=== PATIENT | female | born 1940 | race Caucasian/White ===

== ENCOUNTER 2020-08-06 19:32 | Inpatient (IN) | payer MEDICARE, OTHER ==
[2020-08-06] MEDS ORDERED: SODIUM CHLORIDE 0.9% 1,000 ML IV STA ×2 (21:38)
[2020-08-06] MEDS ORDERED: MORPHINE SULFATE 4 MG/ML SYRINGE IVP STA (21:39)
[2020-08-06] MEDS ORDERED: KETOROLAC 15 MG/ML 1 ML VIAL IVP STA (21:39)
--- NOTE | 2020-08-06 21:43 | ED ---
Recheck HPI - General Chief Complaint: Abdominal Pain Stated Complaint: Abd Pain Time Seen by Provider: 08/06/20 21:33 Source: patient, RN notes reviewed, old records reviewed Mode of arrival: wheelchair Limitations: no limitations - History of Present Illness Initial Comments: This is a 80-year-old female DF for evaluation patient Dese for evaluation r egards to evaluation regarding known kidney stone. Patient was transferred to our emergency Department for evaluation of kidney stone. Complaining of significant pain. Positive nausea no vomiting. Patient presented to outside facility for kidney stone pain transferred here for urology to evaluate MD Complaint: other (Known kidney stone) -: days(s) Returns Today for: persistent/worsening pain related to initial visit Symptoms Since Prior Visit: worsening pain Associated Symptoms: abdominal pain Treatments Prior to Arrival: Given Pain Meds on - Related Data Home Medications Medication Instructions Recorded Confirmed Atorvastatin Calcium [Lipitor] 40 mg PO HS 08/06/20 08/06/20 Sabra 500 mg PO DAILY 08/06/20 08/06/20 Levothyroxine Sodium 100 mcg PO DAILY 08/06/20 08/06/20 Losartan Potassium [Cozaar] 100 mg PO DAILY 08/06/20 08/06/20 Sertraline HCl [Zoloft] 100 mg PO DAILY 08/06/20 08/06/20 Vitamin E 400 unit PO DAILY 08/06/20 08/06/20 amLODIPine [Norvasc] 10 mg PO DAILY 08/06/20 08/06/20 Allergies Allergy/AdvReac Type Severity Reaction Status Date / Time No Known Allergies Allergy Verified 08/06/20 23:15 Review of Systems ROS Statement: Those systems with pertinent positive or pertinent negative responses have been documented in the HPI. ROS Other: All systems not noted in ROS Statement are negative. Past Medical History Past Medical History: Cancer, Hyperlipidemia, Hypertension, Thyroid Disorder Additional Past Medical History / Comment(s): vertigo History of Any Multi-Drug Resistant Organisms: None Reported Past Surgical History: Back Surgery, Breast Surgery Past Psychological History: Depression Smoking Status: Never smoker Past Alcohol Use History: None Reported Past Drug Use History: None Reported General Exam Limitations: no limitations General appearance: alert, in no apparent distress Head exam: Present: atraumatic, normocephalic, normal inspection Eye exam: Present: normal appearance, PERRL, EOMI. Absent: scleral icterus, conjunctival injection, periorbital swelling ENT exam: Present: normal exam, mucous membranes moist Neck exam: Present: normal inspection. Absent: tenderness, meningismus, lymphadenopathy Respiratory exam: Present: normal lung sounds bilaterally. Absent: respiratory distress, wheezes, rales, rhonchi, stridor Cardiovascular Exam: Present: normal rhythm, tachycardia, normal heart sounds. Absent: systolic murmur, diastolic murmur, rubs, gallop, clicks GI/Abdominal exam: Present: soft, normal bowel sounds. Absent: distended, tenderness, guarding, rebound, rigid Extremities exam: Present: normal inspection, full ROM, normal capillary refill. Absent: tenderness, pedal edema, joint swelling, calf tenderness Back exam: Present: normal inspection Neurological exam: Present: alert, oriented X3, CN II-XII intact Psychiatric exam: Present: normal affect, normal mood Skin exam: Present: warm, dry, intact, normal color. Absent: rash Course Vital Signs 08/06/20 08/06/20 08/06/20 21:17 21:23 22:46 Temperature 99.1 F Pulse Rate 106 H 106 H 90 Respiratory 18 16 18 Rate Blood Pressure 79/59 73/46 107/55 O2 Sat by Pulse 93 L 97 Oximetry - Reevaluation(s) Reevaluation #1: 08/06/20 23:34 Medical record is reviewed Reevaluation #2: 08/06/20 23:34 Transferring paperwork is also been reviewed Reevaluation #3: 08/06/20 23:34 Patient still complaining of pain we'll treat patient's pain appropriately - Consultations Consultation #1: Spoke with sound who agrees to admit this patient Medical Decision Making - Medical Decision Making 80 male DF for evaluation patient presents today for evaluation regards to renal colic. Patient is positive kidney stone 6 mm will be admitted for urology to evaluate treat - Lab Data Result diagrams: 08/06/20 22:25 Lab Results 08/06/20 08/06/20 08/06/20 Range/Units 22:25 22:25 22:28 PT 11.5 (9.0-12.0) sec INR 1.1 (<1.2) APTT 24.6 (22.0-30.0) sec Sodium 135 L (137-145) mmol/L Potassium 3.5 (3.5-5.1) mmol/L Chloride 101 (98-107) mmol/L Carbon Dioxide 25 (22-30) mmol/L Anion Gap 9 mmol/L BUN 22 H (7-17) mg/dL Creatinine 1.62 H (0.52-1.04) mg/dL Est GFR (CKD-EPI)AfAm 35 (>60 ml/min/1.73 sqM) Est GFR (CKD-EPI)NonAf 30 (>60 ml/min/1.73 sqM) Glucose 131 H (74-99) mg/dL Plasma Lactic Acid Juvenal 2.7 H* (0.7-2.0) mmol/L Calcium 8.7 (8.4-10.2) mg/dL Magnesium 1.3 L (1.6-2.3) mg/dL Total Bilirubin 0.9 (0.2-1.3) mg/dL AST 37 H (14-36) U/L ALT 21 (4-34) U/L Alkaline Phosphatase 99 (38-126) U/L C-Reactive Protein 67.5 H (<10.0) mg/L Total Protein 6.6 (6.3-8.2) g/dL Albumin 3.6 (3.5-5.0) g/dL - EKG Data -: EKG Interpreted by Me (EKG shows sinus rhythm 98 MS 190 QRS 102 QTC 464) - Radiology Data Radiology results: report reviewed Disposition Clinical Impression: Kidney stone, Intractable pain Disposition: ADMITTED IP TO THIS [facility] Condition: Good Is patient prescribed a controlled substance at d/c from ED?: No Referrals: None,Stated [Primary Care Provider] - 1-2 days
[2020-08-06 22:39] LABS: Albumin 3.6 g/dL (3.5-5.0); C Reactive Protein 67.5 mg/L (<10.0); Calcium 8.7 mg/dL (8.4-10.2); Magnesium 1.3 mg/dL (1.6-2.3); Potassium 3.5 mmol/L (3.5-5.1); Total Bilirubin 0.9 mg/dL (0.2-1.3); Total Protein 6.6 g/dL (6.3-8.2)
[2020-08-06 22:54] LABS: INR 1.1 (<1.2); Partial Thromboplastin Time 24.6 sec (22.0-30.0); Prothrombin Time 11.5 sec (9.0-12.0)
[2020-08-06] MEDS ORDERED: NALOXONE 0.4 MG/ML 1 ML VIAL IV PRN (23:28)
[2020-08-07 00:04] LABS: HCT 39.1 % (34.0-46.0); HGB 13.4 gm/dL (11.4-16.0); MCH 32.8 pg (25.0-35.0); MCHC 34.2 g/dL (31.0-37.0); MCV 95.9 fL (80.0-100.0); Platelet Count 198 k/uL (150-450); RBC 4.07 m/uL (3.80-5.40); RDW 12.6 % (11.5-15.5); WBC 37.3 k/uL (3.8-10.6)
--- NOTE | 2020-08-07 01:59 | P.HPIM ---
History of Present Illness H&P Date: 08/06/20 Chief Complaint: back pain 80 year old female with history of renal stone, hypertension , hypothyroid, breast ca in remission [place] pain radiating from one flank to the other started suddenly today rated the pain as 8 out of 10 in severity sharp colicky pain no specific relieving or aggravating factor associated with feeling nauseous and having chills no vomiting no hematuria patient noticed decreased urine output however she is normally incontinent to urine, patient also reports 3 episodes of loose bowel movement. She felt very sick today went for evaluation CAT scan was done and was found to have a 6 mm in the right UPJ causing severe right hydronephrosis for which she [place] and evaluation by urology patient reports that pain is improving with IV pain medications. She does have history positive for kidney stones in the past that she thinks she passed on her own In the ED blood work showed elevated white count, acute kidney injury, lactic acidosis Review of Systems Pertinent positives as noted in HPI. All other systems were reviewed and are negative Past Medical History Past Medical History: Cancer, Hyperlipidemia, Hypertension, Thyroid Disorder Additional Past Medical History / Comment(s): vertigo History of Any Multi-Drug Resistant Organisms: None Reported Past Surgical History: Back Surgery, Breast Surgery Past Psychological History: Depression Smoking Status: Never smoker Past Alcohol Use History: None Reported Past Drug Use History: None Reported - Past Family History family Family Medical History: No Reported History Medications and Allergies Home Medications Medication Instructions Recorded Confirmed Type Atorvastatin Calcium [Lipitor] 40 mg PO HS 08/06/20 08/06/20 History Sabra 500 mg PO DAILY 08/06/20 08/06/20 History Levothyroxine Sodium 100 mcg PO DAILY 08/06/20 08/06/20 History Losartan Potassium [Cozaar] 100 mg PO DAILY 08/06/20 08/06/20 History Sertraline HCl [Zoloft] 100 mg PO DAILY 08/06/20 08/06/20 History Vitamin E 400 unit PO DAILY 08/06/20 08/06/20 History amLODIPine [Norvasc] 10 mg PO DAILY 08/06/20 08/06/20 History Allergies Allergy/AdvReac Type Severity Reaction Status Date / Time No Known Allergies Allergy Verified 04/05/21 23:15 Physical Exam Vitals: Vital Signs Temp Pulse Resp BP Pulse Ox 08/07/20 01:39 99.1 F 102 H 18 102/53 91 L 08/06/20 22:46 90 18 107/55 97 08/06/20 21:23 106 H 16 73/46 08/06/20 21:17 99.1 F 106 H 18 79/59 93 L Intake and Output 08/06/20 08/06/20 08/07/20 14:59 22:59 06:59 Other: Weight 90.718 kg Constitutional: No acute distress, conversant, pleasant Eyes: Anicteric sclerae, moist conjunctiva, Pupils equal round reactive to light ENMT: NC/AT Oropharynx clear, no erythema, or exudates Neck: Supple, FROM, no masses, or JVD No carotid bruits No thyromegaly Lungs: Clear to auscultation Clear to percussion Normal respiratory effort, no accessory muscle use Cardiovascular: Heart regular in rate and rhythm, No murmurs, gallops, or rubs No peripheral edema Abdominal: Soft Nontender, tenderness to percussion to the right costovertebral angle, no guarding, rebound or rigidity Abdomen moving with respiration Normoactive bowel sounds No hepatomegaly, No splenomegaly No palpable mass No abdominal wall hernia noted Skin: Normal temperature, tone, texture, turgor No induration No subcutaneous nodules No rash, lesions No ulcers Extremities: No digital cyanosis No clubbing Pedal pulses intact and symmetrical Radial pulses intact and symmetrical No calf tenderness Psychiatric: Alert and oriented to person, place and time Appropriate affect fair judgement Neuro Muscles Strength 5/5 in all 4 extremities Sensation to light touch grossly present throughout Cranial nerves II-XII grossly intact No focal sensory deficits Lymphatics: no palpable cervical or supraclavicular , or inguinal lymph nodes Results CBC & Chem 7: 08/06/20 22:25 08/06/20 22:25 Labs: Abnormal Lab Results - Last 24 Hours (Table) 08/06/20 08/06/20 08/06/20 Range/Units 22:25 22:25 22:25 WBC 37.3 H (3.8-10.6) k/uL Sodium 135 L (137-145) mmol/L BUN 22 H (7-17) mg/dL Creatinine 1.62 H (0.52-1.04) mg/dL Glucose 131 H (74-99) mg/dL Plasma Lactic Acid Juvenal 2.7 H* (0.7-2.0) mmol/L Magnesium 1.3 L (1.6-2.3) mg/dL AST 37 H (14-36) U/L C-Reactive Protein 67.5 H (<10.0) mg/L Assessment and Plan Assessment: Obstructive right ureteral stone resulting in severe hydronephrosis Acute kidney injury secondary to obstructive uropathy Rule out pyelonephritis Actiq acidosis Plan Follow-up cultures Urine cultures Start patient on Rocephin Urology consultation Monitor urine output and strain urine, monitor for signs of of postobstructive nephrogenic diabetes insipidus Flomax, IV fluid hydration aggressive Pain control with morphine Zofran for nausea vomiting Chronic conditions Hypertension Hypothyroidism Resume home medications Hold losartan due to acute kidney injury CODE STATUS: Full code DVT prophylaxis: Heparin Subcu Discussed with: Patient, ER Anticipated length of stay > than [address]: Home A total of 75 minutes was spent on the care of this complex patient more than 50% of the time was spent in counseling and care coordination.
[2020-08-07 03:11] LABS: Band Neutrophils % 31 %; Lymphocytes # (M) 0.75 k/uL (1.0-4.8); Monocytes # (M) 0.75 k/uL (0-1.0); Neutrophils % (M) 66 %; Nucleated Red Blood Cells 0 /100 WBC (0-0); Total Cells Counted 200
[2020-08-07 03:12] LABS: Anisocytosis (M) Present
[2020-08-07 03:13] LABS: Large Platelets Present; Polychromasia Present
[2020-08-07] MEDS: ONDANSETRON 4 MG/2 ML VIAL IVP PRN ×2 (04:13→13:59)
[2020-08-07] MEDS ORDERED: SODIUM CHLORIDE 0.9% 1,000 ML IV ONE ×4 (04:22→22:11)
[2020-08-07] MEDS: TAMSULOSIN 0.4 MG CAP.ER.24H PO SCH (05:05)
[2020-08-07 05:55] LABS: Calcium 7.4 mg/dL (8.4-10.2); Potassium 3.9 mmol/L (3.5-5.1)
[2020-08-07] MEDS: LEVOTHYROXINE 100 MCG TAB PO SCH (06:41)
[2020-08-07] MEDS: ACETAMINOPHEN TAB 325 MG TAB PO PRN ×2 (06:44→22:57)
[2020-08-07 09:26] LABS: Appearance,Urine Turbid (Clear); Bacteria,Urine Occasional /hpf; Bilirubin,Urine Negative (Negative); Blood,Urine Large (Negative); Color,Urine Yellow; Glucose,Urine (UA) Negative (Negative); Ketones,Urine Negative (Negative); Leukocyte Esterase,Urine Large (Negative); Nitrite,Urine Negative (Negative); PH, Urine 5.5 (5.0-8.0); Protein,Urine 2+ (Negative); RBC,Urine 25 /hpf (0-5); Specific Gravity,Urine 1.017 (1.001-1.035); Squamous Epithelial Cell,Urine 1 /hpf (0-4); WBC,Urine >182 /hpf (0-5)
[2020-08-07] MEDS: SERTRALINE 100 MG TAB PO SCH (09:28)
[2020-08-07] MEDS: amLODIPine 10 MG TAB PO SCH (09:28)
[2020-08-07] MEDS: MAGNESIUM SULFATE-D5W PMX 1 GM in DEXTROSE/WATER 1 100ML.BAG IVPB SCH ×4 (10:18→13:48)
[2020-08-07] MEDS ORDERED: IV FLUID CONTINUATION 1,000 ML IV ONE (13:48)
--- NOTE | 2020-08-07 14:02 | P.GSCN ---
History of Present Illness Consult date: 08/07/20 Reason for Consult: Right UPJ calculus Requesting physician: Sheryl Sanchez History of present illness: The patient is a 80-year-old white female evaluated yesterday at [facility] in [facility] for back pain radiating bilaterally. The patient has a history of kidney stones and felt that this was the cause of her symptoms. Computed tomography scan shows severe right hydronephrosis with moderate perinephric urinary extravasation due to a 4.7 x 6.1 mm right UPJ calculus. 2 right lower pole renal calculi were also seen, measuring 4.8 and 6.4 mm. Additionally, a 3.3 mm nonobstructing left lower pole renal calculus was seen. The patient presented to the emergency room at [facility] yesterday evening and was admitted. Review of Systems - Constitutional Reports fever - Gastrointestinal Reports nausea, Reports vomiting - Genitourinary Genitourinary: Reports flank pain, Reports kidney stones Past Medical History Past Medical History: Cancer, Hyperlipidemia, Hypertension, Thyroid Disorder Additional Past Medical History / Comment(s): vertigo History of Any Multi-Drug Resistant Organisms: None Reported Past Surgical History: Back Surgery, Breast Surgery Past Anesthesia/Blood Transfusion Reactions: No Reported Reaction Past Psychological History: Depression Smoking Status: Never smoker Past Alcohol Use History: None Reported Past Drug Use History: None Reported - Past Family History family Family Medical History: No Reported History Medications and Allergies Home Medications Medication Instructions Recorded Confirmed Type Atorvastatin Calcium [Lipitor] 40 mg PO HS 08/06/20 08/06/20 History Sabra 500 mg PO DAILY 08/06/20 08/06/20 History Levothyroxine Sodium 100 mcg PO DAILY 08/06/20 08/06/20 History Losartan Potassium [Cozaar] 100 mg PO DAILY 08/06/20 08/06/20 History Sertraline HCl [Zoloft] 100 mg PO DAILY 08/06/20 08/06/20 History Vitamin E 400 unit PO DAILY 08/06/20 08/06/20 History amLODIPine [Norvasc] 10 mg PO DAILY 08/06/20 08/06/20 History Allergies Allergy/AdvReac Type Severity Reaction Status Date / Time No Known Allergies Allergy Verified 08/06/20 23:15 Surgical - Exam Vital Signs Temp Pulse Resp BP Pulse Ox 99.1 F 106 H 18 79/59 93 L 08/06/20 21:17 08/06/20 21:17 08/06/20 21:17 08/06/20 21:17 08/06/20 21:17 - General well developed, well nourished, no distress - Neck no masses, trachea midline - Respiratory normal respiratory effort - Abdomen Abdomen: soft, tender (Mild right sided tenderness), no masses, no guarding, no rigid, no rebound - Psychiatric oriented to time, oriented to person, oriented to place, speech is normal, m forrest intact Results - Labs 08/06/20 22:25 08/07/20 05:12 Abnormal Lab Results - Last 24 Hours (Table) 08/06/20 08/06/20 08/06/20 Range/Units 22:25 22:25 22:25 WBC 37.3 H (3.8-10.6) k/uL Neutrophils # (Manual) 36.10 H (1.3-7.7) k/uL Lymphocytes # (Manual) 0.75 L (1.0-4.8) k/uL Sodium 135 L (137-145) mmol/L Carbon Dioxide (22-30) mmol/L BUN 22 H (7-17) mg/dL Creatinine 1.62 H (0.52-1.04) mg/dL Glucose 131 H (74-99) mg/dL Plasma Lactic Acid Juvenal 2.7 H* (0.7-2.0) mmol/L Calcium (8.4-10.2) mg/dL Magnesium 1.3 L (1.6-2.3) mg/dL AST 37 H (14-36) U/L C-Reactive Protein 67.5 H (<10.0) mg/L Urine Appearance (Clear) Urine Protein (Negative) Urine Blood (Negative) Ur Leukocyte Esterase (Negative) Urine RBC (0-5) /hpf Urine WBC (0-5) /hpf Urine WBC Clumps (None) /hpf Urine Bacteria (None) /hpf 08/07/20 08/07/20 08/07/20 Range/Units 01:21 05:12 05:12 WBC (3.8-10.6) k/uL Neutrophils # (Manual) (1.3-7.7) k/uL Lymphocytes # (Manual) (1.0-4.8) k/uL Sodium 135 L (137-145) mmol/L Carbon Dioxide 20 L (22-30) mmol/L BUN 28 H (7-17) mg/dL Creatinine 1.75 H (0.52-1.04) mg/dL Glucose 110 H (74-99) mg/dL Plasma Lactic Acid Juvenal 3.3 H* 2.2 H* (0.7-2.0) mmol/L Calcium 7.4 L (8.4-10.2) mg/dL Magnesium (1.6-2.3) mg/dL AST (14-36) U/L C-Reactive Protein (<10.0) mg/L Urine Appearance (Clear) Urine Protein (Negative) Urine Blood (Negative) Ur Leukocyte Esterase (Negative) Urine RBC (0-5) /hpf Urine WBC (0-5) /hpf Urine WBC Clumps (None) /hpf Urine Bacteria (None) /hpf 08/07/20 Range/Units 09:00 WBC (3.8-10.6) k/uL Neutrophils # (Manual) (1.3-7.7) k/uL Lymphocytes # (Manual) (1.0-4.8) k/uL Sodium (137-145) mmol/L Carbon Dioxide (22-30) mmol/L BUN (7-17) mg/dL Creatinine (0.52-1.04) mg/dL Glucose (74-99) mg/dL Plasma Lactic Acid Juvenal (0.7-2.0) mmol/L Calcium (8.4-10.2) mg/dL Magnesium (1.6-2.3) mg/dL AST (14-36) U/L C-Reactive Protein (<10.0) mg/L Urine Appearance Turbid H (Clear) Urine Protein 2+ H (Negative) Urine Blood Large H (Negative) Ur Leukocyte Esterase Large H (Negative) Urine RBC 25 H (0-5) /hpf Urine WBC >182 H (0-5) /hpf Urine WBC Clumps Many H (None) /hpf Urine Bacteria Occasional H (None) /hpf Microbiology - Last 24 Hours (Table) 08/07/20 03:45 Urine Culture - Preliminary Urine,Clean Catch Diabetes panel 08/06/20 08/07/20 Range/Units 22:25 05:12 Sodium 135 L 135 L (137-145) mmol/L Potassium 3.5 3.9 (3.5-5.1) mmol/L Chloride 101 107 (98-107) mmol/L Carbon Dioxide 25 20 L (22-30) mmol/L BUN 22 H 28 H (7-17) mg/dL Creatinine 1.62 H 1.75 H (0.52-1.04) mg/dL Glucose 131 H 110 H (74-99) mg/dL Calcium 8.7 7.4 L (8.4-10.2) mg/dL AST 37 H (14-36) U/L ALT 21 (4-34) U/L Alkaline Phosphatase 99 (38-126) U/L Total Protein 6.6 (6.3-8.2) g/dL Albumin 3.6 (3.5-5.0) g/dL Calcium panel 08/06/20 08/07/20 Range/Units 22:25 05:12 Calcium 8.7 7.4 L (8.4-10.2) mg/dL Albumin 3.6 (3.5-5.0) g/dL Pituitary panel 08/06/20 08/07/20 Range/Units 22:25 05:12 Sodium 135 L 135 L (137-145) mmol/L Potassium 3.5 3.9 (3.5-5.1) mmol/L Chloride 101 107 (98-107) mmol/L Carbon Dioxide 25 20 L (22-30) mmol/L BUN 22 H 28 H (7-17) mg/dL Creatinine 1.62 H 1.75 H (0.52-1.04) mg/dL Glucose 131 H 110 H (74-99) mg/dL Calcium 8.7 7.4 L (8.4-10.2) mg/dL Adrenal panel 08/06/20 08/07/20 Range/Units 22:25 05:12 Sodium 135 L 135 L (137-145) mmol/L Potassium 3.5 3.9 (3.5-5.1) mmol/L Chloride 101 107 (98-107) mmol/L Carbon Dioxide 25 20 L (22-30) mmol/L BUN 22 H 28 H (7-17) mg/dL Creatinine 1.62 H 1.75 H (0.52-1.04) mg/dL Glucose 131 H 110 H (74-99) mg/dL Calcium 8.7 7.4 L (8.4-10.2) mg/dL Total Bilirubin 0.9 (0.2-1.3) mg/dL AST 37 H (14-36) U/L ALT 21 (4-34) U/L Alkaline Phosphatase 99 (38-126) U/L Total Protein 6.6 (6.3-8.2) g/dL Albumin 3.6 (3.5-5.0) g/dL - Imaging CT scan - abdomen: report reviewed Assessment and Plan (1) Calculus of ureter Current Visit: Yes Status: Acute Code(s): N20.1 - CALCULUS OF URETER SNOM ED Code(s): 12511254 (2) Hydronephrosis with renal and ureteral calculous obstruction Current Visit: Yes Status: Acute Code(s): N13.2 - HYDRONEPHROSIS WITH RENAL AND URETERAL CALCULOUS OBSTRUCTION SNOMED Code(s): 270600306 (3) Acute pyelonephritis Current Visit: Yes Status: Acute Code(s): N10 - ACUTE PYELONEPHRITIS SNOMED Code(s): 71290748 Plan: Cystoscopy, right ureteral stent insertion. The rationale for this was discussed in detail with the patient. She was advised that she appears to have acute right pyelonephritis complicated by an obstructing UPJ calculus, and stent placement will help to eradicate the infection. It was also made clear to her that the stent is to remain in place only temporarily, and that she will require removal of the stent and the obstructing stone after the infection clears. She indicated to me that her significant other resides in [place], and that she is from [place], and she may choose to undergo the secondary procedure and one of those locations. Potential risks associated with stent placement include anesthesia, ureteral injury, and inability to successfully place the stent. If this is the case, she could require nephrostomy tube placement. This was all reviewed with her in detail. Time with Patient: Greater than 30
[2020-08-07] MEDS ORDERED: PROPOFOL 10 MG/ML 20 ML VIAL IV ONE (14:41)
[2020-08-07] MEDS ORDERED: SUCCINYLCHOLINE CHLORIDE 100 MG/5 ML SYR IV ONE (14:41)
[2020-08-07] MEDS ORDERED: LIDOCAINE 1% INJ 10MG/ML (20 ML MDV) ONE (14:41)
--- NOTE | 2020-08-07 15:22 | P.OP ---
Date of Procedure: 08/07/20 Preoperative Diagnosis: Acute right pyelonephritis, right hydronephrosis secondary to right UPJ calculus Postoperative Diagnosis: Same Procedure(s) Performed: Cystoscopy, right ureteral stent insertion Anesthesia: RICHARD Surgeon: Dagoberto Slaughter Estimated Blood Loss (ml): 0 IV fluids (ml): 200 Pathology: none sent Condition: stable Disposition: PACU Indications for Procedure: The patient is a 80-year-old white female evaluated yesterday at [facility] in [facility] for back pain radiating bilaterally. The patient has a history of kidney stones and felt that this was the cause of her symptoms. CT scan showed severe right hydronephrosis with moderate perinephric urinary extravasation due to a 4.7 x 6.1 mm right UPJ calculus. 2 right lower pole renal calculi were also seen, measuring 4.8 and 6.4 mm. Additionally, a 3.3 mm nonobstructing left lower pole renal calculus was seen. The patient presented to the emergency room at [facility] yesterday evening and was admitted. She has been febrile, her WBC count is significantly elevated, and urinalysis shows evidence of infection. These findings are all consistent with acute right pyelonephritis and sepsis. Operative Findings: Purulent urine drained from right renal pelvis. Description of Procedure: The patient was taken to the operating room and placed in the dorsolithotomy position, with legs supported in Darinel stirrups. The external genitalia was prepped and draped sterilely. The 30 lens was used to introduce the 22-Japanese Stortz cystoscopic sheath through the urethra and into the bladder under direct vision. The urethra appeared normal. The bladder was examined in its entirety. Both ureteral orifices were of normal anatomic location and configuration. No tumors or foreign bodies were seen. An angle-tip 0.035 inch Glidewire was passed through the cystoscope. The right ureteral orifice was cannulated, and the Glidewire was slowly advanced up to the renal pelvis. A 24 cm, 6-Japanese double-J ureteral stent was placed over the wire. Proper stent positioning was verified fluoroscopically and endoscopically. Purulent urine drained through the stent. With the beak of the cystoscope immediately adjacent to the distal end of the stent, a urine specimen was obtained and sent for culture and sensitivity. The bladder was emptied and the cystoscope removed. The patient tolerated the procedure well was taken to the recovery room in stable condition.
--- NOTE | 2020-08-07 15:36 | FL ---
Fluoroscopy INDICATION: Pain FINDINGS: Fluoroscopy time: 14 seconds. Images obtained: 1. IMPRESSIONS: 1. Documentation of fluoroscopy.
[2020-08-07] MEDS ORDERED: GENTAMICIN PER PHARMACY MISCELLANE PRN (16:32)
[2020-08-07] MEDS ORDERED: GENTAMICIN 320 MG in SODIUM CHLORIDE 0.9% 100 ML IVPB ONE (18:00)
--- NOTE | 2020-08-07 18:13 | P.PN ---
<Gorge Foley - Last Filed: 08/07/20 17:25> Subjective Progress Note Date: 08/07/20 Hospital course: Patient is a 80-year-old female with a past medical history of hypertension, hyperlipidemia, hypothyroidism, and breast cancer currently in remission. She w as transferred to our facility from [facility] in [facility] and is currently admitted under our services with severe sepsis with obstructive severe hydronephrosis with acute kidney injury. Patient's WBC count is 37.3. Initial lactate was 3.3 with repeat of 2.2 status post 3 L bolus. Patient tachycardic, febrile, and hypotensive. Urinalysis positive for turbid appearance positive for blood, leukocytes, 25 RBCs, >182 WBCs with WBC clumps and bacteria. EKG revealing normal sinus rhythm and 98 bpm with no noted T-wave or ST abnormalities. Patient had CT prior to being transferred to our facility and per documentation, this revealed an obstructive 6 mm kidney stone in the rig ht UPJ causing severe right hydronephrosis. Physical exam: Patient was seen and fully evaluated at the bedside this morning. She was sitting up in the chair. She reports having persistent bilateral lower flank pain and difficulties with urination. Order placed for bladder management and patient straight cath'd for urine. Urinalysis positive for infection. Patient to continue receiving IV antibiotic with Rocephin pending urine culture results and sensitivity. Pt being taken to OR with Dr. Slaughter today, awaiting OR time. Patient denies having any headache, lightheadedness, dizziness, chest pain, palpitations, shortness of breath, and has not experienced any episodes of vomiting. Patient vital signs reviewed positive for sepsis with temp 101.2F, hypotension with blood pressure 99/58, tachycardic with heart rate 102, tachypnea with respiratory rate 22, and SpO2 90% on room air. General: non toxic, vital signs positive for sepsis upon appearance patient appears comfortable showing no signs of acute distress with physical examination, appears at stated age Derm: warm, dry Head: atraumatic, normocephalic, symmetric Eyes: EOMI, no lid lag, anicteric sclera Mouth: no lip lesion, mucus membranes moist Cardiovascular: S1S2 normal, tachycardic rate with regular rhythm, no gallop, murmur, or rub noted. No lower extremity edema. Positive posterior tibial pulses bilaterally. Cap refill less than 2 seconds. Lungs: Respirations even, regular, and unlabored on room air. Lungs CTA bilaterally with no wheezes, rhonchi, or rales present. No accessory muscle use. Right mastectomy. Abdominal: soft, tenderness reported to bilateral lower quadrants and suprapubic region with palpation. No appreciable organomegaly. No CVA tenderness. Ext: No gross muscle atrophy, no edema, no contractures Neuro: CN II-XI grossly intact, no focal neuro deficits Psych: Alert, oriented, appropriate affect Assessment and Plan of care: Severe sepsis secondary to acute cystitis -Severe sepsis with temp 101.2F, hypotension with blood pressure 99/58, tachycardic with heart rate 102, tachypnea with respiratory rate 22, and SpO2 90% on room air. WBC 37.3. Initial lactate 3.3 with repeat of 2.2 status post 3 L bolus. -Urinalysis positive for turbid appearance positive for blood, leukocytes, 25 RBCs, >182 WBCs with WBC clumps and bacteria -Continue hydration with IV fluids -IV antibiotics with Rocephin pending urine culture and sensitivity -Repeat lactate and continue to monitor vital signs closely -Urine culture and sensitivity pending -Bladder management -Monitor I's and O's closely Obstructive right ureteral stone resulting in severe hydronephrosis -CT scan completed at [facility] prior to being transferred to our facility reportedly revealed an obstructive 6 mm kidney stone in the right UPJ causing severe right hydronephrosis. -Bladder management with close monitoring of I's and O's -Urology following with plans to take patient to OR today -Pain management and symptomatic treatment. -Fluid hydration and treatment of acute cystitis -NPO pending surgery Acute kidney injury secondary to obstructive uropathy -Severe sepsis with temp 101.2F, hypotension with blood pressure 99/58, tachycardic with heart rate 102, tachypnea with respiratory rate 22, and SpO2 90% on room air. WBC 37.3. Initial lactate 3.3 with repeat of 2.2 status post 3 L bolus. -Continue hydration with IV fluids -Repeat lactate -Urine culture and sensitivity pending -CT scan completed at [facility] prior to being transferred to our facility reportedly revealed an obstructive 6 mm kidney stone in the right UPJ causing severe right hydronephrosis. Acute kidney injury secondary to obstructive uropathy -BUN 28, creatinine 1.75, and GFR of 27. -Urology is following -Dr. Slaughter with plans to take patient to OR today. -Gentle hydration -Bladder management -Continue close monitoring with repeat a.m. labs Hypertension -Monitor vital signs and continue daily medication management with amlodipine. Hold losartan due to TUTU. Hyperlipidemia -Continue daily home medication regimen with atorvastatin 40 mg nightly. Hypothyroidism -Continue daily medication regimen with Synthroid 100 g daily CODE STATUS: Full code DVT prophylaxis: Heparin Discussed with: Patient and RN Anticipated discharge date: Clinical course to determine Anticipated discharge place: Home A total of 45 minutes was spent on the care of this complex patient more than 50% of the time was spent in counseling and care coordination. Objective - Vital Signs Vital signs: Vital Signs Temp 101.2 F H 08/07/20 06:42 Pulse 104 H 08/07/20 05:11 Resp 22 08/07/20 05:11 BP 88/55 08/07/20 04:45 Pulse Ox 92 L 08/07/20 04:45 Intake & Output 08/06/20 08/07/20 08/07/20 18:59 06:59 18:59 Output Total 1 Balance -1 Weight 88.8 kg Output: Emesis 1 Other: Voiding Method Toilet # Voids 1 - Labs CBC & Chem 7: 08/06/20 22:25 08/07/20 05:12 Labs: Abnormal Lab Results - Last 24 Hours (Table) 08/06/20 08/06/20 08/06/20 Range/Units 22:25 22:25 22:25 WBC 37.3 H (3.8-10.6) k/uL Neutrophils # (Manual) 36.10 H (1.3-7.7) k/uL Lymphocytes # (Manual) 0.75 L (1.0-4.8) k/uL Sodium 135 L (137-145) mmol/L Carbon Dioxide (22-30) mmol/L BUN 22 H (7-17) mg/dL Creatinine 1.62 H (0.52-1.04) mg/dL Glucose 131 H (74-99) mg/dL Plasma Lactic Acid Juvenal 2.7 H* (0.7-2.0) mmol/L Calcium (8.4-10.2) mg/dL Magnesium 1.3 L (1.6-2.3) mg/dL AST 37 H (14-36) U/L C-Reactive Protein 67.5 H (<10.0) mg/L 08/07/20 08/07/20 08/07/20 Range/Units 01:21 05:12 05:12 WBC (3.8-10.6) k/uL Neutrophils # (Manual) (1.3-7.7) k/uL Lymphocytes # (Manual) (1.0-4.8) k/uL Sodium 135 L (137-145) mmol/L Carbon Dioxide 20 L (22-30) mmol/L BUN 28 H (7-17) mg/dL Creatinine 1.75 H (0.52-1.04) mg/dL Glucose 110 H (74-99) mg/dL Plasma Lactic Acid Juvenal 3.3 H* 2.2 H* (0.7-2.0) mmol/L Calcium 7.4 L (8.4-10.2) mg/dL Magnesium (1.6-2.3) mg/dL AST (14-36) U/L C-Reactive Protein (<10.0) mg/L <Nel Tapia - Last Filed: 08/07/20 21:29> Objective - Vital Signs Vital signs: Vital Signs Temp 99.2 F 08/07/20 18:28 Pulse 100 08/07/20 20:43 Resp 20 08/07/20 20:43 BP 110/52 08/07/20 20:43 Pulse Ox 94 L 08/07/20 20:43 Intake & Output 08/07/20 08/07/20 08/08/20 06:59 18:59 06:59 Intake Total 500 Output Total 1 50 Balance -1 450 Weight 88.8 kg Intake: IV 500 Output: Urine 50 Emesis 1 Estimated Blood Loss 0 Other: Voiding Method Toilet Toilet Diaper # Voids 1 1 - Labs CBC & Chem 7: 08/07/20 19:44 08/07/20 19:44 Labs: Abnormal Lab Results - Last 24 Hours (Table) 08/06/20 08/06/20 08/06/20 Range/Units 22:25 22:25 22:25 WBC 37.3 H (3.8-10.6) k/uL Plt Count (150-450) k/uL Neutrophils # (Manual) 36.10 H (1.3-7.7) k/uL Lymphocytes # (Manual) 0.75 L (1.0-4.8) k/uL Metamyelocytes # (Man) (0) k/uL Sodium 135 L (137-145) mmol/L Carbon Dioxide (22-30) mmol/L BUN 22 H (7-17) mg/dL Creatinine 1.62 H (0.52-1.04) mg/dL Glucose 131 H (74-99) mg/dL Plasma Lactic Acid Juvenal 2.7 H* (0.7-2.0) mmol/L Calcium (8.4-10.2) mg/dL Magnesium 1.3 L (1.6-2.3) mg/dL AST 37 H (14-36) U/L C-Reactive Protein 67.5 H (<10.0) mg/L Urine Appearance (Clear) Urine Protein (Negative) Urine Blood (Negative) Ur Leukocyte Esterase (Negative) Urine RBC (0-5) /hpf Urine WBC (0-5) /hpf Urine WBC Clumps (None) /hpf Urine Bacteria (None) /hpf 08/07/20 08/07/20 08/07/20 Range/Units 01:21 05:12 05:12 WBC (3.8-10.6) k/uL Plt Count (150-450) k/uL Neutrophils # (Manual) (1.3-7.7) k/uL Lymphocytes # (Manual) (1.0-4.8) k/uL Metamyelocytes # (Man) (0) k/uL Sodium 135 L (137-145) mmol/L Carbon Dioxide 20 L (22-30) mmol/L BUN 28 H (7-17) mg/dL Creatinine 1.75 H (0.52-1.04) mg/dL Glucose 110 H (74-99) mg/dL Plasma Lactic Acid Juvenal 3.3 H* 2.2 H* (0.7-2.0) mmol/L Calcium 7.4 L (8.4-10.2) mg/dL Magnesium (1.6-2.3) mg/dL AST (14-36) U/L C-Reactive Protein (<10.0) mg/L Urine Appearance (Clear) Urine Protein (Negative) Urine Blood (Negative) Ur Leukocyte Esterase (Negative) Urine RBC (0-5) /hpf Urine WBC (0-5) /hpf Urine WBC Clumps (None) /hpf Urine Bacteria (None) /hpf 08/07/20 08/07/20 08/07/20 Range/Units 09:00 19:44 19:44 WBC 29.1 H (3.8-10.6) k/uL Plt Count 115 L (150-450) k/uL Neutrophils # (Manual) 26.10 H (1.3-7.7) k/uL Lymphocytes # (Manual) 0.58 L (1.0-4.8) k/uL Metamyelocytes # (Man) 2.62 H (0) k/uL Sodium 135 L (137-145) mmol/L Carbon Dioxide 20 L (22-30) mmol/L BUN 38 H (7-17) mg/dL Creatinine 1.85 H (0.52-1.04) mg/dL Glucose 107 H (74-99) mg/dL Plasma Lactic Acid Juvenal (0.7-2.0) mmol/L Calcium 7.4 L (8.4-10.2) mg/dL Magnesium 2.7 H (1.6-2.3) mg/dL AST (14-36) U/L C-Reactive Protein (<10.0) mg/L Urine Appearance Turbid H (Clear) Urine Protein 2+ H (Negative) Urine Blood Large H (Negative) Ur Leukocyte Esterase Large H (Negative) Urine RBC 25 H (0-5) /hpf Urine WBC >182 H (0-5) /hpf Urine WBC Clumps Many H (None) /hpf Urine Bacteria Occasional H (None) /hpf Microbiology - Last 24 Hours (Table) 08/07/20 03:45 Urine Culture - Preliminary Urine,Clean Catch Assessment and Plan Assessment: Patient seen and examined independently. Patient was also seen by Gorge Foley NP and case was discussed. I am in agreement with subjective, physical exam, assessment and plan as written above and amended below. Patient initially seen at 8 AM. She reports feeling fatigued and tired with some intermittent nausea. She denies any back pain or tenderness. She reports having 2 previous kidney stone 1 requiring no treatment and 1 where stent placement was unsuccessful. Patient then seen in PACU after surgery. She has been extubated. She is awake and alert but feels somewhat lethargic. Vital signs were stable with a pulse of 98, blood pressure 105/68, and satting 98% on a simple face mask. Patient is appropriate to return to the pediatric floor with close monitoring. Case was also discussed with Dr. Slaughter in the afternoon and patient will receive one dose of gentamicin, pharmacy will dose given her diminished renal function. General: Ill-appearing, diaphoretic, appears at stated age Derm: warm, dry Head: atraumatic, normocephalic, symmetric Eyes: EOMI, no lid lag, anicteric sclera Mouth: no lip lesion, mucus membranes moist Cardiovascular: S1S2 reg, no murmur, positive posterior tibial pulse bilateral, Lungs: CTA bilateral, no rhonchi, no rales , no accessory muscle use Abdominal: soft, nontender to palpation, no guarding, no appreciable organomegaly, no CVA tenderness Ext: no gross muscle atrophy, no edema, no contractures Neuro: CN II-XI grossly intact, no focal neuro deficits Psych: Alert, oriented, appropriate affect Pyelonephritis with sepsis and obstructing right UPJ stone, s/p ureteral stent placement -Case discussed with Dr. Slaughter -Continue with Rocephin, 1 dose of aminoglycoside -Continue IV fluids -Monitor closely Thrombocytopenia, likely reactive
[2020-08-07] MEDS: SODIUM CHLORIDE 0.9% 1,000 ML IV SCH (18:32)
[2020-08-07 20:09] LABS: Calcium 7.4 mg/dL (8.4-10.2); Magnesium 2.7 mg/dL (1.6-2.3); Potassium 3.7 mmol/L (3.5-5.1)
[2020-08-07 20:13] LABS: MCH 32.8 pg (25.0-35.0); MCHC 34.3 g/dL (31.0-37.0); MCV 95.7 fL (80.0-100.0); Mean Platelet Volume 8.1; Platelet Count 115 k/uL (150-450); RBC 3.97 m/uL (3.80-5.40); RDW 12.6 % (11.5-15.5); WBC 29.1 k/uL (3.8-10.6)
[2020-08-07 20:49] LABS: Band Neutrophils % 29 %; Lymphocytes # (M) 0.58 k/uL (1.0-4.8); Metamyelocytes # (M) 2.62 k/uL (0); Metamyelocytes % 9 %; Monocytes # (M) 0.29 k/uL (0-1.0); Neutrophils % (M) 61 %; Nucleated Red Blood Cells 0 /100 WBC (0-0); Total Cells Counted 200
[2020-08-07] MEDS: ATORVASTATIN 40 MG TAB PO SCH (21:48)
[2020-08-07] MEDS: HEPARIN SODIUM,PORCINE/PF 5,000 UNIT/0.5 ML SYRINGE SQ SCH (21:48)
[2020-08-08] MEDS: ONDANSETRON 4 MG/2 ML VIAL IVP PRN ×3 (02:41→15:12)
[2020-08-08] MEDS: SIMETHICONE 80 MG CHEWABLE PO PRN (06:12)
[2020-08-08 09:01] LABS: Potassium 3.9 mmol/L (3.5-5.1)
[2020-08-08 09:02] LABS: Magnesium 2.6 mg/dL (1.6-2.3)
[2020-08-08 09:03] LABS: HCT 34.2 % (34.0-46.0); HGB 11.8 gm/dL (11.4-16.0); MCH 33.5 pg (25.0-35.0); MCHC 34.4 g/dL (31.0-37.0); MCV 97.4 fL (80.0-100.0); Mean Platelet Volume 8.3; Platelet Count 112 k/uL (150-450); RBC 3.51 m/uL (3.80-5.40); RDW 12.8 % (11.5-15.5); WBC 28.4 k/uL (3.8-10.6)
[2020-08-08] MEDS: MORPHINE SULFATE 4 MG/ML SYRINGE IVP PRN ×2 (09:53→18:43)
[2020-08-08] MEDS: amLODIPine 10 MG TAB PO SCH (09:58)
[2020-08-08] MEDS ORDERED: PIPERACILLIN-TAZOBACTAM 3.375 GM in SODIUM CHLORIDE 0.9% 100 ML IVPB SCH (10:00)
[2020-08-08] MEDS: TAMSULOSIN 0.4 MG CAP.ER.24H PO SCH (10:03)
[2020-08-08] MEDS: HEPARIN SODIUM,PORCINE/PF 5,000 UNIT/0.5 ML SYRINGE SQ SCH ×2 (10:03→22:20)
[2020-08-08] MEDS: SERTRALINE 100 MG TAB PO SCH (10:03)
[2020-08-08] MEDS: LEVOTHYROXINE 100 MCG TAB PO SCH (10:04)
[2020-08-08] MEDS: SODIUM CHLORIDE 0.9% 1,000 ML IV SCH ×2 (10:04→18:43)
--- NOTE | 2020-08-08 18:56 | P.PN ---
Subjective Progress Note Date: 08/08/20 Principal diagnosis: back pain Female with hypertension, dyslipidemia, hypothyroidism, and prior breast cancer currently in remission who presented here from [facility] secondary to sepsis with obstructive right UPJ stone resulting in severe hydronephrosis. She was started on IV fluids and IV antibiotics. Urology was consulted. On the evening of 08/07 she underwent cystoscopy with right ureteral stent insertion. She was given 1 dose of gentamicin. Her IV fluids were increased secondary to hypotension. She did come back with a gram negatives bacteremia. Patient seen and examined at bedside. She had a rough night with nausea, vomting, and diarrhea. She did respond to zofran. Feeling aweful. Known hx of urinary and fecal incontinence at home. She is having liquid stools. General: ill appearing, mild distress, appears at stated age Derm: warm, dry Head: atraumatic, normocephalic, symmetric Eyes: EOMI, no lid lag, anicteric sclera Mouth: no lip lesion, mucus membranes moist Cardiovascular: S1S2 reg, no murmur, positive posterior tibial pulse bilateral, Lungs: Decreased bs bilateral, no rhonchi, no rales , no accessory muscle use Abdominal: soft, nontender to palpation, no guarding, no appreciable organomegaly Ext: no gross muscle atrophy, no edema, no contractures Neuro: CN II-XI grossly intact, no focal neuro deficits Psych: Alert, oriented, appropriate affect Right sided pyelonephritis with right sided hydronephrosis with sepsis, gram ne gative bacteremia and right UPJ stone - rocephin - IVF - s/p ureteral stent - urology recs - await final cultures Acute kidney injury secondary sepsis - IV fluids - hold cozaar - repeat Cr in AM - if worsens consult nephro Diarrhea - check C diff Hypertension, low normal - hold cozaar and norvasc -follow BP Hyperlipidemia -statin Hypothyroidism -synthroid Thrombocytopenia - reactive - follow CBC CODE STATUS: Full code DVT prophylaxis: Heparin Discussed with: Patient and RN Anticipated discharge date: 3-[address]: Home A total of 35 minutes was spent on the care of this complex patient more than 50% of the time was spent in counseling and care coordination. Objective - Vital Signs Vital signs: Vital Signs Temp 98.7 F 08/08/20 08:50 Pulse 92 08/08/20 08:50 Resp 20 08/08/20 08:50 BP 111/69 08/08/20 08:50 Pulse Ox 95 08/08/20 08:50 Intake & Output 08/07/20 08/08/20 08/08/20 18:59 06:59 18:59 Intake Total 500 100 60 Output Total 50 Balance 450 100 60 Intake: IV 500 Oral 100 60 Output: Urine 50 Estimated Blood Loss 0 Other: Voiding Method Toilet Toilet Incontinent Diaper Diaper # Voids 1 # Bowel Movements 1 1 - Labs CBC & Chem 7: 08/08/20 07:39 08/08/20 07:39 Labs: Abnormal Lab Results - Last 24 Hours (Table) 08/07/20 08/07/20 08/08/20 Range/Units 19:44 19:44 07:39 WBC 29.1 H 28.4 H (3.8-10.6) k/uL RBC 3.51 L (3.80-5.40) m/uL Plt Count 115 L 112 L (150-450) k/uL Neutrophils # (Manual) 26.10 H (1.3-7.7) k/uL Lymphocytes # (Manual) 0.58 L (1.0-4.8) k/uL Metamyelocytes # (Man) 2.62 H (0) k/uL Sodium 135 L (137-145) mmol/L Chloride (98-107) mmol/L Carbon Dioxide 20 L (22-30) mmol/L BUN 38 H (7-17) mg/dL Creatinine 1.85 H (0.52-1.04) mg/dL Glucose 107 H (74-99) mg/dL Calcium 7.4 L (8.4-10.2) mg/dL Magnesium 2.7 H (1.6-2.3) mg/dL 08/08/20 Range/Units 07:39 WBC (3.8-10.6) k/uL RBC (3.80-5.40) m/uL Plt Count (150-450) k/uL Neutrophils # (Manual) (1.3-7.7) k/uL Lymphocytes # (Manual) (1.0-4.8) k/uL Metamyelocytes # (Man) (0) k/uL Sodium 135 L (137-145) mmol/L Chloride 108 H (98-107) mmol/L Carbon Dioxide 17 L (22-30) mmol/L BUN 42 H (7-17) mg/dL Creatinine 1.94 H (0.52-1.04) mg/dL Glucose 127 H (74-99) mg/dL Calcium 7.0 L (8.4-10.2) mg/dL Magnesium 2.6 H (1.6-2.3) mg/dL Microbiology - Last 24 Hours (Table) 08/07/20 06:07 Blood Culture Gram Stain - Preliminary Blood 08/07/20 06:07 Blood Culture - Final Blood 08/07/20 15:20 Urine Culture - Preliminary Urine,Ureter 08/07/20 03:45 Urine Culture - Preliminary Urine,Clean Catch
[2020-08-08] MEDS: ATORVASTATIN 40 MG TAB PO SCH (22:20)
[2020-08-09] MEDS: ONDANSETRON 4 MG/2 ML VIAL IVP PRN ×3 (00:54→17:49)
[2020-08-09] MEDS: SODIUM CHLORIDE 0.9% 1,000 ML IV SCH (04:00)
[2020-08-09] MEDS ORDERED: PROCHLORPERAZINE INJ 10 MG/2 ML VIAL IVP PRN (04:47)
[2020-08-09] MEDS: LEVOTHYROXINE 100 MCG TAB PO SCH (06:26)
[2020-08-09 06:37] LABS: HCT 39.8 % (34.0-46.0); HGB 13.3 gm/dL (11.4-16.0); MCH 32.7 pg (25.0-35.0); MCHC 33.3 g/dL (31.0-37.0); Mean Platelet Volume 8.2; Platelet Count 125 k/uL (150-450); RBC 4.06 m/uL (3.80-5.40); RDW 13.1 % (11.5-15.5); WBC 26.5 k/uL (3.8-10.6)
[2020-08-09 06:44] LABS: Calcium 7.1 mg/dL (8.4-10.2); Magnesium 2.6 mg/dL (1.6-2.3); Phosphorus 3.1 mg/dL (2.5-4.5); Potassium 3.9 mmol/L (3.5-5.1)
[2020-08-09] MEDS: SERTRALINE 100 MG TAB PO SCH (08:30)
[2020-08-09] MEDS: HEPARIN SODIUM,PORCINE/PF 5,000 UNIT/0.5 ML SYRINGE SQ SCH ×2 (08:56→20:56)
--- NOTE | 2020-08-09 09:12 | P.PN ---
Progress Note - Text Progress Note Date: 08/09/20 The patient continues to feel poorly. Her complaints are vague, consisting of generalized discomfort, nausea, and restlessness. She is afebrile. Urine cultures of shown gram-negative bacilli. A preliminary blood culture shows E. coli. I am hopeful that sensitivities will be completed later today to confirm that she is on appropriate antibiotic therapy. I have no further recommendations at this time.
--- NOTE | 2020-08-09 12:16 | P.PN ---
Subjective Progress Note Date: 08/09/20 Patient is not feeling well today. She is having episodes of retching and nausea. She reports having normal bowel movements yesterday. Her abdomen is soft on exam and patient denies any abdominal pain. No fevers or chills. Objective - Vital Signs Vital signs: Vital Signs Temp 97.8 F 08/09/20 08:25 Pulse 96 08/09/20 08:25 Resp 14 08/09/20 08:25 BP 135/74 08/09/20 09:12 Pulse Ox 93 L 08/09/20 08:25 Intake & Output 08/08/20 08/09/20 08/09/20 18:59 06:59 18:59 Intake Total 60 1420 Output Total 400 Balance 60 1020 Intake: Intake, IV Titration 1300 Amount Sodium Chloride 0.9% 1, 1300 000 ml @ 120 mls/hr IV . Q8H20M [facility] Rx#:[id number] Oral 60 120 Output: Urine 400 Other: Voiding Method Incontinent Toilet Toilet Diaper Diaper # Voids 1 1 # Bowel Movements 1 - Exam General: The patient is awake and alert, in no distress Eye: there is normal conjunctiva bilaterally. Neck: The neck is supple, there is no JVD. Cardiovascular: Normal S1-S2, no S3-S4, no murmurs. Respiratory: Lungs clear to auscultation bilaterally Gastrointestinal: Abdomen is soft, nontender Musculoskeletal: There is no pedal edema. Neurological:. Speech is normal. Skin: Skin is warm and dry - Labs CBC & Chem 7: 08/09/20 06:07 08/09/20 06:07 Labs: Abnormal Lab Results - Last 24 Hours (Table) 08/09/20 08/09/20 Range/Units 06:07 06:07 WBC 26.5 H (3.8-10.6) k/uL Plt Count 125 L (150-450) k/uL Chloride 111 H (98-107) mmol/L Carbon Dioxide 19 L (22-30) mmol/L BUN 34 H (7-17) mg/dL Creatinine 1.48 H (0.52-1.04) mg/dL Glucose 140 H (74-99) mg/dL Calcium 7.1 L (8.4-10.2) mg/dL Magnesium 2.6 H (1.6-2.3) mg/dL Microbiology - Last 24 Hours (Table) 08/07/20 03:45 Urine Culture - Final Urine,Clean Catch Escherichia coli 08/07/20 15:20 Urine Culture - Preliminary Urine,Ureter Gram Neg Bacilli 08/07/20 06:07 Blood Culture Gram Stain - Preliminary Blood Blood Culture - Preliminary Escherichia coli Assessment and Plan Assessment: Female with hypertension, dyslipidemia, hypothyroidism, and prior breast cancer currently in remission who presented here from [facility] secondary to sepsis with obstructive right UPJ stone resulting in severe hydronephrosis. She was started on IV fluids and IV antibiotics. Urology was consulted. On the evening of 08/07 she underwent cystoscopy with right ureteral stent insertion. She was given 1 dose of gentamicin. Her IV fluids were increased secondary to hypotension. She did come back with a gram negatives bacteremia. Below is a list of her medical problems Right sided pyelonephritis with right sided hydronephrosis with sepsis, cabezas- susceptible E. coli bacteremia and right UPJ stone - rocephin 2 g daily - Received aggressive IV fluid hydration - s/p ureteral stent - urology recs - await final cultures Acute kidney injury secondary sepsis - Creatinine improving. Suspect underlying chronic kidney disease Persistent nausea and vomiting -I would obtain abdominal x-ray for further evaluation. Abdominal exam is benign. Continue Zofran as needed. Schedule Reglan 5 mg every 6 hours Hypertension, low normal - hold cozaar and norvasc -follow BP Hyperlipidemia -statin Hypothyroidism -synthroid Thrombocytopenia - reactive - follow CBC CODE STATUS: Full code DVT prophylaxis: Heparin Discussed with: Patient and RN Anticipated discharge date: 1-[address]: Home A total of 35 minutes was spent on the care of this complex patient more than 50% of the time was spent in counseling and care coordination.
[2020-08-09] MEDS: METOCLOPRAMIDE 5 MG/ML 2 ML VIAL IVP SCH ×3 (12:50→23:56)
[2020-08-09] MEDS: TAMSULOSIN 0.4 MG CAP.ER.24H PO SCH (12:52)
--- NOTE | 2020-08-09 12:58 | XR ---
EXAMINATION TYPE: XR abdomen 1V DATE OF EXAM: 08/09/2020 COMPARISON: NONE HISTORY: Pain TECHNIQUE: Single supine KUB image of the abdomen is obtained FINDINGS: Small bowel demonstrates no evidence for dilatation or air fluid levels. Gas and fecal material is seen in non-distended colon. No convincing evidence for pneumoperitoneum. No unusual calcifications. Right ureteral stent in place. The lung bases are clear. The osseous structures are intact. IMPRESSION: 1. Overall nonobstructive bowel gas pattern.
[2020-08-09] MEDS: ALBUTEROL NEBULIZED 2.5 MG/3 ML INHALATION PRN ×3 (13:07→20:22)
[2020-08-09] MEDS: PANTOPRAZOLE 40 MG/10 ML VIAL IVP SCH (15:12)
[2020-08-09] MEDS ORDERED: FUROSEMIDE 10 MG/ML 4 ML VIAL IV STA ×2 (18:17→20:09)
--- NOTE | 2020-08-09 19:48 | XR ---
EXAMINATION TYPE: XR chest 1V DATE OF EXAM: 08/09/2020 COMPARISON: NONE HISTORY: Shortness of breath. TECHNIQUE: Single frontal view of the chest is obtained. FINDINGS: There is diffuse opacity in the right lung and additional small to moderate left perihilar opacity. No pleural effusion, or pneumothorax seen. Cardiomegaly. The osseous structures are intac t. IMPRESSION: Bilateral infiltrates.
[2020-08-09] MEDS ORDERED: predniSONE 20 MG TAB PO STA (20:10)
[2020-08-09] MEDS: ATORVASTATIN 40 MG TAB PO SCH (20:56)
[2020-08-10] MEDS: IPRATROPIUM-ALBUTEROL 3 ML NEB INHALATION PRN (03:29)
[2020-08-10] MEDS: METOCLOPRAMIDE 5 MG/ML 2 ML VIAL IVP SCH (06:34)
[2020-08-10] MEDS: LEVOTHYROXINE 100 MCG TAB PO SCH (06:34)
[2020-08-10] MEDS ORDERED: MELATONIN 5 MG TABLET PO ONE (06:48)
[2020-08-10] MEDS: IPRATROPIUM-ALBUTEROL 3 ML NEB INHALATION SCH ×4 (07:40→21:52)
[2020-08-10 07:47] LABS: Calcium 7.2 mg/dL (8.4-10.2)
[2020-08-10 07:59] LABS: Basophils % (A) 0 %; Eosinophils % (A) 0 %; HCT 36.3 % (34.0-46.0); HGB 12.1 gm/dL (11.4-16.0); Lymphocytes # (A) 0.4 k/uL (1.0-4.8); Lymphocytes % (A) 3 %; MCH 31.5 pg (25.0-35.0); MCHC 33.4 g/dL (31.0-37.0); MCV 94.4 fL (80.0-100.0); Mean Platelet Volume 9.2; Monocytes # (A) 0.5 k/uL (0-1.0); Monocytes % (A) 4 %; Neutrophils # (A) 12.3 k/uL (1.3-7.7); Neutrophils % (A) 92 %; Platelet Count 132 k/uL (150-450); RBC 3.85 m/uL (3.80-5.40); RDW 13.4 % (11.5-15.5); WBC 13.3 k/uL (3.8-10.6)
[2020-08-10 08:01] LABS: Potassium 3.7 mmol/L (3.5-5.1)
--- NOTE | 2020-08-10 08:20 | P.PN ---
Progress Note - Text Progress Note Date: 08/10/20 The patient denies pain. Her nausea is somewhat improved. However, she reports dyspnea and has been found to be hypoxic. This has persisted despite diuresis yesterday. She is afebrile and urologically stable. Urine and blood cultures have shown pansensitive E. coli. Continue medical management.
[2020-08-10] MEDS: PANTOPRAZOLE 40 MG/10 ML VIAL IVP SCH (09:08)
[2020-08-10] MEDS: SERTRALINE 100 MG TAB PO SCH (09:08)
[2020-08-10] MEDS: TAMSULOSIN 0.4 MG CAP.ER.24H PO SCH (09:08)
[2020-08-10] MEDS: ONDANSETRON 4 MG/2 ML VIAL IVP PRN (09:27)
[2020-08-10] MEDS: HEPARIN SODIUM,PORCINE/PF 5,000 UNIT/0.5 ML SYRINGE SQ SCH ×2 (09:33→21:17)
[2020-08-10] MEDS ORDERED: FUROSEMIDE 10 MG/ML 4 ML VIAL IV STA ×2 (11:26→16:04)
[2020-08-10] MEDS ORDERED: PROCHLORPERAZINE INJ 10 MG/2 ML VIAL IVP PRN (11:38)
--- NOTE | 2020-08-10 11:43 | P.PN ---
Subjective Progress Note Date: 08/10/20 Patient's respiratory status is been declining since yesterday. Patient is feeling more short of breath. She is requiring more oxygen. She was on 2 L of oxygen yesterday and this morning she was on 12 L of oxygen via high flow nasal cannula. Patient is a mouth breather and is having difficulty breathing through her nose. She is having some cough that today was productive of greenish sputum according to nursing staff. Patient herself denies any chest pain. She is slightly tachycardic with heart rate in the 90s and low 100s. Objective - Vital Signs Vital signs: Vital Signs Temp 97.3 F L 08/10/20 08:40 Pulse 100 08/10/20 08:40 Resp 20 08/10/20 08:40 BP 148/74 08/10/20 08:40 Pulse Ox 90 L 08/10/20 08:40 Intake & Output 08/09/20 08/10/20 08/10/20 18:59 06:59 18:59 Intake Total 40 600 Output Total 2500 300 Balance 40 -1900 -300 Intake: Oral 40 600 Output: Urine 2500 300 Other: Voiding Method Toilet Diaper Diaper Diaper External Catheter External Catheter # Voids 1 5 2 # Emeses 1 - Exam General: The patient is awake and alert, in no distress Eye: there is normal conjunctiva bilaterally. Neck: The neck is supple, there is no JVD. Cardiovascular: Normal S1-S2, no S3-S4, no murmurs. Respiratory: Lungs with diffuse rhonchi and wheezing Gastrointestinal: Abdomen is soft, nontender Musculoskeletal: There is no pedal edema. Neurological:. Speech is normal. Skin: Skin is warm and dry - Labs CBC & Chem 7: 08/10/20 06:37 08/10/20 06:37 Labs: Abnormal Lab Results - Last 24 Hours (Table) 08/10/20 08/10/20 Range/Units 06:37 06:37 WBC 13.3 H (3.8-10.6) k/uL Plt Count 132 L (150-450) k/uL Neutrophils # 12.3 H (1.3-7.7) k/uL Lymphocytes # 0.4 L (1.0-4.8) k/uL Sodium 136 L (137-145) mmol/L Chloride 108 H (98-107) mmol/L BUN 28 H (7-17) mg/dL Creatinine 1.34 H (0.52-1.04) mg/dL Glucose 188 H (74-99) mg/dL Calcium 7.2 L (8.4-10.2) mg/dL Microbiology - Last 24 Hours (Table) 08/07/20 15:20 Urine Culture - Final Urine,Ureter Escherichia coli 08/07/20 06:07 Blood Culture Gram Stain - Final Blood Blood Culture - Final Escherichia coli 08/07/20 03:45 Urine Culture - Final Urine,Clean Catch Escherichia coli Assessment and Plan Assessment: Female with hypertension, dyslipidemia, hypothyroidism, and prior breast cancer currently in remission who presented here from [facility] secondary to sepsis with obstructive right UPJ stone resulting in severe hydronephrosis. She was started on IV fluids and IV antibiotics. Urology was consulted. On the evening of 08/07 she underwent cystoscopy with right ureteral stent insertion. She was given 1 dose of gentamicin. Her IV fluids were increased secondary to hypotension. She did come back with a gram negatives bacteremia. On 08/09, patient started developing increased oxygen requirement. Below is a list of her medical problems Right sided pyelonephritis with right sided hydronephrosis with sepsis, cabezas- susceptible E. coli bacteremia and right UPJ stone - rocephin 2 g daily - Received aggressive IV fluid hydration - s/p ureteral stent - urology recs - await final cultures Acute hypoxic respiratory failure - Secondary to fluid overload. Chest x-ray showed evidence of pulmonary edema and bilateral infiltrate. BNP elevated. Patient denies any history of heart f ailure. I would obtain echocardiogram for further evaluation. - I would order pro-calcitonin to rule out underlying pneumonia. Patient is covered with IV ceftriaxone and I would add azithromycin 500 mg daily. - Continue incentive spirometer every 1 hour while awake - Very low probability for PE Acute kidney injury secondary sepsis - Creatinine improving. Suspect underlying chronic kidney disease Persistent nausea and vomiting -Abdominal x-ray with no acute findings. Abdominal exam is benign. Continue Zofran and Compazine as needed. Hypertension, low normal - hold cozaar and norvasc -follow BP Hyperlipidemia -statin Hypothyroidism -synthroid Thrombocytopenia - reactive - follow CBC Today, I spoke to the patient and daughter, Aspen, on the phone to give her an update about patient current condition. I answered all of her questions to satisfaction. CODE STATUS: Full code DVT prophylaxis: Heparin Discussed with: Patient and RN Anticipated discharge date: 1-[address]: Home A total of 35 minutes was spent on the care of this complex patient more than 50% of the time was spent in counseling and care coordination.
[2020-08-10] MEDS ORDERED: AZITHROMYCIN 500 MG TAB PO SCH (11:45)
[2020-08-10 12:20] LABS: ABG Base Excess 0.4 mmol/L; ABG HCO3 26 mmol/L (21-25); ABG Oxygen Saturation 89.7 % (94-97); ABG PCO2 43 mmHg (35-45); ABG PH 7.38 (7.35-7.45); ABG TCO2 27 mmol/L (19-24); Allen Test Performed? Yes
[2020-08-10 12:23] LABS: ABG PO2 56 mmHg (83-108)
--- NOTE | 2020-08-10 13:17 | XR ---
EXAMINATION TYPE: XR chest 1V DATE OF EXAM: 08/10/2020 COMPARISON: 08/09/2020 HISTORY: 80-year-old female shortness of breath TECHNIQUE: Single frontal view of the chest is obtained. FINDINGS: Leftward patient rotation alters the normal cardiomediastinal contours. Heart is enlarged. Perihilar and upper lung consolidation slightly worsened on the left now. No sizable effusion. IMPRESSION: 1. Rotated exam. Stable cardiomegaly. 2. Continued perihilar and upper and midlung airspace disease, slightly worsened on the left.
--- NOTE | 2020-08-10 16:17 | P.EN ---
Today, I responded to a rapid response called by nursing staff with patient having increased work of breathing and worsening hypoxia. Patient was evaluated by me earlier and is being treated with IV Lasix for suspected worsening pulmonary edema secondary to aggressive IV fluid hydration since admission. At the time of my evaluation she was on 12 L of oxygen via high flow nasal cannula and O2 sat around 88%. Arterial blood gas obtained showing PaO2 55%. Repeat chest x-ray showed slightly worsening infiltrate on the left. Patient will be transferred to selective care unit. Start BiPAP 10/5 with 80% FiO2. Patient received 4 doses of IV Lasix 40 mg in the last 24 hours. We will continue to monitor urine output. We will continue to monitor closely. Pulmonology consulted for further evaluation
--- NOTE | 2020-08-10 16:38 | P.CNPUL ---
History of Present Illness Consult date: 08/10/20 Requesting physician: Araceli Fletcher Reason for consult: dyspnea, hypoxemia Chief complaint: Abdominal/flank pain History of present illness: This is a pleasant 80-year-old female patient with a history of hyperlipidemia, hypertension, hypothyroidism, breast cancer who was originally admitted back on 08/06/2020 for right-sided abdominal/flank pain. She does have a history of kidney stones and a computed tomography scan showed severe right hydronephrosis/polynephritis with moderate paranephric urinary extravasation due to a 4.7 x 6.1 mm right UPJ calculus. She had subsequently undergone cystoscopy and right ureteral stent placement on 08/07/2020. Urine culture positive for E. coli. Blood cultures positive for E. coli. She had been treated for sepsis with excess fluid resuscitation and today developed worsening shortness of breath and hypoxemia. And 18 was called she was placed on 12 L high flow nasal cannula with saturations at 88%. Arterial blood gases revealed a PaO2 of 56%, pCO2 43, pH 7.38 on 65% FiO2. She was transferred to the selective care unit, placed on BiPAP 10/5 with 80% FiO2. She had received Lasix 40 mg 2 in the past 24 hours. She is seen today in consultation on the selective care unit. She remains on BiPAP 10/5 and 80% FiO2. O2 saturations currently 84%. FiO2 is increased to 100%. She is given additional Lasix 40 mg IVP. Chest x-ray revealed stable cardiomegaly with continued perihilar and upper and midlung airspace disease, slightly worsened on the left. White count 13.3. Hemoglobin 12.1. Sodium 136. Potassium 3.7. Creatinine 1.34. ProBNP 5930. Theodore virus screen negative. She is on DuoNeb inhalations and antibiotics in the form of ceftriaxone and azithromycin. Heparin for DVT prophylaxis, Protonix for GI prophylaxis. Review of Systems REVIEW OF SYSTEMS: CONSTITUTIONAL: Denies any recent significant weight loss or weight gain. EYES: Denies change in vision. EARS, NOSE, MOUTH, THROAT: Denies headaches, denies sore throat. CARDIOVASCULAR: Denies chest pain, palpitations or syncopal episodes. RESPIRATORY: Positive for shortness of breath, cough, congestion no hemoptysis. GASTROINTESTINAL: Denies change in appetite, denies abdominal pain GENITOURINARY: Positive for right-sided abdominal/flank pain. MUSKULOSKELETAL: Denies pain, denies swelling. INTEGUMENTARY: Denies rash, denies eczema. NEUROLOGICAL: Denies recent memory loss, no recent seizure activity. PSYCHIATRIC: Denies anxiety, denies depression. HEMATOLOGIC/LYMPHATIC: Denies anemia, denies enlarged lymph nodes. Past Medical History Past Medical History: Cancer, Hyperlipidemia, Hypertension, Thyroid Disorder Additional Past Medical History / Comment(s): vertigo History of Any Multi-Drug Resistant Organisms: None Reported Past Surgical History: Back Surgery, Breast Surgery Past Anesthesia/Blood Transfusion Reactions: No Reported Reaction Past Psychological History: Depression Smoking Status: Never smoker Past Alcohol Use History: None Reported Past Drug Use History: None Reported - Past Family History family Family Medical History: No Reported History Medications and Allergies Home Medications Medication Instructions Recorded Confirmed Type Atorvastatin Calcium [Lipitor] 40 mg PO HS 08/06/20 08/06/20 History Sabra 500 mg PO DAILY 08/06/20 08/06/20 History Levothyroxine Sodium 100 mcg PO DAILY 08/06/20 08/06/20 History Losartan Potassium [Cozaar] 100 mg PO DAILY 08/06/20 08/06/20 History Sertraline HCl [Zoloft] 100 mg PO DAILY 08/06/20 08/06/20 History Vitamin E 400 unit PO DAILY 08/06/20 08/06/20 History amLODIPine [Norvasc] 10 mg PO DAILY 08/06/20 08/06/20 History Allergies Allergy/AdvReac Type Severity Reaction Status Date / Time No Known Allergies Allergy Verified 08/09/20 14:39 Physical Exam Vitals: Vital Signs Temp Pulse Pulse Resp BP Pulse Ox 08/10/20 14:26 97 24 178/80 89 L 08/10/20 11:49 108 H 08/10/20 10:45 102 H 26 H 89 L 08/10/20 10:00 103 H 24 92 L 08/10/20 09:30 24 88 L 08/10/20 08:40 97.3 F L 100 24 148/74 90 L 08/10/20 08:00 91 26 H 91 L 08/10/20 07:57 103 H 08/10/20 07:40 99 92 L 08/10/20 06:20 22 90 L 08/10/20 05:15 89 L 08/10/20 03:38 106 H 08/10/20 03:29 105 H 08/10/20 01:55 97.6 F 96 22 134/66 92 L 08/10/20 01:50 79 L 08/09/20 20:34 92 08/09/20 20:25 97.3 F L 92 20 154/61 91 L 08/09/20 20:22 92 93 L 08/09/20 18:01 26 H 08/09/20 16:47 89 08/09/20 16:36 92 Intake and Output 08/10/20 08/10/20 08/10/20 06:59 14:59 22:59 Intake Total 600 Output Total 2500 450 Balance -1900 -450 Intake: Oral 600 Output: Urine 2500 450 Other: Voiding Method Diaper External Catheter # Voids 5 2 # Emeses 1 GENERAL EXAM: Alert, pleasant 80-year-old female patient, on BiPAP 10/500% FiO2, and mild respiratory distress. HEAD: Normocephalic. EYES: Normal reaction of pupils, equal size. NOSE: Clear with pink turbinates. THROAT: No erythema or exudates. NECK: No masses, no JVD. CHEST: No chest wall deformity. LUNGS: Equal air entry with crackles in the bilateral posterior bases. Tachypneic. CVS: S1 and S2 normal with no audible murmur, regular rhythm. ABDOMEN: No hepatosplenomegaly, normal bowel sounds, no guarding or rigidity. SPINE: No scoliosis or deformity SKIN: No rashes CENTRAL NERVOUS SYSTEM: No focal deficits, tone is normal in all 4 extremities. EXTREMITIES: There is no peripheral edema. No clubbing, no cyanosis. Peripheral pulses are intact. Results - Laboratory Findings CBC and BMP: 08/10/20 06:37 08/10/20 06:37 ABG ABG pH 7.38 (7.35-7.45) 08/10/20 12:06 ABG pCO2 43 mmHg (35-45) 08/10/20 12:06 ABG pO2 56 mmHg (83-108) L* 08/10/20 12:06 ABG O2 Saturation 89.7 % (94-97) L 08/10/20 12:06 PT/INR, D-dimer PT 11.5 sec (9.0-12.0) 08/06/20 22:28 INR 1.1 (<1.2) 08/06/20 22:28 Abnormal lab findings: Abnormal Labs 08/06/20 08/06/20 08/06/20 22:25 22:25 22:25 WBC 37.3 H RBC Plt Count Neutrophils # Neutrophils # (Manual) 36.10 H Lymphocytes # Lymphocytes # (Manual) 0.75 L Metamyelocytes # (Man) ABG pO2 ABG HCO3 ABG Total CO2 ABG O2 Saturation Sodium 135 L Chloride Carbon Dioxide BUN 22 H Creatinine 1.62 H Glucose 131 H Plasma Lactic Acid Juvenal 2.7 H* Calcium Magnesium 1.3 L AST 37 H C-Reactive Protein 67.5 H Urine Appearance Urine Protein Urine Blood Ur Leukocyte Esterase Urine RBC Urine WBC Urine WBC Clumps Urine Bacteria 08/07/20 08/07/20 08/07/20 01:21 05:12 05:12 WBC RBC Plt Count Neutrophils # Neutrophils # (Manual) Lymphocytes # Lymphocytes # (Manual) Metamyelocytes # (Man) ABG pO2 ABG HCO3 ABG Total CO2 ABG O2 Saturation Sodium 135 L Chloride Carbon Dioxide 20 L BUN 28 H Creatinine 1.75 H Glucose 110 H Plasma Lactic Acid Juvenal 3.3 H* 2.2 H* Calcium 7.4 L Magnesium AST C-Reactive Protein Urine Appearance Urine Protein Urine Blood Ur Leukocyte Esterase Urine RBC Urine WBC Urine WBC Clumps Urine Bacteria 08/07/20 08/07/20 08/07/20 09:00 19:44 19:44 WBC 29.1 H RBC Plt Count 115 L Neutrophils # Neutrophils # (Manual) 26.10 H Lymphocytes # Lymphocytes # (Manual) 0.58 L Metamyelocytes # (Man) 2.62 H ABG pO2 ABG HCO3 ABG Total CO2 ABG O2 Saturation Sodium 135 L Chloride Carbon Dioxide 20 L BUN 38 H Creatinine 1.85 H Glucose 107 H Plasma Lactic Acid Juvenal Calcium 7.4 L Magnesium 2.7 H AST C-Reactive Protein Urine Appearance Turbid H Urine Protein 2+ H Urine Blood Large H Ur Leukocyte Esterase Large H Urine RBC 25 H Urine WBC >182 H Urine WBC Clumps Many H Urine Bacteria Occasional H 08/08/20 08/08/20 08/09/20 07:39 07:39 06:07 WBC 28.4 H 26.5 H RBC 3.51 L Plt Count 112 L 125 L Neutrophils # Neutrophils # (Manual) Lymphocytes # Lymphocytes # (Manual) Metamyelocytes # (Man) ABG pO2 ABG HCO3 ABG Total CO2 ABG O2 Saturation Sodium 135 L Chloride 108 H Carbon Dioxide 17 L BUN 42 H Creatinine 1.94 H Glucose 127 H Plasma Lactic Acid Juvenal Calcium 7.0 L Magnesium 2.6 H AST C-Reactive Protein Urine Appearance Urine Protein Urine Blood Ur Leukocyte Esterase Urine RBC Urine WBC Urine WBC Clumps Urine Bacteria 08/09/20 08/10/20 08/10/20 06:07 06:37 06:37 WBC 13.3 H RBC Plt Count 132 L Neutrophils # 12.3 H Neutrophils # (Manual) Lymphocytes # 0.4 L Lymphocytes # (Manual) Metamyelocytes # (Man) ABG pO2 ABG HCO3 ABG Total CO2 ABG O2 Saturation Sodium 136 L Chloride 111 H 108 H Carbon Dioxide 19 L BUN 34 H 28 H Creatinine 1.48 H 1.34 H Glucose 140 H 188 H Plasma Lactic Acid Juvenal Calcium 7.1 L 7.2 L Magnesium 2.6 H AST C-Reactive Protein Urine Appearance Urine Protein Urine Blood Ur Leukocyte Esterase Urine RBC Urine WBC Urine WBC Clumps Urine Bacteria 08/10/20 12:06 WBC RBC Plt Count Neutrophils # Neutrophils # (Manual) Lymphocytes # Lymphocytes # (Manual) Metamyelocytes # (Man) ABG pO2 56 L* ABG HCO3 26 H ABG Total CO2 27 H ABG O2 Saturation 89.7 L Sodium Chloride Carbon Dioxide BUN Creatinine Glucose Plasma Lactic Acid Juvenal Calcium Magnesium AST C-Reactive Protein Urine Appearance Urine Protein Urine Blood Ur Leukocyte Esterase Urine RBC Urine WBC Urine WBC Clumps Urine Bacteria - Diagnostic Findings Chest x-ray: image reviewed Assessment and Plan Assessment: 1 Acute hypoxemic respiratory failure secondary to acute fluid volume overload secondary to requiring over 5 L of fluid resuscitation 2 Sepsis secondary to bacteremia from E. coli 3 Acute urinary tract infection secondary to E. coli 4 Acute right pyelonephritis/hydronephrosis secondary to right UPJ calculus, status post right ureteral stent placement on 08/07/2020 5 History of hypertension 6 Hyperlipidemia 7 Hypothyroidism Plan: The patient was seen and evaluated by Dr. Ware Chest x-ray and labs reviewed Additional Lasix 40 mg IVP 1 Increased FiO2 to 100% on BiPAP 02/05 Continue bronchodilators, antibiotics Obtain 2-dimensional echocardiogram May require transfer to ICU if no improvement We will continue to follow and make further recommendations based on her clinical status I, the cosigning physician, performed a history & physical examination of the patient. Lungs sounds with crackles in the bilateral posterior bases. Maintaining good O2 saturations in the 90s on BiPAP 10/500% FiO2. I discussed the assessment and plan of care with my nurse practitioner, Brittanie Fallon. I attest to the above consultation as dictated by her. Time with Patient: Greater than 30
--- NOTE | 2020-08-10 18:51 | ECHOF ---
Referral Reason:Hypoxia rule out intracardiac shunt, EF? MEASUREMENTS -------- HEIGHT: 157.5 cm WEIGHT: 88.5 kg BP: 148/44 RVIDd: 3.5 cm (< 3.3) IVSd: 1.3 cm (0.6 - 1.1) LVIDd: 4.1 cm (3.9 - 5.3) LVPWd: 1.2 cm (0.6 - 1.1) IVSs: 1.5 cm LVIDs: 2.7 cm LVPWs: 1.7 cm LAESV Index (A-L): 44.15 ml/m Ao Diam: 2.7 cm (2.0 - 3.7) AV Cusp: 1.9 cm (1.5 - 2.6) MV EXCURSION: 15.856 mm (> 18.000) MV EF SLOPE: 53 mm/s (70 - 150) EPSS: 0.3 cm MV E Jose: 0.96 m/s MV DecT: 176 ms MV A Jose: 1.33 m/s MV E/A Ratio: 0.72 RAP: 5.00 mmHg RVSP: 39.43 mmHg FINDINGS -------- Sinus rhythm. This was a technically difficult study with suboptimal views. The left ventricular size is normal. There is mild concentric left ventricular hypertrophy. Overa ll left ventricular systolic function is normal with, an EF between 55 - 60 %. The right ventricle is mildly enlarged. LA is severely dilated >40 ml/m2 The right atrial size is normal. 5.0mg of Lumason was utilized for enhancement of images Interatrial and interventricular septum intact. There is no evidence of aortic regurgitation. There is no evidence of aortic stenosis. Yxrh-ih-[id number] mitral regurgitation is present. [id number]-[id number] tricuspid regurgitation present. There is mild to moderate pulmonary hypertension. The right ventricular systolic pressure, as measured by Doppler, is 39.43mmHg. There is no pulmonic regurgitation present. The aortic root size is normal. IVC Not well visulized. There is a small, generalized pericardial effusion present. There is no evidence of cardiac tampona de. CONCLUSIONS -------- 1. The left ventricular size is normal. 2. There is mild concentric left ventricular hypertrophy. 3. Overall left ventricular systolic function is normal with, an EF between 55 - 60 %. 4. The right ventricle is mildly enlarged. 5. LA is severely dilated >40 ml/m2 6. [id number]-bvflrvnh mitral regurgitation is present. 7. Ukyc-va-yfwnjwgr tricuspid regurgitation present. 8. There is mild to moderate pulmonary hypertension. 9. The right ventricular systolic pressure, as measured by Doppler, is 39.43mmHg. 10. There is a small, generalized pericardial effusion present. CHILD CARE COOK: Sherry Sheehan RDCS
[2020-08-11] MEDS: ATORVASTATIN 40 MG TAB PO SCH ×2 (00:57→19:42)
[2020-08-11] MEDS: LEVOTHYROXINE 100 MCG TAB PO SCH (05:41)
[2020-08-11] MEDS: PANTOPRAZOLE 40 MG/10 ML VIAL IVP SCH (09:01)
[2020-08-11] MEDS: SERTRALINE 100 MG TAB PO SCH (09:01)
[2020-08-11] MEDS: HEPARIN SODIUM,PORCINE/PF 5,000 UNIT/0.5 ML SYRINGE SQ SCH ×2 (09:01→19:42)
[2020-08-11] MEDS: AZITHROMYCIN 500 MG in SODIUM CHLORIDE 0.9% 250 ML IVPB SCH (09:02)
[2020-08-11] MEDS: IPRATROPIUM-ALBUTEROL 3 ML NEB INHALATION SCH ×4 (09:08→21:01)
[2020-08-11 10:37] LABS: ABG Base Excess 5.7 mmol/L; ABG HCO3 32 mmol/L (21-25); ABG Oxygen Saturation 93.2 % (94-97); ABG PCO2 58 mmHg (35-45); ABG PH 7.34 (7.35-7.45); ABG PO2 68 mmHg (83-108); ABG TCO2 33 mmol/L (19-24); Allen Test Performed? Yes
--- NOTE | 2020-08-11 10:42 | P.PN ---
Progress Note - Text Progress Note Date: 08/11/20 Mrs. Monahan denies abdominal pain. She is afebrile. Her WBC count decreased to 13.3 yesterday. She is restless and continues to experience respiratory distress. Her oxygen saturation levels are adequate on BiPAP. She is urologically stable and she'll continue to receive Rocephin. Once her overall condition is improved, she will require cystoscopy, right ureteral stent removal, right ureteroscopy with laser lithotripsy. This can be done electively as an outpatient, and the last time I discussed this with her she was undecided whether she would want it done here, in [place], or in [place].
[2020-08-11 10:43] LABS: Basophils % (A) 0 %; Eosinophils % (A) 0 %; HCT 42.2 % (34.0-46.0); HGB 14.7 gm/dL (11.4-16.0); Lymphocytes # (A) 0.3 k/uL (1.0-4.8); Lymphocytes % (A) 2 %; MCH 32.8 pg (25.0-35.0); MCHC 34.8 g/dL (31.0-37.0); MCV 94.4 fL (80.0-100.0); Mean Platelet Volume 9.3; Monocytes # (A) 1.1 k/uL (0-1.0); Monocytes % (A) 7 %; Neutrophils # (A) 12.9 k/uL (1.3-7.7); Neutrophils % (A) 89 %; Platelet Count 115 k/uL (150-450); RBC 4.47 m/uL (3.80-5.40); RDW 13.1 % (11.5-15.5); WBC 14.5 k/uL (3.8-10.6)
[2020-08-11 11:16] LABS: Calcium 7.5 mg/dL (8.4-10.2)
[2020-08-11 11:22] LABS: Magnesium 1.8 mg/dL (1.6-2.3); Potassium 3.9 mmol/L (3.5-5.1)
--- NOTE | 2020-08-11 13:04 | P.PN ---
Subjective Progress Note Date: 08/11/20 Patient is still on BiPAP today. O2 sat are 90% on 100% FiO2. Patient appeared more confused. A blood gas this morning showed worsening CO2 level but improved oxygenation. Nursing staff has been having difficulties measuring her urine output as patient is incontinent at times and wearing a brief period patient herself is awake and alert. She has BiPAP on. Objective - Vital Signs Vital signs: Vital Signs Temp 98.1 F 08/11/20 12:36 Pulse 97 08/11/20 12:36 Resp 34 H 08/11/20 12:36 BP 134/79 08/11/20 12:36 Pulse Ox 90 L 08/11/20 12:36 Intake & Output 08/10/20 08/11/20 08/11/20 18:59 06:59 18:59 Intake Total 80 340 Output Total 1250 1775 300 Balance -1250 -1695 40 Weight 82.5 kg Intake: IV 340 Azithromycin 500 mg In 250 Sodium Chloride 0.9% 250 ml @ 250 mls/hr IVPB DAILY [facility] Rx#:[id number] Invasive Line 1 10 Invasive Line 2 10 Invasive Line 3 20 cefTRIAXone 2 gm In 50 Sodium Chloride 0.9% 50 ml @ 100 mls/hr IVPB Q24HR [facility] Rx#:[id number] Intake, IV Titration 80 Amount Sodium Chloride 0.9% 1, 80 000 ml @ 0 mls/hr IV .[facility] Rx#:[id number] Output: Urine 1250 1775 300 Other: Voiding Method Diaper Diaper Diaper External Catheter External Catheter External Catheter # Voids 2 1 # Emeses 1 - Exam General: The patient is awake and alert, BiPAP in place Eye: there is normal conjunctiva bilaterally. Neck: The neck is supple, there is no JVD. Cardiovascular: Normal S1-S2, no S3-S4, no murmurs. Respiratory: Lungs BiPAP sounds anterior chest auscultation Gastrointestinal: Abdomen is soft, nontender Musculoskeletal: There is no pedal edema. Neurological:. Speech is normal. Skin: Skin is warm and dry - Labs CBC & Chem 7: 08/11/20 09:12 08/11/20 09:12 Labs: Abnormal Lab Results - Last 24 Hours (Table) 08/10/20 08/11/20 08/11/20 Range/Units 14:33 09:12 09:12 WBC 14.5 H (3.8-10.6) k/uL Plt Count 115 L (150-450) k/uL Neutrophils # 12.9 H (1.3-7.7) k/uL Lymphocytes # 0.3 L (1.0-4.8) k/uL Monocytes # 1.1 H (0-1.0) k/uL D-Dimer (<0.60) mg/L FEU ABG pH (7.35-7.45) ABG pCO2 (35-45) mmHg ABG pO2 (83-108) mmHg ABG HCO3 (21-25) mmol/L ABG Total CO2 (19-24) mmol/L ABG O2 Saturation (94-97) % BUN 25 H (7-17) mg/dL Creatinine 1.20 H (0.52-1.04) mg/dL Glucose 126 H (74-99) mg/dL Calcium 7.5 L (8.4-10.2) mg/dL Procalcitonin 8.43 H (0.02-0.09) ng/mL 08/11/20 08/11/20 Range/Units 10:33 11:46 WBC (3.8-10.6) k/uL Plt Count (150-450) k/uL Neutrophils # (1.3-7.7) k/uL Lymphocytes # (1.0-4.8) k/uL Monocytes # (0-1.0) k/uL D-Dimer 3.38 H (<0.60) mg/L FEU ABG pH 7.34 L (7.35-7.45) ABG pCO2 58 H (35-45) mmHg ABG pO2 68 L (83-108) mmHg ABG HCO3 32 H (21-25) mmol/L ABG Total CO2 33 H (19-24) mmol/L ABG O2 Saturation 93.2 L (94-97) % BUN (7-17) mg/dL Creatinine (0.52-1.04) mg/dL Glucose (74-99) mg/dL Calcium (8.4-10.2) mg/dL Procalcitonin (0.02-0.09) ng/mL Assessment and Plan Assessment: Female with hypertension, dyslipidemia, hypothyroidism, and prior breast cancer currently in remission who presented here from [facility] secondary to sepsis with obstructive right UPJ stone resulting in severe hydronephrosis. She was started on IV fluids and IV antibiotics. Urology was consulted. On the evening of 08/07 she underwent cystoscopy with right ureteral stent insertion. She was given 1 dose of gentamicin. Her IV fluids were increased secondary to hypotension. She did come back with a gram negatives bacteremia. On 08/09, patient started developing increased oxygen requirement. Below is a list of her medical problems Acute hypoxic respiratory failure, suspect multifactorial secondary to fluid overload and possible underlying pneumonia Left lung pneumonia with elevated pro-calcitonin - Patient started on IV Lasix 40 mg twice daily. BNP slightly elevated but ech ocardiogram showed preserved ejection fraction with no significant valvular abnormalities - Continue antibiotic treatment with IV ceftriaxone, azithromycin added day #2 - Given no improvement in clinical status and worsening hypoxia we will obtain CT angiogram of the chest to rule out PE. D-dimer is elevated. Right sided pyelonephritis with right sided hydronephrosis with sepsis, cabezas-susceptible E. coli bacteremia and right UPJ stone - rocephin 2 g daily day #5 - Received aggressive IV fluid hydration - s/p ureteral stent - Culture grew pansensitive susceptible E. coli Acute kidney injury secondary sepsis - Creatinine improving. Suspect underlying chronic kidney disease Persistent nausea and vomiting, now improved -Abdominal x-ray with no acute findings. Abdominal exam is benign. Continue Zofran and Compazine as needed. Hypertension, low normal - hold cozaar and norvasc -follow BP Hyperlipidemia -statin Hypothyroidism -synthroid Thrombocytopenia - reactive - follow CBC Today, I spoke to the patient and daughter, Aspen, on the phone to give her an update about patient current condition. I answered all of her questions to satisfaction. CODE STATUS: Full code DVT prophylaxis: Heparin Discussed with: Patient and RN Anticipated discharge date: 1-[address]: Home A total of 35 minutes was spent on the care of this complex patient more than 50% of the time was spent in counseling and care coordination.
--- NOTE | 2020-08-11 15:32 | P.PN ---
Subjective Progress Note Date: 08/11/20 This is a pleasant 80-year-old female patient with a history of hyperlipidemia, hypertension, hypothyroidism, breast cancer who was originally admitted back on 08/06/2020 for right-sided abdominal/flank pain. She does have a history of kidney stones and a computed tomography scan showed severe right hydr onephrosis/polynephritis with moderate paranephric urinary extravasation due to a 4.7 x 6.1 mm right UPJ calculus. She had subsequently undergone cystoscopy and right ureteral stent placement on 08/07/2020. Urine culture positive for E. coli. Blood cultures positive for E. coli. She had been treated for sepsis with excess fluid resuscitation and today developed worsening shortness of breath and hypoxemia. And 18 was called she was placed on 12 L high flow nasal cannula with saturations at 88%. Arterial blood gases revealed a PaO2 of 56%, pCO2 43, pH 7.38 on 65% FiO2. She was transferred to the selective care unit, placed on BiPAP 10/5 with 80% FiO2. She had received Lasix 40 mg 2 in the past 24 hours. She is seen today in consultation on the selective care unit. She remains on BiPAP 10/5 and 80% FiO2. O2 saturations currently 84%. FiO2 is increased to 100%. She is given additional Lasix 40 mg IVP. Chest x-ray revealed stable cardiomegaly with continued perihilar and upper and midlung airspace disease, slightly worsened on the left. White count 13.3. Hemoglobin 12.1. Sodium 136. Potassium 3.7. Creatinine 1.34. ProBNP 5930. Theodore virus screen negative. She is on DuoNeb inhalations and antibiotics in the form of ceftriaxone and azithromycin. Heparin for DVT prophylaxis, Protonix for GI prophylaxis. The patient is seen today 08/11/2020 follow-up. She continues to do poorly from the pulmonary standpoint. She remains on BiPAP 12/6 in the 100% FiO2 to vanesa ntain O2 saturations at 90. She is restless, confused. She is obeying commands. She remains oriented 3. ABGs revealed a PaO2 of 68, pCO2 of 58 and a pH of 7.34 on 100% FiO2. White count 14.5. Hemoglobin 14.7. Platelet count 115,000. D-dimer 3.38. Sodium 139. Potassium 3.9. Creatinine 1.20. Pro calcitonin 8.43. Urine and blood cultures positive for E. coli. She remains on azithromycin, ceftriaxone. Continued on bronchodilators. Lasix 40 mg mg every 12 hours. She remains in a negative balance. Echocardiogram revealed preserved left ventricular systolic function with ejection fraction 55-60%. The plan is to transfer her to the intensive care unit for closer monitoring. Objective - Vital Signs Vital signs: Vital Signs Temp 98.1 F 08/11/20 12:36 Pulse 97 08/11/20 12:36 Resp 34 H 08/11/20 14:33 BP 134/79 08/11/20 12:36 Pulse Ox 90 L 08/11/20 12:36 Intake & Output 08/10/20 08/11/20 08/11/20 18:59 06:59 18:59 Intake Total 80 360 Output Total 1250 1775 450 Balance -1250 -1695 -90 Weight 82.5 kg Intake: IV 360 Azithromycin 500 mg In 250 Sodium Chloride 0.9% 250 ml @ 250 mls/hr IVPB DAILY [facility] Rx#:[id number] Invasive Line 1 10 Invasive Line 2 20 Invasive Line 3 30 cefTRIAXone 2 gm In 50 Sodium Chloride 0.9% 50 ml @ 100 mls/hr IVPB Q24HR [facility] Rx#:[id number] Intake, IV Titration 80 Amount Sodium Chloride 0.9% 1, 80 000 ml @ 0 mls/hr IV .[facility] Rx#:[id number] Output: Urine 1250 1775 450 Uretheral (Coppola) 150 Other: Voiding Method Diaper Diaper Indwelling Catheter External Catheter External Catheter # Voids 2 1 # Emeses 1 - Exam GENERAL EXAM: Alert, pleasant 80-year-old female patient, on BiPAP 12/ at 100% FiO2, and mild respiratory distress. HEAD: Normocephalic. EYES: Normal reaction of pupils, equal size. NOSE: Clear with pink turbinates. THROAT: No erythema or exudates. NECK: No masses, no JVD. CHEST: No chest wall deformity. LUNGS: Equal air entry with crackles in the bilateral posterior bases. Tachypneic. CVS: S1 and S2 normal with no audible murmur, regular rhythm. ABDOMEN: No hepatosplenomegaly, normal bowel sounds, no guarding or rigidity. SPINE: No scoliosis or deformity SKIN: No rashes CENTRAL NERVOUS SYSTEM: No focal deficits, tone is normal in all 4 extremities. EXTREMITIES: There is no peripheral edema. No clubbing, no cyanosis. Peripheral pulses are intact. - Labs CBC & Chem 7: 08/11/20 09:12 08/11/20 09:12 Labs: Abnormal Lab Results - Last 24 Hours (Table) 08/10/20 08/11/20 08/11/20 Range/Units 14:33 09:12 09:12 WBC 14.5 H (3.8-10.6) k/uL Plt Count 115 L (150-450) k/uL Neutrophils # 12.9 H (1.3-7.7) k/uL Lymphocytes # 0.3 L (1.0-4.8) k/uL Monocytes # 1.1 H (0-1.0) k/uL D-Dimer (<0.60) mg/L FEU ABG pH (7.35-7.45) ABG pCO2 (35-45) mmHg ABG pO2 (83-108) mmHg ABG HCO3 (21-25) mmol/L ABG Total CO2 (19-24) mmol/L ABG O2 Saturation (94-97) % BUN 25 H (7-17) mg/dL Creatinine 1.20 H (0.52-1.04) mg/dL Glucose 126 H (74-99) mg/dL Calcium 7.5 L (8.4-10.2) mg/dL Procalcitonin 8.43 H (0.02-0.09) ng/mL 08/11/20 08/11/20 Range/Units 10:33 11:46 WBC (3.8-10.6) k/uL Plt Count (150-450) k/uL Neutrophils # (1.3-7.7) k/uL Lymphocytes # (1.0-4.8) k/uL Monocytes # (0-1.0) k/uL D-Dimer 3.38 H (<0.60) mg/L FEU ABG pH 7.34 L (7.35-7.45) ABG pCO2 58 H (35-45) mmHg ABG pO2 68 L (83-108) mmHg ABG HCO3 32 H (21-25) mmol/L ABG Total CO2 33 H (19-24) mmol/L ABG O2 Saturation 93.2 L (94-97) % BUN (7-17) mg/dL Creatinine (0.52-1.04) mg/dL Glucose (74-99) mg/dL Calcium (8.4-10.2) mg/dL Procalcitonin (0.02-0.09) ng/mL Assessment and Plan Assessment: 1 Acute hypoxemic respiratory failure secondary to acute fluid volume overload secondary to requiring over 5 L of fluid resuscitation here currently on BiPAP 12/6 and 100% FiO2. 2 Sepsis secondary to bacteremia from E. coli 3 Acute urinary tract infection secondary to E. coli 4 Acute right pyelonephritis/hydronephrosis secondary to right UPJ calculus, status post right ureteral stent placement on 08/07/2020 5 History of hypertension 6 Hyperlipidemia 7 Hypothyroidism Plan: The patient was seen and evaluated by Dr. Ware The plan is to transfer to the intensive care unit today for closer monitoring BiPAP settings 12/6 and 100% FiO2 Increased diuretics Continue bronchodilators, antibiotics We will continue to follow and make further recommendations based on her clinical status I, the cosigning physician, performed a history & physical examination of the patient. Lungs sounds with crackles in the bilateral posterior bases. Maintaining good O2 saturations in the 90s on BiPAP 10/500% FiO2. I discussed the assessment and plan of care with my nurse practitioner, Brittanie Fallon. I attest to the above consultation as dictated by her.
[2020-08-11] MEDS: FUROSEMIDE 10 MG/ML 4 ML VIAL IV SCH ×2 (15:43→19:42)
[2020-08-11 19:08] LABS: Glucose,Whole Blood 124 mg/dL (75-99)
[2020-08-12 00:03] LABS: Glucose,Whole Blood 121 mg/dL (75-99)
[2020-08-12] MEDS: INSULIN ASPART (NovoLOG) 100 UNIT/ML VIAL SQ SCH ×4 (00:26→19:10)
[2020-08-12] MEDS ORDERED: HALOPERIDOL LACTATE 5 MG/ML 1 ML VIAL IM PRN (00:41)
[2020-08-12] MEDS ORDERED: HALOPERIDOL LACTATE 5 MG/ML 1 ML VIAL IVP PRN ×2 (00:49→01:06)
[2020-08-12] MEDS: IPRATROPIUM-ALBUTEROL 3 ML NEB INHALATION PRN (01:42)
--- NOTE | 2020-08-12 02:42 | XR ---
EXAM: XR Chest, 1 View CLINICAL HISTORY: ITS.REASON XR Reason: SOB TECHNIQUE: Frontal view of the chest. COMPARISON: 08/10/2020 IMPRESSION: Cardiomegaly. Increased interstitial opacities are again seen. Bibasilar opacities. No effusion.
[2020-08-12 05:10] LABS: Magnesium 1.9 mg/dL (1.6-2.3); Potassium 2.8 mmol/L (3.5-5.1)
[2020-08-12] MEDS ORDERED: Potassium Replacement Protocol 1 EACH MISC MISCELLANE PRN (05:24)
[2020-08-12 05:26] LABS: Basophils % (A) 0 %; Eosinophils % (A) 0 %; HCT 40.3 % (34.0-46.0); HGB 13.8 gm/dL (11.4-16.0); Lymphocytes # (A) 0.3 k/uL (1.0-4.8); Lymphocytes % (A) 2 %; MCH 32.1 pg (25.0-35.0); MCHC 34.4 g/dL (31.0-37.0); MCV 93.4 fL (80.0-100.0); Mean Platelet Volume 8.5; Monocytes # (A) 0.9 k/uL (0-1.0); Monocytes % (A) 6 %; Neutrophils # (A) 12.9 k/uL (1.3-7.7); Neutrophils % (A) 90 %; Platelet Count 174 k/uL (150-450); RBC 4.31 m/uL (3.80-5.40); WBC 14.3 k/uL (3.8-10.6)
[2020-08-12] MEDS: POTASSIUM CHLORIDE 10 MEQ in WATER FOR INJECTION 1 100ML.BAG IVPB SCH ×9 (05:53→21:26)
[2020-08-12] MEDS: LEVOTHYROXINE 100 MCG TAB PO SCH (06:38)
[2020-08-12] MEDS: SERTRALINE 100 MG TAB PO SCH (08:43)
[2020-08-12 09:01] LABS: ABG Base Excess 6.3 mmol/L; ABG HCO3 32 mmol/L (21-25); ABG PCO2 55 mmHg (35-45); ABG PH 7.39 (7.35-7.45); ABG PO2 69 mmHg (83-108)
[2020-08-12] MEDS: FUROSEMIDE 10 MG/ML 4 ML VIAL IV SCH ×2 (09:03→20:25)
[2020-08-12] MEDS: PANTOPRAZOLE 40 MG/10 ML VIAL IVP SCH (09:03)
[2020-08-12] MEDS: HEPARIN SODIUM,PORCINE/PF 5,000 UNIT/0.5 ML SYRINGE SQ SCH ×2 (09:07→20:25)
[2020-08-12] MEDS: IPRATROPIUM-ALBUTEROL 3 ML NEB INHALATION SCH ×4 (09:08→22:18)
[2020-08-12] MEDS: AZITHROMYCIN 500 MG in SODIUM CHLORIDE 0.9% 250 ML IVPB SCH (10:36)
--- NOTE | 2020-08-12 11:29 | P.PN ---
Subjective Progress Note Date: 08/12/20 Patient was transferred to the ICU yesterday. She still on BiPAP with 100% FiO2. Patient is awake and alert. She is still confused. Repeat blood gases this morning showed some improvement in her PaO2. Patient is diuresing well. Chest x-ray is unchanged compared to yesterday. Objective - Vital Signs Vital signs: Vital Signs Temp 98.7 F 08/12/20 08:01 Pulse 101 H 08/12/20 11:00 Resp 31 H 08/12/20 11:00 BP 112/71 08/12/20 11:00 Pulse Ox 94 L 08/12/20 11:00 Intake & Output 08/11/20 08/12/20 08/12/20 18:59 06:59 18:59 Intake Total 390 220 250 Output Total 1100 1260 610 Balance -710 -1040 -360 Weight 82.5 kg 86 kg Intake: IV 360 220 250 Azithromycin 500 mg In 250 Sodium Chloride 0.9% 250 ml @ 250 mls/hr IVPB DAILY [facility] Rx#:[id number] Invasive Line 1 10 Invasive Line 2 20 Invasive Line 3 30 KVO 220 50 Potassium Chloride 10 meq 200 In Water For Injection 1 100ml.bag @ 100 mls/hr IVPB Q1HR [facility] Rx#: [id number] cefTRIAXone 2 gm In 50 Sodium Chloride 0.9% 50 ml @ 100 mls/hr IVPB Q24HR [facility] Rx#:[id number] Oral 30 Output: Urine 1100 1260 610 Uretheral (Coppola) 850 Other: Voiding Method Indwelling Catheter Indwelling Catheter - Exam General: The patient is awake and alert, BiPAP in place Eye: there is normal conjunctiva bilaterally. Neck: The neck is supple, there is no JVD. Cardiovascular: Normal S1-S2, no S3-S4, no murmurs. Respiratory: Lungs BiPAP sounds anterior chest auscultation Gastrointestinal: Abdomen is soft, nontender Musculoskeletal: There is no pedal edema. Neurological:. Speech is normal. Skin: Skin is warm and dry - Labs CBC & Chem 7: 08/12/20 04:17 08/12/20 04:17 Labs: Abnormal Lab Results - Last 24 Hours (Table) 08/11/20 08/11/20 08/12/20 Range/Units 11:46 19:07 00:02 WBC (3.8-10.6) k/uL Neutrophils # (1.3-7.7) k/uL Lymphocytes # (1.0-4.8) k/uL D-Dimer 3.38 H (<0.60) mg/L FEU ABG pCO2 (35-45) mmHg ABG pO2 (83-108) mmHg ABG HCO3 (21-25) mmol/L Potassium (3.5-5.1) mmol/L Carbon Dioxide (22-30) mmol/L BUN (7-17) mg/dL Creatinine (0.52-1.04) mg/dL Glucose (74-99) mg/dL POC Glucose (mg/dL) 124 H 121 H (75-99) mg/dL Calcium (8.4-10.2) mg/dL 08/12/20 08/12/20 08/12/20 Range/Units 04:17 04:17 08:55 WBC 14.3 H (3.8-10.6) k/uL Neutrophils # 12.9 H (1.3-7.7) k/uL Lymphocytes # 0.3 L (1.0-4.8) k/uL D-Dimer (<0.60) mg/L FEU ABG pCO2 55 H (35-45) mmHg ABG pO2 69 L (83-108) mmHg ABG HCO3 32 H (21-25) mmol/L Potassium 2.8 L (3.5-5.1) mmol/L Carbon Dioxide 34 H (22-30) mmol/L BUN 33 H (7-17) mg/dL Creatinine 1.41 H (0.52-1.04) mg/dL Glucose 127 H (74-99) mg/dL POC Glucose (mg/dL) (75-99) mg/dL Calcium 8.0 L (8.4-10.2) mg/dL Assessment and Plan Assessment: Female with hypertension, dyslipidemia, hypothyroidism, and prior breast cancer currently in remission who presented here from [facility] secondary to sepsis with obstructive right UPJ stone resulting in severe hydronephrosis. She was started on IV fluids and IV antibiotics. Urology was consulted. On the evening of 08/07 she underwent cystoscopy with right ureteral stent insertion. She was given 1 dose of gentamicin. Her IV fluids were increased secondary to hypotension. She did come back with a gram negatives bacteremia. On 08/09, patient started developing increased oxygen requirement. Below is a list of her medical problems Acute hypoxic respiratory failure, suspect multifactorial secondary to fluid o verload and possible underlying pneumonia Left lung pneumonia with elevated pro-calcitonin Acute diastolic heart failure exacerbation - Patient started on IV Lasix 40 mg twice daily. BNP slightly elevated but echocardiogram showed preserved ejection fraction with no significant valvular abnormalities - Continue antibiotic treatment with IV ceftriaxone, azithromycin added day #3 - Given no improvement in clinical status and worsening hypoxia I ordered CT angiogram of the chest to rule out PE. This is currently on hold as directed by voice intercept technician. D-dimer is elevated. Right sided pyelonephritis with right sided hydronephrosis with sepsis, cabezas- susceptible E. coli bacteremia and right UPJ stone - rocephin 2 g daily day #6 - Received aggressive IV fluid hydration - s/p ureteral stent - Culture grew pansensitive susceptible E. coli Acute kidney injury secondary sepsis - Creatinine improving. Suspect underlying chronic kidney disease Hypokalemia -Replacement order Persistent nausea and vomiting, now improved -Abdominal x-ray with no acute findings. Abdominal exam is benign. Continue Zofran and Compazine as needed. Hypertension, low normal - hold cozaar and norvasc -follow BP Hyperlipidemia -statin Hypothyroidism -synthroid CODE STATUS: Full code DVT prophylaxis: Heparin Discussed with: Patient and RN Anticipated discharge date: 1-[address]: Home A total of 35 minutes was spent on the care of this complex patient more than 50% of the time was spent in counseling and care coordination.
[2020-08-12 12:21] LABS: Glucose,Whole Blood 119 mg/dL (75-99)
--- NOTE | 2020-08-12 12:30 | P.PN ---
Subjective Progress Note Date: 08/12/20 This is a pleasant 80-year-old female patient with a history of hyperlipidemia, hypertension, hypothyroidism, breast cancer who was originally admitted back on 08/06/2020 for right-sided abdominal/flank pain. She does have a history of kidney stones and a computed tomography scan showed severe right hydr onephrosis/polynephritis with moderate paranephric urinary extravasation due to a 4.7 x 6.1 mm right UPJ calculus. She had subsequently undergone cystoscopy and right ureteral stent placement on 08/07/2020. Urine culture positive for E. coli. Blood cultures positive for E. coli. She had been treated for sepsis with excess fluid resuscitation and today developed worsening shortness of breath and hypoxemia. And 18 was called she was placed on 12 L high flow nasal cannula with saturations at 88%. Arterial blood gases revealed a PaO2 of 56%, pCO2 43, pH 7.38 on 65% FiO2. She was transferred to the selective care unit, placed on BiPAP 10/5 with 80% FiO2. She had received Lasix 40 mg 2 in the past 24 hours. She is seen today in consultation on the selective care unit. She remains on BiPAP 10/5 and 80% FiO2. O2 saturations currently 84%. FiO2 is increased to 100%. She is given additional Lasix 40 mg IVP. Chest x-ray revealed stable cardiomegaly with continued perihilar and upper and midlung airspace disease, slightly worsened on the left. White count 13.3. Hemoglobin 12.1. Sodium 136. Potassium 3.7. Creatinine 1.34. ProBNP 5930. Theodore virus screen negative. She is on DuoNeb inhalations and antibiotics in the form of ceftriaxone and azithromycin. Heparin for DVT prophylaxis, Protonix for GI prophylaxis. The patient is seen today 08/11/2020 follow-up. She continues to do poorly from the pulmonary standpoint. She remains on BiPAP 12/6 in the 100% FiO2 to diamond ntain O2 saturations at 90. She is restless, confused. She is obeying commands. She remains oriented 3. ABGs revealed a PaO2 of 68, pCO2 of 58 and a pH of 7.34 on 100% FiO2. White count 14.5. Hemoglobin 14.7. Platelet count 115,000. D-dimer 3.38. Sodium 139. Potassium 3.9. Creatinine 1.20. Pro calcitonin 8.43. Urine and blood cultures positive for E. coli. She remains on azithromycin, ceftriaxone. Continued on bronchodilators. Lasix 40 mg mg every 12 hours. She remains in a negative balance. Echocardiogram revealed preserved left ventricular systolic function with ejection fraction 55-60%. The plan is to transfer her to the intensive care unit for closer monitoring. The patient is seen today 08/12/2020 in follow-up in the intensive care unit. She was transferred here last evening due to worsening shortness of breath and hypoxemia. Her CoVID 19 screen was negative. She is currently on BiPAP 04/08 and 100% FiO2 maintaining O2 saturations in the mid to upper 80s. Arterial blood gases reveal a pO2 of 69, pCO2 55, pH 7.39. She is in mild respiratory distress. She slightly tachycardic, tachypneic. Temperature 99.1 axillary. Chest x-ray continues to show increased interstitial opacities, bibasilar opacities, cardiomegaly. Blood and urine cultures positive for E. coli. White count 14.3. Hemoglobin 13.8. Lymphocytes 0.3. Sodium 143. Potassium 2.8. BUN 33. Creatinine 1.41. Glucose 127. She remains on bronchodilators, IV diuretics, antibiotics in the form of ceftriaxone and azithromycin. Potassium is being replaced. Objective - Vital Signs Vital signs: Vital Signs Temp 99.1 F 08/12/20 12:00 Pulse 108 H 08/12/20 12:00 Resp 34 H 08/12/20 12:00 BP 132/65 08/12/20 12:00 Pulse Ox 93 L 08/12/20 12:00 Intake & Output 08/11/20 08/12/20 08/12/20 18:59 06:59 18:59 Intake Total 390 220 260 Output Total 1100 1260 785 Balance -710 -1040 -525 Weight 82.5 kg 86 kg Intake: IV 360 220 260 Azithromycin 500 mg In 250 Sodium Chloride 0.9% 250 ml @ 250 mls/hr IVPB DAILY [facility] Rx#:[id number] Invasive Line 1 10 Invasive Line 2 20 Invasive Line 3 30 KVO 220 60 Potassium Chloride 10 meq 200 In Water For Injection 1 100ml.bag @ 100 mls/hr IVPB Q1HR [facility] Rx#: [id number] cefTRIAXone 2 gm In 50 Sodium Chloride 0.9% 50 ml @ 100 mls/hr IVPB Q24HR [facility] Rx#:[id number] Oral 30 Output: Urine 1100 1260 785 Uretheral (Coppola) 850 Other: Voiding Method Indwelling Catheter Indwelling Catheter Indwelling Catheter - Exam GENERAL EXAM: Alert, pleasant 80-year-old female patient, on BiPAP 12/6 at 100% FiO2, and mild respiratory distress. HEAD: Normocephalic. EYES: Normal reaction of pupils, equal size. NOSE: Clear with pink turbinates. THROAT: No erythema or exudates. NECK: No masses, no JVD. CHEST: No chest wall deformity. LUNGS: Equal air entry with crackles in the bilateral posterior bases. Tachypneic. CVS: S1 and S2 normal with no audible murmur, regular rhythm. Tachycardic. ABDOMEN: No hepatosplenomegaly, normal bowel sounds, no guarding or rigidity. SPINE: No scoliosis or deformity SKIN: No rashes CENTRAL NERVOUS SYSTEM: No focal deficits, tone is normal in all 4 extremities. EXTREMITIES: There is no peripheral edema. No clubbing, no cyanosis. Peripheral pulses are intact. - Labs CBC & Chem 7: 08/12/20 04:17 08/12/20 04:17 Labs: Abnormal Lab Results - Last 24 Hours (Table) 08/11/20 08/11/20 08/12/20 Range/Units 11:46 19:07 00:02 WBC (3.8-10.6) k/uL Neutrophils # (1.3-7.7) k/uL Lymphocytes # (1.0-4.8) k/uL D-Dimer 3.38 H (<0.60) mg/L FEU ABG pCO2 (35-45) mmHg ABG pO2 (83-108) mmHg ABG HCO3 (21-25) mmol/L Potassium (3.5-5.1) mmol/L Carbon Dioxide (22-30) mmol/L BUN (7-17) mg/dL Creatinine (0.52-1.04) mg/dL Glucose (74-99) mg/dL POC Glucose (mg/dL) 124 H 121 H (75-99) mg/dL Calcium (8.4-10.2) mg/dL 08/12/20 08/12/20 08/12/20 Range/Units 04:17 04:17 08:55 WBC 14.3 H (3.8-10.6) k/uL Neutrophils # 12.9 H (1.3-7.7) k/uL Lymphocytes # 0.3 L (1.0-4.8) k/uL D-Dimer (<0.60) mg/L FEU ABG pCO2 55 H (35-45) mmHg ABG pO2 69 L (83-108) mmHg ABG HCO3 32 H (21-25) mmol/L Potassium 2.8 L (3.5-5.1) mmol/L Carbon Dioxide 34 H (22-30) mmol/L BUN 33 H (7-17) mg/dL Creatinine 1.41 H (0.52-1.04) mg/dL Glucose 127 H (74-99) mg/dL POC Glucose (mg/dL) (75-99) mg/dL Calcium 8.0 L (8.4-10.2) mg/dL 08/12/20 Range/Units 12:19 WBC (3.8-10.6) k/uL Neutrophils # (1.3-7.7) k/uL Lymphocytes # (1.0-4.8) k/uL D-Dimer (<0.60) mg/L FEU ABG pCO2 (35-45) mmHg ABG pO2 (83-108) mmHg ABG HCO3 (21-25) mmol/L Potassium (3.5-5.1) mmol/L Carbon Dioxide (22-30) mmol/L BUN (7-17) mg/dL Creatinine (0.52-1.04) mg/dL Glucose (74-99) mg/dL POC Glucose (mg/dL) 119 H (75-99) mg/dL Calcium (8.4-10.2) mg/dL Assessment and Plan Assessment: 1 Acute hypoxemic respiratory failure secondary to acute fluid volume overload secondary to requiring over 5 L of fluid resuscitation here currently on BiPAP 04/08 and 100% FiO2. 2 Sepsis secondary to bacteremia from E. coli 3 Acute urinary tract infection secondary to E. coli 4 Acute right pyelonephritis/hydronephrosis secondary to right UPJ calculus, status post right ureteral stent placement on 08/07/2020 5 History of hypertension 6 Hyperlipidemia 7 Hypothyroidism Plan: The patient was seen and evaluated by Dr. Ware Chest x-ray, ABGs and labs reviewed Continue BiPAP settings 12/6 and 100% FiO2 Continue diuretics Continue bronchodilators, antibiotics Continue to monitor her here closely in the intensive care unit Any deterioration in pulmonary status may require intubation and mechanical ventilatory support We will continue to follow and make further recommendations based on her clinical status Critical care time 35 minutes I, the cosigning physician, performed a history & physical examination of the patient. Lungs sounds with crackles in the bilateral posterior bases. Diamond ntaining good O2 saturations in the 90s on BiPAP 12/6 at 100% FiO2. I discussed the assessment and plan of care with my nurse practitioner, Brittanie Fallon. I attest to the above note as dictated by her.
[2020-08-12 14:32] LABS: Allen Test Performed? Yes
[2020-08-12 19:08] LABS: Glucose,Whole Blood 108 mg/dL (75-99)
[2020-08-12] MEDS: ATORVASTATIN 40 MG TAB PO SCH (20:22)
[2020-08-13 00:04] LABS: Glucose,Whole Blood 109 mg/dL (75-99)
[2020-08-13] MEDS: INSULIN ASPART (NovoLOG) 100 UNIT/ML VIAL SQ SCH ×5 (00:15→23:38)
[2020-08-13] MEDS: POTASSIUM CHLORIDE 10 MEQ in WATER FOR INJECTION 1 100ML.BAG IVPB SCH ×5 (00:15→10:06)
[2020-08-13 04:46] LABS: Basophils % (A) 0 %; Eosinophils % (A) 0 %; HGB 13.6 gm/dL (11.4-16.0); Lymphocytes # (A) 0.4 k/uL (1.0-4.8); Lymphocytes % (A) 2 %; MCH 31.8 pg (25.0-35.0); MCV 93.5 fL (80.0-100.0); Monocytes # (A) 0.6 k/uL (0-1.0); Monocytes % (A) 4 %; Neutrophils # (A) 14.5 k/uL (1.3-7.7); Neutrophils % (A) 93 %; Platelet Count 267 k/uL (150-450); RBC 4.27 m/uL (3.80-5.40); WBC 15.6 k/uL (3.8-10.6)
[2020-08-13 05:00] LABS: Calcium 8.1 mg/dL (8.4-10.2); Magnesium 2.3 mg/dL (1.6-2.3); Potassium 3.3 mmol/L (3.5-5.1)
--- NOTE | 2020-08-13 05:27 | P.PN ---
Subjective Progress Note Date: 08/13/20 This is a pleasant 80-year-old female patient with a history of hyperlipidemia, hypertension, hypothyroidism, breast cancer who was originally admitted back on 08/06/2020 for right-sided abdominal/flank pain. On 08/13/2020, this 80-year-old male patient currently in the intensive care unit due to complication of a E. coli urine tract infection. The patient's presented with a flank/abdominal pain and the patient is known to have nephrolithiasis and the patient was found to have a right kidney hydronephrosis with chronic nephritis and moderate amount of perinephric urinary extravasation and a UPJ calculus. The patient is post cystoscopy and right ureteral stent placement on 08/07/2020. Cultures are positive for E. coli. The patient was aggressively resuscitated IV fluids. The patient developed an acute hypoxic respiratory failure requiring BiPAP for respiratory support. BiPAP is at a pressure of 12/6 cm of water and FiO2 is being titrated to maintain a saturation above 90%. Chest x-ray showed some cardiomegaly and diffuse interstitial infiltrates bilaterally. The patient accordingly was kept in intensive care unit. Note that his cold with 19 screening was negative. The patient developed an acute kidney injury with a high creatinine of 1.9 which is gradually improving. Less often also improved. He was given a combination of Rocephin and Zithromax. The echo of the heart showed a normal LV, his affect of around 55-60%, RV is mildly enlarged, the patient has mild to moderate pulmonary hypertension, PA pressure was is on IV Rocephin and Zithromax for now. The patient is on heparin subcu for DVT prophylaxis. The patient was started on Lasix 40 mg every 12 hours when the patient has been achieving a negative fluid balance. Fluid balance for 08/11/2020 was -2.9 L. The white cell count is improved. The pro calcitonin LEVEL WAS HIGH 8.4. PROBNP LEVEL WAS 5930. The patient continues to be on Lasix 40 mg every 12 hours. Chest x-ray still showing diffuse bilateral pulmonary infiltrates right more than left and there is limited to [place] change compared to yesterday's chest x-ray. I do suspect a component of ARDS secondary to E. coli septicemia. The blood work from today shows a sodium level of 147, potassium is to be replaced at 3.3, creatinine is at 1.3 with a BUN of 46. The net fluid balance over the past 24 hours has been -1.7 L. Despite the negative fluid balance, the patient continues to have diffuse bilateral pulmonary infiltrates. Objective - Vital Signs Vital signs: Vital Signs Temp 97.9 F 08/13/20 04:00 Pulse 117 H 08/13/20 04:00 Resp 15 08/13/20 04:00 BP 136/68 08/13/20 04:00 Pulse Ox 94 L 08/13/20 04:00 Intake & Output 08/12/20 08/12/20 08/13/20 06:59 18:59 06:59 Intake Total 220 890 90 Output Total 1260 1434 1030 Balance -1040 -544 -940 Weight 86 kg Intake: IV 220 890 90 Azithromycin 500 mg In 250 Sodium Chloride 0.9% 250 ml @ 250 mls/hr IVPB DAILY [facility] Rx#:[id number] KVO 220 140 90 Potassium Chloride 10 meq 500 In Water For Injection 1 100ml.bag @ 100 mls/hr IVPB Q1HR [facility] Rx#: [id number] Output: Urine 1260 1434 1030 Other: Voiding Method Indwelling Catheter Indwelling Catheter Indwelling Catheter - Exam GENERAL EXAM: Alert, pleasant 80-year-old female patient, on BiPAP 12 at 100% FiO2, and mild respiratory distress. HEAD: Normocephalic. EYES: Normal reaction of pupils, equal size. NOSE: Clear with pink turbinates. THROAT: No erythema or exudates. NECK: No masses, no JVD. CHEST: No chest wall deformity. LUNGS: Equal air entry with crackles in the bilateral posterior bases. Tachypneic. CVS: S1 and S2 normal with no audible murmur, regular rhythm. Tachycardic. ABDOMEN: No hepatosplenomegaly, normal bowel sounds, no guarding or rigidity. SPINE: No scoliosis or deformity SKIN: No rashes CENTRAL NERVOUS SYSTEM: No focal deficits, tone is normal in all 4 extremities. The patient is quite lethargic. She is OA1-2. Her neurologic exam is still nonfocal. EXTREMITIES: There is no peripheral edema. No clubbing, no cyanosis. Peripheral pulses are intact. - Labs CBC & Chem 7: 08/13/20 03:35 04/12/21 03:35 Labs: Abnormal Lab Results - Last 24 Hours (Table) 08/12/20 08/12/20 08/12/20 Range/Units 04:17 08:55 12:19 WBC 14.3 H (3.8-10.6) k/uL Neutrophils # 12.9 H (1.3-7.7) k/uL Lymphocytes # 0.3 L (1.0-4.8) k/uL ABG pCO2 55 H (35-45) mmHg ABG pO2 69 L (83-108) mmHg ABG HCO3 32 H (21-25) mmol/L Sodium (137-145) mmol/L Potassium (3.5-5.1) mmol/L Carbon Dioxide (22-30) mmol/L BUN (7-17) mg/dL Creatinine (0.52-1.04) mg/dL Glucose (74-99) mg/dL POC Glucose (mg/dL) 119 H (75-99) mg/dL Calcium (8.4-10.2) mg/dL 08/12/20 08/12/20 08/13/20 Range/Units 17:25 19:07 00:02 WBC (3.8-10.6) k/uL Neutrophils # (1.3-7.7) k/uL Lymphocytes # (1.0-4.8) k/uL ABG pCO2 (35-45) mmHg ABG pO2 (83-108) mmHg ABG HCO3 (21-25) mmol/L Sodium (137-145) mmol/L Potassium 3.2 L (3.5-5.1) mmol/L Carbon Dioxide (22-30) mmol/L BUN (7-17) mg/dL Creatinine (0.52-1.04) mg/dL Glucose (74-99) mg/dL POC Glucose (mg/dL) 108 H 109 H (75-99) mg/dL Calcium (8.4-10.2) mg/dL 08/13/20 08/13/20 Range/Units 03:35 03:35 WBC 15.6 H (3.8-10.6) k/uL Neutrophils # 14.5 H (1.3-7.7) k/uL Lymphocytes # 0.4 L (1.0-4.8) k/uL ABG pCO2 (35-45) mmHg ABG pO2 (83-108) mmHg ABG HCO3 (21-25) mmol/L Sodium 147 H (137-145) mmol/L Potassium 3.3 L (3.5-5.1) mmol/L Carbon Dioxide 35 H (22-30) mmol/L BUN 46 H (7-17) mg/dL Creatinine 1.30 H (0.52-1.04) mg/dL Glucose 118 H (74-99) mg/dL POC Glucose (mg/dL) (75-99) mg/dL Calcium 8.1 L (8.4-10.2) mg/dL Assessment and Plan Plan: 1 Acute hypoxemic respiratory failure secondary to acute fluid volume overload versus sepsis induced acute lung injury/ARDS. The patient was resuscitated with fluids and the patient is currently being diuresed. Meanwhile, the patient was treated with a BiPAP 12/6 and 100% FiO2. The echo cardiac exam showing a p reserved LV function without any signs of any valvular heart disease or cardiomyopathy. 2 Sepsis secondary to bacteremia from E. coli 3 Acute urinary tract infection secondary to E. coli 4 Acute right pyelonephritis/hydronephrosis secondary to right UPJ calculus, status post right ureteral stent placement on 08/07/2020 5 History of hypertension 6 Hyperlipidemia 7 Hypothyroidism Plan: Chest x-ray , no improvement since yesterday despite being diuretics and despite her E. coli septicemia being adequately treated. Echocardiogram is within normal limits. He remains on BiPAP. Continue BiPAP settings 12/6 and 100% FiO2 Continue diuretics Findings could be also consistent with acute lung injury/ARDS that his sepsis induced. Consider repeating the COVID 19 screen Continue bronchodilator Rocephin and Zithromax and put the patient on Zosyn 3.375 g every 8 hours and this will also give the patient coverage for any gram-negative or aspiration pneumonia. Continue to monitor her here closely in the intensive care unit Any deterioration in pulmonary status may require intubation and mechanical ventilatory support We will continue to follow and make further recommendations based on her clinical status Critical care time > 30 minutes Time with Patient: Greater than 30
[2020-08-13] MEDS: LEVOTHYROXINE 100 MCG TAB PO SCH (05:55)
[2020-08-13 06:29] LABS: ABG Base Excess 12.4 mmol/L; ABG HCO3 37 mmol/L (21-25); ABG Oxygen Saturation 94.5 % (94-97); ABG PCO2 55 mmHg (35-45); ABG PH 7.43 (7.35-7.45); ABG PO2 72 mmHg (83-108); ABG TCO2 38 mmol/L (19-24); Allen Test Performed? Yes
--- NOTE | 2020-08-13 07:27 | XR ---
EXAMINATION TYPE: XR chest 1V portable DATE OF EXAM: 08/13/2020 CLINICAL HISTORY: Difficulty breathing progress study. TECHNIQUE: Single AP portable semiupright view of the chest is obtained. COMPARISON: Chest x-ray from one day earlier and older studies. FINDINGS: Bilateral reticulonodular opacities remain present with additional increased opacity right lower lung. Stable mild cardiomegaly. Surgical changes epigastric region and cholecystectomy clips r edemonstrated. Osseous structures are intact. Current study shows chin overlying the anterior superio r mediastinum. IMPRESSION: Persistent bilateral reticulonodular edema and/or infiltrates, no significant change from most recent x-ray.
[2020-08-13] MEDS: PIPERACILLIN-TAZOBACTAM 3.375 GM in SODIUM CHLORIDE 0.9% 100 ML IVPB SCH ×3 (08:51→23:49)
[2020-08-13] MEDS: HEPARIN SODIUM,PORCINE/PF 5,000 UNIT/0.5 ML SYRINGE SQ SCH ×2 (08:52→20:23)
[2020-08-13] MEDS: FUROSEMIDE 10 MG/ML 4 ML VIAL IV SCH (08:52)
[2020-08-13] MEDS: PANTOPRAZOLE 40 MG/10 ML VIAL IVP SCH (08:53)
[2020-08-13] MEDS: SERTRALINE 100 MG TAB PO SCH (08:53)
[2020-08-13] MEDS: DEXMEDETOMIDINE/0.9% NACL(PMX) 400 MCG in EMPTY BAG 1 BAG IV SCH (10:15)
--- NOTE | 2020-08-13 10:50 | P.PN ---
Subjective Progress Note Date: 08/13/20 Patient is still on BiPAP today. She is maintained on 100% FiO2 and O2 sats around 95%. Patient is still complaining of shortness of breath that appeared confused and weak as she has not been eating for the past couple of days. Objective - Vital Signs Vital signs: Vital Signs Temp 99.0 F 08/13/20 08:00 Pulse 121 H 08/13/20 10:00 Resp 23 08/13/20 10:00 BP 146/85 08/13/20 10:00 Pulse Ox 94 L 08/13/20 10:00 Intake & Output 08/12/20 08/13/20 08/13/20 18:59 06:59 18:59 Intake Total 890 120 410 Output Total 1434 1215 370 Balance -544 -1095 40 Weight 85.5 kg Intake: IV 890 120 410 Azithromycin 500 mg In 250 Sodium Chloride 0.9% 250 ml @ 250 mls/hr IVPB DAILY [facility] Rx#:[id number] KVO 140 120 10 Piperacillin-Tazobactam 3 100 .375 gm In Sodium Chloride 0.9% 100 ml @ 25 mls/hr IVPB Q8HR [facility] Rx# :[id number] Potassium Chloride 10 meq 500 300 In Water For Injection 1 100ml.bag @ 100 mls/hr IVPB Q1HR [facility] Rx#: [id number] Output: Urine 1434 1215 370 Other: Voiding Method Indwelling Catheter Indwelling Catheter - Exam General: The patient is awake and alert, BiPAP in place Eye: there is normal conjunctiva bilaterally. Neck: The neck is supple, there is no JVD. Cardiovascular: Normal S1-S2, no S3-S4, no murmurs. Respiratory: Lungs BiPAP sounds anterior chest auscultation Gastrointestinal: Abdomen is soft, nontender Musculoskeletal: There is no pedal edema. Neurological:. Speech is normal. Skin: Skin is warm and dry - Labs CBC & Chem 7: 08/13/20 03:35 08/13/20 03:35 Labs: Abnormal Lab Results - Last 24 Hours (Table) 08/12/20 08/12/20 08/12/20 Range/Units 12:19 17:25 19:07 WBC (3.8-10.6) k/uL Neutrophils # (1.3-7.7) k/uL Lymphocytes # (1.0-4.8) k/uL ABG pCO2 (35-45) mmHg ABG pO2 (83-108) mmHg ABG HCO3 (21-25) mmol/L ABG Total CO2 (19-24) mmol/L Sodium (137-145) mmol/L Potassium 3.2 L (3.5-5.1) mmol/L Carbon Dioxide (22-30) mmol/L BUN (7-17) mg/dL Creatinine (0.52-1.04) mg/dL Glucose (74-99) mg/dL POC Glucose (mg/dL) 119 H 108 H (75-99) mg/dL Calcium (8.4-10.2) mg/dL 08/13/20 08/13/20 08/13/20 Range/Units 00:02 03:35 03:35 WBC 15.6 H (3.8-10.6) k/uL Neutrophils # 14.5 H (1.3-7.7) k/uL Lymphocytes # 0.4 L (1.0-4.8) k/uL ABG pCO2 (35-45) mmHg ABG pO2 (83-108) mmHg ABG HCO3 (21-25) mmol/L ABG Total CO2 (19-24) mmol/L Sodium 147 H (137-145) mmol/L Potassium 3.3 L (3.5-5.1) mmol/L Carbon Dioxide 35 H (22-30) mmol/L BUN 46 H (7-17) mg/dL Creatinine 1.30 H (0.52-1.04) mg/dL Glucose 118 H (74-99) mg/dL POC Glucose (mg/dL) 109 H (75-99) mg/dL Calcium 8.1 L (8.4-10.2) mg/dL 08/13/20 Range/Units 06:24 WBC (3.8-10.6) k/uL Neutrophils # (1.3-7.7) k/uL Lymphocytes # (1.0-4.8) k/uL ABG pCO2 55 H (35-45) mmHg ABG pO2 72 L (83-108) mmHg ABG HCO3 37 H (21-25) mmol/L ABG Total CO2 38 H (19-24) mmol/L Sodium (137-145) mmol/L Potassium (3.5-5.1) mmol/L Carbon Dioxide (22-30) mmol/L BUN (7-17) mg/dL Creatinine (0.52-1.04) mg/dL Glucose (74-99) mg/dL POC Glucose (mg/dL) (75-99) mg/dL Calcium (8.4-10.2) mg/dL Assessment and Plan Assessment: Female with hypertension, dyslipidemia, hypothyroidism, and prior breast cancer currently in remission who presented here from [facility] secondary to sepsis with obstructive right UPJ stone resulting in severe hydronephrosis. She was started on IV fluids and IV antibiotics. Urology was consulted. On the evening of 08/07 she underwent cystoscopy with right ureteral stent insertion. Sh e was given 1 dose of gentamicin. Her IV fluids were increased secondary to hypotension. She did come back with a gram negatives bacteremia. On 08/09, patient started developing increased oxygen requirement and eventually was transferred to the ICU requiring BiPAP. Below is a list of her medical problems Acute hypoxic respiratory failure, suspect multifactorial secondary to fluid overload, ARDS, and underlying pneumonia Left lung pneumonia with elevated pro-calcitonin Acute diastolic heart failure exacerbation - Patient started on IV Lasix 40 mg twice daily. With good response. I would change her Lasix to 40 mg once a day. BNP slightly elevated but echocardiogram showed preserved ejection fraction with no significant valvular abnormalities - Started on antibiotic with with IV ceftriaxone, azithromycin for 4 days then switched to IV Zosyn as recommended by pulmonary - Given no improvement in clinical status and worsening hypoxia I ordered CT angiogram of the chest to rule out PE. D-dimer is elevated. I advised the nurse to contact radiology to see if this okay to do contrast with her kidney function Right sided pyelonephritis with right sided hydronephrosis with sepsis, cabezas- susceptible E. coli bacteremia and right UPJ stone - Started on rocephin 2 g for 7 days then switched to IV Zosyn day #1 - Received aggressive IV fluid hydration - s/p ureteral stent - Culture grew pansensitive susceptible E. coli Acute kidney injury secondary sepsis - Creatinine improving. Suspect underlying chronic kidney disease Hypokalemia -Replacement order Persistent nausea and vomiting, now improved -Abdominal x-ray with no acute findings. Abdominal exam is benign. Continue Zofran and Compazine as needed. Hypertension, low normal - hold cozaar and norvasc -follow BP Hyperlipidemia -statin Hypothyroidism -synthroid CODE STATUS: Full code DVT prophylaxis: Heparin Discussed with: Patient and RN Anticipated discharge date: 1-[address]: Home A total of 35 minutes was spent on the care of this complex patient more than 50% of the time was spent in counseling and care coordination.
[2020-08-13 12:17] LABS: Glucose,Whole Blood 128 mg/dL (75-99)
[2020-08-13] MEDS: IPRATROPIUM-ALBUTEROL 3 ML NEB INHALATION SCH ×4 (13:45→21:07)
[2020-08-13 17:38] LABS: Glucose,Whole Blood 131 mg/dL (75-99)
[2020-08-13] MEDS: ATORVASTATIN 40 MG TAB PO SCH (20:03)
[2020-08-13] MEDS ORDERED: ACETAMINOPHEN IV (For NPO) 1,000 MG in EMPTY BAG 1 BAG IVPB PRN (20:24)
[2020-08-13 23:31] LABS: Glucose,Whole Blood 114 mg/dL (75-99)
[2020-08-14] MEDS: DEXMEDETOMIDINE/0.9% NACL(PMX) 400 MCG in EMPTY BAG 1 BAG IV SCH ×2 (01:17→11:42)
[2020-08-14 03:37] LABS: Basophils % (A) 0 %; Eosinophils # (A) 0.1 k/uL (0-0.7); Eosinophils % (A) 1 %; HCT 38.3 % (34.0-46.0); HGB 12.7 gm/dL (11.4-16.0); Lymphocytes # (A) 0.5 k/uL (1.0-4.8); Lymphocytes % (A) 4 %; MCH 31.4 pg (25.0-35.0); MCHC 33.3 g/dL (31.0-37.0); MCV 94.5 fL (80.0-100.0); Mean Platelet Volume 7.9; Monocytes # (A) 0.5 k/uL (0-1.0); Monocytes % (A) 4 %; Neutrophils # (A) 11.9 k/uL (1.3-7.7); Neutrophils % (A) 91 %; Platelet Count 256 k/uL (150-450); RBC 4.05 m/uL (3.80-5.40); RDW 13.1 % (11.5-15.5)
[2020-08-14 03:53] LABS: Potassium 3.9 mmol/L (3.5-5.1)
[2020-08-14 03:54] LABS: Calcium 8.4 mg/dL (8.4-10.2)
[2020-08-14] MEDS: POTASSIUM CHLORIDE 10 MEQ in WATER FOR INJECTION 1 100ML.BAG IVPB SCH ×2 (05:16→06:24)
[2020-08-14] MEDS: LEVOTHYROXINE 100 MCG TAB PO SCH (05:46)
[2020-08-14] MEDS: INSULIN ASPART (NovoLOG) 100 UNIT/ML VIAL SQ SCH ×3 (06:21→17:10)
[2020-08-14 06:22] LABS: Glucose,Whole Blood 117 mg/dL (75-99)
[2020-08-14] MEDS: IPRATROPIUM-ALBUTEROL 3 ML NEB INHALATION SCH (07:13)
--- NOTE | 2020-08-14 07:55 | XR ---
EXAMINATION TYPE: XR chest 1V portable DATE OF EXAM: 08/14/2020 Comparison: 08/13/2020 Clinical History: 80-year-old female shortness of breath Findings: Heart mildly enlarged. Low lung volumes. Hazy bilateral groundglass densities persist but show slight improvement on the right. Impression: Mild cardiomegaly and hypoventilatory changes. Bilateral hazy groundglass airspace disease persists. Slight improvement in aeration on the right.
--- NOTE | 2020-08-14 08:01 | P.PN ---
Subjective Progress Note Date: 08/14/20 This is a pleasant 80-year-old female patient with a history of hyperlipidemia, hypertension, hypothyroidism, breast cancer who was originally admitted back on 08/06/2020 for right-sided abdominal/flank pain. On 08/13/2020, this 80-year-old male patient currently in the intensive care unit due to complication of a E. coli urine tract infection. The patient's presented with a flank/abdominal pain and the patient is known to have nephrolithiasis and the patient was found to have a right kidney hydronephrosis with chronic nephritis and moderate amount of perinephric urinary extravasation and a UPJ calculus. The patient is post cystoscopy and right ureteral stent placement on 08/07/2020. Cultures are positive for E. coli. The patient was aggressively resuscitated IV fluids. The patient developed an acute hypoxic respiratory failure requiring BiPAP for respiratory support. BiPAP is at a pressure of 12/6 cm of water and FiO2 is being titrated to maintain a saturation above 90%. Chest x-ray showed some cardiomegaly and diffuse interstitial infiltrates bilaterally. The patient accordingly was kept in intensive care unit. Note that his cold with 19 screening was negative. The patient developed an acute kidney injury with a high creatinine of 1.9 which is gradually improving. Less often also improved. He was given a combination of Rocephin and Zithromax. The echo of the heart showed a normal LV, his affect of around 55-60%, RV is mildly enlarged, the patient has mild to moderate pulmonary hypertension, PA pressure was is on IV Rocephin and Zithromax for now. The patient is on heparin subcu for DVT prophylaxis. The patient was started on Lasix 40 mg every 12 hours when the patient has been achieving a negative fluid balance. Fluid balance for 08/11/2020 was -2.9 L. The white cell count is improved. The pro calcitonin LEVEL WAS HIGH 8.4. PROBNP LEVEL WAS 5930. The patient continues to be on Lasix 40 mg every 12 hours. Chest x-ray still showing diffuse bilateral pulmonary infiltrates right more than left and there is limited to [place] change compared to yesterday's chest x-ray. I do suspect a component of ARDS secondary to E. coli septicemia. The blood work from today shows a sodium level of 147, potassium is to be replaced at 3.3, creatinine is at 1.3 with a BUN of 46. The net fluid balance over the past 24 hours has been -1.7 L. Despite the negative fluid balance, the patient continues to have diffuse bilateral pulmonary infiltrates. On today's evaluation of 08/14/2020, I'm seeing the patient for a follow-up. This is a case of urine checked infection with sepsis with E. coli. The patient also developed ARDS. The patient was getting also progressively more restless and agitated and confused yesterday. She was started on Precedex which is currently running at 0.4 g per/ kg/r minute. Meanwhile, the patient remains on BiPAP which is currently at a pressure of 12/6 cm of water with an FiO2 of 90%. The chest x-ray from today is still showing some limited infiltration yet the overall x-ray findings are probably improved compared to yesterday. The patient was switched yesterday to IV Zosyn covering for gram-negative UTI and possible aspiration. Echocardiogram was within normal limits and the patient has a preserved LV function. The patient remains on Lasix. The net fluid balance over the past 24 hours has been -1.6 L and the patient continues to be a negative fluid balance. On her blood work from today, the patient has a white cell count of 13 with a hemoglobin of 12.7, the patient's sodium level is up to 151 and I think the diuretics can be slowed down and the patient has a BUN of 64 with a creatinine of 1.5 and a serum bicarbs at 35. The most recent pro calcitonin level was 8.4. The patient is urinating a tidal volume of 350. Respiratory rate currently is in the mid 30s even while being on a BiPAP. She does have some coarse crackles in lung bases bilaterally. Objective - Vital Signs Vital signs: Vital Signs Temp 99.3 F 08/14/20 04:00 Pulse 75 08/14/20 07:30 Resp 31 H 08/14/20 07:00 BP 118/55 08/14/20 07:00 Pulse Ox 91 L 08/14/20 07:00 Intake & Output 08/13/20 08/14/20 08/14/20 18:59 06:59 18:59 Intake Total 698.325 221.675 10 Output Total 880 495 40 Balance -181.675 -273.325 -30 Weight 85.5 kg 84.5 kg Intake: IV 600 220 10 KVO 100 120 10 Piperacillin-Tazobactam 3 200 .375 gm In Sodium Chloride 0.9% 100 ml @ 25 mls/hr IVPB Q8HR [facility] Rx# :[id number] Potassium Chloride 10 meq 100 In Water For Injection 1 100ml.bag @ 100 mls/hr IVPB Q1H [facility] Rx#: [id number] Potassium Chloride 10 meq 300 In Water For Injection 1 100ml.bag @ 100 mls/hr IVPB Q1HR [facility] Rx#: [id number] Intake, IV Titration 98.325 1.675 Amount Dexmedetomidine/0.9% NaCl 98.325 1.675 (Pmx) 400 mcg In Empty Bag 1 bag @ Titrate IV . Q0M [facility] Rx#:[id number] Output: Urine 880 495 40 Other: Voiding Method Indwelling Catheter Indwelling Catheter - Exam GENERAL EXAM: Alert, pleasant 80-year-old female patient, on BiPAP 12/6 at 90% FiO2, and mild respiratory distress. The patient is currently comfortable on 0.4 of Precedex HEAD: Normocephalic. EYES: Normal reaction of pupils, equal size. NOSE: Clear with pink turbinates. THROAT: No erythema or exudates. NECK: No masses, no JVD. CHEST: No chest wall deformity. LUNGS: Equal air entry with crackles in the bilateral posterior bases. Tachypneic. CVS: S1 and S2 normal with no audible murmur, regular rhythm. Tachycardic. ABDOMEN: No hepatosplenomegaly, normal bowel sounds, no guarding or rigidity. SPINE: No scoliosis or deformity SKIN: No rashes CENTRAL NERVOUS SYSTEM: No focal deficits, tone is normal in all 4 extremities. The patient is quite lethargic. She is OA1-2. Her neurologic exam is still nonfocal. EXTREMITIES: There is no peripheral edema. No clubbing, no cyanosis. Peripheral pulses are intact. - Labs CBC & Chem 7: 08/14/20 03:16 08/14/20 03:16 Labs: Abnormal Lab Results - Last 24 Hours (Table) 08/13/20 08/13/20 08/13/20 Range/Units 12:14 17:37 23:30 WBC (3.8-10.6) k/uL Neutrophils # (1.3-7.7) k/uL Lymphocytes # (1.0-4.8) k/uL Sodium (137-145) mmol/L Chloride (98-107) mmol/L Carbon Dioxide (22-30) mmol/L BUN (7-17) mg/dL Creatinine (0.52-1.04) mg/dL Glucose (74-99) mg/dL POC Glucose (mg/dL) 128 H 131 H 114 H (75-99) mg/dL 08/14/20 08/14/20 08/14/20 Range/Units 03:16 03:16 06:21 WBC 13.0 H (3.8-10.6) k/uL Neutrophils # 11.9 H (1.3-7.7) k/uL Lymphocytes # 0.5 L (1.0-4.8) k/uL Sodium 151 H (137-145) mmol/L Chloride 110 H (98-107) mmol/L Carbon Dioxide 35 H (22-30) mmol/L BUN 64 H (7-17) mg/dL Creatinine 1.52 H (0.52-1.04) mg/dL Glucose 119 H (74-99) mg/dL POC Glucose (mg/dL) 117 H (75-99) mg/dL Assessment and Plan Plan: 1 Acute hypoxemic respiratory failure secondary to acute fluid volume overload versus sepsis induced acute lung injury/ARDS. The patient was resuscitated with fluids and the patient is currently being diuresed. Meanwhile, the patient was treated with a BiPAP 12/6 and 900% FiO2. The echo exam showing a preserved LV function without any signs of any valvular heart disease or cardiomyopathy. 2 Sepsis secondary to bacteremia from E. coli 3 Acute urinary tract infection secondary to E. coli 4 Acute right pyelonephritis/hydronephrosis secondary to right UPJ calculus, status post right ureteral stent placement on 08/07/2020 5 History of hypertension 6 Hyperlipidemia 7 Hypothyroidism 8 acute kidney injury secondary to diuresis 9 hyperchloremic hypernatremia secondary to diuresis Plan: Continue BiPAP support Keep Precedex on a titrated dose Stop Lasix Start the patient on D5 water at the rate of 75 mL an hour and monitor the blood sugar Continued IV Zosyn Add IV Solu-Medrol 40 mg every 8 hours regarding possibility of a fibroproliferative phase of ARDS Chest x-ray was noted Continue to monitor her here closely in the intensive care unit Any deterioration in pulmonary status may require intubation and mechanical ventilatory support We will continue to follow and make further recommendations based on her clinical status Critical care time > 30 minutes Time with Patient: Greater than 30
[2020-08-14] MEDS: SERTRALINE 100 MG TAB PO SCH (08:14)
[2020-08-14] MEDS: PANTOPRAZOLE 40 MG/10 ML VIAL IVP SCH (08:24)
[2020-08-14] MEDS: PIPERACILLIN-TAZOBACTAM 3.375 GM in SODIUM CHLORIDE 0.9% 100 ML IVPB SCH ×2 (08:25→15:49)
[2020-08-14] MEDS: methylPREDNISolone SOD SUCCI 40 MG/ML 1 ML VIAL IV SCH ×2 (08:25→15:49)
[2020-08-14] MEDS: HEPARIN SODIUM,PORCINE/PF 5,000 UNIT/0.5 ML SYRINGE SQ SCH ×2 (08:27→20:36)
[2020-08-14] MEDS: DEXTROSE 5% IN WATER 1,000 ML IV SCH ×2 (08:33→20:36)
[2020-08-14] MEDS ORDERED: FUROSEMIDE 10 MG/ML 4 ML VIAL IV SCH (09:00)
[2020-08-14] MEDS ORDERED: methylPREDNISolone SOD SUCCI 40 MG/ML 1 ML VIAL IV SCH (09:00)
[2020-08-14] MEDS ORDERED: ALBUTEROL HFA INHALER INHALATION PRN (11:03)
[2020-08-14 11:37] LABS: Glucose,Whole Blood 152 mg/dL (75-99)
--- NOTE | 2020-08-14 13:36 | P.PN ---
Subjective Progress Note Date: 08/14/20 Patient is still on BiPAP. 5-500% and O2 sat 95%. Her mental status is worsening by the day as patient has been nothing by mouth for a few days and is not getting any nutrition. She is still on Precedex and per nursing staff when weaned off she is trying to remove her BiPAP Objective - Vital Signs Vital signs: Vital Signs Temp 99.3 F 08/14/20 12:00 Pulse 66 08/14/20 12:00 Resp 25 H 08/14/20 12:00 BP 108/51 08/14/20 12:00 Pulse Ox 92 L 08/14/20 12:00 Intake & Output 08/13/20 08/14/20 08/14/20 18:59 06:59 18:59 Intake Total 698.325 221.675 328.239 Output Total 880 495 235 Balance -181.675 -273.325 93.239 Weight 85.5 kg 84.5 kg 84.5 kg Intake: IV 600 220 325 Dextrose 5% in Water 1, 275 000 ml @ 75 mls/hr IV . [id number] [facility] Rx#:[id number] KVO 100 120 50 Piperacillin-Tazobactam 3 200 .375 gm In Sodium Chloride 0.9% 100 ml @ 25 mls/hr IVPB Q8HR [facility] Rx# :[id number] Potassium Chloride 10 meq 100 In Water For Injection 1 100ml.bag @ 100 mls/hr IVPB Q1H [facility] Rx#: [id number] Potassium Chloride 10 meq 300 In Water For Injection 1 100ml.bag @ 100 mls/hr IVPB Q1HR [facility] Rx#: [id number] Intake, IV Titration 98.325 1.675 3.239 Amount Dexmedetomidine/0.9% NaCl 3.239 (Pmx) 400 mcg In Empty Bag 1 bag @ 0.4 MCG/KG/HR 8.45 mls/hr IV .[id number] [facility] Rx#:[id number] Dexmedetomidine/0.9% NaCl 98.325 1.675 (Pmx) 400 mcg In Empty Bag 1 bag @ Titrate IV . Q0M [facility] Rx#:[id number] Output: Urine 880 495 235 Other: Voiding Method Indwelling Catheter Indwelling Catheter - Exam General: The patient is awake and alert, BiPAP in place Eye: there is normal conjunctiva bilaterally. Neck: The neck is supple, there is no JVD. Cardiovascular: Normal S1-S2, no S3-S4, no murmurs. Respiratory: Lungs BiPAP sounds anterior chest auscultation Gastrointestinal: Abdomen is soft, nontender Musculoskeletal: There is no pedal edema. Neurological:. Speech is normal. Skin: Skin is warm and dry - Labs CBC & Chem 7: 08/14/20 03:16 08/14/20 03:16 Labs: Abnormal Lab Results - Last 24 Hours (Table) 08/13/20 08/13/20 08/14/20 Range/Units 17:37 23:30 03:16 WBC 13.0 H (3.8-10.6) k/uL Neutrophils # 11.9 H (1.3-7.7) k/uL Lymphocytes # 0.5 L (1.0-4.8) k/uL Sodium (137-145) mmol/L Chloride (98-107) mmol/L Carbon Dioxide (22-30) mmol/L BUN (7-17) mg/dL Creatinine (0.52-1.04) mg/dL Glucose (74-99) mg/dL POC Glucose (mg/dL) 131 H 114 H (75-99) mg/dL Coronavirus (PCR) (Not Detectd) 08/14/20 08/14/20 08/14/20 Range/Units 03:16 06:21 09:19 WBC (3.8-10.6) k/uL Neutrophils # (1.3-7.7) k/uL Lymphocytes # (1.0-4.8) k/uL Sodium 151 H (137-145) mmol/L Chloride 110 H (98-107) mmol/L Carbon Dioxide 35 H (22-30) mmol/L BUN 64 H (7-17) mg/dL Creatinine 1.52 H (0.52-1.04) mg/dL Glucose 119 H (74-99) mg/dL POC Glucose (mg/dL) 117 H (75-99) mg/dL Coronavirus (PCR) Detected A (Not Detectd) 08/14/20 Range/Units 11:35 WBC (3.8-10.6) k/uL Neutrophils # (1.3-7.7) k/uL Lymphocytes # (1.0-4.8) k/uL Sodium (137-145) mmol/L Chloride (98-107) mmol/L Carbon Dioxide (22-30) mmol/L BUN (7-17) mg/dL Creatinine (0.52-1.04) mg/dL Glucose (74-99) mg/dL POC Glucose (mg/dL) 152 H (75-99) mg/dL Coronavirus (PCR) (Not Detectd) Assessment and Plan Assessment: Female with hypertension, dyslipidemia, hypothyroidism, and prior breast cancer currently in remission who presented here from [facility] secondary to sepsis with obstructive right UPJ stone resulting in severe hydronephrosis. She was started on IV fluids and IV antibiotics. Urology was consulted. On the evening of 08/07 she underwent cystoscopy with right ureteral stent insertion. She was given 1 dose of gentamicin. Her IV fluids were increased secondary to hypotension. She was noted to be bacteremic. On 08/09, patient started developing increased oxygen requirement and eventually was transferred to the ICU requiring BiPAP. Below is a list of her medical problems Acute hypoxic respiratory failure, suspect multifactorial secondary to fluid overload, ARDS, and underlying pneumonia Left lung pneumonia with elevated pro-calcitonin Acute diastolic heart failure exacerbation Questionable COVID-19 infection: He should had to test there were negative on 08/07 and 08/10. Repeat rapid test on 08/14 was positive. I would obtain actual send outs PCR test for confirmation. Check inflammatory markers. - Patient started on IV Lasix 40 mg twice daily for 3 days. With good response. BNP slightly elevated but echocardiogram showed preserved ejection fraction with no significant valvular abnormalities - Started on antibiotic with with IV ceftriaxone, azithromycin for 4 days then switched to IV Zosyn as recommended by pulmonary now day #2. Also on IV Solu- Medrol as ordered by ICU - Given no improvement in clinical status and worsening hypoxia I ordered CT angiogram of the chest to rule out PE. D-dimer is elevated. I advised the nurse to contact radiology to see if this okay to do contrast with her kidney function -Currently on BiPAP with 100% FiO2 with O2 sats of 95%. I advised to lower her FiO2. BiPAP is managed by ICU team. Right sided pyelonephritis with right sided hydronephrosis with sepsis, cabezas- susceptible E. coli bacteremia and right UPJ stone - Started on rocephin 2 g for 7 days then switched to IV Zosyn day #2 - Received aggressive IV fluid hydration - s/p ureteral stent - Culture grew pansensitive susceptible E. coli Acute kidney injury secondary sepsis - Creatinine improving. Suspect underlying chronic kidney disease Hypokalemia -Replacement order Hypovolemic hypernatremia -Started on D5 water. We'll repeat lab work in the morning. Hypertension, low normal - hold cozaar and norvasc -follow BP Hyperlipidemia -statin Hypothyroidism -synthroid CODE STATUS: Full code DVT prophylaxis: Heparin Discussed with: Patient and RN Anticipated discharge date: 1-[address]: Home A total of 35 minutes was spent on the care of this complex patient more than 50% of the time was spent in counseling and care coordination.
[2020-08-14 14:55] LABS: C Reactive Protein 76.6 mg/L (<10.0)
[2020-08-14 16:59] LABS: Glucose,Whole Blood 182 mg/dL (75-99)
[2020-08-14] MEDS: methylPREDNISolone SOD SUCCI 125 MG/2 ML VIAL IV SCH (17:12)
[2020-08-14] MEDS: ALBUTEROL HFA INHALER INHALATION SCH ×2 (18:16→19:30)
[2020-08-14] MEDS: ATORVASTATIN 40 MG TAB PO SCH (20:27)
[2020-08-15 01:15] LABS: Glucose,Whole Blood 169 mg/dL (75-99)
[2020-08-15] MEDS: PIPERACILLIN-TAZOBACTAM 3.375 GM in SODIUM CHLORIDE 0.9% 100 ML IVPB SCH ×3 (01:16→18:09)
[2020-08-15] MEDS: INSULIN ASPART (NovoLOG) 100 UNIT/ML VIAL SQ SCH ×4 (01:17→19:08)
[2020-08-15] MEDS: methylPREDNISolone SOD SUCCI 125 MG/2 ML VIAL IV SCH ×4 (01:17→19:09)
[2020-08-15] MEDS: DEXMEDETOMIDINE/0.9% NACL(PMX) 400 MCG in EMPTY BAG 1 BAG IV SCH (01:20)
[2020-08-15 03:52] LABS: Basophils % (A) 0 %; Eosinophils % (A) 0 %; HCT 40.2 % (34.0-46.0); HGB 12.5 gm/dL (11.4-16.0); Lymphocytes # (A) 0.3 k/uL (1.0-4.8); Lymphocytes % (A) 2 %; MCH 30.4 pg (25.0-35.0); MCHC 31.1 g/dL (31.0-37.0); MCV 97.9 fL (80.0-100.0); Mean Platelet Volume 7.5; Monocytes # (A) 0.6 k/uL (0-1.0); Monocytes % (A) 4 %; Neutrophils # (A) 14.4 k/uL (1.3-7.7); Neutrophils % (A) 94 %; Platelet Count 310 k/uL (150-450); RDW 13.7 % (11.5-15.5); WBC 15.4 k/uL (3.8-10.6)
[2020-08-15 04:21] LABS: Albumin 2.6 g/dL (3.5-5.0); Calcium 8.6 mg/dL (8.4-10.2); Magnesium 2.8 mg/dL (1.6-2.3); Potassium 4.2 mmol/L (3.5-5.1); Total Bilirubin 0.5 mg/dL (0.2-1.3); Total Protein 5.6 g/dL (6.3-8.2)
[2020-08-15 06:04] LABS: Glucose,Whole Blood 167 mg/dL (75-99)
--- NOTE | 2020-08-15 06:33 | P.PN ---
Subjective Progress Note Date: 08/15/20 This is a pleasant 80-year-old female patient with a history of hyperlipidemia, hypertension, hypothyroidism, breast cancer who was originally admitted back on 08/06/2020 for right-sided abdominal/flank pain. On 08/13/2020, this 80-year-old male patient currently in the intensive care unit due to complication of a E. coli urine tract infection. The patient's presented with a flank/abdominal pain and the patient is known to have nephrolithiasis and the patient was found to have a right kidney hydronephrosis with chronic nephritis and moderate amount of perinephric urinary extravasation and a UPJ calculus. The patient is post cystoscopy and right ureteral stent placement on 08/07/2020. Cultures are positive for E. coli. The patient was aggressively resuscitated IV fluids. The patient developed an acute hypoxic respiratory failure requiring BiPAP for respiratory support. BiPAP is at a pressure of 12/6 cm of water and FiO2 is being titrated to maintain a saturation above 90%. Chest x-ray showed some cardiomegaly and diffuse interstitial infiltrates bilaterally. The patient accordingly was kept in intensive care unit. Note that his cold with 19 screening was negative. The patient developed an acute kidney injury with a high creatinine of 1.9 which is gradually improving. Less often also improved. He was given a combination of Rocephin and Zithromax. The echo of the heart showed a normal LV, his affect of around 55-60%, RV is mildly enlarged, the patient has mild to moderate pulmonary hypertension, PA pressure was is on IV Rocephin and Zithromax for now. The patient is on heparin subcu for DVT prophylaxis. The patient was started on Lasix 40 mg every 12 hours when the patient has been achieving a negative fluid balance. Fluid balance for 08/11/2020 was -2.9 L. The white cell count is improved. The pro calcitonin LEVEL WAS HIGH 8.4. PROBNP LEVEL WAS 5930. The patient continues to be on Lasix 40 mg every 12 hours. Chest x-ray still showing diffuse bilateral pulmonary infiltrates right more than left and there is limited to Sutton change compared to yesterday's chest x-ray. I do suspect a component of ARDS secondary to E. coli septicemia. The blood work from today shows a sodium level of 147, potassium is to be replaced at 3.3, creatinine is at 1.3 with a BUN of 46. The net fluid balance over the past 24 hours has been -1.7 L. Despite the negative fluid balance, the patient continues to have diffuse bilateral pulmonary infiltrates. On today's evaluation of 08/14/2020, I'm seeing the patient for a follow-up. This is a case of urine checked infection with sepsis with E. coli. The patient also developed ARDS. The patient was getting also progressively more restless and agitated and confused yesterday. She was started on Precedex which is currently running at 0.4 g per/ kg/r minute. Meanwhile, the patient remains on BiPAP which is currently at a pressure of 12/6 cm of water with an FiO2 of 90%. The chest x-ray from today is still showing some limited infiltration yet the overall x-ray findings are probably improved compared to yesterday. The patient was switched yesterday to IV Zosyn covering for gram-negative UTI and possible aspiration. Echocardiogram was within normal limits and the patient has a preserved LV function. The patient remains on Lasix. The net fluid balance over the past 24 hours has been -1.6 L and the patient continues to be a negative fluid balance. On her blood work from today, the patient has a white cell count of 13 with a hemoglobin of 12.7, the patient's sodium level is up to 151 and I think the diuretics can be slowed down and the patient has a BUN of 64 with a creatinine of 1.5 and a serum bicarbs at 35. The most recent pro calcitonin level was 8.4. The patient is urinating a tidal volume of 350. Respiratory rate currently is in the mid 30s even while being on a BiPAP. She does have some coarse crackles in lung bases bilaterally. On today's evaluation of 08/15/2020, the patient is essentially unchanged compared to yesterday. She remains on a BiPAP at a pressure of 12/6 cm of water with an FiO2 of 90%. She is very much BiPAP dependent. The new information is that the third sample of COVID 19 PCR came back positive and the patient is most likely positive for colitis after having 2 T are negative. The patient is arousable and she is awake. Her chest x-ray is showing diffuse bilateral pulmonary infiltrates with some limited improvement in the right side on today's chest x-ray. Meanwhile, the patient remains on D5 water to replace her free water deficit. The patient's sodium today is at 152 with a BUN of 55 and a creatinine of 1.6. Her LDH from yesterday was 1294 and CRP level was 76. Her progress. Obviously declining is down to 1.4. The patient remains on broad- spectrum antibiotics and she is currently on IV Zosyn. In terms of sedation, the patient is on 0.4 mcg/kg/h of Precedex to maintain synchrony with the mechanical ventilator and control her agitation.The PICC line was ordered for this patient for today. Otherwise, the patient is on IV Solu-Medrol and the patient will be also placed on Lovenox 40 mg subcu every 24 hours for DVT prop hylaxis. D-dimer is at 2.91. Objective - Vital Signs Vital signs: Vital Signs Temp 99 F 08/15/20 04:00 Pulse 77 08/15/20 05:00 Resp 15 08/15/20 05:00 BP 148/72 08/15/20 05:00 Pulse Ox 97 08/15/20 05:00 Intake & Output 08/14/20 08/14/20 08/15/20 06:59 18:59 06:59 Intake Total 221.675 828.239 895.773 Output Total 495 610 595 Balance -273.325 218.239 300.773 Weight 84.5 kg 84.5 kg 85 kg Intake: IV 220 825 765 Dextrose 5% in Water 1, 725 675 000 ml @ 75 mls/hr IV . [id number] [facility] Rx#:[id number] KVO 120 100 90 Potassium Chloride 10 meq 100 In Water For Injection 1 100ml.bag @ 100 mls/hr IVPB Q1H [facility] Rx#: [id number] Intake, IV Titration 1.675 3.239 130.773 Amount Dexmedetomidine/0.9% NaCl 3.239 130.773 (Pmx) 400 mcg In Empty Bag 1 bag @ 0.4 MCG/KG/HR 8.45 mls/hr IV .[id number] [facility] Rx#:[id number] Dexmedetomidine/0.9% NaCl 1.675 (Pmx) 400 mcg In Empty Bag 1 bag @ Titrate IV . Q0M [facility] Rx#:[id number] Output: Urine 495 610 595 Other: Voiding Method Indwelling Catheter Indwelling Catheter Indwelling Catheter - Exam GENERAL EXAM: Alert, pleasant 80-year-old female patient, on BiPAP 12/6 at 90% FiO2, and mild respiratory distress. The patient is currently comfortable on 0.4 of Precedex HEAD: Normocephalic. EYES: Normal reaction of pupils, equal size. NOSE: Clear with pink turbinates. THROAT: No erythema or exudates. NECK: No masses, no JVD. CHEST: No chest wall deformity. LUNGS: Equal air entry with crackles in the bilateral posterior bases. Tachypneic. CVS: S1 and S2 normal with no audible murmur, regular rhythm. Tachycardic. ABDOMEN: No hepatosplenomegaly, normal bowel sounds, no guarding or rigidity. SPINE: No scoliosis or deformity SKIN: No rashes CENTRAL NERVOUS SYSTEM: No focal deficits, tone is normal in all 4 extremities. The patient is quite lethargic. She is OA1-2. Her neurologic exam is still nonfocal. EXTREMITIES: There is no peripheral edema. No clubbing, no cyanosis. Peripheral pulses are intact. - Labs CBC & Chem 7: 08/15/20 03:07 08/15/20 03:07 Labs: Abnormal Lab Results - Last 24 Hours (Table) 08/14/20 08/14/20 08/14/20 Range/Units 03:16 09:19 11:35 WBC (3.8-10.6) k/uL Neutrophils # (1.3-7.7) k/uL Lymphocytes # (1.0-4.8) k/uL D-Dimer (<0.60) mg/L FEU Sodium (137-145) mmol/L Chloride (98-107) mmol/L Carbon Dioxide (22-30) mmol/L BUN (7-17) mg/dL Creatinine (0.52-1.04) mg/dL Glucose (74-99) mg/dL POC Glucose (mg/dL) 152 H (75-99) mg/dL Magnesium (1.6-2.3) mg/dL Lactate Dehydrogenase (313-618) U/L C-Reactive Protein (<10.0) mg/L Total Protein (6.3-8.2) g/dL Albumin (3.5-5.0) g/dL Procalcitonin 1.40 H (0.02-0.09) ng/mL Coronavirus (PCR) Detected A (Not Detectd) 08/14/20 08/14/20 08/14/20 Range/Units 13:53 13:54 16:58 WBC (3.8-10.6) k/uL Neutrophils # (1.3-7.7) k/uL Lymphocytes # (1.0-4.8) k/uL D-Dimer 2.91 H (<0.60) mg/L FEU Sodium (137-145) mmol/L Chloride (98-107) mmol/L Carbon Dioxide (22-30) mmol/L BUN (7-17) mg/dL Creatinine (0.52-1.04) mg/dL Glucose (74-99) mg/dL POC Glucose (mg/dL) 182 H (75-99) mg/dL Magnesium (1.6-2.3) mg/dL Lactate Dehydrogenase 1294 H (313-618) U/L C-Reactive Protein 76.6 H (<10.0) mg/L Total Protein (6.3-8.2) g/dL Albumin (3.5-5.0) g/dL Procalcitonin (0.02-0.09) ng/mL Coronavirus (PCR) (Not Detectd) 08/15/20 08/15/20 08/15/20 Range/Units 01:13 03:07 03:07 WBC 15.4 H (3.8-10.6) k/uL Neutrophils # 14.4 H (1.3-7.7) k/uL Lymphocytes # 0.3 L (1.0-4.8) k/uL D-Dimer (<0.60) mg/L FEU Sodium 152 H (137-145) mmol/L Chloride 111 H (98-107) mmol/L Carbon Dioxide 40 H (22-30) mmol/L BUN 55 H (7-17) mg/dL Creatinine 1.63 H (0.52-1.04) mg/dL Glucose 164 H (74-99) mg/dL POC Glucose (mg/dL) 169 H (75-99) mg/dL Magnesium 2.8 H (1.6-2.3) mg/dL Lactate Dehydrogenase (313-618) U/L C-Reactive Protein (<10.0) mg/L Total Protein 5.6 L (6.3-8.2) g/dL Albumin 2.6 L (3.5-5.0) g/dL Procalcitonin (0.02-0.09) ng/mL Coronavirus (PCR) (Not Detectd) 08/15/20 Range/Units 06:03 WBC (3.8-10.6) k/uL Neutrophils # (1.3-7.7) k/uL Lymphocytes # (1.0-4.8) k/uL D-Dimer (<0.60) mg/L FEU Sodium (137-145) mmol/L Chloride (98-107) mmol/L Carbon Dioxide (22-30) mmol/L BUN (7-17) mg/dL Creatinine (0.52-1.04) mg/dL Glucose (74-99) mg/dL POC Glucose (mg/dL) 167 H (75-99) mg/dL Magnesium (1.6-2.3) mg/dL Lactate Dehydrogenase (313-618) U/L C-Reactive Protein (<10.0) mg/L Total Protein (6.3-8.2) g/dL Albumin (3.5-5.0) g/dL Procalcitonin (0.02-0.09) ng/mL Coronavirus (PCR) (Not Detectd) Assessment and Plan Plan: 1 Acute hypoxemic respiratory failure secondary to acute fluid volume overload versus sepsis induced acute lung injury/ARDS. The less, further testing showed that the patient was positive for coag 19 with an elevated LDH level and CRP and it's likely the patient's respiratory failure is multifactorial. On today's chest x-ray, there is some limited improvement in the right-sided pulmonary infiltrates. Meanwhile, the patient remains on a BiPAP at a pressure of 12/6 cm of water with an FiO2 of 90%. Echocardiogram shows a preserved LV function. The patient was started on IV Solu-Medrol as of yesterday. She remains on Precedex to control her agitation or restlessness. She is obviously encephalopathic. 2 Sepsis secondary to bacteremia from E. coli 3 Acute urinary tract infection secondary to E. coli 4 Acute right pyelonephritis/hydronephrosis secondary to right UPJ calculus, status post right ureteral stent placement on 08/07/2020 5 History of hypertension 6 Hyperlipidemia 7 Hypothyroidism 8 acute kidney injury secondary to diuresis 9 hyperchloremic hypernatremia secondary to diuresis 10 10 acute COVID 19 related infection/pneumonia Plan: Continue BiPAP support Keep Precedex on a titrated dose Start the patient on D5 water at the rate of 150 mL an hour and monitor the blood sugar Continued IV Zosyn Add IV Solu-Medrol 60 mg every 6 hours regarding possibility of a fibroproliferative phase of ARDS/COVID 19 Chest x-ray was noted Continue to monitor her here closely in the intensive care unit PICC line today possible TPN and nutrition consult Any deterioration in pulmonary status may require intubation and mechanical ventilatory support We will continue to follow and make further recommendations based on her clinical status Critical care time > 30 minutes Time with Patient: Greater than 30
[2020-08-15] MEDS: LEVOTHYROXINE 100 MCG TAB PO SCH (06:45)
[2020-08-15 07:14] LABS: Ferritin 324.5 ng/mL (10.0-291.0)
[2020-08-15] MEDS: ALBUTEROL HFA INHALER INHALATION SCH ×4 (08:30→20:14)
[2020-08-15] MEDS ORDERED: ENOXAPARIN 40 MG/0.4 ML SYRINGE SQ SCH (09:00)
[2020-08-15] MEDS: ENOXAPARIN 30 MG/0.3 ML SYRINGE SQ SCH (09:27)
[2020-08-15] MEDS: PANTOPRAZOLE 40 MG/10 ML VIAL IVP SCH (09:27)
[2020-08-15] MEDS: SERTRALINE 100 MG TAB PO SCH (09:28)
--- NOTE | 2020-08-15 09:57 | XR ---
EXAMINATION TYPE: XR chest 1V portable DATE OF EXAM: 08/15/2020 COMPARISON: 08/14/2020 INDICATION: Short of breath TECHNIQUE: Single frontal view of the chest is obtained. FINDINGS: The heart size is normal. The pulmonary vasculature is normal. There is diffuse increased lung markings bilaterally. Findings are stable. IMPRESSION: 1. There is diffuse increased lung markings bilaterally are stable from comparison.
--- NOTE | 2020-08-15 11:46 | P.PN ---
Subjective Progress Note Date: 08/15/20 Patient had an episode of hypoxia last night on BiPAP. Her FiO2 was increased to 100% and then decreased again to 90% this morning. She is currently satting around 95%. Plan to decrease FiO2 even further. Objective - Vital Signs Vital signs: Vital Signs Temp 99 F 08/15/20 04:00 Pulse 73 08/15/20 07:00 Resp 26 H 08/15/20 07:00 BP 132/56 08/15/20 07:00 Pulse Ox 97 08/15/20 07:00 Intake & Output 08/14/20 08/15/20 08/15/20 18:59 06:59 18:59 Intake Total 237.886 9265.773 Output Total 610 645 Balance 218.239 420.773 Weight 84.5 kg 85 kg 85 kg Intake: IV 825 935 Dextrose 5% in Water 1, 725 825 000 ml @ 150 mls/hr IV . Q6H40M [facility] Rx#:[id number] KVO 100 110 Intake, IV Titration 3.239 130.773 Amount Dexmedetomidine/0.9% NaCl 3.239 130.773 (Pmx) 400 mcg In Empty Bag 1 bag @ 0.4 MCG/KG/HR 8.45 mls/hr IV .[id number] [facility] Rx#:[id number] Output: Urine 610 645 Other: Voiding Method Indwelling Catheter Indwelling Catheter - Exam General: The patient is awake and alert, BiPAP in place Eye: there is normal conjunctiva bilaterally. Neck: The neck is supple, there is no JVD. Cardiovascular: Normal S1-S2, no S3-S4, no murmurs. Respiratory: Lungs BiPAP sounds anterior chest auscultation Gastrointestinal: Abdomen is soft, nontender Musculoskeletal: There is no pedal edema. Neurological:. Speech is normal. Skin: Skin is warm and dry - Labs CBC & Chem 7: 08/15/20 03:07 08/15/20 03:07 Labs: Abnormal Lab Results - Last 24 Hours (Table) 08/14/20 08/14/20 08/14/20 Range/Units 03:16 13:53 13:54 WBC (3.8-10.6) k/uL Neutrophils # (1.3-7.7) k/uL Lymphocytes # (1.0-4.8) k/uL D-Dimer 2.91 H (<0.60) mg/L FEU Sodium (137-145) mmol/L Chloride (98-107) mmol/L Carbon Dioxide (22-30) mmol/L BUN (7-17) mg/dL Creatinine (0.52-1.04) mg/dL Glucose (74-99) mg/dL POC Glucose (mg/dL) (75-99) mg/dL Magnesium (1.6-2.3) mg/dL Ferritin 324.5 H (10.0-291.0) ng/mL Lactate Dehydrogenase 1294 H (313-618) U/L C-Reactive Protein 76.6 H (<10.0) mg/L Total Protein (6.3-8.2) g/dL Albumin (3.5-5.0) g/dL Procalcitonin 1.40 H (0.02-0.09) ng/mL SARS-CoV-2 Ab,Total (Non-Reactive) 08/14/20 08/14/20 08/15/20 Range/Units 15:44 16:58 01:13 WBC (3.8-10.6) k/uL Neutrophils # (1.3-7.7) k/uL Lymphocytes # (1.0-4.8) k/uL D-Dimer (<0.60) mg/L FEU Sodium (137-145) mmol/L Chloride (98-107) mmol/L Carbon Dioxide (22-30) mmol/L BUN (7-17) mg/dL Creatinine (0.52-1.04) mg/dL Glucose (74-99) mg/dL POC Glucose (mg/dL) 182 H 169 H (75-99) mg/dL Magnesium (1.6-2.3) mg/dL Ferritin (10.0-291.0) ng/mL Lactate Dehydrogenase (313-618) U/L C-Reactive Protein (<10.0) mg/L Total Protein (6.3-8.2) g/dL Albumin (3.5-5.0) g/dL Procalcitonin (0.02-0.09) ng/mL SARS-CoV-2 Ab,Total Reactive A (Non-Reactive) 08/15/20 08/15/20 08/15/20 Range/Units 03:07 03:07 06:03 WBC 15.4 H (3.8-10.6) k/uL Neutrophils # 14.4 H (1.3-7.7) k/uL Lymphocytes # 0.3 L (1.0-4.8) k/uL D-Dimer (<0.60) mg/L FEU Sodium 152 H (137-145) mmol/L Chloride 111 H (98-107) mmol/L Carbon Dioxide 40 H (22-30) mmol/L BUN 55 H (7-17) mg/dL Creatinine 1.63 H (0.52-1.04) mg/dL Glucose 164 H (74-99) mg/dL POC Glucose (mg/dL) 167 H (75-99) mg/dL Magnesium 2.8 H (1.6-2.3) mg/dL Ferritin (10.0-291.0) ng/mL Lactate Dehydrogenase (313-618) U/L C-Reactive Protein (<10.0) mg/L Total Protein 5.6 L (6.3-8.2) g/dL Albumin 2.6 L (3.5-5.0) g/dL Procalcitonin (0.02-0.09) ng/mL SARS-CoV-2 Ab,Total (Non-Reactive) Assessment and Plan Assessment: Female with hypertension, dyslipidemia, hypothyroidism, and prior breast cancer currently in remission who presented here from [facility] secondary to sepsis with obstructive right UPJ stone resulting in severe hydronephrosis. She was started on IV fluids and IV antibiotics. Urology was consulted. On the evening of 08/07 she underwent cystoscopy with right ureteral stent insertion. She was given 1 dose of gentamicin. Her IV fluids were increased secondary to hypotension. She was noted to be bacteremic. On 08/09, patient started developing increased oxygen requirement and eventually was transferred to the ICU requiring BiPAP. Below is a list of her medical problems Acute hypoxic respiratory failure, suspect multifactorial secondary to fluid overload, ARDS, and underlying pneumonia Left lung pneumonia with elevated pro-calcitonin Questionable COVID-19 pneumonia: Patient was tested for COVID 146 and 49 during this admission and both tests were negative. Repeat test on 08/14 was positive but he was a rapid test. Send outs PCR ordered and pending Acute diastolic heart failure exacerbation - Patient started on IV Lasix 40 mg twice daily for 3 days. With good response. BNP slightly elevated but echocardiogram showed preserved ejection fraction with no significant valvular abnormalities - Started on antibiotic with with IV ceftriaxone, azithromycin for 4 days then switched to IV Zosyn as recommended by pulmonary now day #3. Also on IV Solu- Medrol as ordered by ICU - Given no improvement in clinical status and worsening hypoxia I ordered CT angiogram of the chest to rule out PE. D-dimer is elevated. The test was not done -Currently on BiPAP with 90% FiO2 with O2 sats of 95%. I advised to lower her FiO2. BiPAP is managed by ICU team. Right sided pyelonephritis with right sided hydronephrosis with sepsis, cabezas- susceptible E. coli bacteremia and right UPJ stone - Started on rocephin 2 g for 7 days then switched to IV Zosyn day #3 - Received aggressive IV fluid hydration - s/p ureteral stent - Culture grew pansensitive susceptible E. coli Acute kidney injury secondary sepsis - Creatinine improving. Suspect underlying chronic kidney disease Hypokalemia -Replacement order Hypovolemic hypernatremia -Started on D5 water. We'll repeat lab work in the morning. Hypertension, low normal - hold cozaar and norvasc -follow BP Hyperlipidemia -statin Hypothyroidism -synthroid Today, I attempted to call her daughter to give her an update that there was no response. I will attempt to call back later today. CODE STATUS: Full code DVT prophylaxis: Heparin Discussed with: Patient and RN Anticipated discharge date: Pending clinical course Anticipated discharge place: To be determined A total of 35 minutes was spent on the care of this complex patient more than 50% of the time was spent in counseling and care coordination.
--- NOTE | 2020-08-15 11:53 | P.NPCON ---
History of Present Illness - Reason for Consult acute renal failure - History of Present Illness Reason for consultation: Acute kidney injury and PICC line placement clearance History of present illness: A sent patient is a 80-year-old female seen in renal consultation for acute kidney injury and PICC line placement clearance. Patient presented to the hospital on 08/06/2020 due to abdominal discomfort and kidney stone evaluation. She underwent cystoscopy and a right ureteral stent insertion on August 07. Patient also became more hypoxic this admission and is currently dependent on BiPAP. Not able to tolerate oral intake. TPN to be started later today. Her urine blood culture positive for E. coli and she is receiving IV antibiotics. Nonoliguric. Sodium level is up to 152 this morning. She is maintained on D5W running at 150 mL an hour. Creatinine was 1.6 this admission and it did come down to 1.2 on August 11. It is 1.63 today. Unknown as to what her baseline renal function is. She was on losartan and amlodipine outpatient and are currently held. Blood pressure stable. She is not requiring any vasopressor support. No history of diabetes. She did test positive for COVID. Vital signs are stable. General: The patient appeared well nourished and normally developed. HEENT: On BiPAP. LUNGS: Breath sounds decreased. HEART: Rate and Rhythm are regular. ABDOMEN: No distention noted. EXTREMITITES: No edema. Past Medical History Past Medical History: Cancer, Hyperlipidemia, Hypertension, Thyroid Disorder Additional Past Medical History / Comment(s): vertigo History of Any Multi-Drug Resistant Organisms: None Reported Past Surgical History: Back Surgery, Breast Surgery Past Anesthesia/Blood Transfusion Reactions: No Reported Reaction Past Psychological History: Depression Smoking Status: Never smoker Past Alcohol Use History: None Reported Past Drug Use History: None Reported - Past Family History family Family Medical History: No Reported History Medications and Allergies Home Medications Medication Instructions Recorded Confirmed Type Atorvastatin Calcium [Lipitor] 40 mg PO HS 08/06/20 08/06/20 History Sabra 500 mg PO DAILY 08/06/20 08/06/20 History Levothyroxine Sodium 100 mcg PO DAILY 08/06/20 08/06/20 History Losartan Potassium [Cozaar] 100 mg PO DAILY 08/06/20 08/06/20 History Sertraline HCl [Zoloft] 100 mg PO DAILY 08/06/20 08/06/20 History Vitamin E 400 unit PO DAILY 08/06/20 08/06/20 History amLODIPine [Norvasc] 10 mg PO DAILY 08/06/20 08/06/20 History Allergies Allergy/AdvReac Type Severity Reaction Status Date / Time No Known Allergies Allergy Verified 08/09/20 14:39 Physical Exam Vitals: Vital Signs Temp Pulse Pulse Resp BP BP Pulse Ox 08/15/20 07:00 73 26 H 132/56 97 08/15/20 06:00 71 23 145/69 95 08/15/20 05:00 77 15 148/72 97 08/15/20 04:00 99 F 73 75 33 H 140/68 96 08/15/20 03:00 70 24 129/61 92 L 08/15/20 02:00 66 23 139/75 90 L 08/15/20 01:00 80 19 138/58 95 08/15/20 00:00 98.6 F 70 75 22 125/63 92 L 08/14/20 23:00 79 14 139/70 96 08/14/20 22:00 75 20 139/70 89 L 08/14/20 21:00 72 27 H 128/51 91 L 08/14/20 20:29 98.3 F 78 18 129/59 95 08/14/20 20:00 71 25 H 145/71 89 L 08/14/20 19:00 96 23 139/67 92 L 08/14/20 18:58 89 23 129/33 89 L 08/14/20 18:00 77 30 H 129/71 87 L 08/14/20 17:00 92 26 H 144/65 92 L 08/14/20 16:00 99 F 97 14 142/68 96 08/14/20 15:00 83 28 H 136/61 93 L 08/14/20 14:00 69 25 H 119/60 90 L 08/14/20 13:00 68 26 H 137/73 91 L 08/14/20 12:00 99.3 F 66 25 H 108/51 92 L Intake and Output 08/14/20 08/15/20 08/15/20 22:59 06:59 14:59 Intake Total 670 725.773 Output Total 545 350 Balance 125 375.773 Intake: IV 670 595 Dextrose 5% in Water 1, 600 525 000 ml @ 150 mls/hr IV . Q6H40M [facility] Rx#:[id number] KVO 70 70 Intake, IV Titration 130.773 Amount Dexmedetomidine/0.9% NaCl 130.773 (Pmx) 400 mcg In Empty Bag 1 bag @ 0.4 MCG/KG/HR 8.45 mls/hr IV .[id number] [facility] Rx#:[id number] Output: Urine 545 350 Other: Voiding Method Indwelling Catheter Indwelling Catheter Weight 85 kg 85 kg Results - Lab Results Most recent lab results ABG pH 7.43 (7.35-7.45) 08/13/20 06:24 ABG pCO2 55 mmHg (35-45) H 08/13/20 06:24 ABG pO2 72 mmHg (83-108) L 08/13/20 06:24 ABG HCO3 37 mmol/L (21-25) H 08/13/20 06:24 ABG O2 Saturation 94.5 % (94-97) 08/13/20 06:24 Calcium 8.6 mg/dL (8.4-10.2) 08/15/20 03:07 Phosphorus 3.1 mg/dL (2.5-4.5) 08/09/20 06:07 Magnesium 2.8 mg/dL (1.6-2.3) H 08/15/20 03:07 08/15/20 03:07 08/15/20 03:07 Assessment and Plan Plan: Assessment: 1. Acute kidney injury secondary to ATN secondary to severe sepsis and obstructive uropathy. Creatinine as low as 1.2 this admission. It is 1.63 today. Unknown baseline renal function. 2. Right-sided nephrolithiasis and hydronephrosis status post ureteral stent placement. 3. Severe sepsis secondary to E. coli UTI and bacteremia. 4. Hypernatremia secondary to lack of oral water intake. 5. Acute hypoxic respiratory failure. BiPAP dependent. 6. COVID-19 infection. Plan: Maintain D5W at 150 mL an hour. Repeat sodium level this evening. Avoid nephrotoxins. Continue to monitor renal function and urine output. TPN to be started later today. Cleared for PICC line placement in the dominant arm. Thank you for the consultation. I will continue to follow patient with you during her hospital stay.
[2020-08-15 12:19] LABS: Glucose,Whole Blood 201 mg/dL (75-99)
[2020-08-15 12:30] LABS: Phosphorus 3.1 mg/dL (2.5-4.5)
[2020-08-15] MEDS ORDERED: LIDOCAINE 1% INJ 10MG/ML (20 ML MDV) SQ ONE (13:25)
--- NOTE | 2020-08-15 13:58 | XR ---
EXAMINATION TYPE: XR chest 1V confirm line [facility] DATE OF EXAM: 08/15/2020 COMPARISON: 08/15/2020 INDICATION: Line placement TECHNIQUE: Single frontal view of the chest is obtained. FINDINGS: The heart size is normal. The pulmonary vasculature is normal. Diffuse increased lung markings are present. PICC line enters on the right and has its tip located within the clavian vein superior vena cava junc tion. IMPRESSION: 1. PICC line placement with the tip near the subclavian vein superior vena cava junction. 2. Diffuse increased lung markings
[2020-08-15] MEDS ORDERED: [UNRECOGNIZED DRUG - REMARK] IV SCH ×5 (15:30)
[2020-08-15] MEDS ORDERED: FAT EMULSION 20% 250 ML IV SCH (15:30)
--- NOTE | 2020-08-15 16:37 | IR ---
EXAMINATION TYPE: IR cvc insert >=5 years DATE OF EXAM: 08/15/2020 COMPARISON: NONE HISTORY: Covid infection, shortness of breath, needs long-term intravenous access for therapy FINDINGS: Maximal barrier technique was utilized. Hand hygiene obtained with soap and water and alco hol-based hand rub. The skin overlying the right brachial vein was localized with ultrasound and note d to be compressible and patent by ultrasound. An ultrasound image was obtained and submitted on pat danniellent's chart. Sterile technique utilized with the ultrasound machine. The skin overlying was prepped and draped and Lidocaine used for local anesthesia. A skin juan was made with a scalpel. Access was gained to the vein under direct ultrasound guidance with a 21-gauge needle and a 0.018 inch wire was advanced. Access site was dilated with a peel-away sheath and the catheter tailored to length. Cat heter advanced centrally and a post procedure chest x-ray verified placement with tip at the superior vena cava. Catheter was fixed to the skin and a sterile dressing placed. Hemostasis achieved and t he catheter was aspirated and flushed with sterile saline. The patient remained in stable condition. IMPRESSION: STATUS POST ULTRASOUND GUIDED PICC LINE PLACEMENT, READY FOR USE. THIS PROCEDURE WAS PER FORMED BY THE UNDERSIGNED.
[2020-08-15] MEDS: DEXTROSE 5% IN WATER 1,000 ML IV SCH ×2 (18:09→18:10)
[2020-08-15 19:06] LABS: Glucose,Whole Blood 215 mg/dL (75-99)
[2020-08-15] MEDS: ATORVASTATIN 40 MG TAB PO SCH (21:45)
[2020-08-15] MEDS: ACETAMINOPHEN TAB 325 MG TAB PO PRN (21:45)
[2020-08-16 00:18] LABS: Glucose,Whole Blood 170 mg/dL (75-99)
[2020-08-16] MEDS: methylPREDNISolone SOD SUCCI 125 MG/2 ML VIAL IV SCH ×5 (00:57→23:12)
[2020-08-16] MEDS: INSULIN ASPART (NovoLOG) 100 UNIT/ML VIAL SQ SCH ×6 (00:57→20:44)
[2020-08-16] MEDS: PIPERACILLIN-TAZOBACTAM 3.375 GM in SODIUM CHLORIDE 0.9% 100 ML IVPB SCH ×4 (02:32→23:12)
[2020-08-16 05:49] LABS: Glucose,Whole Blood 182 mg/dL (75-99)
[2020-08-16] MEDS: LEVOTHYROXINE 100 MCG TAB PO SCH (06:18)
[2020-08-16] MEDS: ACETAMINOPHEN TAB 325 MG TAB PO PRN ×2 (06:18→10:35)
--- NOTE | 2020-08-16 06:45 | P.PN ---
Subjective Progress Note Date: 08/16/20 This is a pleasant 80-year-old female patient with a history of hyperlipidemia, hypertension, hypothyroidism, breast cancer who was originally admitted back on 08/06/2020 for right-sided abdominal/flank pain. On 08/13/2020, this 80-year-old male patient currently in the intensive care unit due to complication of a E. coli urine tract infection. The patient's presented with a flank/abdominal pain and the patient is known to have nephrolithiasis and the patient was found to have a right kidney hydronephrosis with chronic nephritis and moderate amount of perinephric urinary extravasation and a UPJ calculus. The patient is post cystoscopy and right ureteral stent placement on 08/07/2020. Cultures are positive for E. coli. The patient was aggressively resuscitated IV fluids. The patient developed an acute hypoxic respiratory failure requiring BiPAP for respiratory support. BiPAP is at a pressure of 12/6 cm of water and FiO2 is being titrated to maintain a saturation above 90%. Chest x-ray showed some cardiomegaly and diffuse interstitial infiltrates bilaterally. The patient accordingly was kept in intensive care unit. Note that his cold with 19 screening was negative. The patient developed an acute kidney injury with a high creatinine of 1.9 which is gradually improving. Less often also improved. He was given a combination of Rocephin and Zithromax. The echo of the heart showed a normal LV, his affect of around 55-60%, RV is mildly enlarged, the patient has mild to moderate pulmonary hypertension, PA pressure was is on IV Rocephin and Zithromax for now. The patient is on heparin subcu for DVT prophylaxis. The patient was started on Lasix 40 mg every 12 hours when the patient has been achieving a negative fluid balance. Fluid balance for 08/11/2020 was -2.9 L. The white cell count is improved. The pro calcitonin LEVEL WAS HIGH 8.4. PROBNP LEVEL WAS 5930. The patient continues to be on Lasix 40 mg every 12 hours. Chest x-ray still showing diffuse bilateral pulmonary infiltrates right more than left and there is limited to Sutton change compared to yesterday's chest x-ray. I do suspect a component of ARDS secondary to E. coli septicemia. The blood work from today shows a sodium level of 147, potassium is to be replaced at 3.3, creatinine is at 1.3 with a BUN of 46. The net fluid balance over the past 24 hours has been -1.7 L. Despite the negative fluid balance, the patient continues to have diffuse bilateral pulmonary infiltrates. On today's evaluation of 08/14/2020, I'm seeing the patient for a follow-up. This is a case of urine checked infection with sepsis with E. coli. The patient also developed ARDS. The patient was getting also progressively more restless and agitated and confused yesterday. She was started on Precedex which is currently running at 0.4 g per/ kg/r minute. Meanwhile, the patient remains on BiPAP which is currently at a pressure of 12/6 cm of water with an FiO2 of 90%. The chest x-ray from today is still showing some limited infiltration yet the overall x-ray findings are probably improved compared to yesterday. The patient was switched yesterday to IV Zosyn covering for gram-negative UTI and possible aspiration. Echocardiogram was within normal limits and the patient has a preserved LV function. The patient remains on Lasix. The net fluid balance over the past 24 hours has been -1.6 L and the patient continues to be a negative fluid balance. On her blood work from today, the patient has a white cell count of 13 with a hemoglobin of 12.7, the patient's sodium level is up to 151 and I think the diuretics can be slowed down and the patient has a BUN of 64 with a creatinine of 1.5 and a serum bicarbs at 35. The most recent pro calcitonin level was 8.4. The patient is urinating a tidal volume of 350. Respiratory rate currently is in the mid 30s even while being on a BiPAP. She does have some coarse crackles in lung bases bilaterally. On today's evaluation of 08/15/2020, the patient is essentially unchanged compared to yesterday. She remains on a BiPAP at a pressure of 12/6 cm of water with an FiO2 of 90%. She is very much BiPAP dependent. The new information is that the third sample of COVID 19 PCR came back positive and the patient is most likely positive for colitis after having 2 T are negative. The patient is arousable and she is awake. Her chest x-ray is showing diffuse bilateral pulmonary infiltrates with some limited improvement in the right side on today's chest x-ray. Meanwhile, the patient remains on D5 water to replace her free water deficit. The patient's sodium today is at 152 with a BUN of 55 and a creatinine of 1.6. Her LDH from yesterday was 1294 and CRP level was 76. Her progress. Obviously declining is down to 1.4. The patient remains on broad- spectrum antibiotics and she is currently on IV Zosyn. In terms of sedation, the patient is on 0.4 mcg/kg/h of Precedex to maintain synchrony with the mechanical ventilator and control her agitation.The PICC line was ordered for this patient for today. Otherwise, the patient is on IV Solu-Medrol and the patient will be also placed on Lovenox 40 mg subcu every 24 hours for DVT prop hylaxis. D-dimer is at 2.91. 08/16/2020 the patient is being seen for a follow-up. I am least associated the patient has been off the BiPAP since yesterday evening and currently she is on oxygen at 15 L nasal cannula. She is breathing comfortably and she is not having any significant respiratory distress. He is also able to communicate. She was able to take some pills and water yesterday. She remains considerably weak. The chest x-ray still showing diffuse bilateral pulmonary infiltrates and my suspicion was that the patient's had a component of ARDS. I further checked her nasal swab for COVID-19 and she do not to be positive. However, the patient was infected with coronavirus back in March 2020 and this is quite unusual for her to be positive again. Note that her COVID-19 antibodies were also positive. No headache, she is on IV Solu-Medrol. She is receiving Solu Medrol 60 mg IV every 6 hours. She is also well diuresed and I'm awaiting her follow- up renal function. Note that the diuretics were held yesterday because of development of an acute kidney injury secondary to diuresis. For now, the patient is hemodynamically stable. No hypotension. Blood sugars are under adequate. The patient has a PICC line. I am inclined to stop the TPN and proceed with oral intake and this is diet as tolerated. A bedside swallow evaluation will be done. She remains on Lovenox 30 mg subcu for prophylaxis. She is on D5 water at the rate of 150 mL an hour and the follow-up sodium level is pending for now. The follow-up level was 145 from yesterday and the D5 water rate was reduced to 100 mL/hr he had noted the patient is also taken off the Precedex for now. She is alert and communicating. She is also appropriate. Objective - Vital Signs Vital signs: Vital Signs Temp 99.0 F 08/16/20 04:00 Pulse 86 08/16/20 06:00 Resp 12 08/16/20 06:00 BP 132/95 08/16/20 06:00 Pulse Ox 91 L 08/16/20 06:00 Intake & Output 08/15/20 08/15/20 08/16/20 06:59 18:59 06:59 Intake Total 8435.482 3547 1490 Output Total 645 440 505 Balance 992.180 4706 985 Weight 85 kg 85 kg 83.5 kg Intake: IV 935 1600 1010 Dextrose 5% in Water 1, 825 1500 800 000 ml @ 150 mls/hr IV . Q6H40M REGINALDO Rx#:[id number] KVO 110 100 10 Piperacillin-Tazobactam 3 200 .375 gm In Sodium Chloride 0.9% 100 ml @ 25 mls/hr IVPB Q8HR REGINALDO Rx# :[id number] Intake, IV Titration 130.773 Amount Dexmedetomidine/0.9% NaCl 130.773 (Pmx) 400 mcg In Empty Bag 1 bag @ 0.4 MCG/KG/HR 8.45 mls/hr IV .[id number] REGINALDO Rx#:[id number] Oral 480 Output: Urine 645 440 505 Other: Voiding Method Indwelling Catheter Indwelling Catheter Indwelling Catheter - Exam GENERAL EXAM: Alert, pleasant 80-year-old female patient, on 15 L high flow and the patient is currently off Precedex. HEAD: Normocephalic. EYES: Normal reaction of pupils, equal size. NOSE: Clear with pink turbinates. THROAT: No erythema or exudates. NECK: No masses, no JVD. CHEST: No chest wall deformity. LUNGS: Equal air entry with crackles in the bilateral posterior bases. Tachypn eic. CVS: S1 and S2 normal with no audible murmur, regular rhythm. Tachycardic. ABDOMEN: No hepatosplenomegaly, normal bowel sounds, no guarding or rigidity. SPINE: No scoliosis or deformity SKIN: No rashes CENTRAL NERVOUS SYSTEM: No focal deficits, tone is normal in all 4 extremities. The patient is quite lethargic. 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 Her neurologic exam is still nonfocal. EXTREMITIES: There is no peripheral edema. No clubbing, no cyanosis. Peripheral pulses are intact. - Labs CBC & Chem 7: 08/15/20 03:07 08/15/20 17:59 Labs: Abnormal Lab Results - Last 24 Hours (Table) 08/14/20 08/14/20 08/15/20 Range/Units 13:53 15:44 11:39 POC Glucose (mg/dL) (75-99) mg/dL Ferritin 324.5 H (10.0-291.0) ng/mL Triglycerides 208 H (<150) mg/dL SARS-CoV-2 Ab,Total Reactive A (Non-Reactive) 08/15/20 08/15/20 08/16/20 Range/Units 12:18 19:05 00:16 POC Glucose (mg/dL) 201 H 215 H 170 H (75-99) mg/dL Ferritin (10.0-291.0) ng/mL Triglycerides (<150) mg/dL SARS-CoV-2 Ab,Total (Non-Reactive) 08/16/20 Range/Units 05:48 POC Glucose (mg/dL) 182 H (75-99) mg/dL Ferritin (10.0-291.0) ng/mL Triglycerides (<150) mg/dL SARS-CoV-2 Ab,Total (Non-Reactive) Assessment and Plan Plan: 1 Acute hypoxemic respiratory failure secondary to acute fluid volume overload versus sepsis induced acute lung injury/ARDS. The less, further testing showed that the patient was positive for COVID 19 with an elevated LDH level and CRP and it's likely the patient's respiratory failure is multifactorial. Clinically improved. The patient is currently on IV Solu-Medrol. The patient is off the BiPAP and the patient is currently on 15 L of oxygen by nasal cannula. The patient is off Precedex. She is alert and oriented. 2 Sepsis secondary to bacteremia from E. coli 3 Acute urinary tract infection secondary to E. coli 4 Acute right pyelonephritis/hydronephrosis secondary to right UPJ calculus, st atus post right ureteral stent placement on 08/07/2020 5 History of hypertension 6 Hyperlipidemia 7 Hypothyroidism 8 acute kidney injury secondary to diuresis 9 hyperchloremic hypernatremia secondary to diuresis 10 history of COVID 19 related infection in 2019 Plan: off BiPAP support off Precedex Start the patient on D5 water at the rate of 100 mL an hour and monitor the blood sugar Continued IV Zosyn IV Solu-Medrol 60 mg every 6 hours regarding possibility of a fibroproliferative phase of ARDS/COVID 19 Chest x-ray was noted, stable Continue to monitor her here closely in the intensive care unit PICC line inserted TPN will be on hold and advance diet We will continue to follow and make further recommendations based on her clinical status Critical care time > 30 minutes
[2020-08-16 06:56] LABS: Basophils % (A) 0 %; Eosinophils # (A) 0.1 k/uL (0-0.7); Eosinophils % (A) 0 %; HCT 45.7 % (34.0-46.0); HGB 14.7 gm/dL (11.4-16.0); Lymphocytes # (A) 0.3 k/uL (1.0-4.8); Lymphocytes % (A) 1 %; MCH 31.8 pg (25.0-35.0); MCHC 32.2 g/dL (31.0-37.0); MCV 98.9 fL (80.0-100.0); Mean Platelet Volume 7.8; Monocytes # (A) 0.5 k/uL (0-1.0); Monocytes % (A) 2 %; Neutrophils # (A) 24.2 k/uL (1.3-7.7); Neutrophils % (A) 96 %; Platelet Count 257 k/uL (150-450); RBC 4.62 m/uL (3.80-5.40); RDW 13.5 % (11.5-15.5); WBC 25.1 k/uL (3.8-10.6)
[2020-08-16 07:22] LABS: Calcium 8.5 mg/dL (8.4-10.2); Magnesium 2.5 mg/dL (1.6-2.3); Phosphorus 2.9 mg/dL (2.5-4.5); Potassium 4.2 mmol/L (3.5-5.1)
[2020-08-16] MEDS: ALBUTEROL HFA INHALER INHALATION SCH ×4 (07:32→21:56)
[2020-08-16] MEDS: ENOXAPARIN 30 MG/0.3 ML SYRINGE SQ SCH (07:56)
[2020-08-16] MEDS: PANTOPRAZOLE 40 MG/10 ML VIAL IVP SCH (07:56)
[2020-08-16] MEDS: DEXTROSE 5% IN WATER 1,000 ML IV SCH ×4 (07:56→08:18)
[2020-08-16] MEDS: SERTRALINE 100 MG TAB PO SCH (08:15)
--- NOTE | 2020-08-16 08:23 | XR ---
EXAMINATION TYPE: XR chest 1V portable DATE OF EXAM: 08/16/2020 COMPARISON: 08/15/2020 INDICATION: Short of breath TECHNIQUE: Single frontal view of the chest is obtained. FINDINGS: The heart size is probably prominent. The pulmonary vasculature is normal. Diffuse increased lung markings are present in the right lung and left base. Findings are stable. PICC line enters on the right with tip in the superior vena cava region IMPRESSION: 1. Stable diffuse infiltrates can be compatible with atypical pneumonia.
--- NOTE | 2020-08-16 10:10 | P.PN ---
Subjective Patient is seen in follow-up for acute kidney injury and hypernatremia. Sodium level 147 this morning. Renal function improving. Nonoliguric. Off BiPAP. Starting to tolerate oral intake. TPN held. Vital signs are stable. General: The patient appeared well nourished and normally developed. HEENT: On nasal cannula. LUNGS: Breath sounds decreased. HEART: Rate and Rhythm are regular. ABDOMEN: Soft, no distention. EXTREMITITES: No edema. Objective - Vital Signs Vital signs: Vital Signs Temp 97.8 F 08/16/20 08:00 Pulse 75 08/16/20 08:30 Resp 28 H 08/16/20 08:30 BP 155/67 08/16/20 08:00 Pulse Ox 92 L 08/16/20 08:00 Intake & Output 08/15/20 08/16/20 08/16/20 18:59 06:59 18:59 Intake Total 1600 1490 100 Output Total 440 505 45 Balance 1160 985 55 Weight 85 kg 83.5 kg Intake: IV 1600 1010 100 Dextrose 5% in Water 1, 1500 800 100 000 ml @ 150 mls/hr IV . Q6H40M REGINALDO Rx#:[id number] KVO 100 10 Piperacillin-Tazobactam 3 200 .375 gm In Sodium Chloride 0.9% 100 ml @ 25 mls/hr IVPB Q8HR REGINALDO Rx# :[id number] Oral 480 Output: Urine 440 505 45 Other: Voiding Method Indwelling Catheter Indwelling Catheter Indwelling Catheter - Labs CBC & Chem 7: 08/16/20 06:18 08/16/20 03:53 Labs: Abnormal Lab Results - Last 24 Hours (Table) 08/15/20 08/15/20 08/15/20 Range/Units 11:39 12:18 19:05 WBC (3.8-10.6) k/uL Neutrophils # (1.3-7.7) k/uL Lymphocytes # (1.0-4.8) k/uL Sodium (137-145) mmol/L Chloride (98-107) mmol/L Carbon Dioxide (22-30) mmol/L BUN (7-17) mg/dL Creatinine (0.52-1.04) mg/dL Glucose (74-99) mg/dL POC Glucose (mg/dL) 201 H 215 H (75-99) mg/dL Magnesium (1.6-2.3) mg/dL Triglycerides 208 H (<150) mg/dL 08/16/20 08/16/20 08/16/20 Range/Units 00:16 03:53 05:48 WBC (3.8-10.6) k/uL Neutrophils # (1.3-7.7) k/uL Lymphocytes # (1.0-4.8) k/uL Sodium 147 H (137-145) mmol/L Chloride 108 H (98-107) mmol/L Carbon Dioxide 33 H (22-30) mmol/L BUN 56 H (7-17) mg/dL Creatinine 1.16 H (0.52-1.04) mg/dL Glucose 188 H (74-99) mg/dL POC Glucose (mg/dL) 170 H 182 H (75-99) mg/dL Magnesium 2.5 H (1.6-2.3) mg/dL Triglycerides (<150) mg/dL 08/16/20 Range/Units 06:18 WBC 25.1 H (3.8-10.6) k/uL Neutrophils # 24.2 H (1.3-7.7) k/uL Lymphocytes # 0.3 L (1.0-4.8) k/uL Sodium (137-145) mmol/L Chloride (98-107) mmol/L Carbon Dioxide (22-30) mmol/L BUN (7-17) mg/dL Creatinine (0.52-1.04) mg/dL Glucose (74-99) mg/dL POC Glucose (mg/dL) (75-99) mg/dL Magnesium (1.6-2.3) mg/dL Triglycerides (<150) mg/dL Assessment and Plan Plan: Assessment: 1. Acute kidney injury secondary to ATN secondary to severe sepsis and obstructive uropathy. Renal function better. Creatinine 1.16 today. 2. Right-sided nephrolithiasis and hydronephrosis status post ureteral stent placement. 3. Severe sepsis secondary to E. coli UTI and bacteremia. 4. Hypernatremia secondary to lack of oral water intake. Better. 5. Acute hypoxic respiratory failure. Now on nasal cannula. 6. COVID-19 infection. Plan: Maintain D5W at 100 mL an hour. Encouraged oral intake, including free water. Repeat sodium level this evening. Avoid nephrotoxins. Continue to monitor renal function and urine output.
--- NOTE | 2020-08-16 10:13 | P.PN ---
Subjective Progress Note Date: 08/16/20 Patient is doing a lot better today. She has been taken off of BiPAP and currently on 10 L of oxygen via high flow nasal cannula. Patient is awake and alert. She is eating Jell-O when I saw her. She passed bedside swallow study. She is still feeling short of breath no acute events overnight reported by nursing staff. Objective - Vital Signs Vital signs: Vital Signs Temp 97.8 F 08/16/20 08:00 Pulse 75 08/16/20 08:30 Resp 28 H 08/16/20 08:30 BP 155/67 08/16/20 08:00 Pulse Ox 92 L 08/16/20 08:00 Intake & Output 08/15/20 08/16/20 08/16/20 18:59 06:59 18:59 Intake Total 1600 1490 100 Output Total 440 505 45 Balance 1160 985 55 Weight 85 kg 83.5 kg Intake: IV 1600 1010 100 Dextrose 5% in Water 1, 1500 800 100 000 ml @ 150 mls/hr IV . Q6H40M REGINALDO Rx#:[id number] KVO 100 10 Piperacillin-Tazobactam 3 200 .375 gm In Sodium Chloride 0.9% 100 ml @ 25 mls/hr IVPB Q8HR REGINALDO Rx# :[id number] Oral 480 Output: Urine 440 505 45 Other: Voiding Method Indwelling Catheter Indwelling Catheter Indwelling Catheter - Exam General: The patient is awake and alert, in no distress Eye: there is normal conjunctiva bilaterally. Neck: The neck is supple, there is no JVD. Cardiovascular: Normal S1-S2, no S3-S4, no murmurs. Respiratory: Lungs with scattered rhonchi Gastrointestinal: Abdomen is soft, nontender Musculoskeletal: There is no pedal edema. Neurological:. Speech is normal. Skin: Skin is warm and dry - Labs CBC & Chem 7: 08/16/20 06:18 08/16/20 03:53 Labs: Abnormal Lab Results - Last 24 Hours (Table) 08/15/20 08/15/20 08/15/20 Range/Units 11:39 12:18 19:05 WBC (3.8-10.6) k/uL Neutrophils # (1.3-7.7) k/uL Lymphocytes # (1.0-4.8) k/uL Sodium (137-145) mmol/L Chloride (98-107) mmol/L Carbon Dioxide (22-30) mmol/L BUN (7-17) mg/dL Creatinine (0.52-1.04) mg/dL Glucose (74-99) mg/dL POC Glucose (mg/dL) 201 H 215 H (75-99) mg/dL Magnesium (1.6-2.3) mg/dL Triglycerides 208 H (<150) mg/dL 08/16/20 08/16/20 08/16/20 Range/Units 00:16 03:53 05:48 WBC (3.8-10.6) k/uL Neutrophils # (1.3-7.7) k/uL Lymphocytes # (1.0-4.8) k/uL Sodium 147 H (137-145) mmol/L Chloride 108 H (98-107) mmol/L Carbon Dioxide 33 H (22-30) mmol/L BUN 56 H (7-17) mg/dL Creatinine 1.16 H (0.52-1.04) mg/dL Glucose 188 H (74-99) mg/dL POC Glucose (mg/dL) 170 H 182 H (75-99) mg/dL Magnesium 2.5 H (1.6-2.3) mg/dL Triglycerides (<150) mg/dL 08/16/20 Range/Units 06:18 WBC 25.1 H (3.8-10.6) k/uL Neutrophils # 24.2 H (1.3-7.7) k/uL Lymphocytes # 0.3 L (1.0-4.8) k/uL Sodium (137-145) mmol/L Chloride (98-107) mmol/L Carbon Dioxide (22-30) mmol/L BUN (7-17) mg/dL Creatinine (0.52-1.04) mg/dL Glucose (74-99) mg/dL POC Glucose (mg/dL) (75-99) mg/dL Magnesium (1.6-2.3) mg/dL Triglycerides (<150) mg/dL Assessment and Plan Assessment: Female with hypertension, dyslipidemia, hypothyroidism, and prior breast cancer currently in remission who presented here from [facility] on 08/07/20 secondary to sepsis with obstructive right UPJ stone resulting in severe hydronephrosis. She was started on IV fluids and IV antibiotics. Urology was consulted. On the evening of 08/07 she underwent cystoscopy with right ureteral stent insertion. She was given 1 dose of gentamicin. Her IV fluids were increased secondary to hypotension. She was noted to be bacteremic. On 08/09, patient started developing increased oxygen requirement and eventually was transferred to the ICU requiring BiPAP. Below is a list of her medical problems Acute hypoxic respiratory failure, suspect multifactorial secondary to fluid overload, ARDS, and underlying pneumonia Left lung pneumonia with elevated pro-calcitonin Questionable COVID-19 pneumonia: Patient was tested for COVID on 08/07 and 08/10 during this admission and both tests were negative. Repeat test on 08/14 was positive but it was a rapid test. Send outs PCR ordered and pending Acute diastolic heart failure exacerbation - Patient started on IV Lasix 40 mg twice daily for 3 days. With good response. BNP slightly elevated but echocardiogram showed preserved ejection fraction with no significant valvular abnormalities - Started on antibiotic with with IV ceftriaxone, azithromycin for 4 days then switched to IV Zosyn as recommended by pulmonary now day #4. Also on IV Solu- Medrol as ordered by ICU - Given no improvement in clinical status and worsening hypoxia I ordered CT angiogram of the chest to rule out PE. D-dimer is elevated. The test was not done as patient was deemed unstable for ICU team -Currently on 10 L of oxygen via high flow nasal cannula Right sided pyelonephritis with right sided hydronephrosis with sepsis, cabezas- susceptible E. coli bacteremia and right UPJ stone - Started on rocephin 2 g for 7 days then switched to IV Zosyn day #4 - Received aggressive IV fluid hydration - s/p ureteral stent - Culture grew pansensitive susceptible E. coli Acute kidney injury secondary sepsis - Creatinine improving. Suspect underlying chronic kidney disease. Nephrology following closely Hypokalemia -Replaced Hypovolemic hypernatremia -Started on D5 water. We'll repeat lab work in the morning. Hypertension, low normal - hold cozaar and norvasc -follow BP Hyperlipidemia -statin Hypothyroidism -synthroid Patient had a PICC line inserted for TPN. She received TPN for less than 24 hours. She is currently on full liquid diet. Speech pathology following. Advance diet as tolerated. CODE STATUS: Full code DVT prophylaxis: Heparin Discussed with: Patient and RN Anticipated discharge date: Pending clinical course Anticipated discharge place: To be determined A total of 35 minutes was spent on the care of this complex patient more than 50% of the time was spent in counseling and care coordination.
[2020-08-16] MEDS ORDERED: DEXTROSE 5%-0.45% NACL 1,000 ML IV SCH (10:15)
[2020-08-16 11:26] LABS: Glucose,Whole Blood 233 mg/dL (75-99)
[2020-08-16] MEDS ORDERED: [UNRECOGNIZED DRUG - REMARK] IV SCH ×5 (15:30)
[2020-08-16 17:16] LABS: Glucose,Whole Blood 197 mg/dL (75-99)
[2020-08-16 20:41] LABS: Glucose,Whole Blood 243 mg/dL (75-99)
[2020-08-16] MEDS: ATORVASTATIN 40 MG TAB PO SCH (20:44)
[2020-08-16] MEDS: MELATONIN 5 MG TABLET PO SCH (20:44)
[2020-08-17] MEDS: methylPREDNISolone SOD SUCCI 125 MG/2 ML VIAL IV SCH ×4 (05:36→23:26)
[2020-08-17] MEDS: LEVOTHYROXINE 100 MCG TAB PO SCH (05:36)
[2020-08-17 07:15] LABS: Glucose,Whole Blood 177 mg/dL (75-99)
[2020-08-17] MEDS: ENOXAPARIN 30 MG/0.3 ML SYRINGE SQ SCH (07:58)
[2020-08-17] MEDS: PIPERACILLIN-TAZOBACTAM 3.375 GM in SODIUM CHLORIDE 0.9% 100 ML IVPB SCH ×3 (07:58→23:26)
[2020-08-17] MEDS: PANTOPRAZOLE 40 MG/10 ML VIAL IVP SCH (07:58)
[2020-08-17] MEDS: INSULIN ASPART (NovoLOG) 100 UNIT/ML VIAL SQ SCH ×4 (07:59→20:28)
[2020-08-17] MEDS: SERTRALINE 100 MG TAB PO SCH (07:59)
[2020-08-17] MEDS: ALBUTEROL HFA INHALER INHALATION SCH ×4 (08:08→19:55)
--- NOTE | 2020-08-17 11:10 | P.PN ---
Subjective Patient is seen in follow-up for acute kidney injury and hypernatremia. Sodium level 138 as of yesterday evening. Remains off IV fluids. Oral intake is slowly improving. Currently on nasal cannula. No chest pain or shortness of breath. Vital signs are stable. General: The patient appeared well nourished and normally developed. HEENT: On nasal cannula. LUNGS: Breath sounds decreased. HEART: Rate and Rhythm are regular. ABDOMEN: Soft, no distention. EXTREMITITES: No edema. Objective - Vital Signs Vital signs: Vital Signs Temp 98.2 F 08/17/20 10:00 Pulse 88 08/17/20 10:00 Resp 20 08/17/20 10:00 BP 153/85 08/17/20 10:00 Pulse Ox 98 08/17/20 10:00 Intake & Output 08/16/20 08/17/20 08/17/20 18:59 06:59 18:59 Intake Total 100 Output Total 45 400 Balance 55 -400 Intake: IV 100 Dextrose 5% in Water 1, 100 000 ml @ 150 mls/hr IV . Q6H40M [facility] Rx#:[id number] Output: Urine 45 400 Other: Voiding Method Indwelling Catheter Indwelling Catheter Indwelling Catheter # Bowel Movements 1 - Labs CBC & Chem 7: 08/16/20 06:18 08/16/20 17:12 Labs: Abnormal Lab Results - Last 24 Hours (Table) 08/16/20 08/16/20 08/16/20 Range/Units 11:25 17:15 20:39 POC Glucose (mg/dL) 233 H 197 H 243 H (75-99) mg/dL 08/17/20 Range/Units 07:14 POC Glucose (mg/dL) 177 H (75-99) mg/dL Assessment and Plan Plan: Assessment: 1. Acute kidney injury secondary to ATN secondary to severe sepsis and obstructive uropathy. Renal function better. Creatinine 1.16 as of yesterday. 2. Right-sided nephrolithiasis and hydronephrosis status post ureteral stent placement. 3. Severe sepsis secondary to E. coli UTI and bacteremia. 4. Hypernatremia secondary to lack of oral water intake. Better. 5. Acute hypoxic respiratory failure. Now on high flow cannula. 6. COVID-19 infection. Plan: Remains off IV fluids. Encourage oral intake. Avoid nephrotoxins. Continue to monitor renal function and urine output. Morning labs pending
[2020-08-17 11:26] LABS: African American GFR (CKD) 62 (>60 ml/min/1.73 sqM); Anion Gap 9 mmol/L; Blood Urea Nitrogen 42 mg/dL (7-17); Calcium 8.4 mg/dL (8.4-10.2); Carbon Dioxide 28 mmol/L (22-30); Chloride 106 mmol/L (98-107); Glucose 207 mg/dL (74-99); Magnesium 2.2 mg/dL (1.6-2.3); Non-African American GFR(CKD) 54 (>60 ml/min/1.73 sqM); Potassium 3.7 mmol/L (3.5-5.1); Sodium 143 mmol/L (137-145)
[2020-08-17 11:28] LABS: HCT 43.2 % (34.0-46.0); HGB 14.5 gm/dL (11.4-16.0); MCH 33.2 pg (25.0-35.0); MCHC 33.5 g/dL (31.0-37.0); MCV 98.9 fL (80.0-100.0); Mean Platelet Volume 7.8; Platelet Count 358 k/uL (150-450); RBC 4.37 m/uL (3.80-5.40); RDW 13.4 % (11.5-15.5); WBC 29.5 k/uL (3.8-10.6)
[2020-08-17 11:55] LABS: Glucose,Whole Blood 228 mg/dL (75-99)
--- NOTE | 2020-08-17 15:04 | P.PN ---
Subjective Progress Note Date: 08/17/20 This is a pleasant 80-year-old female patient with a history of hyperlipidemia, hypertension, hypothyroidism, breast cancer who was originally admitted back on 08/06/2020 for right-sided abdominal/flank pain. On 08/13/2020, this 80-year-old male patient currently in the intensive care unit due to complication of a E. coli urine tract infection. The patient's presented with a flank/abdominal pain and the patient is known to have nephrolithiasis and the patient was found to have a right kidney hydronephrosis with chronic nephritis and moderate amount of perinephric urinary extravasation and a UPJ calculus. The patient is post cystoscopy and right ureteral stent placement on 08/07/2020. Cultures are positive for E. coli. The patient was aggressively resuscitated IV fluids. The patient developed an acute hypoxic respiratory failure requiring BiPAP for respiratory support. BiPAP is at a pressure of 12/6 cm of water and FiO2 is being titrated to maintain a saturation above 90%. Chest x-ray showed some cardiomegaly and diffuse interstitial infiltrates bilaterally. The patient accordingly was kept in intensive care unit. Note that his cold with 19 screening was negative. The patient developed an acute kidney injury with a high creatinine of 1.9 which is gradually improving. Less often also improved. He was given a combination of Rocephin and Zithromax. The echo of the heart showed a normal LV, his affect of around 55-60%, RV is mildly enlarged, the patient has mild to moderate pulmonary hypertension, PA pressure was is on IV Rocephin and Zithromax for now. The patient is on heparin subcu for DVT prophylaxis. The patient was started on Lasix 40 mg every 12 hours when the patient has been achieving a negative fluid balance. Fluid balance for 08/11/2020 was -2.9 L. The white cell count is improved. The pro calcitonin LEVEL WAS HIGH 8.4. PROBNP LEVEL WAS 5930. The patient continues to be on Lasix 40 mg every 12 hours. Chest x-ray still showing diffuse bilateral pulmonary infiltrates right more than left and there is limited to Sutton change compared to yesterday's chest x-ray. I do suspect a component of ARDS secondary to E. coli septicemia. The blood work from today shows a sodium level of 147, potassium is to be replaced at 3.3, creatinine is at 1.3 with a BUN of 46. The net fluid balance over the past 24 hours has been -1.7 L. Despite the negative fluid balance, the patient continues to have diffuse bilateral pulmonary infiltrates. On today's evaluation of 08/14/2020, I'm seeing the patient for a follow-up. This is a case of urine checked infection with sepsis with E. coli. The patient also developed ARDS. The patient was getting also progressively more restless and agitated and confused yesterday. She was started on Precedex which is currently running at 0.4 g per/ kg/r minute. Meanwhile, the patient remains on BiPAP which is currently at a pressure of 12/6 cm of water with an FiO2 of 90%. The chest x-ray from today is still showing some limited infiltration yet the overall x-ray findings are probably improved compared to yesterday. The patient was switched yesterday to IV Zosyn covering for gram-negative UTI and possible aspiration. Echocardiogram was within normal limits and the patient has a preserved LV function. The patient remains on Lasix. The net fluid balance over the past 24 hours has been -1.6 L and the patient continues to be a negative fluid balance. On her blood work from today, the patient has a white cell count of 13 with a hemoglobin of 12.7, the patient's sodium level is up to 151 and I think the diuretics can be slowed down and the patient has a BUN of 64 with a creatinine of 1.5 and a serum bicarbs at 35. The most recent pro calcitonin level was 8.4. The patient is urinating a tidal volume of 350. Respiratory rate currently is in the mid 30s even while being on a BiPAP. She does have some coarse crackles in lung bases bilaterally. On today's evaluation of 08/15/2020, the patient is essentially unchanged compared to yesterday. She remains on a BiPAP at a pressure of 12/6 cm of water with an FiO2 of 90%. She is very much BiPAP dependent. The new information is that the third sample of COVID 19 PCR came back positive and the patient is most likely positive for colitis after having 2 T are negative. The patient is arousable and she is awake. Her chest x-ray is showing diffuse bilateral pulmonary infiltrates with some limited improvement in the right side on today's chest x-ray. Meanwhile, the patient remains on D5 water to replace her free water deficit. The patient's sodium today is at 152 with a BUN of 55 and a creatinine of 1.6. Her LDH from yesterday was 1294 and CRP level was 76. Her progress. Obviously declining is down to 1.4. The patient remains on broad- spectrum antibiotics and she is currently on IV Zosyn. In terms of sedation, the patient is on 0.4 mcg/kg/h of Precedex to maintain synchrony with the mechanical ventilator and control her agitation.The PICC line was ordered for this patient for today. Otherwise, the patient is on IV Solu-Medrol and the patient will be also placed on Lovenox 40 mg subcu every 24 hours for DVT prop hylaxis. D-dimer is at 2.91. 08/16/2020 the patient is being seen for a follow-up. I am least associated the patient has been off the BiPAP since yesterday evening and currently she is on oxygen at 15 L nasal cannula. She is breathing comfortably and she is not having any significant respiratory distress. He is also able to communicate. She was able to take some pills and water yesterday. She remains considerably weak. The chest x-ray still showing diffuse bilateral pulmonary infiltrates and my suspicion was that the patient's had a component of ARDS. I further checked her nasal swab for COVID-19 and she do not to be positive. However, the patient was infected with coronavirus back in March 2020 and this is quite unusual for her to be positive again. Note that her COVID-19 antibodies were also positive. No headache, she is on IV Solu-Medrol. She is receiving Solu Medrol 60 mg IV every 6 hours. She is also well diuresed and I'm awaiting her follow- up renal function. Note that the diuretics were held yesterday because of development of an acute kidney injury secondary to diuresis. For now, the patient is hemodynamically stable. No hypotension. Blood sugars are under adequate. The patient has a PICC line. I am inclined to stop the TPN and proceed with oral intake and this is diet as tolerated. A bedside swallow evaluation will be done. She remains on Lovenox 30 mg subcu for prophylaxis. She is on D5 water at the rate of 150 mL an hour and the follow-up sodium level is pending for now. The follow-up level was 145 from yesterday and the D5 water rate was reduced to 100 mL/hr he had noted the patient is also taken off the Precedex for now. She is alert and communicating. She is also appropriate. 08/17/2020, the patient is outside the intensive care unit and she is currently on a medical floor, telemetry unit. She is doing well and she is laying down on her side and she is quite comfortable on 10 L of oxygen by nasal cannula. She continues to have some crackles in the lung bases. Nevertheless, she is off the BiPAP which is breathing very comfortably. As mentioned earlier, there was a suspicion that the patient may have a sepsis induced ARDS. At the same time, the patient checked positive for COVID-19 that this has been an ongoing problem knowing that the patient was urgently diagnosed back in March 2020. No new complaints for now. She hasn't adequate urine output. She remains on IV Zosyn. She is afebrile. She is on Lovenox for DVT prophylaxis 40 mg subcu every 12 hours. She remains on IV Solu Medrol 60 mg every 6 hours. Also, she has a white cell count of 29, creatinine is at 1, electrolytes are normal. Objective - Vital Signs Vital signs: Vital Signs Temp 99.6 F 08/17/20 14:00 Pulse 83 08/17/20 14:00 Resp 20 08/17/20 14:00 BP 126/69 08/17/20 14:00 Pulse Ox 92 L 08/17/20 14:00 Intake & Output 08/16/20 08/17/20 08/17/20 18:59 06:59 18:59 Intake Total 100 Output Total 45 400 Balance 55 -400 Weight 83.5 kg Intake: IV 100 Dextrose 5% in Water 1, 100 000 ml @ 150 mls/hr IV . Q6H40M [facility] Rx#:[id number] Output: Urine 45 400 Other: Voiding Method Indwelling Catheter Indwelling Catheter Indwelling Catheter # Bowel Movements 1 - Exam GENERAL EXAM: Alert, pleasant 80-year-old female patient, on 10 liters of oxygen by nasal cannula HEAD: Normocephalic. EYES: Normal reaction of pupils, equal size. NOSE: Clear with pink turbinates. THROAT: No erythema or exudates. NECK: No masses, no JVD. CHEST: No chest wall deformity. LUNGS: Equal air entry with crackles in the bilateral posterior bases. No use of accessory muscles of breathing. No significant shortness of breath. CVS: S1 and S2 normal with no audible murmur, regular rhythm. ABDOMEN: No hepatosplenomegaly, normal bowel sounds, no guarding or rigidity. SPINE: No scoliosis or deformity SKIN: No rashes CENTRAL NERVOUS SYSTEM: No focal deficits, tone is normal in all 4 extremities. The patient is quite lethargic. 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 Her neurologic exam is still nonfocal. EXTREMITIES: There is no peripheral edema. No clubbing, no cyanosis. Periphe ral pulses are intact. - Labs CBC & Chem 7: 08/17/20 10:00 08/17/20 10:00 Labs: Abnormal Lab Results - Last 24 Hours (Table) 08/16/20 08/16/20 08/17/20 Range/Units 17:15 20:39 07:14 WBC (3.8-10.6) k/uL BUN (7-17) mg/dL Glucose (74-99) mg/dL POC Glucose (mg/dL) 197 H 243 H 177 H (75-99) mg/dL 08/17/20 08/17/20 08/17/20 Range/Units 10:00 10:00 11:52 WBC 29.5 H (3.8-10.6) k/uL BUN 42 H (7-17) mg/dL Glucose 207 H (74-99) mg/dL POC Glucose (mg/dL) 228 H (75-99) mg/dL Assessment and Plan Plan: 1 Acute hypoxemic respiratory failure secondary to acute fluid volume overload versus sepsis induced acute lung injury/ARDS. The less, further testing showed that the patient was positive for COVID 19 with an elevated LDH level and CRP and it's likely the patient's respiratory failure is multifactorial. Clinically improved. The patient is currently on IV Solu-Medrol. The patient is off the BiPAP and the patient is currently on 10 liters of oxygen. She was transferred outside the intensive care unit. She is currently on a medical floor. She is off the Precedex. She is communicating. No signs of any significant shortness of breath. 2 Sepsis secondary to bacteremia from E. coli 3 Acute urinary tract infection secondary to E. coli 4 Acute right pyelonephritis/hydronephrosis secondary to right UPJ calculus, status post right ureteral stent placement on 08/07/2020 5 History of hypertension 6 Hyperlipidemia 7 Hypothyroidism 8 acute kidney injury secondary to diuresis, improvement in the patient's creatinine is down to 1 9 hyperchloremic hypernatremia secondary to diuresis 10 history of COVID 19 related infection in 2019 11 leukocytosis Plan: off BiPAP support off Precedex Continued IV Zosyn IV Solu-Medrol 60 mg every 6 hours regarding possibility of a fibroproliferative phase of ARDS/COVID 19 Chest x-ray was noted, stable Wean down the FiO2 to 8 L per minute nasal cannula. Monitor the white cell count. Physical therapy We will continue to follow and make further recommendations based on her clinical status
--- NOTE | 2020-08-17 15:16 | P.PN ---
Subjective Progress Note Date: 08/17/20 Hospital course: Patient is a 80-year-old female with a past medical history of hypertension, hyperlipidemia, hypothyroidism, and breast cancer currently in remission. She was transferred to our facility from [facility] in [facility] and was admitted under our services on 08/07/20 with severe sepsis secondary to obstructive severe hydronephrosis accompanied by an acute kidney injury. Patient's WBC count was 37.3. Initial lactate was 3.3 with repeat of 2.2 status post 3 L bolus. She was initially tachycardic, febrile, and hypotensive. Urinalysis was positive for turbid appearance positive for blood, leukocytes, 25 RBCs, >182 WBCs with WBC clumps and bacteria. EKG revealed normal sinus rhythm and 98 bpm with no noted T-wave or ST abnormalities. Patient had CT prior to being transferred to our facility and per documentation, this revealed an obstructive 6 mm kidney stone in the right UPJ causing severe right hydr onephrosis. She was taken to OR on same day of admission for a cystoscopy and insertion of right ureteral stent. Patient's blood cultures showing bacteremia as they were positive for E. coli. Urine cultures also positive for E. coli. Severe sepsis was treated with IV antibiotics (initially Rocephin and gentamicin which was later changed to Zosyn) and IV fluid hydration. On 08/10/20 patient began to have increased work of breathing and was requiring oxygen supplementation and was given dose of IV Lasix and fluids were stopped. Patient's condition continued to worsen and she continued to have increasing oxygen needs and was found to be hypoxic with ABG revealing a PaO2 of 55%, patient was placed on BiPAP and transferred to intensive care unit where she continued to undergo diuresis and close monitoring. Initial Covid testing completed on 08/07/20 negative, repeat test on 08/10/20 also negative, secondary to worsening respiratory status another Covid test was completed on 08/14/20 which w as positive. Covid antibodies were drawn also resulting reactive showing positive positive for infection. Physical exam: Patient was seen and fully evaluated at the bedside this morning. She was sitting up in the chair and 10 L high flow nasal cannula with SpO2 of 94%. She reports feeling "wiped out." She states continued shortness of breath, but de nies worsening of symptoms. Her oxygen needs continue to decrease. Coppola catheter remains in place. Patient denies having any headache, lightheadedness, dizziness, chest pain, palpitations, or experiencing any numbness/tingling/weakness in extremities. General: non toxic, vital signs positive for sepsis upon appearance patient appears comfortable showing no signs of acute distress with physical examination, appears at stated age Derm: warm, dry Head: atraumatic, normocephalic, symmetric Eyes: EOMI, no lid lag, anicteric sclera Mouth: no lip lesion, mucus membranes moist Cardiovascular: S1S2 normal, regular rate and regular rhythm, no gallop, murmur, or rub noted. Positive posterior tibial pulses bilaterally. Cap refill less than 2 seconds. Lungs: Respirations even, regular, and unlabored on 10 L high flow nasal cannula with SpO2 94%. Lungs with diffuse rhonchi bilaterally. No accessory muscle use. Right mastectomy. GI/: Abdomen soft, nontender to palpation. No appreciable organomegaly. Coppola catheter in place. Ext: No gross muscle atrophy, minimal lower extremity edema, no contractures Neuro: CN II-XI grossly intact, no focal neuro deficits Psych: Alert, oriented, appropriate affect Assessment and Plan of care: Acute hypoxic respiratory failure resulting from Covid pneumonia -Oxygenation to be administered and titrated as needed to maintain SPO2 equal to or greater than 92%, wean as patient tolerates. Currently on 10 L high flow nasal cannula with SpO2 94%. -Telemetry monitoring. -Vitamin C, vitamin D, zinc, and melatonin -Encouraged Incentive Spirometry 10-15 times hourly while awake -Continue Steroids: Solu-Medrol 60 mg every 6 hours. Day 4 of steroids. -Pulmonology following, appreciate further recommendations. Severe sepsis secondary to E. coli bacteremia and acute cystitis -Urinalysis positive for turbid appearance positive for blood, leukocytes, 25 RBCs, >182 WBCs with WBC clumps and bacteria -Urine culture positive for E. coli -Blood cultures positive for E. coli -Patient received initial sepsis bolus and fluid hydration. -Continue IV antibiotics: Zosyn Obstructive right ureteral stone resulting in severe hydronephrosis -CT scan completed at [facility] prior to being transferred to our facility reportedly revealed an obstructive 6 mm kidney stone in the right UPJ causing severe right hydronephrosis. -Patient underwent cystoscopy and insertion of right ureteral stent on 08/07/20 -Coppola catheter remains in place. -Neurology following. Acute exacerbation of chronic diastolic heart failure - Patient started on IV Lasix 40 mg twice daily for 3 days. With good response. BNP slightly elevated but echocardiogram showed preserved ejection fraction with no significant valvular abnormalities - Started on antibiotic with with IV ceftriaxone, azithromycin for 4 days then switched to IV Zosyn as recommended by pulmonary now day #4. Also on IV Solu- Medrol as ordered by ICU - Given no improvement in clinical status and worsening hypoxia I ordered CT angiogram of the chest to rule out PE. D-dimer is elevated. The test was not done as patient was deemed unstable for ICU team -Currently on 10 L of oxygen via high flow nasal cannula Acute kidney injury secondary to obstructive uropathy and severe sepsis, improving -Creatinine improving. Suspect underlying chronic kidney disease. Nephrology following closely. Hypokalemia, resolved Hypovolemic hypernatremia, resolved Hypertension -Monitor vital signs and continue daily medication management with amlodipine. Hold losartan due to TUTU. Hyperlipidemia -Continue daily home medication regimen with atorvastatin 40 mg nightly. Hypothyroidism -Continue daily medication regimen with Synthroid 100 g daily CODE STATUS: Full code DVT prophylaxis: Heparin Discussed with: Patient and RN Anticipated discharge date: Clinical course to determine Anticipated discharge place: To be determined, likely SNF for rehab A total of 45 minutes was spent on the care of this complex patient more than 50% of the time was spent in counseling and care coordination. Objective - Vital Signs Vital signs: Vital Signs Temp 97.6 F 08/17/20 05:16 Pulse 86 08/17/20 05:16 Resp 20 08/17/20 05:16 BP 171/78 08/17/20 05:16 Pulse Ox 95 08/17/20 05:16 Intake & Output 08/16/20 08/17/20 08/17/20 18:59 06:59 18:59 Intake Total 100 Output Total 45 400 Balance 55 -400 Intake: IV 100 Dextrose 5% in Water 1, 100 000 ml @ 150 mls/hr IV . Q6H40M [facility] Rx#:[id number] Output: Urine 45 400 Other: Voiding Method Indwelling Catheter Indwelling Catheter Indwelling Catheter # Bowel Movements 1 - Labs CBC & Chem 7: 08/17/20 10:00 08/17/20 10:00 Labs: Abnormal Lab Results - Last 24 Hours (Table) 08/16/20 08/16/20 08/16/20 Range/Units 11:25 17:15 20:39 POC Glucose (mg/dL) 233 H 197 H 243 H (75-99) mg/dL 08/17/20 Range/Units 07:14 POC Glucose (mg/dL) 177 H (75-99) mg/dL
[2020-08-17 16:40] LABS: Glucose,Whole Blood 110 mg/dL (75-99)
[2020-08-17 20:17] LABS: Glucose,Whole Blood 177 mg/dL (75-99)
[2020-08-17] MEDS: ATORVASTATIN 40 MG TAB PO SCH (20:28)
[2020-08-17] MEDS: MELATONIN 5 MG TABLET PO SCH (20:28)
[2020-08-18] MEDS: methylPREDNISolone SOD SUCCI 125 MG/2 ML VIAL IV SCH ×2 (05:37→08:12)
[2020-08-18] MEDS: LEVOTHYROXINE 100 MCG TAB PO SCH (05:37)
[2020-08-18 07:21] LABS: Glucose,Whole Blood 180 mg/dL (75-99)
[2020-08-18] MEDS: PANTOPRAZOLE 40 MG/10 ML VIAL IVP SCH (08:12)
[2020-08-18] MEDS: ASCORBIC ACID 500 MG TAB PO SCH (08:12)
[2020-08-18] MEDS: ENOXAPARIN 40 MG/0.4 ML SYRINGE SQ SCH (08:13)
[2020-08-18] MEDS: INSULIN ASPART (NovoLOG) 100 UNIT/ML VIAL SQ SCH ×4 (08:13→21:48)
[2020-08-18] MEDS: ZINC SULFATE 220 MG CAP PO SCH (08:13)
[2020-08-18] MEDS: SERTRALINE 100 MG TAB PO SCH (08:13)
[2020-08-18] MEDS: CHOLECALCIFEROL 25 MCG (1000 IU) TABLET PO SCH (08:13)
[2020-08-18] MEDS: PIPERACILLIN-TAZOBACTAM 3.375 GM in SODIUM CHLORIDE 0.9% 100 ML IVPB SCH ×3 (08:14→23:59)
[2020-08-18 09:56] LABS: African American GFR (CKD) 64 (>60 ml/min/1.73 sqM); Anion Gap 5 mmol/L; Blood Urea Nitrogen 42 mg/dL (7-17); Calcium 8.4 mg/dL (8.4-10.2); Carbon Dioxide 32 mmol/L (22-30); Chloride 105 mmol/L (98-107); Glucose 178 mg/dL (74-99); Non-African American GFR(CKD) 55 (>60 ml/min/1.73 sqM); Sodium 142 mmol/L (137-145)
[2020-08-18 10:13] LABS: Magnesium 2.2 mg/dL (1.6-2.3); Potassium 4.3 mmol/L (3.5-5.1)
[2020-08-18] MEDS: ALBUTEROL HFA INHALER INHALATION SCH ×4 (10:21→20:23)
--- NOTE | 2020-08-18 11:18 | XR ---
EXAMINATION TYPE: XR chest 1V portable DATE OF EXAM: 08/18/2020 CLINICAL HISTORY: Difficulty breathing and covid progress study. TECHNIQUE: Single AP portable upright view of the chest is obtained. COMPARISON: Chest x-ray from 2 days earlier and older studies FINDINGS: Stable right-sided PICC line. Persistent multifocal and confluent reticulonodular opacities bilaterally. Increased prominence left upper lung on current study versus prior. Persistent cardiomegaly. Osseous structures are intact. IMPRESSION: Worsening bilateral multifocal and confluent reticulonodular opacities consistent with co vid-19 infection progression particularly left upper lung from most recent x-ray.
[2020-08-18 11:23] LABS: HCT 44.8 % (37.2-46.3); HGB 13.8 g/dL (12.0-15.0); MCH 30.7 pg (27.0-32.0); MCHC 30.8 g/dL (32.0-37.0); MCV 99.8 fL (80.0-97.0); Mean Platelet Volume 10.8 fL (9.5-12.2); Platelet Count 320 X 10*3/uL (140-440); RBC 4.49 X 10*6/uL (4.10-5.20); RDW 13.4 % (11.5-14.5); WBC 26.42 X 10*3/uL (4.50-10.00)
[2020-08-18 11:29] LABS: Glucose,Whole Blood 207 mg/dL (75-99)
[2020-08-18 11:56] LABS: Basophils # (A) 0.06 X 10*3/uL (0.00-0.10); Basophils % (A) 0.2 %; Eosinophils # (A) 0 X 10*3/uL (0.04-0.35); Eosinophils % (A) 0 %; Lymphocytes # (A) 0.45 X 10*3/uL (0.90-5.00); Lymphocytes % (A) 1.7 %; Monocytes # (A) 0.83 X 10*3/uL (0.20-1.00); Monocytes % (A) 3.1 %; Neutrophils # (A) 24.69 X 10*3/uL (1.80-7.70); Neutrophils % (A) 93.5 %
--- NOTE | 2020-08-18 12:32 | P.PN ---
Subjective Progress Note Date: 08/18/20 This is a pleasant 80-year-old female patient with a history of hyperlipidemia, hypertension, hypothyroidism, breast cancer who was originally admitted back on 08/06/2020 for right-sided abdominal/flank pain. On 08/13/2020, this 80-year-old male patient currently in the intensive care unit due to complication of a E. coli urine tract infection. The patient's presented with a flank/abdominal pain and the patient is known to have nephrolithiasis and the patient was found to have a right kidney hydronephrosis with chronic nephritis and moderate amount of perinephric urinary extravasation and a UPJ calculus. The patient is post cystoscopy and right ureteral stent placement on 08/07/2020. Cultures are positive for E. coli. The patient was aggressively resuscitated IV fluids. The patient developed an acute hypoxic respiratory failure requiring BiPAP for respiratory support. BiPAP is at a pressure of 12/6 cm of water and FiO2 is being titrated to maintain a saturation above 90%. Chest x-ray showed some cardiomegaly and diffuse interstitial infiltrates bilaterally. The patient accordingly was kept in intensive care unit. Note that his cold with 19 screening was negative. The patient developed an acute kidney injury with a high creatinine of 1.9 which is gradually improving. Less often also improved. He was given a combination of Rocephin and Zithromax. The echo of the heart showed a normal LV, his affect of around 55-60%, RV is mildly enlarged, the patient has mild to moderate pulmonary hypertension, PA pressure was is on IV Rocephin and Zithromax for now. The patient is on heparin subcu for DVT prophylaxis. The patient was started on Lasix 40 mg every 12 hours when the patient has been achieving a negative fluid balance. Fluid balance for 08/11/2020 was -2.9 L. The white cell count is improved. The pro calcitonin LEVEL WAS HIGH 8.4. PROBNP LEVEL WAS 5930. The patient continues to be on Lasix 40 mg every 12 hours. Chest x-ray still showing diffuse bilateral pulmonary infiltrates right more than left and there is limited to Sutton change compared to yesterday's chest x-ray. I do suspect a component of ARDS secondary to E. coli septicemia. The blood work from today shows a sodium level of 147, potassium is to be replaced at 3.3, creatinine is at 1.3 with a BUN of 46. The net fluid balance over the past 24 hours has been -1.7 L. Despite the negative fluid balance, the patient continues to have diffuse bilateral pulmonary infiltrates. On today's evaluation of 08/14/2020, I'm seeing the patient for a follow-up. This is a case of urine checked infection with sepsis with E. coli. The patient also developed ARDS. The patient was getting also progressively more restless and agitated and confused yesterday. She was started on Precedex which is currently running at 0.4 g per/ kg/r minute. Meanwhile, the patient remains on BiPAP which is currently at a pressure of 12/6 cm of water with an FiO2 of 90%. The chest x-ray from today is still showing some limited infiltration yet the overall x-ray findings are probably improved compared to yesterday. The patient was switched yesterday to IV Zosyn covering for gram-negative UTI and possible aspiration. Echocardiogram was within normal limits and the patient has a preserved LV function. The patient remains on Lasix. The net fluid balance over the past 24 hours has been -1.6 L and the patient continues to be a negative fluid balance. On her blood work from today, the patient has a white cell count of 13 with a hemoglobin of 12.7, the patient's sodium level is up to 151 and I think the diuretics can be slowed down and the patient has a BUN of 64 with a creatinine of 1.5 and a serum bicarbs at 35. The most recent pro calcitonin level was 8.4. The patient is urinating a tidal volume of 350. Respiratory rate currently is in the mid 30s even while being on a BiPAP. She does have some coarse crackles in lung bases bilaterally. On today's evaluation of 08/15/2020, the patient is essentially unchanged compared to yesterday. She remains on a BiPAP at a pressure of 12/6 cm of water with an FiO2 of 90%. She is very much BiPAP dependent. The new information is that the third sample of COVID 19 PCR came back positive and the patient is most likely positive for colitis after having 2 T are negative. The patient is arousable and she is awake. Her chest x-ray is showing diffuse bilateral pulmonary infiltrates with some limited improvement in the right side on today's chest x-ray. Meanwhile, the patient remains on D5 water to replace her free water deficit. The patient's sodium today is at 152 with a BUN of 55 and a creatinine of 1.6. Her LDH from yesterday was 1294 and CRP level was 76. Her progress. Obviously declining is down to 1.4. The patient remains on broad- spectrum antibiotics and she is currently on IV Zosyn. In terms of sedation, the patient is on 0.4 mcg/kg/h of Precedex to maintain synchrony with the mechanical ventilator and control her agitation.The PICC line was ordered for this patient for today. Otherwise, the patient is on IV Solu-Medrol and the patient will be also placed on Lovenox 40 mg subcu every 24 hours for DVT prop hylaxis. D-dimer is at 2.91. 08/16/2020 the patient is being seen for a follow-up. I am least associated the patient has been off the BiPAP since yesterday evening and currently she is on oxygen at 15 L nasal cannula. She is breathing comfortably and she is not having any significant respiratory distress. He is also able to communicate. She was able to take some pills and water yesterday. She remains considerably weak. The chest x-ray still showing diffuse bilateral pulmonary infiltrates and my suspicion was that the patient's had a component of ARDS. I further checked her nasal swab for COVID-19 and she do not to be positive. However, the patient was infected with coronavirus back in March 2020 and this is quite unusual for her to be positive again. Note that her COVID-19 antibodies were also positive. No headache, she is on IV Solu-Medrol. She is receiving Solu Medrol 60 mg IV every 6 hours. She is also well diuresed and I'm awaiting her follow- up renal function. Note that the diuretics were held yesterday because of development of an acute kidney injury secondary to diuresis. For now, the patient is hemodynamically stable. No hypotension. Blood sugars are under adequate. The patient has a PICC line. I am inclined to stop the TPN and proceed with oral intake and this is diet as tolerated. A bedside swallow evaluation will be done. She remains on Lovenox 30 mg subcu for prophylaxis. She is on D5 water at the rate of 150 mL an hour and the follow-up sodium level is pending for now. The follow-up level was 145 from yesterday and the D5 water rate was reduced to 100 mL/hr he had noted the patient is also taken off the Precedex for now. She is alert and communicating. She is also appropriate. 08/17/2020, the patient is outside the intensive care unit and she is currently on a medical floor, telemetry unit. She is doing well and she is laying down on her side and she is quite comfortable on 10 L of oxygen by nasal cannula. She continues to have some crackles in the lung bases. Nevertheless, she is off the BiPAP which is breathing very comfortably. As mentioned earlier, there was a suspicion that the patient may have a sepsis induced ARDS. At the same time, the patient checked positive for COVID-19 that this has been an ongoing problem knowing that the patient was urgently diagnosed back in March 2020. No new complaints for now. She hasn't adequate urine output. She remains on IV Zosyn. She is afebrile. She is on Lovenox for DVT prophylaxis 40 mg subcu every 12 hours. She remains on IV Solu Medrol 60 mg every 6 hours. Also, she has a white cell count of 29, creatinine is at 1, electrolytes are normal. 08/18/2020, the patient remains on a telemetry unit. I'm seeing her today on follow-up. She is post ARDS related to an underlying septic event. I see her laying down comfortably in bed. It looks like the patient's oxygen requirements have gone up again and she is currently up to 15 L of oxygen by nasal ca nnula.FiO2 was increased as of 1 AM this morning. He bicycles of 26, electrolytes are normal, BUN is 42 with a creatinine of 0.9. Repeat chest x-ray was done and it shows some cardiomegaly and some vague interstitial infiltrates bilaterally consistent with ARDS or post covert infection. They'll function is stable and currently is down to 0.9. She is on IV Zosyn. She is off diuretics for now. She remains on Lovenox 40 mg subcu on a daily basis. Objective - Vital Signs Vital signs: Vital Signs Temp 99.2 F 08/18/20 10:00 Pulse 69 08/18/20 10:00 Resp 18 08/18/20 10:00 BP 173/83 08/18/20 10:00 Pulse Ox 92 L 08/18/20 10:00 Intake & Output 08/17/20 08/18/20 08/18/20 18:59 06:59 18:59 Output Total 775 Balance -775 Weight 83.5 kg Output: Urine 775 Other: Voiding Method Indwelling Catheter Indwelling Catheter Indwelling Catheter - Exam GENERAL EXAM: Alert, pleasant 80-year-old female patient, on 15 liters of oxygen by nasal cannula HEAD: Normocephalic. EYES: Normal reaction of pupils, equal size. NOSE: Clear with pink turbinates. THROAT: No erythema or exudates. NECK: No masses, no JVD. CHEST: No chest wall deformity. LUNGS: Equal air entry with crackles in the bilateral posterior bases. No use of accessory muscles of breathing. No significant shortness of breath. CVS: S1 and S2 normal with no audible murmur, regular rhythm. ABDOMEN: No hepatosplenomegaly, normal bowel sounds, no guarding or rigidity. SPINE: No scoliosis or deformity SKIN: No rashes CENTRAL NERVOUS SYSTEM: No focal deficits, tone is normal in all 4 extremities. The patient is quite lethargic. 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 Her neurologic exam is still nonf ocal. EXTREMITIES: There is no peripheral edema. No clubbing, no cyanosis. Peripheral pulses are intact. - Labs CBC & Chem 7: 08/18/20 08:42 08/18/20 07:25 Labs: Abnormal Lab Results - Last 24 Hours (Table) 08/17/20 08/17/20 08/18/20 Range/Units 16:33 20:15 07:08 WBC (4.50-10.00) X 10*3/uL MCV (80.0-97.0) fL MCHC (32.0-37.0) g/dL Immature Gran # (0.00-0.04) X 10*3/uL Neutrophils # (1.80-7.70) X 10*3/uL Lymphocytes # (0.90-5.00) X 10*3/uL Eosinophils # (0.04-0.35) X 10*3/uL Carbon Dioxide (22-30) mmol/L BUN (7-17) mg/dL Glucose (74-99) mg/dL POC Glucose (mg/dL) 110 H 177 H 180 H (75-99) mg/dL 08/18/20 08/18/20 08/18/20 Range/Units 07:25 08:42 11:27 WBC 26.42 H (4.50-10.00) X 10*3/uL MCV 99.8 H (80.0-97.0) fL MCHC 30.8 L (32.0-37.0) g/dL Immature Gran # 0.39 H (0.00-0.04) X 10*3/uL Neutrophils # 24.69 H (1.80-7.70) X 10*3/uL Lymphocytes # 0.45 L (0.90-5.00) X 10*3/uL Eosinophils # 0 L (0.04-0.35) X 10*3/uL Carbon Dioxide 32 H (22-30) mmol/L BUN 42 H (7-17) mg/dL Glucose 178 H (74-99) mg/dL POC Glucose (mg/dL) 207 H (75-99) mg/dL Assessment and Plan Plan: 1 Acute hypoxemic respiratory failure secondary to acute fluid volume overload versus sepsis induced acute lung injury/ARDS. The less, further testing showed that the patient was positive for COVID 19 with an elevated LDH level and CRP and it's likely the patient's respiratory failure is multifactorial. Clinically improved. The patient is currently on IV Solu-Medrol. I am a bit surprised that her actual requirements went up again to 15 L. She is currently doing well and her pulse ox is around 97%. The catheter back down to 10 L with the intention of weaning her down further. I reviewed the chest x-ray and the findings are essentially stable. No BiPAP use. She is using incentive spirometer. She is weak. White cell count is also improving. 2 Sepsis secondary to bacteremia from E. coli 3 Acute urinary tract infection secondary to E. coli 4 Acute right pyelonephritis/hydronephrosis secondary to right UPJ calculus, status post right ureteral stent placement on 08/07/2020 5 History of hypertension 6 Hyperlipidemia 7 Hypothyroidism 8 acute kidney injury secondary to diuresis, improvement in the patient's crea tinine is down to 1 9 hyperchloremic hypernatremia secondary to diuresis, normal 10 history of COVID 19 related infection in 2019 11 leukocytosis, improving Plan: Continued IV Zosyn The IV Solu-Medrol and put the patient on prednisone for possibility of a fibroproliferative phase of ARDS/COVID 19 Chest x-ray was noted, stable Wean down the FiO2 to 10 L per minute nasal cannula. Monitor the white cell count. Physical therapy / Incentive spirometer Advance diet We will continue to follow and make further recommendations based on her clinical status
--- NOTE | 2020-08-18 14:25 | P.PN ---
Subjective Progress Note Date: 08/18/20 (delayed charing seen at 0900) Principal diagnosis: back pain Patient is a 80 year old female with hypertension, dyslipidemia, hypothyroidism, and prior breast cancer currently in remission who presented here from [facility] (formerly [facility]) secondary to sepsis with obstructive right UPJ stone resulting in severe hydronephrosis. She was started on IV fluids and IV antibiotics. Urology was consulted. On the evening of 08/07 she underwent cystoscopy with right ureteral stent insertion. She was given 1 dose of gentamicin. Her IV fluids were increased secondary to hypotension. She did come back with E. coli bacteremia. She had worsening renal function and nephrology was consulted. She is continued on appropriate IV antibiotics. On 08/10 she started having increasing work of breathing and increasing O2 requirements. She was started on IV Lasix and fluids were stopped. She continued to have worsening pulmonary status with increasing O2 requirements ultimately requiring transfer to the ICU. Initial: Testing on 08/07 was negative however repeat testing on 08/10 was negative. Ova testing was completed on 08/14 which was positive ankle with antibodies were also positive. She was started on steroids, vitamin C, vitamin D, and zinc. Her renal fuction Patient seen and examined at bedside. She is still feeling very tired and fatigued. She had one episode of vomiting today, loose stools but no overt diarrhea. No chest pain. Still feeling slightly short of breath. Poor oral intake. General: ill appearing, moderate distress, appears at stated age Derm: warm, dry Head: atraumatic, normocephalic, symmetric Eyes: EOMI, no lid lag, anicteric sclera Mouth: no lip lesion, mucus membranes moist Cardiovascular: S1S2 reg, no murmur, positive posterior tibial pulse bilateral, Lungs: Course bs bilateral, no accessory muscle use Abdominal: soft, nontender to palpation, no guarding, no appreciable organomegaly Ext: no gross muscle atrophy, no edema, no contractures Neuro: CN II-XI grossly intact, no focal neuro deficits Psych: Alert, oriented, appropriate affect E. Coli right sided pyelonephritis with right sided hydronephrosis with bacteremia and right UPJ stone s/p ureteral stent, - zosyn - repeat blood culture pending due to elevated WBC - urology recs appreciated: outpatient follow-up COVID-19 pneumonitis with acute hypoxic resporatory failue - was on solumedrol and now on prednisone - VIt C, VIt D, ZInc - pulm recs - on 15L Hypertension, - hold cozaar and norvasc -follow BP Hyperlipidemia -statin Hypothyroidism -synthroid Acute kidney injury secondary sepsis, resolved Thrombocytopenia, resolved ARDS, resolved Severe sepsis, resolved Objective - Vital Signs Vital signs: Vital Signs Temp 99.2 F 08/18/20 10:00 Pulse 69 08/18/20 10:00 Resp 18 08/18/20 10:00 BP 173/83 08/18/20 10:00 Pulse Ox 92 L 08/18/20 10:00 Intake & Output 08/17/20 08/18/20 08/18/20 18:59 06:59 18:59 Output Total 775 Balance -775 Weight 83.5 kg Output: Urine 775 Other: Voiding Method Indwelling Catheter Indwelling Catheter Indwelling Catheter - Labs CBC & Chem 7: 08/18/20 08:42 08/18/20 07:25 Labs: Abnormal Lab Results - Last 24 Hours (Table) 08/17/20 08/17/20 08/18/20 Range/Units 16:33 20:15 07:08 WBC (4.50-10.00) X 10*3/uL MCV (80.0-97.0) fL MCHC (32.0-37.0) g/dL Immature Gran # (0.00-0.04) X 10*3/uL Neutrophils # (1.80-7.70) X 10*3/uL Lymphocytes # (0.90-5.00) X 10*3/uL Eosinophils # (0.04-0.35) X 10*3/uL Carbon Dioxide (22-30) mmol/L BUN (7-17) mg/dL Glucose (74-99) mg/dL POC Glucose (mg/dL) 110 H 177 H 180 H (75-99) mg/dL 08/18/20 08/18/20 08/18/20 Range/Units 07:25 08:42 11:27 WBC 26.42 H (4.50-10.00) X 10*3/uL MCV 99.8 H (80.0-97.0) fL MCHC 30.8 L (32.0-37.0) g/dL Immature Gran # 0.39 H (0.00-0.04) X 10*3/uL Neutrophils # 24.69 H (1.80-7.70) X 10*3/uL Lymphocytes # 0.45 L (0.90-5.00) X 10*3/uL Eosinophils # 0 L (0.04-0.35) X 10*3/uL Carbon Dioxide 32 H (22-30) mmol/L BUN 42 H (7-17) mg/dL Glucose 178 H (74-99) mg/dL POC Glucose (mg/dL) 207 H (75-99) mg/dL
[2020-08-18 16:30] LABS: Glucose,Whole Blood 206 mg/dL (75-99)
[2020-08-18] MEDS: amLODIPine 10 MG TAB PO SCH (16:35)
--- NOTE | 2020-08-18 16:58 | PN ---
PROGRESS NOTE Patient is seen for followup for acute kidney injury. Her renal function has improved. She has underlying COVID pneumonia. Overall, patient is doing fairly well. She is complaining of weakness. She is trying to eat. Occasional nausea. Serum creatinine is down to 0.98. EXAMINATION: Today blood pressure was 173/83, decreased down to 147/78 later on today. Heart rate 85 per minute, she is afebrile. Examination shows no evidence of edema lower extremities. Patient moving all four extremities. She appears euvolemic. LAB: Show hemoglobin 13.8, sodium 142, potassium 4.3, BUN 42, creatinine 0.98. ASSESSMENT: 1. Acute kidney injury, prerenal, currently improved. Currently not on any IV fluids. Tolerating oral intake. 2. Hypernatremia, currently improved. 3. Sepsis associated with Escherichia coli urinary tract infection and bacteremia. 4. Right sided nephrolithiasis and hydronephrosis status post ureteral stent placement. 5. COVID-19 infection/pneumonia. 6. Acute hypoxic respiratory failure. PLAN: Continue to encourage increased oral intake. Maintain adequate hydration. Continue off IV fluids. MMODL / IJN: [id number] /
[2020-08-18] MEDS: ACETAMINOPHEN TAB 325 MG TAB PO PRN (20:35)
[2020-08-18] MEDS: ATORVASTATIN 40 MG TAB PO SCH (20:35)
[2020-08-18] MEDS: MELATONIN 5 MG TABLET PO SCH (20:35)
[2020-08-18 21:02] LABS: Glucose,Whole Blood 112 mg/dL (75-99)
[2020-08-19] MEDS: ONDANSETRON 4 MG/2 ML VIAL IVP PRN ×3 (02:08→18:04)
[2020-08-19] MEDS: ACETAMINOPHEN TAB 325 MG TAB PO PRN (02:08)
[2020-08-19] MEDS: LEVOTHYROXINE 100 MCG TAB PO SCH (05:38)
[2020-08-19 07:11] LABS: Glucose,Whole Blood 164 mg/dL (75-99)
[2020-08-19] MEDS: CHOLECALCIFEROL 25 MCG (1000 IU) TABLET PO SCH (08:27)
[2020-08-19] MEDS: predniSONE 20 MG TAB PO SCH (08:27)
[2020-08-19] MEDS: LINAGLIPTIN 5 MG TABLET PO SCH (08:27)
[2020-08-19] MEDS: amLODIPine 10 MG TAB PO SCH (08:27)
[2020-08-19] MEDS: ASCORBIC ACID 500 MG TAB PO SCH (08:27)
[2020-08-19] MEDS: SERTRALINE 100 MG TAB PO SCH (08:27)
[2020-08-19] MEDS: ZINC SULFATE 220 MG CAP PO SCH (08:27)
[2020-08-19] MEDS: ENOXAPARIN 40 MG/0.4 ML SYRINGE SQ SCH ×2 (08:27→21:41)
[2020-08-19] MEDS: PANTOPRAZOLE 40 MG/10 ML VIAL IVP SCH (08:27)
[2020-08-19] MEDS: PIPERACILLIN-TAZOBACTAM 3.375 GM in SODIUM CHLORIDE 0.9% 100 ML IVPB SCH ×2 (08:28→17:51)
[2020-08-19] MEDS: INSULIN ASPART (NovoLOG) 100 UNIT/ML VIAL SQ SCH ×4 (08:28→21:40)
[2020-08-19] MEDS: ALBUTEROL HFA INHALER INHALATION SCH ×4 (08:54→20:20)
--- NOTE | 2020-08-19 11:20 | P.PN ---
Subjective Progress Note Date: 08/19/20 Principal diagnosis: back pain Patient is a 80 year old female with hypertension, dyslipidemia, hypothyroidism, and prior breast cancer currently in remission who presented here from a [facility] hospital secondary to sepsis with an obstructive right UPJ stone resulting in severe hydronephrosis. She was started on IV fluids and IV antibiotics. Urology was consulted. On the evening of 08/07 she underwent cystoscopy with right ureteral stent insertion. She was given 1 dose of gentamicin. Her IV fluids were increased secondary to hypotension. She did come back with E. coli bacteremia. She had worsening renal function and nephrology was consulted. She was continued on appropriate IV antibiotics. On 08/10 she started having increasing work of breathing and increasing O2 requirements. She was started on IV Lasix and fluids were stopped. She continued to have worsening pulmonary status with increasing O2 requirements ultimately requiring transfer to the ICU. Initial: Testing on 08/07 was negative however repeat testing on 08/10 was negative. COVID testing was completed on 08/14 which was positive ankle with antibodies were also positive. She was started on steroids, vitamin C, vitamin D, and zinc. Her renal function improved. Patient seen and examined at bedside. feeling short of breath, biggest compliant is stiffness, still with nausea, no appetite D/W nursing and patient, plan for today- simethacone and zofran, up to chair discontinue indwelling mcconnell and start external mcconnell General: ill appearing, no distress, appears at stated age Derm: warm, dry Head: atraumatic, normocephalic, symmetric Eyes: EOMI, no lid lag, anicteric sclera Mouth: no lip lesion, mucus membranes dry Cardiovascular: S1S2 reg, no murmur, positive posterior tibial pulse bilateral, Lungs: Course bs bilateral, no accessory muscle use Abdominal: soft, nontender to palpation, no guarding, no appreciable organomegaly Ext: no gross muscle atrophy, no edema, no contractures Neuro: CN II-XI grossly intact, no focal neuro deficits Psych: Alert, oriented, appropriate affect E. Coli right sided pyelonephritis with right sided hydronephrosis with bacteremia and right UPJ stone s/p ureteral stent, - zosyn - repeat blood cultures pending due to elevated WBC - urology recs appreciated: outpatient follow-up COVID-19 pneumonitis with acute hypoxic respiratory failure - was on solumedrol and now on prednisone - Vit C, Vit D, Zinc - pulm recs - on 15L - increasing d-dimer and lovenox increased to BID Hyperglycemia - add Tradjenta - continue sliding scale - check A1C Hypertension, - hold cozaar norvasc resumed - follow BP Hyperlipidemia -statin Hypothyroidism -synthroid ARDS Acute kidney injury secondary sepsis, resolved Thrombocytopenia, resolved ARDS, resolved Severe sepsis, resolved DVT prophylaxis: lovenox Discussed with: patient, nursing Anticipated discharge: 4-[address]: home A total of 35 minutes was spent on the care of this complex patient more than 50% of the time was spent in counseling and care coordination. Objective - Vital Signs Vital signs: Vital Signs Temp 97.7 F 08/19/20 10:00 Pulse 88 08/19/20 10:00 Resp 20 08/19/20 10:00 BP 118/69 08/19/20 10:00 Pulse Ox 97 08/19/20 10:00 Intake & Output 08/18/20 08/19/20 08/19/20 18:59 06:59 18:59 Output Total 500 550 Balance -500 -550 Output: Urine 500 550 Other: Voiding Method Indwelling Catheter Indwelling Catheter - Labs CBC & Chem 7: 08/18/20 08:42 08/18/20 07:25 Labs: Abnormal Lab Results - Last 24 Hours (Table) 08/18/20 08/18/20 08/18/20 Range/Units 08:42 11:27 16:28 WBC 26.42 H (4.50-10.00) X 10*3/uL MCV 99.8 H (80.0-97.0) fL MCHC 30.8 L (32.0-37.0) g/dL Immature Gran # 0.39 H (0.00-0.04) X 10*3/uL Neutrophils # 24.69 H (1.80-7.70) X 10*3/uL Lymphocytes # 0.45 L (0.90-5.00) X 10*3/uL Eosinophils # 0 L (0.04-0.35) X 10*3/uL D-Dimer (<0.60) mg/L FEU POC Glucose (mg/dL) 207 H 206 H (75-99) mg/dL 08/18/20 08/19/20 08/19/20 Range/Units 21:00 07:08 08:24 WBC (4.50-10.00) X 10*3/uL MCV (80.0-97.0) fL MCHC (32.0-37.0) g/dL Immature Gran # (0.00-0.04) X 10*3/uL Neutrophils # (1.80-7.70) X 10*3/uL Lymphocytes # (0.90-5.00) X 10*3/uL Eosinophils # (0.04-0.35) X 10*3/uL D-Dimer 4.92 H (<0.60) mg/L FEU POC Glucose (mg/dL) 112 H 164 H (75-99) mg/dL
[2020-08-19 11:47] LABS: C Reactive Protein 4.1 mg/dL (0.0-0.8)
[2020-08-19 11:50] LABS: Glucose,Whole Blood 134 mg/dL (75-99)
--- NOTE | 2020-08-19 12:35 | P.PN ---
Subjective Progress Note Date: 08/19/20 This is a pleasant 80-year-old female patient with a history of hyperlipidemia, hypertension, hypothyroidism, breast cancer who was originally admitted back on 08/06/2020 for right-sided abdominal/flank pain. On 08/13/2020, this 80-year-old male patient currently in the intensive care unit due to complication of a E. coli urine tract infection. The patient's presented with a flank/abdominal pain and the patient is known to have nephrolithiasis and the patient was found to have a right kidney hydronephrosis with chronic nephritis and moderate amount of perinephric urinary extravasation and a UPJ calculus. The patient is post cystoscopy and right ureteral stent placement on 08/07/2020. Cultures are positive for E. coli. The patient was aggressively resuscitated IV fluids. The patient developed an acute hypoxic respiratory failure requiring BiPAP for respiratory support. BiPAP is at a pressure of 12/6 cm of water and FiO2 is being titrated to maintain a saturation above 90%. Chest x-ray showed some cardiomegaly and diffuse interstitial infiltrates bilaterally. The patient accordingly was kept in intensive care unit. Note that his cold with 19 screening was negative. The patient developed an acute kidney injury with a high creatinine of 1.9 which is gradually improving. Less often also improved. He was given a combination of Rocephin and Zithromax. The echo of the heart showed a normal LV, his affect of around 55-60%, RV is mildly enlarged, the patient has mild to moderate pulmonary hypertension, PA pressure was is on IV Rocephin and Zithromax for now. The patient is on heparin subcu for DVT prophylaxis. The patient was started on Lasix 40 mg every 12 hours when the patient has been achieving a negative fluid balance. Fluid balance for 08/11/2020 was -2.9 L. The white cell count is improved. The pro calcitonin LEVEL WAS HIGH 8.4. PROBNP LEVEL WAS 5930. The patient continues to be on Lasix 40 mg every 12 hours. Chest x-ray still showing diffuse bilateral pulmonary infiltrates right more than left and there is limited to Sutton change compared to yesterday's chest x-ray. I do suspect a component of ARDS secondary to E. coli septicemia. The blood work from today shows a sodium level of 147, potassium is to be replaced at 3.3, creatinine is at 1.3 with a BUN of 46. The net fluid balance over the past 24 hours has been -1.7 L. Despite the negative fluid balance, the patient continues to have diffuse bilateral pulmonary infiltrates. On today's evaluation of 08/14/2020, I'm seeing the patient for a follow-up. This is a case of urine checked infection with sepsis with E. coli. The patient also developed ARDS. The patient was getting also progressively more restless and agitated and confused yesterday. She was started on Precedex which is currently running at 0.4 g per/ kg/r minute. Meanwhile, the patient remains on BiPAP which is currently at a pressure of 12/6 cm of water with an FiO2 of 90%. The chest x-ray from today is still showing some limited infiltration yet the overall x-ray findings are probably improved compared to yesterday. The patient was switched yesterday to IV Zosyn covering for gram-negative UTI and possible aspiration. Echocardiogram was within normal limits and the patient has a preserved LV function. The patient remains on Lasix. The net fluid balance over the past 24 hours has been -1.6 L and the patient continues to be a negative fluid balance. On her blood work from today, the patient has a white cell count of 13 with a hemoglobin of 12.7, the patient's sodium level is up to 151 and I think the diuretics can be slowed down and the patient has a BUN of 64 with a creatinine of 1.5 and a serum bicarbs at 35. The most recent pro calcitonin level was 8.4. The patient is urinating a tidal volume of 350. Respiratory rate currently is in the mid 30s even while being on a BiPAP. She does have some coarse crackles in lung bases bilaterally. On today's evaluation of 08/15/2020, the patient is essentially unchanged compared to yesterday. She remains on a BiPAP at a pressure of 12/6 cm of water with an FiO2 of 90%. She is very much BiPAP dependent. The new information is that the third sample of COVID 19 PCR came back positive and the patient is most likely positive for colitis after having 2 T are negative. The patient is arousable and she is awake. Her chest x-ray is showing diffuse bilateral pulmonary infiltrates with some limited improvement in the right side on today's chest x-ray. Meanwhile, the patient remains on D5 water to replace her free water deficit. The patient's sodium today is at 152 with a BUN of 55 and a creatinine of 1.6. Her LDH from yesterday was 1294 and CRP level was 76. Her progress. Obviously declining is down to 1.4. The patient remains on broad- spectrum antibiotics and she is currently on IV Zosyn. In terms of sedation, the patient is on 0.4 mcg/kg/h of Precedex to maintain synchrony with the mechanical ventilator and control her agitation.The PICC line was ordered for this patient for today. Otherwise, the patient is on IV Solu-Medrol and the patient will be also placed on Lovenox 40 mg subcu every 24 hours for DVT prop hylaxis. D-dimer is at 2.91. 08/16/2020 the patient is being seen for a follow-up. I am least associated the patient has been off the BiPAP since yesterday evening and currently she is on oxygen at 15 L nasal cannula. She is breathing comfortably and she is not having any significant respiratory distress. He is also able to communicate. She was able to take some pills and water yesterday. She remains considerably weak. The chest x-ray still showing diffuse bilateral pulmonary infiltrates and my suspicion was that the patient's had a component of ARDS. I further checked her nasal swab for COVID-19 and she do not to be positive. However, the patient was infected with coronavirus back in March 2020 and this is quite unusual for her to be positive again. Note that her COVID-19 antibodies were also positive. No headache, she is on IV Solu-Medrol. She is receiving Solu Medrol 60 mg IV every 6 hours. She is also well diuresed and I'm awaiting her follow- up renal function. Note that the diuretics were held yesterday because of development of an acute kidney injury secondary to diuresis. For now, the patient is hemodynamically stable. No hypotension. Blood sugars are under adequate. The patient has a PICC line. I am inclined to stop the TPN and proceed with oral intake and this is diet as tolerated. A bedside swallow evaluation will be done. She remains on Lovenox 30 mg subcu for prophylaxis. She is on D5 water at the rate of 150 mL an hour and the follow-up sodium level is pending for now. The follow-up level was 145 from yesterday and the D5 water rate was reduced to 100 mL/hr he had noted the patient is also taken off the Precedex for now. She is alert and communicating. She is also appropriate. 08/17/2020, the patient is outside the intensive care unit and she is currently on a medical floor, telemetry unit. She is doing well and she is laying down on her side and she is quite comfortable on 10 L of oxygen by nasal cannula. She continues to have some crackles in the lung bases. Nevertheless, she is off the BiPAP which is breathing very comfortably. As mentioned earlier, there was a suspicion that the patient may have a sepsis induced ARDS. At the same time, the patient checked positive for COVID-19 that this has been an ongoing problem knowing that the patient was urgently diagnosed back in March 2020. No new complaints for now. She hasn't adequate urine output. She remains on IV Zosyn. She is afebrile. She is on Lovenox for DVT prophylaxis 40 mg subcu every 12 hours. She remains on IV Solu Medrol 60 mg every 6 hours. Also, she has a white cell count of 29, creatinine is at 1, electrolytes are normal. 08/18/2020, the patient remains on a telemetry unit. I'm seeing her today on follow-up. She is post ARDS related to an underlying septic event. I see her laying down comfortably in bed. It looks like the patient's oxygen requirements have gone up again and she is currently up to 15 L of oxygen by nasal ca nnula.FiO2 was increased as of 1 AM this morning. He bicycles of 26, electrolytes are normal, BUN is 42 with a creatinine of 0.9. Repeat chest x-ray was done and it shows some cardiomegaly and some vague interstitial infiltrates bilaterally consistent with ARDS or post covert infection. They'll function is stable and currently is down to 0.9. She is on IV Zosyn. She is off diuretics for now. She remains on Lovenox 40 mg subcu on a daily basis. On 08/19/2020, the patient remains on 10 L of oxygen by nasal cannula. We were unable to wean it off any further. She is otherwise quite stable and resting comfortably in bed. As mentioned earlier, this is a case of E. coli sepsis with secondary acute lung injury/ARDS. She was on BiPAP in the ICU and she was weaned down to 10 L of oxygen by nasal cannula. She has had previous history of remote COVID-19 associated pneumonia. She remains on IV Zosyn. She is also on steroids in the patient is currently on prednisone 40 mg by mouth daily and IV Solu Medrol was discontinued yesterday. Afebrile. Tolerating diet and she is taking approximately 25% of her oral diet. She is still very weak. Oral intake is diminished. She is not using incentive spirometer. Objective - Vital Signs Vital signs: Vital Signs Temp 97.7 F 08/19/20 10:00 Pulse 88 08/19/20 10:00 Resp 20 08/19/20 10:00 BP 118/69 08/19/20 10:00 Pulse Ox 97 08/19/20 10:00 Intake & Output 08/18/20 08/19/20 08/19/20 18:59 06:59 18:59 Output Total 500 550 Balance -500 -550 Output: Urine 500 550 Other: Voiding Method Indwelling Catheter Indwelling Catheter Indwelling Catheter - Exam GENERAL EXAM: Alert, pleasant 80-year-old female patient, on 10 liters of oxygen by nasal cannula HEAD: Normocephalic. EYES: Normal reaction of pupils, equal size. NOSE: Clear with pink turbinates. THROAT: No erythema or exudates. NECK: No masses, no JVD. CHEST: No chest wall deformity. LUNGS: Equal air entry with crackles in the bilateral posterior bases. No use of accessory muscles of breathing. No significant shortness of breath. CVS: S1 and S2 normal with no audible murmur, regular rhythm. ABDOMEN: No hepatosplenomegaly, normal bowel sounds, no guarding or rigidity. SPINE: No scoliosis or deformity SKIN: No rashes CENTRAL NERVOUS SYSTEM: No focal deficits, tone is normal in all 4 extremities. The patient is quite lethargic. 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 Her neurologic exam is still nonfocal. EXTREMITIES: There is no peripheral edema. No clubbing, no cyanosis. Peripheral pulses are intact. - Labs CBC & Chem 7: 08/18/20 08:42 08/18/20 07:25 Labs: Abnormal Lab Results - Last 24 Hours (Table) 08/18/20 08/18/2008/19/21 Range/Units 16:28 21:00 07:08 D-Dimer (<0.60) mg/L FEU POC Glucose (mg/dL) 206 H 112 H 164 H (75-99) mg/dL Lactate Dehydrogenase (120-246) U/L C-Reactive Protein (0.0-0.8) mg/dL 08/19/20 08/19/20 08/19/20 Range/Units 07:31 08:24 11:36 D-Dimer 4.92 H (<0.60) mg/L FEU POC Glucose (mg/dL) 134 H (75-99) mg/dL Lactate Dehydrogenase 720 H (120-246) U/L C-Reactive Protein 4.1 H (0.0-0.8) mg/dL Assessment and Plan Plan: 1 Acute hypoxemic respiratory failure secondary to acute fluid volume overload versus sepsis induced acute lung injury/ARDS. The less, further testing showed that the patient was positive for COVID 19 with an elevated LDH level and CRP and it's likely the patient's respiratory failure is multifactorial. Clinically improved. The patient is currently on IV Solu-Medrol. The patient is curr ently down to 10 L of oxygen by nasal cannula. She is still showing tach in the lung bases bilaterally. I'm going to repeat the chest x-ray. My impression is post septic ARDS/acute lung injury. COVID-19 infection was back in March 2020. Still on 10 L. 2 Sepsis secondary to bacteremia from E. coli 3 Acute urinary tract infection secondary to E. coli 4 Acute right pyelonephritis/hydronephrosis secondary to right UPJ calculus, status post right ureteral stent placement on 08/07/2020 5 History of hypertension 6 Hyperlipidemia 7 Hypothyroidism 8 acute kidney injury secondary to diuresis, improvement in the patient's creatinine is down to 1 9 hyperchloremic hypernatremia secondary to diuresis, normal 10 history of COVID 19 related infection in 2019 11 leukocytosis, improving Plan: Continued IV Zosyn prednisone 40 mg for possibility of a fibroproliferative phase of ARDS/COVID 19 Chest x-ray was noted, stable Wean down the FiO2 to 10 L per minute nasal cannula. Prior to wean her down to 8 L knowing that her current pulse ox is 96% Repeat chest x-ray Monitor the white cell count. Physical therapy / Incentive spirometer Advance diet We will continue to follow and make further recommendations based on her clinical status
--- NOTE | 2020-08-19 13:01 | PN ---
PROGRESS NOTE Patient is seen for followup for acute kidney injury. Her renal function has improved significantly with creatinine down to 0.9 on 08/18/2020. The patient was maintained on IV fluids. Currently, she is receiving IV iron for iron deficiency. She has COVID pneumonia. PHYSICAL EXAMINATION: On examination today, blood pressure was 118/69, heart rate 88 per minute, she is afebrile. No evidence of edema lower extremities. Patient is euvolemic. FISHER TERRAPIN exam grossly intact. LABS: Not available from today. Yesterday serum creatinine was 0.9. Sodium 142, potassium 4.3. ASSESSMENT: 1. Acute kidney injury, currently improved significantly. The patient is off IV fluids. Continue to encourage increased oral intake. 2. Hypernatremia, now resolved. 3. Sepsis with Escherichia coli urinary tract infection bacteremia. 4. Nephrolithiasis, right-sided with hydronephrosis status post ureteral stent placement. 5. COVID-19 pneumonia. 6. Acute hypoxic respiratory failure, currently resolved. 7. Iron deficiency, maintained on IV iron. PLAN: Continue off IV fluids. Encourage increased oral intake. Repeat labs in a.m. Continue antibiotics. MMODL / IJN: [id number] /
[2020-08-19 17:29] LABS: Glucose,Whole Blood 154 mg/dL (75-99)
[2020-08-19 20:59] LABS: Glucose,Whole Blood 163 mg/dL (75-99)
[2020-08-19] MEDS: MELATONIN 5 MG TABLET PO SCH (21:40)
[2020-08-19] MEDS: ATORVASTATIN 40 MG TAB PO SCH (21:40)
[2020-08-20] MEDS: PIPERACILLIN-TAZOBACTAM 3.375 GM in SODIUM CHLORIDE 0.9% 100 ML IVPB SCH ×3 (00:29→17:10)
[2020-08-20] MEDS: LEVOTHYROXINE 100 MCG TAB PO SCH (05:20)
[2020-08-20 06:53] LABS: Glucose,Whole Blood 188 mg/dL (75-99)
--- NOTE | 2020-08-20 08:41 | XR ---
EXAMINATION TYPE: XR chest 1V portable DATE OF EXAM: 08/20/2020 Comparison: 08/18/2020 Clinical History: 80-year-old female pneumonia Findings: Heart borderline enlarged. New obscuration of the left heart margin secondary to increasing bilateral airspace opacities. Right PICC tip probably near the brachiocephalic vein confluence, pulled back sl ightly now. Impression: Slight worsening in bilateral airspace disease.
[2020-08-20] MEDS: INSULIN ASPART (NovoLOG) 100 UNIT/ML VIAL SQ SCH ×4 (08:51→20:37)
[2020-08-20] MEDS: ENOXAPARIN 40 MG/0.4 ML SYRINGE SQ SCH ×2 (08:52→20:40)
[2020-08-20] MEDS: ZINC SULFATE 220 MG CAP PO SCH (08:52)
[2020-08-20] MEDS: amLODIPine 10 MG TAB PO SCH (08:53)
[2020-08-20] MEDS: SERTRALINE 100 MG TAB PO SCH (08:53)
[2020-08-20] MEDS: predniSONE 20 MG TAB PO SCH (08:53)
[2020-08-20] MEDS: PANTOPRAZOLE 40 MG/10 ML VIAL IVP SCH (08:53)
[2020-08-20] MEDS: LINAGLIPTIN 5 MG TABLET PO SCH (08:53)
[2020-08-20] MEDS: ASCORBIC ACID 500 MG TAB PO SCH (08:53)
[2020-08-20] MEDS: CHOLECALCIFEROL 25 MCG (1000 IU) TABLET PO SCH (08:53)
[2020-08-20] MEDS: ALBUTEROL HFA INHALER INHALATION SCH ×4 (08:57→22:12)
[2020-08-20 10:40] LABS: HCT 38.5 % (37.2-46.3); HGB 12.5 g/dL (12.0-15.0); MCH 31.6 pg (27.0-32.0); MCHC 32.5 g/dL (32.0-37.0); MCV 97.2 fL (80.0-97.0); Mean Platelet Volume 10.8 fL (9.5-12.2); Platelet Count 188 X 10*3/uL (140-440); RBC 3.96 X 10*6/uL (4.10-5.20); RDW 13.1 % (11.5-14.5); WBC 18.34 X 10*3/uL (4.50-10.00)
[2020-08-20 11:11] LABS: Albumin 2.9 g/dL (3.80-4.90); Albumin/Globulin Ratio 1.21 (1.60-3.17); Anion Gap 7.3 mmol/L (4.00-12.00); BUN/Creat Ratio 31.11 Ratio (12.00-20.00); C Reactive Protein 9.1 mg/dL (0.0-0.8); Calcium 8.3 mg/dL (8.7-10.3); Carbon Dioxide 29.7 mmol/L (21.6-31.8); Globulin 2.4 g/dL (1.6-3.3); Magnesium 2.5 mg/dL (1.5-2.4); Non-African American GFR(CKD) 61.2 (60.0-200.0); Potassium 3.4 mmol/L (3.5-5.5); Total Bilirubin 0.6 mg/dL (0.3-1.2); Total Protein 5.3 g/dL (6.2-8.2)
[2020-08-20 11:53] LABS: Glucose,Whole Blood 192 mg/dL (75-99)
[2020-08-20] MEDS: SIMETHICONE 80 MG CHEWABLE PO PRN (11:58)
[2020-08-20] MEDS ORDERED: POTASSIUM CHLORIDE ER 20 MEQ TAB.ER PO STA (12:49)
--- NOTE | 2020-08-20 12:49 | P.PN ---
Subjective Progress Note Date: 08/20/20 Hospital course: Patient is a 80-year-old female with a past medical history of hypertension, hyperlipidemia, hypothyroidism, and breast cancer currently in remission. She was transferred to our facility from [facility] in [facility] and was admitted under our services on 08/07/20 with severe sepsis secondary to obstructive severe hydronephrosis accompanied by an acute kidney injury. Patient's WBC count was 37.3. Initial lactate was 3.3 with repeat of 2.2 status post 3 L bolus. She was initially tachycardic, febrile, and hypotensive. Urinalysis was positive for turbid appearance positive for blood, leukocytes, 25 RBCs, >182 WBCs with WBC clumps and bacteria. EKG revealed normal sinus rhythm and 98 bpm with no noted T-wave or ST abnormalities. Patient had CT prior to being transferred to our facility and per documentation, this revealed an obstructive 6 mm kidney stone in the right UPJ causing severe right hydr onephrosis. She was taken to OR on same day of admission for a cystoscopy and insertion of right ureteral stent. Patient's blood cultures showing bacteremia as they were positive for E. coli. Urine cultures also positive for E. coli. Severe sepsis was treated with IV antibiotics (initially Rocephin and gentamicin which was later changed to Zosyn) and IV fluid hydration. On 08/10/20 patient began to have increased work of breathing and was requiring oxygen supplementation and was given dose of IV Lasix and fluids were stopped. Patient's condition continued to worsen and she continued to have increasing oxygen needs and was found to be hypoxic with ABG revealing a PaO2 of 55%, patient was placed on BiPAP and transferred to intensive care unit where she continued to undergo diuresis and close monitoring. Initial Covid testing completed on 08/07/20 negative, repeat test on 08/10/20 also negative, secondary to worsening respiratory status another Covid test was completed on 08/14/20 which w as positive. Covid antibodies were drawn also resulting reactive showing positive positive for infection. Patient currently on 8 L high flow nasal cannula with SpO2 of 92%. Physical exam: Patient was seen and fully evaluated at the bedside this morning. She was resting in bed and appeared to be comfortable. She is currently on 8 L high flow nasal cannula with SpO2 of 92%. Patient reports continued shortness of breath but does feel that her symptoms are slightly improving. Patient reports that she is still having a difficult time eating as she has no appetite as food does not taste right and it causes her nausea. Patient has been getting up to the chair and denies having any headache, lightheadedness, dizziness, chest pain, palpitations, or experiencing any numbness/tingling/focal weakness in extremities. General: non toxic, vital signs stable. Patient appears comfortable showing signs of mild distress secondary to ill appearance and increased oxygenation needs, but currently showing no signs of acute distress, appears at stated age Derm: warm, dry Head: atraumatic, normocephalic, symmetric Eyes: EOMI, no lid lag, anicteric sclera Mouth: no lip lesion, mucus membranes dry Cardiovascular: S1S2 normal, regular rate and regular rhythm, no gallop, murmur, or rub noted. Positive posterior tibial pulses bilaterally. Cap refill less than 2 seconds. Lungs: Respirations even, regular, and unlabored on 8 L high flow nasal cannula with SpO2 94%. Lungs with diffuse coarse crackles at bilateral bases. No accessory muscle use. GI/: Abdomen soft, nontender to palpation. No appreciable organomegaly. External Coppola catheter in place. Ext: No gross muscle atrophy, minimal lower extremity edema, no contractures Neuro: CN II-XI grossly intact, no focal neuro deficits Psych: Alert, oriented, appropriate affect Assessment and Plan of care: Acute hypoxic respiratory failure resulting from Covid pneumonia -Oxygenation to be administered and titrated as needed to maintain SPO2 equal to or greater than 92%, wean as patient tolerates. Currently on 8 L high flow nasal cannula with SpO2 92%. -Telemetry monitoring. -Continue Vitamin C, vitamin D, zinc, and melatonin -Encouraged Incentive Spirometry 10-15 times hourly while awake -Continue Steroids: Prednisone 40 mg daily Day 7 of steroids. -Pulmonology following, appreciate further recommendations. Severe sepsis secondary to E. coli bacteremia and acute cystitis -Urinalysis positive for turbid appearance positive for blood, leukocytes, 25 RBCs, >182 WBCs with WBC clumps and bacteria -Urine culture positive for E. coli -Blood cultures positive for E. coli -Patient received initial sepsis bolus and fluid hydration. -Continue IV antibiotics: Zosyn Obstructive right ureteral stone resulting in severe hydronephrosis -CT scan completed at [facility] prior to being transferred to our facility reportedly revealed an obstructive 6 mm kidney stone in the right UPJ causing severe right hydronephrosis. -Patient underwent cystoscopy and insertion of right ureteral stent on 08/07/20 -External Coppola catheter remains in place. -Nephrology following. Acute kidney injury secondary to obstructive uropathy and severe sepsis, improving -Creatinine improving. Suspect underlying chronic kidney disease. Nephrology following closely. Hypokalemia -K+ 3.4, replaced. -We'll continue to monitor with repeat a.m. labs. Hypovolemic hypernatremia, resolved Hypertension -Monitor vital signs and continue daily medication management with amlodipine. Hold losartan due to TUTU. Hyperlipidemia -Continue daily home medication regimen with atorvastatin 40 mg nightly. Hypothyroidism -Continue daily medication regimen with Synthroid 100 g daily CODE STATUS: Full code DVT prophylaxis: Heparin Discussed with: Patient and RN Anticipated discharge date: Clinical course to determine Anticipated discharge place: To be determined, likely SNF for rehab A total of 45 minutes was spent on the care of this complex patient more than 50% of the time was spent in counseling and care coordination. Objective - Vital Signs Vital signs: Vital Signs Temp 97.6 F 08/20/20 10:00 Pulse 82 08/20/20 10:00 Resp 20 08/20/20 10:00 BP 128/71 08/20/20 10:00 Pulse Ox 93 L 08/20/20 10:00 Intake & Output 08/19/20 08/20/20 08/20/20 18:59 06:59 18:59 Output Total 500 Balance -500 Output: Urine 500 Uretheral (Coppola) 500 Other: Voiding Method Indwelling Catheter Incontinent External Catheter # Voids 2 # Bowel Movements 1 - Labs CBC & Chem 7: 08/20/20 07:11 08/20/20 07:11 Labs: Abnormal Lab Results - Last 24 Hours (Table) 08/19/20 08/19/20 08/19/20 Range/Units 08:24 17:12 20:52 WBC (4.50-10.00) X 10*3/uL RBC (4.10-5.20) X 10*6/uL MCV (80.0-97.0) fL D-Dimer (<0.60) mg/L FEU Potassium (3.5-5.5) mmol/L BUN (9.0-27.0) mg/dL BUN/Creatinine Ratio (12.00-20.00) Ratio Glucose (70-110) mg/dL POC Glucose (mg/dL) 154 H 163 H (75-99) mg/dL Hemoglobin A1c 6.1 H (4.0-6.0) % Calcium (8.7-10.3) mg/dL Magnesium (1.5-2.4) mg/dL Lactate Dehydrogenase (120-246) U/L C-Reactive Protein (0.0-0.8) mg/dL Total Protein (6.2-8.2) g/dL Albumin (3.80-4.90) g/dL Albumin/Globulin Ratio (1.60-3.17) g/dL 08/20/20 08/20/20 08/20/20 Range/Units 06:51 07:11 07:11 WBC 18.34 H (4.50-10.00) X 10*3/uL RBC 3.96 L (4.10-5.20) X 10*6/uL MCV 97.2 H (80.0-97.0) fL D-Dimer 4.00 H (<0.60) mg/L FEU Potassium (3.5-5.5) mmol/L BUN (9.0-27.0) mg/dL BUN/Creatinine Ratio (12.00-20.00) Ratio Glucose (70-110) mg/dL POC Glucose (mg/dL) 188 H (75-99) mg/dL Hemoglobin A1c (4.0-6.0) % Calcium (8.7-10.3) mg/dL Magnesium (1.5-2.4) mg/dL Lactate Dehydrogenase (120-246) U/L C-Reactive Protein (0.0-0.8) mg/dL Total Protein (6.2-8.2) g/dL Albumin (3.80-4.90) g/dL Albumin/Globulin Ratio (1.60-3.17) g/dL 08/20/20 08/20/20 Range/Units 07:11 11:40 WBC (4.50-10.00) X 10*3/uL RBC (4.10-5.20) X 10*6/uL MCV (80.0-97.0) fL D-Dimer (<0.60) mg/L FEU Potassium 3.4 L (3.5-5.5) mmol/L BUN 28.0 H (9.0-27.0) mg/dL BUN/Creatinine Ratio 31.11 H (12.00-20.00) Ratio Glucose 120 H (70-110) mg/dL POC Glucose (mg/dL) 192 H (75-99) mg/dL Hemoglobin A1c (4.0-6.0) % Calcium 8.3 L (8.7-10.3) mg/dL Magnesium 2.5 H (1.5-2.4) mg/dL Lactate Dehydrogenase 381 H (120-246) U/L C-Reactive Protein 9.1 H (0.0-0.8) mg/dL Total Protein 5.3 L (6.2-8.2) g/dL Albumin 2.90 L (3.80-4.90) g/dL Albumin/Globulin Ratio 1.21 L (1.60-3.17) g/dL
[2020-08-20] MEDS ORDERED: FUROSEMIDE 10 MG/ML 4 ML VIAL IV STA (15:50)
--- NOTE | 2020-08-20 16:17 | P.PN ---
Subjective Progress Note Date: 08/20/20 Principal diagnosis: Acute hypoxic respiratory johnson clear to acute fluid volume overload, sepsis, ARDS, and COVID-19 This is a pleasant 80-year-old female patient with a history of hyperlipidemia, hypertension, hypothyroidism, breast cancer who was originally admitted back on 08/06/2020 for right-sided abdominal/flank pain. On 08/13/2020, this 80-year-old male patient currently in the intensive care unit due to complication of a E. coli urine tract infection. The patient's presented with a flank/abdominal pain and the patient is known to have nephrolithiasis and the patient was found to have a right kidney hydronephrosis with chronic nephritis and moderate amount of perinephric urinary extravasation and a UPJ calculus. The patient is post cystoscopy and right ureteral stent placement on 08/07/2020. Cultures are positive for E. coli. The patient was aggressively resuscitated IV fluids. The patient developed an acute hypoxic respiratory failure requiring BiPAP for respiratory support. BiPAP is at a pressure of 12/6 cm of water and FiO2 is being titrated to maintain a saturation above 90%. Chest x-ray showed some cardiomegaly and diffuse interstitial infiltrates bilaterally. The patient accordingly was kept in intensive care unit. Note that his cold with 19 screening was negative. The patient developed an acute kidney injury with a high creatinine of 1.9 which is gradually improving. Less often also improved. He was given a combination of Rocephin and Zithromax. The echo of the heart showed a normal LV, his affect of around 55-60%, RV is mildly enlarged, the patient has mild to moderate pulmonary hypertension, PA pressure was is on IV Rocephin and Zithromax for now. The patient is on heparin subcu for DVT prophylaxis. The patient was started on Lasix 40 mg every 12 hours when the patient has been achieving a negative fluid balance. Fluid balance for 08/11/2020 was -2.9 L. The white cell count is improved. The pro calcitonin LE RINKU WAS HIGH 8.4. PROBNP LEVEL WAS 5930. The patient continues to be on Lasix 40 mg every 12 hours. Chest x-ray still showing diffuse bilateral pulmonary infiltrates right more than left and there is limited to Sutton change compared to yesterday's chest x-ray. I do suspect a component of ARDS secondary to E. coli septicemia. The blood work from today shows a sodium level of 147, potassium is to be replaced at 3.3, creatinine is at 1.3 with a BUN of 46. The net fluid balance over the past 24 hours has been -1.7 L. Despite the negative fluid balance, the patient continues to have diffuse bilateral pulmonary infiltrates. On today's evaluation of 08/14/2020, I'm seeing the patient for a follow-up. This is a case of urine checked infection with sepsis with E. coli. The patient also developed ARDS. The patient was getting also progressively more restless and agitated and confused yesterday. She was started on Precedex which is currently running at 0.4 g per/ kg/r minute. Meanwhile, the patient remains on BiPAP which is currently at a pressure of 12/6 cm of water with an FiO2 of 90%. The chest x-ray from today is still showing some limited infiltration yet the overall x-ray findings are probably improved compared to yesterday. The patient was switched yesterday to IV Zosyn covering for gram-negative UTI and possible aspiration. Echocardiogram was within normal limits and the patient has a preserved LV function. The patient remains on Lasix. The net fluid balance over the past 24 hours has been -1.6 L and the patient continues to be a negative fluid balance. On her blood work from today, the patient has a white cell count of 13 with a hemoglobin of 12.7, the patient's sodium level is up to 151 and I think the diuretics can be slowed down and the patient has a BUN of 64 with a creatinine of 1.5 and a serum bicarbs at 35. The most recent pro calcitonin level was 8.4. The patient is urinating a tidal volume of 350. Respiratory rate currently is in the mid 30s even while being on a BiPAP. She does have some coarse crackles in lung bases bilaterally. On today's evaluation of 08/15/2020, the patient is essentially unchanged compared to yesterday. She remains on a BiPAP at a pressure of 12/6 cm of water with an FiO2 of 90%. She is very much BiPAP dependent. The new information is that the third sample of COVID 19 PCR came back positive and the patient is most likely positive for colitis after having 2 T are negative. The patient is arou sable and she is awake. Her chest x-ray is showing diffuse bilateral pulmonary infiltrates with some limited improvement in the right side on today's chest x- ray. Meanwhile, the patient remains on D5 water to replace her free water deficit. The patient's sodium today is at 152 with a BUN of 55 and a creatinine of 1.6. Her LDH from yesterday was 1294 and CRP level was 76. Her progress. Obviously declining is down to 1.4. The patient remains on broad-spectrum antibiotics and she is currently on IV Zosyn. In terms of sedation, the patient is on 0.4 mcg/kg/h of Precedex to maintain synchrony with the mechanical ventilator and control her agitation.The PICC line was ordered for this patient for today. Otherwise, the patient is on IV Solu-Medrol and the patient will be also placed on Lovenox 40 mg subcu every 24 hours for DVT prophylaxis. D-dimer is at 2.91. 08/16/2020 the patient is being seen for a follow-up. I am least associated the patient has been off the BiPAP since yesterday evening and currently she is on oxygen at 15 L nasal cannula. She is breathing comfortably and she is not having any significant respiratory distress. He is also able to communicate. She was able to take some pills and water yesterday. She remains considerably weak. The chest x-ray still showing diffuse bilateral pulmonary infiltrates and my suspicion was that the patient's had a component of ARDS. I further checked her nasal swab for COVID-19 and she do not to be positive. However, the patient was infected with coronavirus back in March 2020 and this is quite unusual for her to be positive again. Note that her COVID-19 antibodies were also positive. No headache, she is on IV Solu-Medrol. She is receiving Solu Medrol 60 mg IV every 6 hours. She is also well diuresed and I'm awaiting her follow- up renal function. Note that the diuretics were held yesterday because of de velopment of an acute kidney injury secondary to diuresis. For now, the patient is hemodynamically stable. No hypotension. Blood sugars are under adequate. The patient has a PICC line. I am inclined to stop the TPN and proceed with oral intake and this is diet as tolerated. A bedside swallow evaluation will be done. She remains on Lovenox 30 mg subcu for prophylaxis. She is on D5 water at the rate of 150 mL an hour and the follow-up sodium level is pending for now. The follow-up level was 145 from yesterday and the D5 water rate was reduced to 100 mL/hr he had noted the patient is also taken off the Precedex for now. She is alert and communicating. She is also appropriate. 08/17/2020, the patient is outside the intensive care unit and she is currently on a medical floor, telemetry unit. She is doing well and she is laying down on her side and she is quite comfortable on 10 L of oxygen by nasal cannula. She continues to have some crackles in the lung bases. Nevertheless, she is off the BiPAP which is breathing very comfortably. As mentioned earlier, there was a suspicion that the patient may have a sepsis induced ARDS. At the same time, the patient checked positive for COVID-19 that this has been an ongoing problem knowing that the patient was urgently diagnosed back in March 2020. No new complaints for now. She hasn't adequate urine output. She remains on IV Zosyn. She is afebrile. She is on Lovenox for DVT prophylaxis 40 mg subcu every 12 hours. She remains on IV Solu Medrol 60 mg every 6 hours. Also, she has a white cell count of 29, creatinine is at 1, electrolytes are normal. 08/18/2020, the patient remains on a telemetry unit. I'm seeing her today on follow-up. She is post ARDS related to an underlying septic event. I see her laying down comfortably in bed. It looks like the patient's oxygen requirements have gone up again and she is currently up to 15 L of oxygen by nasal cannula.FiO2 was increased as of 1 AM this morning. He bicycles of 26, electrolytes are normal, BUN is 42 with a creatinine of 0.9. Repeat chest x-ray was done and it shows some cardiomegaly and some vague interstitial infiltrates bilaterally consistent with ARDS or post covert infection. They'll function is stable and currently is down to 0.9. She is on IV Zosyn. She is off diuretics for now. She remains on Lovenox 40 mg subcu on a daily basis. On 08/19/2020, the patient remains on 10 L of oxygen by nasal cannula. We were unable to wean it off any further. She is otherwise quite stable and resting comfortably in bed. As mentioned earlier, this is a case of E. coli sepsis with secondary acute lung injury/ARDS. She was on BiPAP in the ICU and she was weaned down to 10 L of oxygen by nasal cannula. She has had previous history of remote COVID-19 associated pneumonia. She remains on IV Zosyn. She is also on steroids in the patient is currently on prednisone 40 mg by mouth daily and IV Solu Medrol was discontinued yesterday. Afebrile. Tolerating diet and she is taking approximately 25% of her oral diet. She is still very weak. Oral intake is diminished. She is not using incentive spirometer. On 08/20/2000 patient seen in follow-up on medical surgical floor. She is sitting up in a chair, she continues to be on 8 L of oxygen, her pulse ox is 93%, the problem be weaned further, hemodynamically she has been stable, she has been afebrile, appears weak, and she has not been using the incentive spirometer. Patient's chest x- ray today shows slight worsening in bilateral airspace disease. Today's labs show improving white blood cell count is down to 18.3, hemoglobin is 12.5, d- dimer is down slightly and is at 4.0, potassium is 3.4, Darvocet x-rays were unremarkable, B1 is 20, creatinine 0.9, intrinsic renal profile has improved from a couple days ago. LDH improving and is down to 381, from 720, and CRP is 9.1. No nausea vomiting or diarrhea, her oral intake is poor, she has no appetite. She remains on Zosyn, and her blood and urine cultures showed E. coli with cabezas sensitivity. And she remains on prednisone 40 mg daily, she did receive a dose of Lasix per nephrology, and she remains on Polyvitamin sent and Lovenox 40 mg daily Objective - Vital Signs Vital signs: Vital Signs Temp 98.5 F 08/20/20 14:50 Pulse 76 08/20/20 14:50 Resp 19 08/20/20 14:50 BP 131/78 08/20/20 14:50 Pulse Ox 92 L 08/20/20 14:50 Intake & Output 08/19/20 08/20/20 08/20/20 18:59 06:59 18:59 Output Total 500 Balance -500 Weight 83.5 kg Output: Urine 500 Uretheral (Coppola) 500 Other: Voiding Method Indwelling Catheter Incontinent External Catheter # Voids 2 # Bowel Movements 1 2 - Exam GENERAL EXAM: Alert, pleasant, 80-year-old white female on 8 L of oxygen and the pulse ox of 92-93% comfortable in no apparent distress. HEAD: Normocephalic/atraumatic. EYES: Normal reaction of pupils, equal size. Conjunctiva pink, sclera white. NOSE: Clear with pink turbinates. THROAT: No erythema or exudates. NECK: No masses, no JVD, no thyroid enlargement, no adenopathy. CHEST: No chest wall deformity. Symmetrical expansion. LUNGS: Equal air entry with bibasilar crackles CVS: Regular rate and rhythm, normal S1 and S2, no gallops, no murmurs, no rubs ABDOMEN: Soft, nontender. No hepatosplenomegaly, normal bowel sounds, no guarding or rigidity. EXTREMITIES: No clubbing, no edema, no cyanosis, 2+ pulses and upper and lower extremities. MUSCULOSKELETAL: Muscle strength and tone normal. SPINE: No scoliosis or deformity SKIN: No rashes CENTRAL NERVOUS SYSTEM: Alert and oriented -3. No focal deficits, tone is normal in all 4 extremities. PSYCHIATRIC: Alert and oriented -3. Appropriate affect. Intact judgment and insight. - Labs CBC & Chem 7: 08/20/20 07:11 08/20/20 07:11 Labs: Abnormal Lab Results - Last 24 Hours (Table) 08/19/20 08/19/20 08/20/20 Range/Units 17:12 20:52 06:51 WBC (4.50-10.00) X 10*3/uL RBC (4.10-5.20) X 10*6/uL MCV (80.0-97.0) fL D-Dimer (<0.60) mg/L FEU Potassium (3.5-5.5) mmol/L BUN (9.0-27.0) mg/dL BUN/Creatinine Ratio (12.00-20.00) Ratio Glucose (70-110) mg/dL POC Glucose (mg/dL) 154 H 163 H 188 H (75-99) mg/dL Calcium (8.7-10.3) mg/dL Magnesium (1.5-2.4) mg/dL Lactate Dehydrogenase (120-246) U/L C-Reactive Protein (0.0-0.8) mg/dL Total Protein (6.2-8.2) g/dL Albumin (3.80-4.90) g/dL Albumin/Globulin Ratio (1.60-3.17) g/dL 08/20/20 08/20/20 08/20/20 Range/Units 07:11 07:11 07:11 WBC 18.34 H (4.50-10.00) X 10*3/uL RBC 3.96 L (4.10-5.20) X 10*6/uL MCV 97.2 H (80.0-97.0) fL D-Dimer 4.00 H (<0.60) mg/L FEU Potassium 3.4 L (3.5-5.5) mmol/L BUN 28.0 H (9.0-27.0) mg/dL BUN/Creatinine Ratio 31.11 H (12.00-20.00) Ratio Glucose 120 H (70-110) mg/dL POC Glucose (mg/dL) (75-99) mg/dL Calcium 8.3 L (8.7-10.3) mg/dL Magnesium 2.5 H (1.5-2.4) mg/dL Lactate Dehydrogenase 381 H (120-246) U/L C-Reactive Protein 9.1 H (0.0-0.8) mg/dL Total Protein 5.3 L (6.2-8.2) g/dL Albumin 2.90 L (3.80-4.90) g/dL Albumin/Globulin Ratio 1.21 L (1.60-3.17) g/dL 08/20/20 Range/Units 11:40 WBC (4.50-10.00) X 10*3/uL RBC (4.10-5.20) X 10*6/uL MCV (80.0-97.0) fL D-Dimer (<0.60) mg/L FEU Potassium (3.5-5.5) mmol/L BUN (9.0-27.0) mg/dL BUN/Creatinine Ratio (12.00-20.00) Ratio Glucose (70-110) mg/dL POC Glucose (mg/dL) 192 H (75-99) mg/dL Calcium (8.7-10.3) mg/dL Magnesium (1.5-2.4) mg/dL Lactate Dehydrogenase (120-246) U/L C-Reactive Protein (0.0-0.8) mg/dL Total Protein (6.2-8.2) g/dL Albumin (3.80-4.90) g/dL Albumin/Globulin Ratio (1.60-3.17) g/dL Assessment and Plan Plan: 1 Acute hypoxemic respiratory failure secondary to acute fluid volume overload versus sepsis induced acute lung injury/ARDS. The less, further testing showed that the patient was positive for COVID 19 with an elevated LDH level and CRP and it's likely the patient's respiratory failure is multifactorial. Clinically improved. The patient is currently on IV Solu-Medrol. The patient is cu rrently down to 10 L of oxygen by nasal cannula. She is still showing tach in the lung bases bilaterally. I'm going to repeat the chest x-ray. My impression is post septic ARDS/acute lung injury. COVID-19 infection was back in March 2020. Still on 10 L. 2 Sepsis secondary to bacteremia from E. coli 3 Acute urinary tract infection secondary to E. coli 4 Acute right pyelonephritis/hydronephrosis secondary to right UPJ calculus, status post right ureteral stent placement on 08/07/2020 5 History of hypertension 6 Hyperlipidemia 7 Hypothyroidism 8 acute kidney injury secondary to diuresis, improvement in the patient's creatinine is down to 1 9 hyperchloremic hypernatremia secondary to diuresis, normal 10 history of COVID 19 related infection in 2019 11 leukocytosis, improving Plan: Continue weaning FiO2 to keep O2 sats ration at or above 90% Encouraged the patient to deep breathe and use of incentive spirometer Maintain aspiration precautions Today's chest x-ray shows slight worsening in bilateral airspace disease and patient will get 1 dose of Lasix Continue current dose of Lovenox We'll follow d-dimer on a daily basis Laboratory markers are improving We will send a follow-up pro-calcitonin We'll continue to follow I performed a history & physical examination of the patient and discussed their management with my nurse practitioner, Nora Cabral. I reviewed the nurse practitioner's note and agree with the documented findings and plan of care. Lung sounds are positive for bibasilar rales. The findings and the impression was discussed with the patient. I attest to the documentation by the nurse practitioner. Time with Patient: Less than 30
[2020-08-20 16:51] LABS: Glucose,Whole Blood 295 mg/dL (75-99)
--- NOTE | 2020-08-20 17:27 | PN ---
PROGRESS NOTE Patient is seen for followup for acute kidney injury. She has underlying COVID infection. Her renal function has significantly improved, with creatinine now staying at about 0.9 mg/dL. Patient, however, is complaining of mild shortness of breath today. PHYSICAL EXAMINATION: On examination today, blood pressure was 128/70, heart rate of 82 per minute. She is maintained on high-flow nasal cannula with 92% oxygen saturations. Examination shows no edema in the lower extremities. ECONOMIC ANALYST exam grossly intact. Abdomen is soft, nontender. LABS: Sodium 143, potassium 3.4, chloride 106, BUN 28, creatinine 0.9, hemoglobin 12.5 g/dL. ASSESSMENT: 1. Acute kidney injury, currently significantly improved. 2. Hypokalemia, status post replacement. 3. Right nephrolithiasis with hydronephrosis, status post ureteral stent placement. 4. Escherichia coli sepsis with bacteremia and urinary tract infection. 5. Hypernatremia, now resolved. 6. COVID pneumonia. 7. Iron deficiency, status post IV iron. PLAN: I will give her a dose of IV Lasix today. Chest x-ray this morning shows slight worsening airspace disease. Repeat electrolytes in a.m. MMODL / IJN: [id number] /
[2020-08-20 20:40] LABS: Glucose,Whole Blood 90 mg/dL (75-99)
[2020-08-20] MEDS: ATORVASTATIN 40 MG TAB PO SCH (20:40)
[2020-08-20] MEDS: MELATONIN 5 MG TABLET PO SCH (20:40)
[2020-08-21] MEDS: PIPERACILLIN-TAZOBACTAM 3.375 GM in SODIUM CHLORIDE 0.9% 100 ML IVPB SCH ×4 (00:14→23:03)
[2020-08-21] MEDS: ALBUTEROL HFA INHALER INHALATION PRN (00:30)
[2020-08-21] MEDS: SIMETHICONE 80 MG CHEWABLE PO PRN (03:23)
[2020-08-21] MEDS: LEVOTHYROXINE 100 MCG TAB PO SCH (05:36)
[2020-08-21 06:56] LABS: Glucose,Whole Blood 136 mg/dL (75-99)
--- NOTE | 2020-08-21 08:16 | XR ---
EXAMINATION TYPE: XR chest 1V portable DATE OF EXAM: 08/21/2020 COMPARISON: Chest x-ray 08/20/2020 HISTORY: Dyspnea, shortness of breath TECHNIQUE: Single frontal view of the chest is obtained. FINDINGS: Bilateral airspace disease may progressed in the interval although there are differences i n technique. Deviation of the trachea is stable. PICC line is unchanged. No evident pneumothorax. Cardiac mediastinal silhouette is obscured. IMPRESSION: Airspace disease likely worsening.
[2020-08-21] MEDS: ALBUTEROL HFA INHALER INHALATION SCH ×4 (08:29→20:37)
[2020-08-21] MEDS: INSULIN ASPART (NovoLOG) 100 UNIT/ML VIAL SQ SCH ×4 (08:53→20:56)
[2020-08-21] MEDS: ENOXAPARIN 40 MG/0.4 ML SYRINGE SQ SCH ×2 (08:54→21:21)
[2020-08-21] MEDS: PANTOPRAZOLE 40 MG/10 ML VIAL IVP SCH (08:55)
[2020-08-21] MEDS: LINAGLIPTIN 5 MG TABLET PO SCH (08:55)
[2020-08-21] MEDS: ZINC SULFATE 220 MG CAP PO SCH (08:55)
[2020-08-21] MEDS: CHOLECALCIFEROL 25 MCG (1000 IU) TABLET PO SCH (08:55)
[2020-08-21] MEDS: amLODIPine 10 MG TAB PO SCH (08:55)
[2020-08-21] MEDS: SERTRALINE 100 MG TAB PO SCH (08:56)
[2020-08-21] MEDS: predniSONE 20 MG TAB PO SCH (08:56)
[2020-08-21] MEDS: ASCORBIC ACID 500 MG TAB PO SCH (08:56)
--- NOTE | 2020-08-21 10:04 | P.PN ---
Subjective Progress Note Date: 08/21/20 Hospital course: Patient is a 80-year-old female with a past medical history of hypertension, hyperlipidemia, hypothyroidism, and breast cancer currently in remission. She was transferred to our facility from [facility] in [facility] and was admitted under our services on 08/07/20 with severe sepsis secondary to obstructive severe hydronephrosis accompanied by an acute kidney injury. Patient's WBC count was 37.3. Initial lactate was 3.3 with repeat of 2.2 status post 3 L bolus. She was initially tachycardic, febrile, and hypotensive. Urinalysis was positive for turbid appearance positive for blood, leukocytes, 25 RBCs, >182 WBCs with WBC clumps and bacteria. EKG revealed normal sinus rhythm and 98 bpm with no noted T-wave or ST abnormalities. Patient had CT prior to being transferred to our facility and per documentation, this revealed an obstructive 6 mm kidney stone in the right UPJ causing severe right hydr onephrosis. She was taken to OR on same day of admission for a cystoscopy and insertion of right ureteral stent. Patient's blood cultures showing bacteremia as they were positive for E. coli. Urine cultures also positive for E. coli. Severe sepsis was treated with IV antibiotics (initially Rocephin and gentamicin which was later changed to Zosyn) and IV fluid hydration. On 08/10/20 patient began to have increased work of breathing and was requiring oxygen supplementation and was given dose of IV Lasix and fluids were stopped. Patient's condition continued to worsen and she continued to have increasing oxygen needs and was found to be hypoxic with ABG revealing a PaO2 of 55%, patient was placed on BiPAP and transferred to intensive care unit where she continued to undergo diuresis and close monitoring. Initial Covid testing completed on 08/07/20 negative, repeat test on 08/10/20 also negative, secondary to worsening respiratory status another Covid test was completed on 08/14/20 which w as positive. Covid antibodies were drawn also resulting reactive showing positive positive for infection. Patient currently on 8 L high flow nasal cannula with SpO2 of 92%. Physical exam: 08/21/20: Patient was seen and fully evaluated at the bedside this morning. She was resting in bed and appeared to be comfortable. Her oxygen needs have increased throughout the night and she is back on 10 L high flow nasal cannula with SpO2 of 90%. Chest x-ray repeated revealing likely worsening airspace disease with stable deviation of the trachea. D-dimer decreasing down to 1.96. LDH increasing to 395 and proBNP of 1120. Patient reports that she feels very weak and simply worn out. She reports continued shortness of breath, and total loss of appetite. Patient reports she just feels like her body is worn out. Despite hypoxia the remainder of her vital signs have been stable. She denies having any headache, lightheadedness, dizziness, chest pain or palpitations, or experiencing any swelling/numbness/tingling/weakness in her extremities. General: non toxic, vital signs stable. Patient appears comfortable showing signs of mild distress secondary to ill appearance and increased oxygenation needs, but currently showing no signs of acute distress, appears at stated age Derm: warm, dry. Head: atraumatic, normocephalic, symmetric. Eyes: EOMI, no lid lag, anicteric sclera. Mouth: no lip lesion, mucus membranes dry. Cardiovascular: S1S2 normal, regular rate and regular rhythm, no gallop, murmur, or rub noted. Positive posterior tibial pulses bilaterally. Cap refill less than 2 seconds. Lungs: Respirations even, regular, and unlabored on 10 L high flow nasal cannula with SpO2 90%. Lungs with diffuse coarse crackles at bilateral bases. No accessory muscle use. GI/: Abdomen soft, nontender to palpation. No appreciable organomegaly. External Coppola catheter in place. Ext: No gross muscle atrophy, minimal lower extremity edema, no contractures. Neuro: CN II-XI grossly intact, no focal neuro deficits. Psych: Alert, oriented, appropriate affect. Assessment and Plan of care: Acute hypoxic respiratory failure resulting from Covid pneumonia -Oxygenation to be administered and titrated as needed to maintain SPO2 equal to or greater than 92%, wean as patient tolerates. Currently on 10 L high flow nasal cannula with SpO2 90%. -Telemetry monitoring. -Continue Vitamin C, vitamin D, zinc, and melatonin -Encouraged Incentive Spirometry 10-15 times hourly while awake -Continue Steroids: Prednisone 40 mg daily Day 8 of steroids. -Pulmonology following, appreciate further recommendations. Severe sepsis secondary to E. coli bacteremia and acute cystitis -Urinalysis positive for turbid appearance positive for blood, leukocytes, 25 RBCs, >182 WBCs with WBC clumps and bacteria -Urine culture positive for E. coli -Blood cultures positive for E. coli -Patient received initial sepsis bolus and fluid hydration. -Continue IV antibiotics: Zosyn Obstructive right ureteral stone resulting in severe hydronephrosis -CT scan completed at [facility] prior to being transferred to our facility reportedly revealed an obstructive 6 mm kidney stone in the right UPJ causing severe right hydronephrosis. -Patient underwent cystoscopy and insertion of right ureteral stent on 08/07/20 -External Coppola catheter remains in place. -Nephrology following. Acute kidney injury secondary to obstructive uropathy and severe sepsis, improving -Creatinine improving. Suspect underlying chronic kidney disease. Nephrology following closely. Hypokalemia, resolved Hypovolemic hypernatremia, resolved Hypertension -Monitor vital signs and continue daily medication management with amlodipine. Hold losartan due to TUTU. Hyperlipidemia -Continue daily home medication regimen with atorvastatin 40 mg nightly. Hypothyroidism -Continue daily medication regimen with Synthroid 100 g daily CODE STATUS: Full code DVT prophylaxis: Heparin Discussed with: Patient and RN as well as pt's daughter Aspen. Anticipated discharge date: Clinical course to determine Anticipated discharge place: To be determined, likely SNF for rehab A total of 45 minutes was spent on the care of this complex patient more than 50% of the time was spent in counseling and care coordination. Objective - Vital Signs Vital signs: Vital Signs Temp 97.6 F 08/21/20 09:56 Pulse 73 08/21/20 09:56 Resp 20 08/21/20 09:56 BP 118/55 08/21/20 09:56 Pulse Ox 99 08/21/20 09:56 Intake & Output 08/20/20 08/21/20 08/21/20 18:59 06:59 18:59 Output Total 2049 Balance -2049 Weight 83.5 kg Output: Urine 2049 Other: Voiding Method Incontinent Incontinent External Catheter External Catheter # Bowel Movements 2 - Labs CBC & Chem 7: 08/20/20 07:11 08/21/20 06:08 Labs: Abnormal Lab Results - Last 24 Hours (Table) 08/20/20 08/20/20 08/20/20 Range/Units 07:11 07:11 07:11 WBC 18.34 H (4.50-10.00) X 10*3/uL RBC 3.96 L (4.10-5.20) X 10*6/uL MCV 97.2 H (80.0-97.0) fL D-Dimer (<0.60) mg/L FEU Potassium 3.4 L (3.5-5.5) mmol/L BUN 28.0 H (9.0-27.0) mg/dL BUN/Creatinine Ratio 31.11 H (12.00-20.00) Ratio Glucose 120 H (70-110) mg/dL POC Glucose (mg/dL) (75-99) mg/dL Calcium 8.3 L (8.7-10.3) mg/dL Magnesium 2.5 H (1.5-2.4) mg/dL Lactate Dehydrogenase 381 H (120-246) U/L C-Reactive Protein 9.1 H (0.0-0.8) mg/dL Total Protein 5.3 L (6.2-8.2) g/dL Albumin 2.90 L (3.80-4.90) g/dL Albumin/Globulin Ratio 1.21 L (1.60-3.17) g/dL Procalcitonin 0.49 H (0.02-0.09) ng/mL 08/20/20 08/20/20 08/21/20 Range/Units 11:40 16:49 06:08 WBC (4.50-10.00) X 10*3/uL RBC (4.10-5.20) X 10*6/uL MCV (80.0-97.0) fL D-Dimer 1.96 H (<0.60) mg/L FEU Potassium (3.5-5.5) mmol/L BUN (9.0-27.0) mg/dL BUN/Creatinine Ratio (12.00-20.00) Ratio Glucose (70-110) mg/dL POC Glucose (mg/dL) 192 H 295 H (75-99) mg/dL Calcium (8.7-10.3) mg/dL Magnesium (1.5-2.4) mg/dL Lactate Dehydrogenase (120-246) U/L C-Reactive Protein (0.0-0.8) mg/dL Total Protein (6.2-8.2) g/dL Albumin (3.80-4.90) g/dL Albumin/Globulin Ratio (1.60-3.17) g/dL Procalcitonin (0.02-0.09) ng/mL 08/21/20 Range/Units 06:54 WBC (4.50-10.00) X 10*3/uL RBC (4.10-5.20) X 10*6/uL MCV (80.0-97.0) fL D-Dimer (<0.60) mg/L FEU Potassium (3.5-5.5) mmol/L BUN (9.0-27.0) mg/dL BUN/Creatinine Ratio (12.00-20.00) Ratio Glucose (70-110) mg/dL POC Glucose (mg/dL) 136 H (75-99) mg/dL Calcium (8.7-10.3) mg/dL Magnesium (1.5-2.4) mg/dL Lactate Dehydrogenase (120-246) U/L C-Reactive Protein (0.0-0.8) mg/dL Total Protein (6.2-8.2) g/dL Albumin (3.80-4.90) g/dL Albumin/Globulin Ratio (1.60-3.17) g/dL Procalcitonin (0.02-0.09) ng/mL
[2020-08-21] MEDS: ACETAMINOPHEN TAB 325 MG TAB PO PRN ×2 (10:52→16:41)
[2020-08-21 11:45] LABS: Anion Gap 9.4 mmol/L (4.00-12.00); BUN/Creat Ratio 21.11 Ratio (12.00-20.00); Calcium 7.8 mg/dL (8.7-10.3); Carbon Dioxide 28.6 mmol/L (21.6-31.8); Non-African American GFR(CKD) 61.2 (60.0-200.0); Potassium 3.8 mmol/L (3.5-5.5)
[2020-08-21 11:55] LABS: Glucose,Whole Blood 158 mg/dL (75-99)
[2020-08-21 14:12] LABS: C Reactive Protein 7.3 mg/dL (0.0-0.8)
--- NOTE | 2020-08-21 14:49 | PN ---
PROGRESS NOTE Patient is seen for followup for acute kidney injury. The patient's renal function has improved. However, she was volume overloaded yesterday and was given a dose of IV Lasix. This morning, she is comfortable, although still mildly short of breath. No significant complaints. PHYSICAL EXAMINATION: Blood pressure this morning 122/74, heart rate 93 per minute. She is afebrile. Examination shows trace edema bilateral lower extremities. LABS: Labs show sodium 142, potassium 3.8, CO2 is 28.6. ASSESSMENT: 1. Acute kidney injury, acute tubular necrosis, currently improved. 2. Volume overload, status post IV Lasix yesterday. I will maintain the patient on IV Lasix b.i.d. for now. 3. COVID pneumonia. 4. Escherichia coli sepsis with bacteremia and urinary tract infection. 5. Iron deficiency, status post IV iron. 6. Right nephrolithiasis with hydronephrosis, status post ureteral stent placement. PLAN: Maintain patient on IV Lasix and reassess volume status in a.m. MMODL / IJN: [id number] /
[2020-08-21] MEDS: FUROSEMIDE 10 MG/ML 4 ML VIAL IV SCH ×2 (16:18→21:21)
[2020-08-21 16:51] LABS: Glucose,Whole Blood 217 mg/dL (75-99)
--- NOTE | 2020-08-21 17:41 | P.PN ---
Subjective Progress Note Date: 08/21/20 Principal diagnosis: Acute hypoxic respiratory failure secondary COVID-19 pneumonia On 08/13/2020, this 80-year-old male patient currently in the intensive care unit due to complication of a E. coli urine tract infection. The patient's presented with a flank/abdominal pain and the patient is known to have nephrolithiasis and the patient was found to have a right kidney hydronephrosis with chronic nephritis and moderate amount of perinephric urinary extravasation and a UPJ allie culus. The patient is post cystoscopy and right ureteral stent placement on 08/07/2020. Cultures are positive for E. coli. The patient was aggressively resuscitated IV fluids. The patient developed an acute hypoxic respiratory failure requiring BiPAP for respiratory support. BiPAP is at a pressure of 12/6 cm of water and FiO2 is being titrated to maintain a saturation above 90%. Chest x-ray showed some cardiomegaly and diffuse interstitial infiltrates bilaterally. The patient accordingly was kept in intensive care unit. Note that his cold with 19 screening was negative. The patient developed an acute kidney injury with a high creatinine of 1.9 which is gradually improving. Less often also improved. He was given a combination of Rocephin and Zithromax. The echo of the heart showed a normal LV, his affect of around 55-60%, RV is mildly enlarged, the patient has mild to moderate pulmonary hypertension, PA pressure was is on IV Rocephin and Zithromax for now. The patient is on heparin subcu for DVT prophylaxis. The patient was started on Lasix 40 mg every 12 hours when the patient has been achieving a negative fluid balance. Fluid balance for 08/11/2020 was -2.9 L. The white cell count is improved. The pro calcitonin LEVEL WAS HIGH 8.4. PROBNP LEVEL WAS 5930. The patient continues to be on Lasix 40 mg every 12 hours. Chest x-ray still showing diffuse bilateral pulmonary infiltrates right more than left and there is limited to Sutton change compared to yesterday's chest x-ray. I do suspect a component of ARDS secondary to E. coli septicemia. The blood work from today shows a sodium level of 147, potassium is to be replaced at 3.3, creatinine is at 1.3 with a BUN of 46. The net fluid balance over the past 24 hours has been -1.7 L. Despite the negative fluid balance, the patient continues to have diffuse bilateral pulmonary infiltrates. On today's evaluation of 08/14/2020, I'm seeing the patient for a follow-up. This is a case of urine checked infection with sepsis with E. coli. The patient also developed ARDS. The patient was getting also progressively more restless and agitated and confused yesterday. She was started on Precedex which is currently running at 0.4 g per/ kg/r minute. Meanwhile, the patient remains on BiPAP which is currently at a pressure of 12/6 cm of water with an FiO2 of 90%. The chest x-ray from today is still showing some limited infiltration yet the overall x-ray findings are probably improved compared to yesterday. The patient was switched yesterday to IV Zosyn covering for gram-negative UTI and possible aspiration. Echocardiogram was within normal limits and the patient has a preserved LV function. The patient remains on Lasix. The net fluid balance over the past 24 hours has been -1.6 L and the patient continues to be a negative fluid balance. On her blood work from today, the patient has a white cell count of 13 with a hemoglobin of 12.7, the patient's sodium level is up to 151 and I think the diuretics can be slowed down and the patient has a BUN of 64 with a creatinine of 1.5 and a serum bicarbs at 35. The most recent pro calcitonin level was 8.4. The patient is urinating a tidal volume of 350. Respiratory rate currently is in the mid 30s even while being on a BiPAP. She does have some coarse crackles in lung bases bilaterally. On today's evaluation of 08/15/2020, the patient is essentially unchanged compared to yesterday. She remains on a BiPAP at a pressure of 12/6 cm of water with an FiO2 of 90%. She is very much BiPAP dependent. The new information is that the third sample of COVID 19 PCR came back positive and the patient is most likely positive for colitis after having 2 T are negative. The patient is arousable and she is awake. Her chest x-ray is showing diffuse bilateral pulmonary infiltrates with some limited improvement in the right side on today's chest x-ray. Meanwhile, the patient remains on D5 water to replace her free water deficit. The patient's sodium today is at 152 with a BUN of 55 and a creatinine of 1.6. Her LDH from yesterday was 1294 and CRP level was 76. Her progress. Obviously declining is down to 1.4. The patient remains on broad- spectrum antibiotics and she is currently on IV Zosyn. In terms of sedation, the patient is on 0.4 mcg/kg/h of Precedex to maintain synchrony with the mechanical ventilator and control her agitation.The PICC line was ordered for this patient for today. Otherwise, the patient is on IV Solu-Medrol and the patient will be also placed on Lovenox 40 mg subcu every 24 hours for DVT prophylaxis. D-dimer is at 2.91. 08/16/2020 the patient is being seen for a follow-up. I am least associated the patient has been off the BiPAP since yesterday evening and currently she is on oxygen at 15 L nasal cannula. She is breathing comfortably and she is not having any significant respiratory distress. He is also able to communicate. She was able to take some pills and water yesterday. She remains considerably weak. The chest x-ray still showing diffuse bilateral pulmonary infiltrates and my suspicion was that the patient's had a component of ARDS. I further checked her nasal swab for COVID-19 and she do not to be positive. However, the patient was infected with coronavirus back in March 2020 and this is quite unusual for her to be positive again. Note that her COVID-19 antibodies were also positive. No headache, she is on IV Solu-Medrol. She is receiving Solu Medrol 60 mg IV every 6 hours. She is also well diuresed and I'm awaiting her follow- up renal function. Note that the diuretics were held yesterday because of development of an acute kidney injury secondary to diuresis. For now, the patient is hemodynamically stable. No hypotension. Blood sugars are under adequate. The patient has a PICC line. I am inclined to stop the TPN and proceed with oral intake and this is diet as tolerated. A bedside swallow evaluation will be done. She remains on Lovenox 30 mg subcu for prophylaxis. She is on D5 water at the rate of 150 mL an hour and the follow-up sodium level is pending for now. The follow-up level was 145 from yesterday and the D5 water rate was reduced to 100 mL/hr he had noted the patient is also taken off the Precedex for now. She is alert and communicating. She is also appropriate. 08/17/2020, the patient is outside the intensive care unit and she is currently on a medical floor, telemetry unit. She is doing well and she is laying down on her side and she is quite comfortable on 10 L of oxygen by nasal cannula. She continues to have some crackles in the lung bases. Nevertheless, she is off the BiPAP which is breathing very comfortably. As mentioned earlier, there was a suspicion that the patient may have a sepsis induced ARDS. At the same time, the patient checked positive for COVID-19 that this has been an ongoing problem knowing that the patient was urgently diagnosed back in March 2020. No new complaints for now. She hasn't adequate urine output. She remains on IV Zosyn. She is afebrile. She is on Lovenox for DVT prophylaxis 40 mg subcu every 12 hours. She remains on IV Solu Medrol 60 mg every 6 hours. Also, she has a white cell count of 29, creatinine is at 1, electrolytes are normal. 08/18/2020, the patient remains on a telemetry unit. I'm seeing her today on follow-up. She is post ARDS related to an underlying septic event. I see her laying down comfortably in bed. It looks like the patient's oxygen requirements have gone up again and she is currently up to 15 L of oxygen by nasal cannu la.FiO2 was increased as of 1 AM this morning. He bicycles of 26, electrolytes are normal, BUN is 42 with a creatinine of 0.9. Repeat chest x-ray was done and it shows some cardiomegaly and some vague interstitial infiltrates bilaterally consistent with ARDS or post covert infection. They'll function is stable and currently is down to 0.9. She is on IV Zosyn. She is off diuretics for now. She remains on Lovenox 40 mg subcu on a daily basis. On 08/19/2020, the patient remains on 10 L of oxygen by nasal cannula. We were unable to wean it off any further. She is otherwise quite stable and resting comfortably in bed. As mentioned earlier, this is a case of E. coli sepsis with secondary acute lung injury/ARDS. She was on BiPAP in the ICU and she was weaned down to 10 L of oxygen by nasal cannula. She has had previous history of remote COVID-19 associated pneumonia. She remains on IV Zosyn. She is also on steroids in the patient is currently on prednisone 40 mg by mouth daily and IV Solu Medrol was discontinued yesterday. Afebrile. Tolerating diet and she is taking approximately 25% of her oral diet. She is still very weak. Oral intake is diminished. She is not using incentive spirometer. On 08/20/2020 patient seen in follow-up on medical surgical floor. She is s itting up in a chair, she continues to be on 8 L of oxygen, her pulse ox is 93%, the problem be weaned further, hemodynamically she has been stable, she has been afebrile, appears weak, and she has not been using the incentive spirometer. Patient's chest x-ray today shows slight worsening in bilateral airspace disease. Today's labs show improving white blood cell count is down to 18.3, hemoglobin is 12.5, d-dimer is down slightly and is at 4.0, potassium is 3.4, Darvocet x-rays were unremarkable, B1 is 20, creatinine 0.9, intrinsic renal profile has improved from a couple days ago. LDH improving and is down to 381, from 720, and CRP is 9.1. No nausea vomiting or diarrhea, her oral intake is poor, she has no appetite. She remains on Zosyn, and her blood and urine cultures showed E. coli with cabezas sensitivity. And she remains on prednisone 40 mg daily, she did receive a dose of Lasix per nephrology, and she remains on Polyvitamin sent and Lovenox 40 mg daily Reevaluated today on 08/21/2020, patient remains on the regular medical floor, she is back up on 10 L high flow nasal cannula, O2 sats is 91%. Patient is doing well, relatively asymptomatic, d-dimer is coming down to 1.96. Electrolytes and renal profile are normal. WBC count is coming down to 18.34 compared to 29.5 only a few days ago. Her inflammatory markers are trending down including LDH down to 385. And her last pro-calcitonin was 0.49. BNP was 1120. C-reactive protein 7.3 continues to have poor intake. Remains on antibiotics and/Zosyn, her urine culture had E. coli. . Remains on the COVID- 19 cocktail. Objective - Vital Signs Vital signs: Vital Signs Temp 97 F L 08/21/20 14:00 Pulse 112 H 08/21/20 14:00 Resp 20 08/21/20 14:00 BP 146/72 08/21/20 14:00 Pulse Ox 91 L 08/21/20 14:00 Intake & Output 08/20/20 08/21/20 08/21/20 18:59 06:59 18:59 Output Total 2049 Balance -2049 Weight 83.5 kg Output: Urine 2049 Other: Voiding Method Incontinent Incontinent Diaper External Catheter External Catheter Incontinent # Bowel Movements 2 - Exam GENERAL EXAM: Alert, pleasant, 80-year-old white female on 10 L high flow cannula. HEAD: Normocephalic/atraumatic. HEENT: PERRLA, EOMI, nonicteric, no neck masses, no JVD, no stridor. CHEST: No chest wall deformity. Symmetrical expansion. LUNGS: Equal air entry with bibasilar crackles CVS: Regular rate and rhythm, normal S1 and S2, no gallops, no murmurs, no rubs ABDOMEN: Soft, nontender. No hepatosplenomegaly, normal bowel sounds, no guarding or rigidity. EXTREMITIES: No clubbing, no edema, no cyanosis, 2+ pulses and upper and lower extremities. MUSCULOSKELETAL: Muscle strength and tone normal. No deformities. Normal range of motion. SKIN: No rashes CENTRAL NERVOUS SYSTEM: Alert and oriented 3 focal deficits. PSYCHIATRIC: Normal mood affect and normal mental status examination. - Labs CBC & Chem 7: 08/20/20 07:11 08/21/20 06:08 Labs: Abnormal Lab Results - Last 24 Hours (Table) 08/20/20 08/21/20 08/21/20 Range/Units 07:11 06:08 06:08 D-Dimer 1.96 H (<0.60) mg/L FEU BUN/Creatinine Ratio 21.11 H (12.00-20.00) Ratio Glucose 134 H (70-110) mg/dL POC Glucose (mg/dL) (75-99) mg/dL Calcium 7.8 L (8.7-10.3) mg/dL Lactate Dehydrogenase 385 H (120-246) U/L C-Reactive Protein 7.3 H (0.0-0.8) mg/dL Procalcitonin 0.49 H (0.02-0.09) ng/mL 08/21/20 08/21/20 08/21/20 Range/Units 06:54 11:51 16:50 D-Dimer (<0.60) mg/L FEU BUN/Creatinine Ratio (12.00-20.00) Ratio Glucose (70-110) mg/dL POC Glucose (mg/dL) 136 H 158 H 217 H (75-99) mg/dL Calcium (8.7-10.3) mg/dL Lactate Dehydrogenase (120-246) U/L C-Reactive Protein (0.0-0.8) mg/dL Procalcitonin (0.02-0.09) ng/mL Assessment and Plan Assessment: Impression: Acute hypoxic respiratory failure secondary to COVID-19 pneumonia as well as fluid volume overload and possible sepsis with acute lung injury/ARDS could be related to her sepsis or her COVID-19 pneumonia. Again her respiratory failure seems to be multifactorial. Sepsis secondary to E. coli urinary tract infection and bacteremia. Acute right pyelonephritis status post ureteral stent on 08/07/2020. Benign essential hypertension. Hypothyroidism. Acute kidney injury, resolved, most likely secondary to aggressive diuresis. Recommendation: Continue weaning FiO2 to keep O2 sats ration at or above 90% Continue the COVID-19 cocktail. Continue Lovenox 40 mg subcu twice a day. Continue Lasix 40 mg IV push twice a day. Continue levothyroxine. Continue Zosyn. Continue prednisone at 40 mg daily and start tapering over the next 2-3 weeks. Continue incentive spirometer. Continue current dose of Lovenox Continue to follow inflammatory markers. We'll continue to follow Time with Patient: Less than 30
[2020-08-21 20:51] LABS: Glucose,Whole Blood 78 mg/dL (75-99)
[2020-08-21] MEDS: ATORVASTATIN 40 MG TAB PO SCH (21:21)
[2020-08-21] MEDS: MELATONIN 5 MG TABLET PO SCH (21:21)
[2020-08-22] MEDS: ALBUTEROL HFA INHALER INHALATION PRN ×2 (00:41→04:26)
[2020-08-22] MEDS: SIMETHICONE 80 MG CHEWABLE PO PRN (01:16)
[2020-08-22] MEDS: ACETAMINOPHEN TAB 325 MG TAB PO PRN ×2 (01:18→16:23)
[2020-08-22] MEDS: LEVOTHYROXINE 100 MCG TAB PO SCH (05:31)
[2020-08-22 06:46] LABS: Glucose,Whole Blood 144 mg/dL (75-99)
[2020-08-22] MEDS: ALBUTEROL HFA INHALER INHALATION SCH ×4 (08:09→21:24)
[2020-08-22] MEDS ORDERED: ALPRAZolam 0.5 MG TAB PO PRN (09:29)
--- NOTE | 2020-08-22 09:36 | P.PN ---
Subjective Progress Note Date: 08/22/20 Hospital course: Patient is a 80-year-old female with a past medical history of hypertension, hyperlipidemia, hypothyroidism, and breast cancer currently in remission. She was transferred to our facility from [facility] in [facility] and was admitted under our services on 08/07/20 with severe sepsis secondary to obstructive severe hydronephrosis accompanied by an acute kidney injury. Patient's WBC count was 37.3. Initial lactate was 3.3 with repeat of 2.2 status post 3 L bolus. She was initially tachycardic, febrile, and hypotensive. Urinalysis was positive for turbid appearance positive for blood, leukocytes, 25 RBCs, >182 WBCs with WBC clumps and bacteria. EKG revealed normal sinus rhythm and 98 bpm with no noted T-wave or ST abnormalities. Patient had CT prior to being transferred to our facility and per documentation, this revealed an obstructive 6 mm kidney stone in the right UPJ causing severe right hydr onephrosis. She was taken to OR on same day of admission for a cystoscopy and insertion of right ureteral stent. Patient's blood cultures showing bacteremia as they were positive for E. coli. Urine cultures also positive for E. coli. Severe sepsis was treated with IV antibiotics (initially Rocephin and gentamicin which was later changed to Zosyn) and IV fluid hydration. On 08/10/20 patient began to have increased work of breathing and was requiring oxygen supplementation and was given dose of IV Lasix and fluids were stopped. Patient's condition continued to worsen and she continued to have increasing oxygen needs and was found to be hypoxic with ABG revealing a PaO2 of 55%, patient was placed on BiPAP and transferred to intensive care unit where she continued to undergo diuresis and close monitoring. Initial Covid testing completed on 08/07/20 negative, repeat test on 08/10/20 also negative, secondary to worsening respiratory status another Covid test was completed on 08/14/20 which w as positive. Covid antibodies were drawn also resulting reactive showing positive positive for infection. Patient currently on 8 L high flow nasal cannula with SpO2 of 92%. Physical exam: 08/22/20: Patient was seen and fully evaluated at the bedside this morning, she continued to have increased oxygen names throughout the night and is now on 15 L high flow nasal cannula along with 15 L nonrebreather with SpO2 of 91-92%. Patient continues to report feeling worn out and just tired, she denies having any appetite whatsoever, and reports that it just feels like her breathing is getting harder and harder for her. She denies having any headache, lighthe adedness, dizziness, chest pain or palpitations, or experiencing any swelling/numbness/tingling/weakness in her extremities. Orders being placed for Dobbhoff tube placement and nutrition consult for tube feedings secondary to very poor oral intake. General: non toxic, vital signs stable. Patient in mild distress secondary to increased oxygen demands, patient appears very week and tired. Derm: warm, dry. Head: atraumatic, normocephalic, symmetric. Eyes: EOMI, no lid lag, anicteric sclera. Mouth: no lip lesion, mucus membranes dry. Cardiovascular: S1S2 normal, regular rate and regular rhythm, no gallop, murmur, or rub noted. Positive posterior tibial pulses bilaterally. Cap refill less than 2 seconds. Lungs: Respirations even, regular, and unlabored on 15 L high flow nasal cannulaalong with 15 L NRB with SpO2 92%. Lungs with diffuse coarse crackles at bilateral bases. No accessory muscle use. GI/: Abdomen soft, nontender to palpation. No appreciable organomegaly. External Coppola catheter in place. Ext: No gross muscle atrophy, minimal lower extremity edema, no contractures. Neuro: CN II-XI grossly intact, no focal neuro deficits. Psych: Alert, oriented, appropriate affect. Assessment and Plan of care: Acute hypoxic respiratory failure resulting from Covid pneumonia -Oxygenation to be administered and titrated as needed to maintain SPO2 equal to or greater than 92%, wean as patient tolerates. Increased oxygenation needs currently on 15 L high flow nasal cannula along with 15 L n.r. be to maintain SpO2 greater than or equal to 90%. -Telemetry monitoring. -Continue Vitamin C, vitamin D, zinc, and melatonin -Encouraged Incentive Spirometry 10-15 times hourly while awake -Continue Steroids: Prednisone 40 mg daily Day 9 of steroids. -Pulmonology following, appreciate further recommendations. Severe sepsis secondary to E. coli bacteremia and acute cystitis -Urinalysis positive for turbid appearance positive for blood, leukocytes, 25 RBCs, >182 WBCs with WBC clumps and bacteria -Urine culture positive for E. coli -Blood cultures positive for E. coli -Patient received initial sepsis bolus and fluid hydration. -Antibiotic course completed. Obstructive right ureteral stone resulting in severe hydronephrosis -CT scan completed at [facility] prior to being transferred to our facility reportedly revealed an obstructive 6 mm kidney stone in the right UPJ causing severe right hydronephrosis. -Patient underwent cystoscopy and insertion of right ureteral stent on 08/07/20 -External Coppola catheter remains in place. -Nephrology following. Acute kidney injury secondary to obstructive uropathy and severe sepsis, resolved Hypokalemia, resolved Hypovolemic hypernatremia, resolved Hypertension -Monitor vital signs and continue daily medication management with amlodipine. Hold losartan due to TUTU. Hyperlipidemia -Continue daily home medication regimen with atorvastatin 40 mg nightly. Hypothyroidism -Continue daily medication regimen with Synthroid 100 g daily CODE STATUS: Full code DVT prophylaxis: Heparin Discussed with: Patient and RN as well as pt's daughter Aspen. Anticipated discharge date: Clinical course to determine Anticipated discharge place: To be determined, likely SNF for rehab A total of 45 minutes was spent on the care of this complex patient more than 50% of the time was spent in counseling and care coordination. Objective - Vital Signs Vital signs: Vital Signs Temp 97.7 F 08/22/20 05:11 Pulse 90 08/22/20 05:11 Resp 20 08/22/20 05:11 BP 121/71 08/22/20 05:11 Pulse Ox 89 L 08/22/20 05:11 Intake & Output 08/21/20 08/22/20 08/22/20 18:59 06:59 18:59 Output Total 1000 1400 Balance -1000 -1400 Output: Urine 1000 1400 Other: Voiding Method Diaper Diaper Incontinent Incontinent - Labs CBC & Chem 7: 08/22/20 11:00 08/22/20 11:00 Labs: Abnormal Lab Results - Last 24 Hours (Table) 08/21/20 08/21/20 08/21/20 Range/Units 06:08 11:51 16:50 BUN/Creatinine Ratio 21.11 H (12.00-20.00) Ratio Glucose 134 H (70-110) mg/dL POC Glucose (mg/dL) 158 H 217 H (75-99) mg/dL Calcium 7.8 L (8.7-10.3) mg/dL Lactate Dehydrogenase 385 H (120-246) U/L C-Reactive Protein 7.3 H (0.0-0.8) mg/dL 08/22/20 Range/Units 06:44 BUN/Creatinine Ratio (12.00-20.00) Ratio Glucose (70-110) mg/dL POC Glucose (mg/dL) 144 H (75-99) mg/dL Calcium (8.7-10.3) mg/dL Lactate Dehydrogenase (120-246) U/L C-Reactive Protein (0.0-0.8) mg/dL Microbiology - Last 24 Hours (Table) 08/21/20 14:15 Gram Stain - Preliminary Sputum Sputum Culture - Preliminary
[2020-08-22] MEDS: ENOXAPARIN 40 MG/0.4 ML SYRINGE SQ SCH ×2 (09:40→21:21)
[2020-08-22] MEDS: PIPERACILLIN-TAZOBACTAM 3.375 GM in SODIUM CHLORIDE 0.9% 100 ML IVPB SCH (09:40)
[2020-08-22] MEDS: FUROSEMIDE 10 MG/ML 4 ML VIAL IV SCH ×2 (09:40→21:22)
[2020-08-22] MEDS: ZINC SULFATE 220 MG CAP PO SCH (09:40)
[2020-08-22] MEDS: amLODIPine 10 MG TAB PO SCH (09:41)
[2020-08-22] MEDS: SERTRALINE 100 MG TAB PO SCH (09:41)
[2020-08-22] MEDS: predniSONE 20 MG TAB PO SCH (09:41)
[2020-08-22] MEDS: LINAGLIPTIN 5 MG TABLET PO SCH (09:41)
[2020-08-22] MEDS: CHOLECALCIFEROL 25 MCG (1000 IU) TABLET PO SCH (09:41)
[2020-08-22] MEDS: PANTOPRAZOLE 40 MG TABLET PO SCH (09:41)
[2020-08-22] MEDS: ASCORBIC ACID 500 MG TAB PO SCH (09:41)
[2020-08-22 11:16] LABS: Basophils % (A) 0 %; Eosinophils # (A) 0.3 k/uL (0-0.7); Eosinophils % (A) 1 %; HCT 36.5 % (34.0-46.0); HGB 12.8 gm/dL (11.4-16.0); Lymphocytes # (A) 0.3 k/uL (1.0-4.8); Lymphocytes % (A) 1 %; MCH 32.7 pg (25.0-35.0); MCHC 34.9 g/dL (31.0-37.0); Mean Platelet Volume 7.9; Monocytes # (A) 0.7 k/uL (0-1.0); Monocytes % (A) 3 %; Neutrophils # (A) 22.5 k/uL (1.3-7.7); Neutrophils % (A) 94 %; Platelet Count 328 k/uL (150-450); RDW 12.9 % (11.5-15.5); WBC 23.9 k/uL (3.8-10.6)
[2020-08-22 11:37] LABS: Glucose,Whole Blood 186 mg/dL (75-99)
[2020-08-22] MEDS: INSULIN ASPART (NovoLOG) 100 UNIT/ML VIAL SQ SCH ×4 (11:39→21:22)
[2020-08-22 11:40] LABS: African American GFR (CKD) 69 (>60 ml/min/1.73 sqM); Anion Gap 3 mmol/L; Blood Urea Nitrogen 19 mg/dL (7-17); Carbon Dioxide 36 mmol/L (22-30); Chloride 97 mmol/L (98-107); Glucose 167 mg/dL (74-99); Non-African American GFR(CKD) 60 (>60 ml/min/1.73 sqM); Potassium 3.5 mmol/L (3.5-5.1); Sodium 136 mmol/L (137-145)
[2020-08-22 12:03] LABS: MCV 93.7 fL (80.0-100.0)
--- NOTE | 2020-08-22 12:16 | PN ---
PROGRESS NOTE Patient is seen for followup for acute kidney injury. Her renal function has improved. However, patient has had worsening respiratory status with some evidence of volume overload as well along with worsening COVID pneumonia. Her oxygen requirements have increased. She has been getting Lasix on a daily basis and last night I had changed it to q.12 hours dosing. This morning patient is maintained on a non-rebreather. She is not in acute distress. PHYSICAL EXAMINATION: Blood pressure this morning was 121/71, heart rate 90 per minute. She is afebrile. Examination of lower extremities shows no significant edema. Abdomen is soft, nontender. Lungs and heart are not examined. LABS: Labs show sodium 142, potassium 3.8, chloride 104, BUN 19, serum creatinine 0.9. ASSESSMENT: 1. Acute kidney injury, currently resolved. 2. Volume overload. Will maintain patient on IV Lasix q.12 hours. 3. COVID pneumonia with worsening respiratory status. 4. Escherichia coli sepsis with bacteremia and urinary tract infection. 5. Right nephrolithiasis with hydronephrosis, status post ureteral stent placement. PLAN: Continue with IV Lasix b.i.d. for now. Continue to avoid nephrotoxic agents. MMODL / IJN: [id number] /
[2020-08-22] MEDS ORDERED: FUROSEMIDE 10 MG/ML 4 ML VIAL IV STA (14:46)
--- NOTE | 2020-08-22 15:11 | XR ---
EXAMINATION TYPE: XR chest 1V DATE OF EXAM: 08/22/2020 HISTORY: Shortness of breath. COMPARISON: None. TECHNIQUE: Single view of the chest is submitted. FINDINGS: Bilateral airspace disease is again noted with direct comparison difficult given differences in techn ical. Overall no change appreciated. PICC line unchanged. The heart is stable. Hilar and mediastinal structures are within normal limits. Degenerative changes are seen of the dorsal spine. IMPRESSION: 1. Bilateral airspace disease is again noted with direct comparison difficult given differences in t echnical. Overall no change appreciated.
[2020-08-22 17:03] LABS: Glucose,Whole Blood 207 mg/dL (75-99)
--- NOTE | 2020-08-22 17:55 | P.PN ---
Subjective Progress Note Date: 08/22/20 Principal diagnosis: Acute hypoxic respiratory johnson clear to acute fluid volume overload, sepsis, ARDS, and COVID-19 This is a pleasant 80-year-old female patient with a history of hyperlipidemia, hypertension, hypothyroidism, breast cancer who was originally admitted back on 08/06/2020 for right-sided abdominal/flank pain. On 08/13/2020, this 80-year-old male patient currently in the intensive care unit due to complication of a E. coli urine tract infection. The patient's presented with a flank/abdominal pain and the patient is known to have nephrolithiasis and the patient was found to have a right kidney hydronephrosis with chronic nephritis and moderate amount of perinephric urinary extravasation and a UPJ calculus. The patient is post cystoscopy and right ureteral stent placement on 08/07/2020. Cultures are positive for E. coli. The patient was aggressively resuscitated IV fluids. The patient developed an acute hypoxic respiratory failure requiring BiPAP for respiratory support. BiPAP is at a pressure of 12/6 cm of water and FiO2 is being titrated to maintain a saturation above 90%. Chest x-ray showed some cardiomegaly and diffuse interstitial infiltrates bilaterally. The patient accordingly was kept in intensive care unit. Note that his cold with 19 screening was negative. The patient developed an acute kidney injury with a high creatinine of 1.9 which is gradually improving. Less often also improved. He was given a combination of Rocephin and Zithromax. The echo of the heart showed a normal LV, his affect of around 55-60%, RV is mildly enlarged, the patient has mild to moderate pulmonary hypertension, PA pressure was is on IV Rocephin and Zithromax for now. The patient is on heparin subcu for DVT prophylaxis. The patient was started on Lasix 40 mg every 12 hours when the patient has been achieving a negative fluid balance. Fluid balance for 08/11/2020 was -2.9 L. The white cell count is improved. The pro calcitonin LE RINKU WAS HIGH 8.4. PROBNP LEVEL WAS 5930. The patient continues to be on Lasix 40 mg every 12 hours. Chest x-ray still showing diffuse bilateral pulmonary infiltrates right more than left and there is limited to Sutton change compared to yesterday's chest x-ray. I do suspect a component of ARDS secondary to E. coli septicemia. The blood work from today shows a sodium level of 147, potassium is to be replaced at 3.3, creatinine is at 1.3 with a BUN of 46. The net fluid balance over the past 24 hours has been -1.7 L. Despite the negative fluid balance, the patient continues to have diffuse bilateral pulmonary infiltrates. On today's evaluation of 08/14/2020, I'm seeing the patient for a follow-up. This is a case of urine checked infection with sepsis with E. coli. The patient also developed ARDS. The patient was getting also progressively more restless and agitated and confused yesterday. She was started on Precedex which is currently running at 0.4 g per/ kg/r minute. Meanwhile, the patient remains on BiPAP which is currently at a pressure of 12/6 cm of water with an FiO2 of 90%. The chest x-ray from today is still showing some limited infiltration yet the overall x-ray findings are probably improved compared to yesterday. The patient was switched yesterday to IV Zosyn covering for gram-negative UTI and possible aspiration. Echocardiogram was within normal limits and the patient has a preserved LV function. The patient remains on Lasix. The net fluid balance over the past 24 hours has been -1.6 L and the patient continues to be a negative fluid balance. On her blood work from today, the patient has a white cell count of 13 with a hemoglobin of 12.7, the patient's sodium level is up to 151 and I think the diuretics can be slowed down and the patient has a BUN of 64 with a creatinine of 1.5 and a serum bicarbs at 35. The most recent pro calcitonin level was 8.4. The patient is urinating a tidal volume of 350. Respiratory rate currently is in the mid 30s even while being on a BiPAP. She does have some coarse crackles in lung bases bilaterally. On today's evaluation of 08/15/2020, the patient is essentially unchanged compared to yesterday. She remains on a BiPAP at a pressure of 12/6 cm of water with an FiO2 of 90%. She is very much BiPAP dependent. The new information is that the third sample of COVID 19 PCR came back positive and the patient is most likely positive for colitis after having 2 T are negative. The patient is arou sable and she is awake. Her chest x-ray is showing diffuse bilateral pulmonary infiltrates with some limited improvement in the right side on today's chest x- ray. Meanwhile, the patient remains on D5 water to replace her free water deficit. The patient's sodium today is at 152 with a BUN of 55 and a creatinine of 1.6. Her LDH from yesterday was 1294 and CRP level was 76. Her progress. Obviously declining is down to 1.4. The patient remains on broad-spectrum antibiotics and she is currently on IV Zosyn. In terms of sedation, the patient is on 0.4 mcg/kg/h of Precedex to maintain synchrony with the mechanical ventilator and control her agitation.The PICC line was ordered for this patient for today. Otherwise, the patient is on IV Solu-Medrol and the patient will be also placed on Lovenox 40 mg subcu every 24 hours for DVT prophylaxis. D-dimer is at 2.91. 08/16/2020 the patient is being seen for a follow-up. I am least associated the patient has been off the BiPAP since yesterday evening and currently she is on oxygen at 15 L nasal cannula. She is breathing comfortably and she is not having any significant respiratory distress. He is also able to communicate. She was able to take some pills and water yesterday. She remains considerably weak. The chest x-ray still showing diffuse bilateral pulmonary infiltrates and my suspicion was that the patient's had a component of ARDS. I further checked her nasal swab for COVID-19 and she do not to be positive. However, the patient was infected with coronavirus back in March 2020 and this is quite unusual for her to be positive again. Note that her COVID-19 antibodies were also positive. No headache, she is on IV Solu-Medrol. She is receiving Solu Medrol 60 mg IV every 6 hours. She is also well diuresed and I'm awaiting her follow- up renal function. Note that the diuretics were held yesterday because of de velopment of an acute kidney injury secondary to diuresis. For now, the patient is hemodynamically stable. No hypotension. Blood sugars are under adequate. The patient has a PICC line. I am inclined to stop the TPN and proceed with oral intake and this is diet as tolerated. A bedside swallow evaluation will be done. She remains on Lovenox 30 mg subcu for prophylaxis. She is on D5 water at the rate of 150 mL an hour and the follow-up sodium level is pending for now. The follow-up level was 145 from yesterday and the D5 water rate was reduced to 100 mL/hr he had noted the patient is also taken off the Precedex for now. She is alert and communicating. She is also appropriate. 08/17/2020, the patient is outside the intensive care unit and she is currently on a medical floor, telemetry unit. She is doing well and she is laying down on her side and she is quite comfortable on 10 L of oxygen by nasal cannula. She continues to have some crackles in the lung bases. Nevertheless, she is off the BiPAP which is breathing very comfortably. As mentioned earlier, there was a suspicion that the patient may have a sepsis induced ARDS. At the same time, the patient checked positive for COVID-19 that this has been an ongoing problem knowing that the patient was urgently diagnosed back in March 2020. No new complaints for now. She hasn't adequate urine output. She remains on IV Zosyn. She is afebrile. She is on Lovenox for DVT prophylaxis 40 mg subcu every 12 hours. She remains on IV Solu Medrol 60 mg every 6 hours. Also, she has a white cell count of 29, creatinine is at 1, electrolytes are normal. 08/18/2020, the patient remains on a telemetry unit. I'm seeing her today on follow-up. She is post ARDS related to an underlying septic event. I see her laying down comfortably in bed. It looks like the patient's oxygen requirements have gone up again and she is currently up to 15 L of oxygen by nasal cannula.FiO2 was increased as of 1 AM this morning. He bicycles of 26, electrolytes are normal, BUN is 42 with a creatinine of 0.9. Repeat chest x-ray was done and it shows some cardiomegaly and some vague interstitial infiltrates bilaterally consistent with ARDS or post covert infection. They'll function is stable and currently is down to 0.9. She is on IV Zosyn. She is off diuretics for now. She remains on Lovenox 40 mg subcu on a daily basis. On 08/19/2020, the patient remains on 10 L of oxygen by nasal cannula. We were unable to wean it off any further. She is otherwise quite stable and resting comfortably in bed. As mentioned earlier, this is a case of E. coli sepsis with secondary acute lung injury/ARDS. She was on BiPAP in the ICU and she was weaned down to 10 L of oxygen by nasal cannula. She has had previous history of remote COVID-19 associated pneumonia. She remains on IV Zosyn. She is also on steroids in the patient is currently on prednisone 40 mg by mouth daily and IV Solu Medrol was discontinued yesterday. Afebrile. Tolerating diet and she is taking approximately 25% of her oral diet. She is still very weak. Oral intake is diminished. She is not using incentive spirometer. On 08/20/2000 patient seen in follow-up on medical surgical floor. She is sitting up in a chair, she continues to be on 8 L of oxygen, her pulse ox is 93%, the problem be weaned further, hemodynamically she has been stable, she has been afebrile, appears weak, and she has not been using the incentive spirometer. Patient's chest x- ray today shows slight worsening in bilateral airspace disease. Today's labs show improving white blood cell count is down to 18.3, hemoglobin is 12.5, d- dimer is down slightly and is at 4.0, potassium is 3.4, Darvocet x-rays were unremarkable, B1 is 20, creatinine 0.9, intrinsic renal profile has improved from a couple days ago. LDH improving and is down to 381, from 720, and CRP is 9.1. No nausea vomiting or diarrhea, her oral intake is poor, she has no appetite. She remains on Zosyn, and her blood and urine cultures showed E. coli with cabezas sensitivity. And she remains on prednisone 40 mg daily, she did receive a dose of Lasix per nephrology, and she remains on Polyvitamin sent and Lovenox 40 mg daily On 08/22/2020 patient is seen in follow-up on medical surgical floor, she is more short of breath today, and she required to be placed on irritable currently at 60 L and FiO2 of 90%. Appears to be more lethargic on today's exam, today's chest x-ray shows bilateral airspace disease without significant change compared to previous chest x-ray. Patient has been afebrile, hemodynamically patient has been stable, no chest pain, no increased cough or congestion, her white blood cell count is 23.9, hemoglobin is 12.8, sodium is 136, potassium is 3.5, chloride is 97, CO2 36, BUN is 19, creatinine is 0.93. Earlier today Lasix was given, and patient has produced a total of 1400 on this shift, although exact net fluid balance is difficult to estimate, urine color appears to be quite turbid, and appears to be infected. Objective - Vital Signs Vital signs: Vital Signs Temp 98 F 08/22/20 15:21 Pulse 96 08/22/20 15:21 Resp 18 08/22/20 15:21 BP 121/73 08/22/20 15:21 Pulse Ox 90 L 08/22/20 15:21 Intake & Output 08/21/20 08/22/20 08/22/20 18:59 06:59 18:59 Output Total 1000 1400 250 Balance -1000 -1400 -250 Weight 83.5 kg Output: Urine 1000 1400 250 Uretheral (Coppola) 250 Other: Voiding Method Diaper Diaper Incontinent Incontinent - Exam GENERAL EXAM: Lethargic 80-year-old white female on Airvo at 60 L and FiO2 of 90% HEAD: Normocephalic/atraumatic. EYES: Normal reaction of pupils, equal size. Conjunctiva pink, sclera white. NOSE: Clear with pink turbinates. THROAT: No erythema or exudates. NECK: No masses, no JVD, no thyroid enlargement, no adenopathy. CHEST: No chest wall deformity. Symmetrical expansion. LUNGS: Equal air entry with bibasilar crackles CVS: Regular rate and rhythm, normal S1 and S2, no gallops, no murmurs, no rubs ABDOMEN: Soft, nontender. No hepatosplenomegaly, normal bowel sounds, no guarding or rigidity. EXTREMITIES: No clubbing, no edema, no cyanosis, 2+ pulses and upper and lower extremities. MUSCULOSKELETAL: Muscle strength and tone normal. SPINE: No scoliosis or deformity SKIN: No rashes CENTRAL NERVOUS SYSTEM: Lethargic, elderly female, currently on Airvo No focal deficits, tone is normal in all 4 extremities. - Labs CBC & Chem 7: 08/22/20 11:00 08/22/20 11:00 Labs: Abnormal Lab Results - Last 24 Hours (Table) 08/22/20 08/22/20 08/22/20 Range/Units 06:44 11:00 11:00 WBC 23.9 H (3.8-10.6) k/uL Neutrophils # 22.5 H (1.3-7.7) k/uL Lymphocytes # 0.3 L (1.0-4.8) k/uL Sodium 136 L (137-145) mmol/L Chloride 97 L (98-107) mmol/L Carbon Dioxide 36 H (22-30) mmol/L BUN 19 H (7-17) mg/dL Glucose 167 H (74-99) mg/dL POC Glucose (mg/dL) 144 H (75-99) mg/dL Calcium 8.0 L (8.4-10.2) mg/dL 08/22/20 08/22/20 Range/Units 11:36 17:02 WBC (3.8-10.6) k/uL Neutrophils # (1.3-7.7) k/uL Lymphocytes # (1.0-4.8) k/uL Sodium (137-145) mmol/L Chloride (98-107) mmol/L Carbon Dioxide (22-30) mmol/L BUN (7-17) mg/dL Glucose (74-99) mg/dL POC Glucose (mg/dL) 186 H 207 H (75-99) mg/dL Calcium (8.4-10.2) mg/dL Microbiology - Last 24 Hours (Table) 08/21/20 14:15 Gram Stain - Preliminary Sputum Sputum Culture - Preliminary Agatha albicans Assessment and Plan Plan: 1 Acute hypoxemic respiratory failure secondary to acute fluid volume overload versus sepsis induced acute lung injury/ARDS. The less, further testing showed that the patient was positive for COVID 19 with an elevated LDH level and CRP and it's likely the patient's respiratory failure is multifactorial. Clinically improved. The patient is currently on IV Solu-Medrol. The patient is currentl y down to 10 L of oxygen by nasal cannula. She is still showing tach in the lung bases bilaterally. I'm going to repeat the chest x-ray. My impression is post septic ARDS/acute lung injury. COVID-19 infection was back in March 2020. Still on 10 L. 2 Sepsis secondary to bacteremia from E. coli 3 Acute urinary tract infection secondary to E. coli 4 Acute right pyelonephritis/hydronephrosis secondary to right UPJ calculus, status post right ureteral stent placement on 08/07/2020 5 History of hypertension 6 Hyperlipidemia 7 Hypothyroidism 8 acute kidney injury secondary to diuresis, improvement in the patient's creatinine is down to 1 9 hyperchloremic hypernatremia secondary to diuresis, normal 10 history of COVID 19 related infection in 2019 11 leukocytosis, improving Plan: Worsening hypoxia patient was placed on Airvo Has been diuresed with no improvement in pulmonary status today's chest x-ray has been noted still showing airspace disease, relatively unchanged Rule out possibility of underlying recurrent sepsis Urine looks infected, we will send a repeat urinalysis with cultures Continue with Lasix for now, we will monitor her net fluid balance closely Obtain lactic acid Obtain blood cultures Titrate FiO2 to keep O2 sat at 90% or above Switch prednisone back to Solu-Medrol 40 mg every 8 hours Prognosis is guarded I performed a history & physical examination of the patient and discussed their management with my nurse practitioner, Nora Cabral. I reviewed the nurse practitioner's note and agree with the documented findings and plan of care. Lung sounds are positive for bibasilar rales. The findings and the impression was discussed with the patient. I attest to the documentation by the nurse practitioner. Time with Patient: Less than 30
[2020-08-22] MEDS: methylPREDNISolone SOD SUCCI 40 MG/ML 1 ML VIAL IV SCH (19:25)
--- NOTE | 2020-08-22 19:28 | XR ---
EXAMINATION TYPE: XR chest 1V DATE OF EXAM: 08/22/2020 CLINICAL HISTORY: NG tube . TECHNIQUE: Portable frontal view of the chest. COMPARISON: 08/22/2020 at 2:56 PM FINDINGS: Dobbhoff tube distal tip over the cardiac silhouette over the expected mid to distal esoph laura. Right PIC redemonstrated. Diffuse interstitial coarsening of the bilateral lungs unchanged, wit h partially obscured cardiac silhouette. No pneumothorax or pleural effusion. IMPRESSION: Dobbhoff tube distal tip over the cardiac silhouette, overlying the expected mid to distal esophagus. Recommend repositioning.
[2020-08-22 20:52] LABS: Glucose,Whole Blood 168 mg/dL (75-99)
[2020-08-22] MEDS: MELATONIN 5 MG TABLET PO SCH (21:21)
[2020-08-22] MEDS: ATORVASTATIN 40 MG TAB PO SCH (21:21)
[2020-08-22 23:08] LABS: Appearance,Urine Turbid (Clear); Bacteria,Urine Rare /hpf; Bilirubin,Urine Negative (Negative); Blood,Urine Large (Negative); Budding Yeast,Urine Many /hpf; Color,Urine Yellow; Glucose,Urine (UA) Negative (Negative); Hyaline Casts,Urine 6 /lpf (0-2); Ketones,Urine Negative (Negative); Leukocyte Esterase,Urine Large (Negative); Mucus,Urine Occasional /hpf; Nitrite,Urine Negative (Negative); PH, Urine 5.5 (5.0-8.0); Protein,Urine Trace (Negative); RBC,Urine >182 /hpf (0-5); Specific Gravity,Urine 1.012 (1.001-1.035); Squamous Epithelial Cell,Urine 1 /hpf (0-4); Urobilinogen,Urine <2.0 mg/dL (<2.0); WBC,Urine >182 /hpf (0-5)
[2020-08-23] MEDS: methylPREDNISolone SOD SUCCI 40 MG/ML 1 ML VIAL IV SCH ×2 (00:34→07:51)
[2020-08-23] MEDS: ACETAMINOPHEN TAB 325 MG TAB PO PRN ×3 (03:00→23:43)
[2020-08-23] MEDS: LEVOTHYROXINE 100 MCG TAB PO SCH (05:51)
[2020-08-23 07:27] LABS: Glucose,Whole Blood 168 mg/dL (75-99)
--- NOTE | 2020-08-23 07:37 | XR ---
EXAMINATION TYPE: XR chest 1V portable DATE OF EXAM: 08/23/2020 CLINICAL HISTORY: Difficulty breathing and ARDS- COVID progress study. TECHNIQUE: Single AP portable upright view of the chest is obtained. COMPARISON: Chest x-ray from one day earlier and older studies. FINDINGS: Stable right-sided PICC line. Interval removal of Dobbhoff feeding catheter into the left lower lobe bronchus. Persistent multifocal and confluent reticulonodular opacities bilaterally. Persistent silhouetting of right and left heart borders. Persists and ectatic aortic knob causing right-sided tracheal deviatio n. Osseous structures remain intact. IMPRESSION: Bilateral predominantly confluent reticulonodular opacities consistent with covid-19 infe ction and/or ARDS not significantly changed from most recent x-ray.
[2020-08-23] MEDS: ZINC SULFATE 220 MG CAP PO SCH (07:44)
[2020-08-23] MEDS: PANTOPRAZOLE 40 MG TABLET PO SCH (07:44)
[2020-08-23] MEDS: ASCORBIC ACID 500 MG TAB PO SCH (07:45)
[2020-08-23] MEDS: SERTRALINE 100 MG TAB PO SCH (07:45)
[2020-08-23] MEDS: LINAGLIPTIN 5 MG TABLET PO SCH (07:49)
[2020-08-23] MEDS: amLODIPine 10 MG TAB PO SCH (07:49)
[2020-08-23] MEDS: CHOLECALCIFEROL 25 MCG (1000 IU) TABLET PO SCH (07:49)
[2020-08-23] MEDS: ENOXAPARIN 40 MG/0.4 ML SYRINGE SQ SCH ×2 (07:51→20:51)
[2020-08-23] MEDS: INSULIN ASPART (NovoLOG) 100 UNIT/ML VIAL SQ SCH ×4 (07:51→21:13)
[2020-08-23] MEDS: FUROSEMIDE 10 MG/ML 4 ML VIAL IV SCH (07:51)
[2020-08-23 09:17] LABS: HCT 36.4 % (37.2-46.3); HGB 12.1 g/dL (12.0-15.0); MCH 31.3 pg (27.0-32.0); MCHC 33.2 g/dL (32.0-37.0); MCV 94.3 fL (80.0-97.0); Mean Platelet Volume 11.1 fL (9.5-12.2); Platelet Count 361 X 10*3/uL (140-440); RBC 3.86 X 10*6/uL (4.10-5.20); RDW 13.1 % (11.5-14.5); WBC 20.88 X 10*3/uL (4.50-10.00)
[2020-08-23] MEDS: ALBUTEROL HFA INHALER INHALATION SCH ×4 (09:31→19:12)
[2020-08-23 11:31] LABS: Glucose,Whole Blood 162 mg/dL (75-99)
[2020-08-23 11:39] LABS: Ferritin 698.5 ng/mL (10.0-291.0)
[2020-08-23 11:57] LABS: African American GFR (CKD) 62.5 (60.0-200.0); Anion Gap 12.6 mmol/L (4.00-12.00); Calcium 8.2 mg/dL (8.7-10.3); Carbon Dioxide 31.4 mmol/L (21.6-31.8); Magnesium 1.6 mg/dL (1.5-2.4); Non-African American GFR(CKD) 53.9 (60.0-200.0); Potassium 3.4 mmol/L (3.5-5.5)
[2020-08-23] MEDS ORDERED: FLUCONAZOLE 150 MG TAB PO STA (14:28)
--- NOTE | 2020-08-23 14:43 | P.PN ---
Subjective Progress Note Date: 08/23/20 Hospital course: Patient is a 80-year-old female with a past medical history of hypertension, hyperlipidemia, hypothyroidism, and breast cancer currently in remission. She was transferred to our facility from [facility] in [facility] and was admitted under our services on 08/07/20 with severe sepsis secondary to obstructive severe hydronephrosis accompanied by an acute kidney injury. Patient's WBC count was 37.3. Initial lactate was 3.3 with repeat of 2.2 status post 3 L bolus. She was initially tachycardic, febrile, and hypotensive. Urinalysis was positive for turbid appearance positive for blood, leukocytes, 25 RBCs, >182 WBCs with WBC clumps and bacteria. EKG revealed normal sinus rhythm and 98 bpm with no noted T-wave or ST abnormalities. Patient had CT prior to being transferred to our facility and per documentation, this revealed an obstructive 6 mm kidney stone in the right UPJ causing severe right hydr onephrosis. She was taken to OR on same day of admission for a cystoscopy and insertion of right ureteral stent. Patient's blood cultures showing bacteremia as they were positive for E. coli. Urine cultures also positive for E. coli. Severe sepsis was treated with IV antibiotics (initially Rocephin and gentamicin which was later changed to Zosyn) and IV fluid hydration. On 08/10/20 patient began to have increased work of breathing and was requiring oxygen supplementation and was given dose of IV Lasix and fluids were stopped. Patient's condition continued to worsen and she continued to have increasing oxygen needs and was found to be hypoxic with ABG revealing a PaO2 of 55%, patient was placed on BiPAP and transferred to intensive care unit where she continued to undergo diuresis and close monitoring. Initial Covid testing completed on 08/07/20 negative, repeat test on 08/10/20 also negative, secondary to worsening respiratory status another Covid test was completed on 08/14/20 which w as positive. Covid antibodies were drawn also resulting reactive showing positive positive for infection. Patient currently on 8 L high flow nasal cannula with SpO2 of 92%. Physical exam: 08/23/20: Patient was seen and fully evaluated at the bedside this morning, she reportedly had repeated episodes of hypoxia throughout the night and is now on 15 L high flow nasal cannula along with 15 L nonrebreather with SpO2 of 90%. Patient continues to report feeling worn out and just tired with no appetite, but was able to tolerate drinking an entire ensure this morning. She reports feeling a little better compared to last night, and denies having any headache, lightheadedness, dizziness, chest pain or palpitations, or experiencing any swelling/numbness/tingling/weakness in her extremities. RECEIVED A CALL AT 10:30 AM REPORTING PT DESATURATING DOWN TO 83% ON AIRVO AND NRB, ORDERS PLACED FOR BiPAP AND RT CALLED TO BEDSIDE PLACING PT ON BiPAP, PULMONARY ALSO NOTIFIED AND TO FURTHER ASSESS PATIENT SHORTLY. General: non toxic, vital signs stable. Patient in mild distress secondary to increased oxygen demands, patient appears very week and tired. Derm: warm, dry. Head: atraumatic, normocephalic, symmetric. Eyes: EOMI, no lid lag, anicteric sclera. Mouth: no lip lesion, mucus membranes dry. Cardiovascular: S1S2 normal, regular rate and regular rhythm, no gallop, murmur, or rub noted. Positive posterior tibial pulses bilaterally. Cap refill less than 2 seconds. Lungs: Respirations even, regular, and unlabored on 15 L high flow nasal cannula/AIRVO along with 15 L NRB with SpO2 92%. Lungs with diffuse coarse crackles at bilateral bases. No accessory muscle use. GI/: Abdomen soft, nontender to palpation. No appreciable organomegaly. Ext: No gross muscle atrophy, minimal lower extremity edema, no contractures. Neuro: CN II-XI grossly intact, no focal neuro deficits. Psych: Alert, oriented, appropriate affect. Assessment and Plan of care: Acute hypoxic respiratory failure resulting from Covid pneumonia -Oxygenation to be administered and titrated as needed to maintain SPO2 equal to or greater than 92%, wean as patient tolerates. Patient placed on BiPAP at 10:30 AM secondary to desaturating down to 83% on AIRVO and NRB. -Telemetry monitoring. -Continue Vitamin C, vitamin D, zinc, and melatonin -Encouraged Incentive Spirometry 10-15 times hourly while awake. -Continue Steroids: Pulmonology changed to Solu-Medrol 60 mg IVP every 6 hours, today is day 10 steroids. -Pulmonology following, appreciate further recommendations. Severe sepsis secondary to E. coli bacteremia and acute cystitis -Urinalysis positive for turbid appearance positive for blood, leukocytes, 25 RBCs, >182 WBCs with WBC clumps and bacteria -Urine culture positive for E. coli -Blood cultures positive for E. coli -Repeat urinalysis completed 08/22/20 positive for turbid appearance with leukocytes, greater than 182 RBCs, greater than 182 WBCs, WBC clumps and bacteria and yeast. Patient placed back on Rocephin and given a one-time dose of Diflucan. -Repeat urine culture. Obstructive right ureteral stone resulting in severe hydronephrosis, patient is status post cystoscopy and insertion of ureteral stent on 08/07/20 -CT scan completed at [facility] prior to being transferred to our facility reportedly revealed an obstructive 6 mm kidney stone in the right UPJ causing severe right hydronephrosis. -Patient underwent cystoscopy and insertion of right ureteral stent on 08/07/20 -Nephrology following. Acute kidney injury secondary to obstructive uropathy and severe sepsis, resolved Hypokalemia, resolved Hypovolemic hypernatremia, resolved Hypertension -Monitor vital signs and continue daily medication management with amlodipine. Hold losartan due to TUTU. Hyperlipidemia -Continue daily home medication regimen with atorvastatin 40 mg nightly. Hypothyroidism -Continue daily medication regimen with Synthroid 100 g daily. CODE STATUS: Full code DVT prophylaxis: Heparin Discussed with: Patient and RN as well as pt's daughter Aspen at 2:40 PM. Anticipated discharge date: Clinical course to determine Anticipated discharge place: To be determined, likely SNF for rehab A total of 45 minutes was spent on the care of this complex patient more than 50% of the time was spent in counseling and care coordination. Objective - Vital Signs Vital signs: Vital Signs Temp 97.7 F 08/23/20 04:49 Pulse 91 08/23/20 04:49 Resp 19 08/23/20 04:49 BP 148/80 08/23/20 04:49 Pulse Ox 90 L 08/23/20 08:12 Intake & Output 08/22/20 08/23/20 08/23/20 18:59 06:59 18:59 Output Total 250 525 Balance -250 -525 Weight 83.5 kg Output: Urine 250 525 Uretheral (Coppola) 250 Other: Voiding Method Diaper Incontinent - Labs CBC & Chem 7: 08/23/20 06:30 08/23/20 06:30 Labs: Abnormal Lab Results - Last 24 Hours (Table) 08/22/20 08/22/2008/22/21 Range/Units 11:00 11:00 11:36 WBC 23.9 H (3.8-10.6) k/uL Neutrophils # 22.5 H (1.3-7.7) k/uL Lymphocytes # 0.3 L (1.0-4.8) k/uL Sodium 136 L (137-145) mmol/L Chloride 97 L (98-107) mmol/L Carbon Dioxide 36 H (22-30) mmol/L BUN 19 H (7-17) mg/dL Glucose 167 H (74-99) mg/dL POC Glucose (mg/dL) 186 H (75-99) mg/dL Plasma Lactic Acid Juvenal (0.7-2.0) mmol/L Calcium 8.0 L (8.4-10.2) mg/dL Procalcitonin (0.02-0.09) ng/mL Urine Appearance (Clear) Urine Protein (Negative) Urine Blood (Negative) Ur Leukocyte Esterase (Negative) Urine RBC (0-5) /hpf Urine WBC (0-5) /hpf Urine WBC Clumps (None) /hpf Urine Bacteria (None) /hpf Hyaline Casts (0-2) /lpf Urine Mucus (None) /hpf Urine Yeast (Budding) (None) /hpf 08/22/20 08/22/20 08/22/20 Range/Units 17:02 19:16 19:16 WBC (3.8-10.6) k/uL Neutrophils # (1.3-7.7) k/uL Lymphocytes # (1.0-4.8) k/uL Sodium (137-145) mmol/L Chloride (98-107) mmol/L Carbon Dioxide (22-30) mmol/L BUN (7-17) mg/dL Glucose (74-99) mg/dL POC Glucose (mg/dL) 207 H (75-99) mg/dL Plasma Lactic Acid Juvenal 2.4 H* (0.7-2.0) mmol/L Calcium (8.4-10.2) mg/dL Procalcitonin 0.28 H (0.02-0.09) ng/mL Urine Appearance (Clear) Urine Protein (Negative) Urine Blood (Negative) Ur Leukocyte Esterase (Negative) Urine RBC (0-5) /hpf Urine WBC (0-5) /hpf Urine WBC Clumps (None) /hpf Urine Bacteria (None) /hpf Hyaline Casts (0-2) /lpf Urine Mucus (None) /hpf Urine Yeast (Budding) (None) /hpf 08/22/20 08/22/20 08/23/20 Range/Units 20:50 22:45 07:06 WBC (3.8-10.6) k/uL Neutrophils # (1.3-7.7) k/uL Lymphocytes # (1.0-4.8) k/uL Sodium (137-145) mmol/L Chloride (98-107) mmol/L Carbon Dioxide (22-30) mmol/L BUN (7-17) mg/dL Glucose (74-99) mg/dL POC Glucose (mg/dL) 168 H 168 H (75-99) mg/dL Plasma Lactic Acid Juvenal (0.7-2.0) mmol/L Calcium (8.4-10.2) mg/dL Procalcitonin (0.02-0.09) ng/mL Urine Appearance Turbid H (Clear) Urine Protein Trace H (Negative) Urine Blood Large H (Negative) Ur Leukocyte Esterase Large H (Negative) Urine RBC >182 H (0-5) /hpf Urine WBC >182 H (0-5) /hpf Urine WBC Clumps Many H (None) /hpf Urine Bacteria Rare H (None) /hpf Hyaline Casts 6 H (0-2) /lpf Urine Mucus Occasional H (None) /hpf Urine Yeast (Budding) Many H (None) /hpf Microbiology - Last 24 Hours (Table) 08/22/20 22:45 Urine Culture - Preliminary Urine,Clean Catch 08/21/20 14:15 Gram Stain - Preliminary Sputum Sputum Culture - Preliminary Agatha albicans
[2020-08-23] MEDS: LIDOCAINE 5% PATCH TOPICAL SCH (15:24)
[2020-08-23 16:49] LABS: Glucose,Whole Blood 146 mg/dL (75-99)
--- NOTE | 2020-08-23 17:37 | P.PN ---
Subjective Progress Note Date: 08/23/20 Principal diagnosis: Acute hypoxic respiratory failure secondary COVID-19 pneumonia On 08/13/2020, this 80-year-old male patient currently in the intensive care unit due to complication of a E. coli urine tract infection. The patient's presented with a flank/abdominal pain and the patient is known to have nephrolithiasis and the patient was found to have a right kidney hydronephrosis with chronic nephritis and moderate amount of perinephric urinary extravasation and a UPJ allie culus. The patient is post cystoscopy and right ureteral stent placement on 08/07/2020. Cultures are positive for E. coli. The patient was aggressively resuscitated IV fluids. The patient developed an acute hypoxic respiratory failure requiring BiPAP for respiratory support. BiPAP is at a pressure of 12/6 cm of water and FiO2 is being titrated to maintain a saturation above 90%. Chest x-ray showed some cardiomegaly and diffuse interstitial infiltrates bilaterally. The patient accordingly was kept in intensive care unit. Note that his cold with 19 screening was negative. The patient developed an acute kidney injury with a high creatinine of 1.9 which is gradually improving. Less often also improved. He was given a combination of Rocephin and Zithromax. The echo of the heart showed a normal LV, his affect of around 55-60%, RV is mildly enlarged, the patient has mild to moderate pulmonary hypertension, PA pressure was is on IV Rocephin and Zithromax for now. The patient is on heparin subcu for DVT prophylaxis. The patient was started on Lasix 40 mg every 12 hours when the patient has been achieving a negative fluid balance. Fluid balance for 08/11/2020 was -2.9 L. The white cell count is improved. The pro calcitonin LEVEL WAS HIGH 8.4. PROBNP LEVEL WAS 5930. The patient continues to be on Lasix 40 mg every 12 hours. Chest x-ray still showing diffuse bilateral pulmonary infiltrates right more than left and there is limited to Sutton change compared to yesterday's chest x-ray. I do suspect a component of ARDS secondary to E. coli septicemia. The blood work from today shows a sodium level of 147, potassium is to be replaced at 3.3, creatinine is at 1.3 with a BUN of 46. The net fluid balance over the past 24 hours has been -1.7 L. Despite the negative fluid balance, the patient continues to have diffuse bilateral pulmonary infiltrates. On today's evaluation of 08/14/2020, I'm seeing the patient for a follow-up. This is a case of urine checked infection with sepsis with E. coli. The patient also developed ARDS. The patient was getting also progressively more restless and agitated and confused yesterday. She was started on Precedex which is currently running at 0.4 g per/ kg/r minute. Meanwhile, the patient remains on BiPAP which is currently at a pressure of 12/6 cm of water with an FiO2 of 90%. The chest x-ray from today is still showing some limited infiltration yet the overall x-ray findings are probably improved compared to yesterday. The patient was switched yesterday to IV Zosyn covering for gram-negative UTI and possible aspiration. Echocardiogram was within normal limits and the patient has a preserved LV function. The patient remains on Lasix. The net fluid balance over the past 24 hours has been -1.6 L and the patient continues to be a negative fluid balance. On her blood work from today, the patient has a white cell count of 13 with a hemoglobin of 12.7, the patient's sodium level is up to 151 and I think the diuretics can be slowed down and the patient has a BUN of 64 with a creatinine of 1.5 and a serum bicarbs at 35. The most recent pro calcitonin level was 8.4. The patient is urinating a tidal volume of 350. Respiratory rate currently is in the mid 30s even while being on a BiPAP. She does have some coarse crackles in lung bases bilaterally. On today's evaluation of 08/15/2020, the patient is essentially unchanged compared to yesterday. She remains on a BiPAP at a pressure of 12/6 cm of water with an FiO2 of 90%. She is very much BiPAP dependent. The new information is that the third sample of COVID 19 PCR came back positive and the patient is most likely positive for colitis after having 2 T are negative. The patient is arousable and she is awake. Her chest x-ray is showing diffuse bilateral pulmonary infiltrates with some limited improvement in the right side on today's chest x-ray. Meanwhile, the patient remains on D5 water to replace her free water deficit. The patient's sodium today is at 152 with a BUN of 55 and a creatinine of 1.6. Her LDH from yesterday was 1294 and CRP level was 76. Her progress. Obviously declining is down to 1.4. The patient remains on broad- spectrum antibiotics and she is currently on IV Zosyn. In terms of sedation, the patient is on 0.4 mcg/kg/h of Precedex to maintain synchrony with the mechanical ventilator and control her agitation.The PICC line was ordered for this patient for today. Otherwise, the patient is on IV Solu-Medrol and the patient will be also placed on Lovenox 40 mg subcu every 24 hours for DVT prophylaxis. D-dimer is at 2.91. 08/16/2020 the patient is being seen for a follow-up. I am least associated the patient has been off the BiPAP since yesterday evening and currently she is on oxygen at 15 L nasal cannula. She is breathing comfortably and she is not having any significant respiratory distress. He is also able to communicate. She was able to take some pills and water yesterday. She remains considerably weak. The chest x-ray still showing diffuse bilateral pulmonary infiltrates and my suspicion was that the patient's had a component of ARDS. I further checked her nasal swab for COVID-19 and she do not to be positive. However, the patient was infected with coronavirus back in March 2020 and this is quite unusual for her to be positive again. Note that her COVID-19 antibodies were also positive. No headache, she is on IV Solu-Medrol. She is receiving Solu Medrol 60 mg IV every 6 hours. She is also well diuresed and I'm awaiting her follow- up renal function. Note that the diuretics were held yesterday because of development of an acute kidney injury secondary to diuresis. For now, the patient is hemodynamically stable. No hypotension. Blood sugars are under adequate. The patient has a PICC line. I am inclined to stop the TPN and proceed with oral intake and this is diet as tolerated. A bedside swallow evaluation will be done. She remains on Lovenox 30 mg subcu for prophylaxis. She is on D5 water at the rate of 150 mL an hour and the follow-up sodium level is pending for now. The follow-up level was 145 from yesterday and the D5 water rate was reduced to 100 mL/hr he had noted the patient is also taken off the Precedex for now. She is alert and communicating. She is also appropriate. 08/17/2020, the patient is outside the intensive care unit and she is currently on a medical floor, telemetry unit. She is doing well and she is laying down on her side and she is quite comfortable on 10 L of oxygen by nasal cannula. She continues to have some crackles in the lung bases. Nevertheless, she is off the BiPAP which is breathing very comfortably. As mentioned earlier, there was a suspicion that the patient may have a sepsis induced ARDS. At the same time, the patient checked positive for COVID-19 that this has been an ongoing problem knowing that the patient was urgently diagnosed back in March 2020. No new complaints for now. She hasn't adequate urine output. She remains on IV Zosyn. She is afebrile. She is on Lovenox for DVT prophylaxis 40 mg subcu every 12 hours. She remains on IV Solu Medrol 60 mg every 6 hours. Also, she has a white cell count of 29, creatinine is at 1, electrolytes are normal. 08/18/2020, the patient remains on a telemetry unit. I'm seeing her today on follow-up. She is post ARDS related to an underlying septic event. I see her laying down comfortably in bed. It looks like the patient's oxygen requirements have gone up again and she is currently up to 15 L of oxygen by nasal cannu la.FiO2 was increased as of 1 AM this morning. He bicycles of 26, electrolytes are normal, BUN is 42 with a creatinine of 0.9. Repeat chest x-ray was done and it shows some cardiomegaly and some vague interstitial infiltrates bilaterally consistent with ARDS or post covert infection. They'll function is stable and currently is down to 0.9. She is on IV Zosyn. She is off diuretics for now. She remains on Lovenox 40 mg subcu on a daily basis. On 08/19/2020, the patient remains on 10 L of oxygen by nasal cannula. We were unable to wean it off any further. She is otherwise quite stable and resting comfortably in bed. As mentioned earlier, this is a case of E. coli sepsis with secondary acute lung injury/ARDS. She was on BiPAP in the ICU and she was weaned down to 10 L of oxygen by nasal cannula. She has had previous history of remote COVID-19 associated pneumonia. She remains on IV Zosyn. She is also on steroids in the patient is currently on prednisone 40 mg by mouth daily and IV Solu Medrol was discontinued yesterday. Afebrile. Tolerating diet and she is taking approximately 25% of her oral diet. She is still very weak. Oral intake is diminished. She is not using incentive spirometer. On 08/20/2020 patient seen in follow-up on medical surgical floor. She is s itting up in a chair, she continues to be on 8 L of oxygen, her pulse ox is 93%, the problem be weaned further, hemodynamically she has been stable, she has been afebrile, appears weak, and she has not been using the incentive spirometer. Patient's chest x-ray today shows slight worsening in bilateral airspace disease. Today's labs show improving white blood cell count is down to 18.3, hemoglobin is 12.5, d-dimer is down slightly and is at 4.0, potassium is 3.4, Darvocet x-rays were unremarkable, B1 is 20, creatinine 0.9, intrinsic renal profile has improved from a couple days ago. LDH improving and is down to 381, from 720, and CRP is 9.1. No nausea vomiting or diarrhea, her oral intake is poor, she has no appetite. She remains on Zosyn, and her blood and urine cultures showed E. coli with cabezas sensitivity. And she remains on prednisone 40 mg daily, she did receive a dose of Lasix per nephrology, and she remains on Polyvitamin sent and Lovenox 40 mg daily Reevaluated today on 08/21/2020, patient remains on the regular medical floor, she is back up on 10 L high flow nasal cannula, O2 sats is 91%. Patient is doing well, relatively asymptomatic, d-dimer is coming down to 1.96. Electrolytes and renal profile are normal. WBC count is coming down to 18.34 compared to 29.5 only a few days ago. Her inflammatory markers are trending down including LDH down to 385. And her last pro-calcitonin was 0.49. BNP was 1120. C-reactive protein 7.3 continues to have poor intake. Remains on antibiotics and/Zosyn, her urine culture had E. coli. . Remains on the COVID- 19 cocktail. On 08/22/2020 patient is seen in follow-up on medical surgical floor, she is more short of breath today, and she required to be placed on irritable currently at 60 L and FiO2 of 90%. Appears to be more lethargic on today's exam, today's chest x-ray shows bilateral airspace disease without significant change compared to previous chest x-ray. Patient has been afebrile, hemodynamically patient has been stable, no chest pain, no increased cough or congestion, her white blood cell count is 23.9, hemoglobin is 12.8, sodium is 136, potassium is 3.5, chloride is 97, CO2 36, BUN is 19, creatinine is 0.93. Earlier today Lasix was given, and patient has produced a total of 1400 on this shift, although exact net fluid balance is difficult to estimate, urine color appears to be quite turbid, and appears to be infected. Presented today on 08/23/2020, patient remains on high flow oxygen, she is on 15 L high flow and nonrebreather mask, and intermittently on BiPAP. O2 saturation remains marginal although she is on 100% FiO2. Her O2 saturation is ranging anywhere between 85-91%. In spite of all of this, the patient does not seem to be in distress. CBC today showed leukocytosis with WBC count of 20.8. Electrolytes are normal except for low potassium of 3.4. BUN is 24 and creatinine is 1.0. LDH was 528 C-reactive protein is 16. Patient is not making significant progress over the last 1 week. Chest x-ray continues to show bilateral confluent reticulonodular opacities consistent with COVID-19 infection. Objective - Vital Signs Vital signs: Vital Signs Temp 97.9 F 08/23/20 14:00 Pulse 90 08/23/20 14:00 Resp 22 08/23/20 14:00 BP 111/64 08/23/20 14:00 Pulse Ox 91 L 08/23/20 14:00 Intake & Output 08/22/20 08/23/20 08/23/20 18:59 06:59 18:59 Output Total 250 525 Balance -250 -525 Weight 83.5 kg 83.5 kg Output: Urine 250 525 Uretheral (Coppola) 250 Other: Voiding Method Diaper Indwelling Catheter Incontinent - Exam GENERAL EXAM: Alert, pleasant, 80-year-old white female on high flow oxygen 15 L and a non-rebreather mask. HEAD: Normocephalic/atraumatic. HEENT: PERRLA, EOMI, nonicteric, no neck masses, no JVD, no stridor. CHEST: No chest wall deformity. Symmetrical expansion. LUNGS: Equal air entry with bibasilar crackles CVS: Regular rate and rhythm, normal S1 and S2, no gallops, no murmurs, no rubs ABDOMEN: Soft, nontender. No hepatosplenomegaly, normal bowel sounds, no guarding or rigidity. EXTREMITIES: No clubbing, no edema, no cyanosis, 2+ pulses and upper and lower extremities. MUSCULOSKELETAL: Muscle strength and tone normal. No deformities. Normal range of motion. SKIN: No rashes CENTRAL NERVOUS SYSTEM: Alert and oriented 3 focal deficits. PSYCHIATRIC: Normal mood affect and normal mental status examination. - Labs CBC & Chem 7: 08/23/20 06:30 08/23/20 06:30 Labs: Abnormal Lab Results - Last 24 Hours (Table) 08/22/20 08/22/20 08/22/20 Range/Units 19:16 19:16 20:50 WBC (4.50-10.00) X 10*3/uL RBC (4.10-5.20) X 10*6/uL Hct (37.2-46.3) % Potassium (3.5-5.5) mmol/L Chloride (96-109) mmol/L Anion Gap (4.00-12.00) mmol/L Est GFR (CKD-EPI)NonAf (60.0-200.0) BUN/Creatinine Ratio (12.00-20.00) Ratio Glucose (70-110) mg/dL POC Glucose (mg/dL) 168 H (75-99) mg/dL Plasma Lactic Acid Juvenal 2.4 H* (0.7-2.0) mmol/L Calcium (8.7-10.3) mg/dL Ferritin (10.0-291.0) ng/mL Lactate Dehydrogenase (120-246) U/L C-Reactive Protein (0.0-0.8) mg/dL Procalcitonin 0.28 H (0.02-0.09) ng/mL Urine Appearance (Clear) Urine Protein (Negative) Urine Blood (Negative) Ur Leukocyte Esterase (Negative) Urine RBC (0-5) /hpf Urine WBC (0-5) /hpf Urine WBC Clumps (None) /hpf Urine Bacteria (None) /hpf Hyaline Casts (0-2) /lpf Urine Mucus (None) /hpf Urine Yeast (Budding) (None) /hpf 08/22/20 08/23/20 08/23/20 Range/Units 22:45 06:30 06:30 WBC 20.88 H (4.50-10.00) X 10*3/uL RBC 3.86 L (4.10-5.20) X 10*6/uL Hct 36.4 L (37.2-46.3) % Potassium 3.4 L (3.5-5.5) mmol/L Chloride 93 L (96-109) mmol/L Anion Gap 12.60 H (4.00-12.00) mmol/L Est GFR (CKD-EPI)NonAf 53.9 L (60.0-200.0) BUN/Creatinine Ratio 24.00 H (12.00-20.00) Ratio Glucose 207 H (70-110) mg/dL POC Glucose (mg/dL) (75-99) mg/dL Plasma Lactic Acid Juvenal (0.7-2.0) mmol/L Calcium 8.2 L (8.7-10.3) mg/dL Ferritin 698.5 H (10.0-291.0) ng/mL Lactate Dehydrogenase 528 H (120-246) U/L C-Reactive Protein 16.0 H (0.0-0.8) mg/dL Procalcitonin (0.02-0.09) ng/mL Urine Appearance Turbid H (Clear) Urine Protein Trace H (Negative) Urine Blood Large H (Negative) Ur Leukocyte Esterase Large H (Negative) Urine RBC >182 H (0-5) /hpf Urine WBC >182 H (0-5) /hpf Urine WBC Clumps Many H (None) /hpf Urine Bacteria Rare H (None) /hpf Hyaline Casts 6 H (0-2) /lpf Urine Mucus Occasional H (None) /hpf Urine Yeast (Budding) Many H (None) /hpf 08/23/20 08/23/20 08/23/20 Range/Units 07:06 11:23 16:43 WBC (4.50-10.00) X 10*3/uL RBC (4.10-5.20) X 10*6/uL Hct (37.2-46.3) % Potassium (3.5-5.5) mmol/L Chloride (96-109) mmol/L Anion Gap (4.00-12.00) mmol/L Est GFR (CKD-EPI)NonAf (60.0-200.0) BUN/Creatinine Ratio (12.00-20.00) Ratio Glucose (70-110) mg/dL POC Glucose (mg/dL) 168 H 162 H 146 H (75-99) mg/dL Plasma Lactic Acid Juvenal (0.7-2.0) mmol/L Calcium (8.7-10.3) mg/dL Ferritin (10.0-291.0) ng/mL Lactate Dehydrogenase (120-246) U/L C-Reactive Protein (0.0-0.8) mg/dL Procalcitonin (0.02-0.09) ng/mL Urine Appearance (Clear) Urine Protein (Negative) Urine Blood (Negative) Ur Leukocyte Esterase (Negative) Urine RBC (0-5) /hpf Urine WBC (0-5) /hpf Urine WBC Clumps (None) /hpf Urine Bacteria (None) /hpf Hyaline Casts (0-2) /lpf Urine Mucus (None) /hpf Urine Yeast (Budding) (None) /hpf Microbiology - Last 24 Hours (Table) 08/21/20 14:15 Gram Stain - Final Sputum Sputum Culture - Final Agatha albicans 08/22/20 22:45 Urine Culture - Preliminary Urine,Clean Catch Assessment and Plan Assessment: Impression: Acute hypoxic respiratory failure secondary to COVID-19 pneumonia as well as fluid volume overload and possible sepsis with acute lung injury/ARDS could be related to her sepsis or her COVID-19 pneumonia. Again her respiratory failure seems to be multifactorial. Sepsis secondary to E. coli urinary tract infection and bacteremia. Acute right pyelonephritis status post ureteral stent on 08/07/2020. Benign essential hypertension. Hypothyroidism. Acute kidney injury, resolved, most likely secondary to aggressive diuresis. Recommendation: Titrate oxygen accordingly. Maintain O2 saturation above 90%. Continue the COVID-19 cocktail. Continue Lovenox 40 mg subcu twice a day. Continue Lasix 40 mg IV push twice a day. Continue levothyroxine. Continue Zosyn. 2 new prednisone at 40 mg by mouth daily. Continue incentive spirometer. Continue to follow inflammatory markers. Prognosis remains relatively guarded. We'll continue to follow Time with Patient: Less than 30
[2020-08-23] MEDS: methylPREDNISolone SOD SUCCI 125 MG/2 ML VIAL IV SCH ×2 (17:43→23:35)
--- NOTE | 2020-08-23 17:49 | PN ---
PROGRESS NOTE Patient is seen for followup for acute kidney injury and some degree of volume overload. Patient has underlying COVID pneumonia. Her respiratory status has worsened. She did have an element of volume overload as well, for which she is currently maintained on Lasix. This morning patient is comfortable. She is maintained on a non-rebreather, but her oxygen saturations have been low and it appears that she was changed to BiPAP later on today. Blood pressure was 111/64, heart rate 90 per minute. She is afebrile. Examination of lower extremities shows no significant edema. Abdomen is soft, nontender. Labs show sodium 137, potassium 3.4, creatinine 1.0, hemoglobin 12.1 g/dL. ASSESSMENT: 1. Acute kidney injury, currently significantly improved, with creatinine down to about 0.9 to 1 mg/dL from 1.9 at peak. Etiology was mostly acute tubular necrosis with an element of hypovolemia as well initially. Currently patient is off of IV fluids. She did get IV Lasix intermittently. 2. Acute hypoxic respiratory failure secondary to COVID pneumonia. 3. Sepsis from Escherichia coli bacteremia and urinary tract infection. 4. Hypernatremia, currently improved. PLAN: Can continue off of diuretics, as there has not been any significant improvement in the pulmonary status, and I believe this is mostly related to the COVID pneumonia. Replace potassium. MMODL / IJN: [id number] /
[2020-08-23 20:09] LABS: Glucose,Whole Blood 117 mg/dL (75-99)
[2020-08-23] MEDS: MELATONIN 5 MG TABLET PO SCH (20:51)
[2020-08-23] MEDS: ONDANSETRON 4 MG/2 ML VIAL IVP PRN (20:51)
[2020-08-23] MEDS: ATORVASTATIN 40 MG TAB PO SCH (20:51)
[2020-08-24] MEDS: methylPREDNISolone SOD SUCCI 125 MG/2 ML VIAL IV SCH ×4 (06:27→23:47)
[2020-08-24] MEDS: LEVOTHYROXINE 100 MCG TAB PO SCH (06:28)
[2020-08-24 06:52] LABS: Glucose,Whole Blood 148 mg/dL (75-99)
[2020-08-24] MEDS: PANTOPRAZOLE 40 MG TABLET PO SCH (07:26)
[2020-08-24] MEDS: SERTRALINE 100 MG TAB PO SCH (07:26)
[2020-08-24] MEDS: amLODIPine 10 MG TAB PO SCH (07:26)
[2020-08-24] MEDS: ASCORBIC ACID 500 MG TAB PO SCH (07:26)
[2020-08-24] MEDS: ZINC SULFATE 220 MG CAP PO SCH (07:26)
[2020-08-24] MEDS: LINAGLIPTIN 5 MG TABLET PO SCH (07:26)
[2020-08-24] MEDS: CHOLECALCIFEROL 25 MCG (1000 IU) TABLET PO SCH (07:27)
[2020-08-24] MEDS: INSULIN ASPART (NovoLOG) 100 UNIT/ML VIAL SQ SCH ×4 (07:27→20:58)
[2020-08-24] MEDS: LIDOCAINE 5% PATCH TOPICAL SCH (07:28)
[2020-08-24] MEDS: ENOXAPARIN 40 MG/0.4 ML SYRINGE SQ SCH ×2 (07:28→19:59)
[2020-08-24 07:41] LABS: African American GFR (CKD) 60 (>60 ml/min/1.73 sqM); Anion Gap 3 mmol/L; Blood Urea Nitrogen 28 mg/dL (7-17); C Reactive Protein 6.6 mg/dL (<1.0); Calcium 8.4 mg/dL (8.4-10.2); Carbon Dioxide 38 mmol/L (22-30); Chloride 92 mmol/L (98-107); Glucose 152 mg/dL (74-99); LDH 1073 U/L (313-618); Magnesium 1.8 mg/dL (1.6-2.3); Non-African American GFR(CKD) 52 (>60 ml/min/1.73 sqM); Potassium 3.6 mmol/L (3.5-5.1); Sodium 133 mmol/L (137-145)
[2020-08-24] MEDS: ALBUTEROL HFA INHALER INHALATION SCH ×4 (09:00→20:53)
[2020-08-24 09:47] LABS: HCT 34.2 % (37.2-46.3); HGB 11.1 g/dL (12.0-15.0); MCH 30.9 pg (27.0-32.0); MCHC 32.5 g/dL (32.0-37.0); MCV 95.3 fL (80.0-97.0); Mean Platelet Volume 10.6 fL (9.5-12.2); Platelet Count 378 X 10*3/uL (140-440); RBC 3.59 X 10*6/uL (4.10-5.20); RDW 13.1 % (11.5-14.5)
[2020-08-24 11:15] LABS: Glucose,Whole Blood 206 mg/dL (75-99)
[2020-08-24] MEDS: SIMETHICONE 80 MG CHEWABLE PO PRN ×2 (12:05→20:00)
--- NOTE | 2020-08-24 13:56 | P.PN ---
Subjective Progress Note Date: 08/24/20 Hospital course: Patient is a 80-year-old female with a past medical history of hypertension, hyperlipidemia, hypothyroidism, and breast cancer currently in remission. She was transferred to our facility from [facility] in [facility] and was admitted under our services on 08/07/20 with severe sepsis secondary to obstructive severe hydronephrosis accompanied by an acute kidney injury. Patient's WBC count was 37.3. Initial lactate was 3.3 with repeat of 2.2 status post 3 L bolus. She was initially tachycardic, febrile, and hypotensive. Urinalysis was positive for turbid appearance positive for blood, leukocytes, 25 RBCs, >182 WBCs with WBC clumps and bacteria. EKG revealed normal sinus rhythm and 98 bpm with no noted T-wave or ST abnormalities. Patient had CT prior to being transferred to our facility and per documentation, this revealed an obstructive 6 mm kidney stone in the right UPJ causing severe right hydr onephrosis. She was taken to OR on same day of admission for a cystoscopy and insertion of right ureteral stent. Patient's blood cultures showing bacteremia as they were positive for E. coli. Urine cultures also positive for E. coli. Severe sepsis was treated with IV antibiotics (initially Rocephin and gentamicin which was later changed to Zosyn) and IV fluid hydration. On 08/10/20 patient began to have increased work of breathing and was requiring oxygen supplementation and was given dose of IV Lasix and fluids were stopped. Patient's condition continued to worsen and she continued to have increasing oxygen needs and was found to be hypoxic with ABG revealing a PaO2 of 55%, patient was placed on BiPAP and transferred to intensive care unit where she continued to undergo diuresis and close monitoring. Initial Covid testing completed on 08/07/20 negative, repeat test on 08/10/20 also negative, secondary to worsening respiratory status another Covid test was completed on 08/14/20 which w as positive. Covid antibodies were drawn also resulting reactive showing positive positive for infection. Patient currently on BiPAP with SpO2 of 90% Physical exam: 08/24/20: Patient was seen and fully evaluated at the bedside this morning, she remains on BiPAP with SpO2 of 90%. Patient continues to report weakness and fatigue. RN reports multiple episodes of hypoxia again throughout the night desaturating down to 83-84% however patient quickly recovers with stimulation. Patient continues to report no appetite stating she was only able to drink a small amount of her ensure this morning with breakfast prior to being placed b ack on BiPAP. Had long discussion with patient regarding possible need for intubation and mechanical ventilation if respiratory function worsens and/or she continues to have prolonged episodes of hypoxia. Patient verbalized understanding and wishes to remain a full code and be intubated and placed on mechanical ventilation if necessary. Patient continues to deny having any lightheadedness or dizziness, chest pain, or palpitations. General: non toxic, vital signs stable. Patient in mild distress secondary to increased oxygen demands, patient appears very week and tired. Derm: warm, dry. Head: atraumatic, normocephalic, symmetric. Eyes: EOMI, no lid lag, anicteric sclera. Mouth: no lip lesion, mucus membranes dry. Cardiovascular: S1S2 normal, regular rate and regular rhythm, no gallop, murmur, or rub noted. Positive posterior tibial pulses bilaterally. Cap refill less than 2 seconds. Lungs: Respirations even, regular, and unlabored on BiPAP with SpO2 of 90%. Lungs with diffuse coarse crackles at bilateral bases. No accessory muscle use. GI/: Abdomen soft, nontender to palpation. No appreciable organomegaly. Ext: No gross muscle atrophy, minimal lower extremity edema, no contractures. Neuro: CN II-XI grossly intact, no focal neuro deficits. Psych: Alert, oriented, appropriate affect. Assessment and Plan of care: Acute hypoxic respiratory failure resulting from Covid pneumonia -Oxygenation to be administered and titrated as needed to maintain SPO2 equal to or greater than 92%, wean as patient tolerates. Patient remains on BiPAP with SpO2 of 90%.. -Telemetry monitoring. -Continue Vitamin C, vitamin D, zinc, and melatonin -Encouraged Incentive Spirometry 10-15 times hourly while awake. -Continue Solu-Medrol 60 mg IVP every 6 hours, today is day 11 of steroids. -Pulmonology following, appreciate further recommendations. Severe sepsis secondary to E. coli bacteremia and acute cystitis -Urinalysis positive for turbid appearance positive for blood, leukocytes, 25 RBCs, >182 WBCs with WBC clumps and bacteria -Urine culture positive for E. coli -Blood cultures positive for E. coli -Repeat urinalysis completed 08/22/20 positive for turbid appearance with leukocytes, greater than 182 RBCs, greater than 182 WBCs, WBC clumps and bacter ia and yeast. Patient placed back on Rocephin and given a one-time dose of Diflucan. -Repeat urine culture. Obstructive right ureteral stone resulting in severe hydronephrosis, patient is status post cystoscopy and insertion of ureteral stent on 08/07/20 -CT scan completed at [facility] prior to being transferred to our facility reportedly revealed an obstructive 6 mm kidney stone in the right UPJ causing severe right hydronephrosis. -Patient underwent cystoscopy and insertion of right ureteral stent on 08/07/20 -Nephrology following. Acute kidney injury secondary to obstructive uropathy and severe sepsis, resolved Hypokalemia, resolved Hypovolemic hypernatremia, resolved Hypertension -Monitor vital signs and continue daily medication management with amlodipine. Hold losartan due to TUTU. Hyperlipidemia -Continue daily home medication regimen with atorvastatin 40 mg nightly. Hypothyroidism -Continue daily medication regimen with Synthroid 100 g daily. CODE STATUS: Full code DVT prophylaxis: Heparin Discussed with: Patient and RN, plan to call patient's daughter and significant other this afternoon. Anticipated discharge date: Clinical course to determine Anticipated discharge place: To be determined, likely SNF for rehab A total of 45 minutes was spent on the care of this complex patient more than 50% of the time was spent in counseling and care coordination. Objective - Vital Signs Vital signs: Vital Signs Temp 98.1 F 08/24/20 09:52 Pulse 95 08/24/20 09:52 Resp 22 08/24/20 09:52 BP 123/71 08/24/20 09:52 Pulse Ox 93 L 08/24/20 09:52 Intake & Output 08/23/20 08/24/20 08/24/20 18:59 06:59 18:59 Output Total 350 Balance -350 Weight 83.5 kg 84 kg Output: Urine 350 Other: Voiding Method Indwelling Catheter Indwelling Catheter Indwelling Catheter - Labs CBC & Chem 7: 08/24/20 06:20 08/24/20 06:20 Labs: Abnormal Lab Results - Last 24 Hours (Table) 08/23/20 08/23/20 08/24/20 Range/Units 16:43 20:06 06:20 WBC 17.10 H (4.50-10.00) X 10*3/uL RBC 3.59 L (4.10-5.20) X 10*6/uL Hgb 11.1 L (12.0-15.0) g/dL Hct 34.2 L (37.2-46.3) % Sodium (137-145) mmol/L Chloride (98-107) mmol/L Carbon Dioxide (22-30) mmol/L BUN (7-17) mg/dL Glucose (74-99) mg/dL POC Glucose (mg/dL) 146 H 117 H (75-99) mg/dL Lactate Dehydrogenase (313-618) U/L C-Reactive Protein (<1.0) mg/dL 08/24/20 08/24/20 08/24/20 Range/Units 06:20 06:50 11:13 WBC (4.50-10.00) X 10*3/uL RBC (4.10-5.20) X 10*6/uL Hgb (12.0-15.0) g/dL Hct (37.2-46.3) % Sodium 133 L (137-145) mmol/L Chloride 92 L (98-107) mmol/L Carbon Dioxide 38 H (22-30) mmol/L BUN 28 H (7-17) mg/dL Glucose 152 H (74-99) mg/dL POC Glucose (mg/dL) 148 H 206 H (75-99) mg/dL Lactate Dehydrogenase 1073 H (313-618) U/L C-Reactive Protein 6.6 H (<1.0) mg/dL Microbiology - Last 24 Hours (Table) 08/22/20 22:45 Urine Culture - Preliminary Urine,Clean Catch Yeast species 08/22/20 19:16 Blood Culture - Preliminary Blood No Growth after 24 hours 08/22/20 19:16 Blood Culture - Preliminary Blood No Growth after 24 hours 08/21/20 14:15 Gram Stain - Final Sputum Sputum Culture - Final Agatha albicans
[2020-08-24] MEDS: ACETAMINOPHEN TAB 325 MG TAB PO PRN (14:16)
[2020-08-24 17:05] LABS: Glucose,Whole Blood 177 mg/dL (75-99)
--- NOTE | 2020-08-24 17:52 | P.PN ---
Subjective Progress Note Date: 08/24/20 Principal diagnosis: Acute hypoxic respiratory failure secondary COVID-19 pneumonia On 08/13/2020, this 80-year-old male patient currently in the intensive care unit due to complication of a E. coli urine tract infection. The patient's presented with a flank/abdominal pain and the patient is known to have nephrolithiasis and the patient was found to have a right kidney hydronephrosis with chronic nephritis and moderate amount of perinephric urinary extravasation and a UPJ allie culus. The patient is post cystoscopy and right ureteral stent placement on 08/07/2020. Cultures are positive for E. coli. The patient was aggressively resuscitated IV fluids. The patient developed an acute hypoxic respiratory failure requiring BiPAP for respiratory support. BiPAP is at a pressure of 12/6 cm of water and FiO2 is being titrated to maintain a saturation above 90%. Chest x-ray showed some cardiomegaly and diffuse interstitial infiltrates bilaterally. The patient accordingly was kept in intensive care unit. Note that his cold with 19 screening was negative. The patient developed an acute kidney injury with a high creatinine of 1.9 which is gradually improving. Less often also improved. He was given a combination of Rocephin and Zithromax. The echo of the heart showed a normal LV, his affect of around 55-60%, RV is mildly enlarged, the patient has mild to moderate pulmonary hypertension, PA pressure was is on IV Rocephin and Zithromax for now. The patient is on heparin subcu for DVT prophylaxis. The patient was started on Lasix 40 mg every 12 hours when the patient has been achieving a negative fluid balance. Fluid balance for 08/11/2020 was -2.9 L. The white cell count is improved. The pro calcitonin LEVEL WAS HIGH 8.4. PROBNP LEVEL WAS 5930. The patient continues to be on Lasix 40 mg every 12 hours. Chest x-ray still showing diffuse bilateral pulmonary infiltrates right more than left and there is limited to Sutton change compared to yesterday's chest x-ray. I do suspect a component of ARDS secondary to E. coli septicemia. The blood work from today shows a sodium level of 147, potassium is to be replaced at 3.3, creatinine is at 1.3 with a BUN of 46. The net fluid balance over the past 24 hours has been -1.7 L. Despite the negative fluid balance, the patient continues to have diffuse bilateral pulmonary infiltrates. On today's evaluation of 08/14/2020, I'm seeing the patient for a follow-up. This is a case of urine checked infection with sepsis with E. coli. The patient also developed ARDS. The patient was getting also progressively more restless and agitated and confused yesterday. She was started on Precedex which is currently running at 0.4 g per/ kg/r minute. Meanwhile, the patient remains on BiPAP which is currently at a pressure of 12/6 cm of water with an FiO2 of 90%. The chest x-ray from today is still showing some limited infiltration yet the overall x-ray findings are probably improved compared to yesterday. The patient was switched yesterday to IV Zosyn covering for gram-negative UTI and possible aspiration. Echocardiogram was within normal limits and the patient has a preserved LV function. The patient remains on Lasix. The net fluid balance over the past 24 hours has been -1.6 L and the patient continues to be a negative fluid balance. On her blood work from today, the patient has a white cell count of 13 with a hemoglobin of 12.7, the patient's sodium level is up to 151 and I think the diuretics can be slowed down and the patient has a BUN of 64 with a creatinine of 1.5 and a serum bicarbs at 35. The most recent pro calcitonin level was 8.4. The patient is urinating a tidal volume of 350. Respiratory rate currently is in the mid 30s even while being on a BiPAP. She does have some coarse crackles in lung bases bilaterally. On today's evaluation of 08/15/2020, the patient is essentially unchanged compared to yesterday. She remains on a BiPAP at a pressure of 12/6 cm of water with an FiO2 of 90%. She is very much BiPAP dependent. The new information is that the third sample of COVID 19 PCR came back positive and the patient is most likely positive for colitis after having 2 T are negative. The patient is arousable and she is awake. Her chest x-ray is showing diffuse bilateral pulmonary infiltrates with some limited improvement in the right side on today's chest x-ray. Meanwhile, the patient remains on D5 water to replace her free water deficit. The patient's sodium today is at 152 with a BUN of 55 and a creatinine of 1.6. Her LDH from yesterday was 1294 and CRP level was 76. Her progress. Obviously declining is down to 1.4. The patient remains on broad- spectrum antibiotics and she is currently on IV Zosyn. In terms of sedation, the patient is on 0.4 mcg/kg/h of Precedex to maintain synchrony with the mechanical ventilator and control her agitation.The PICC line was ordered for this patient for today. Otherwise, the patient is on IV Solu-Medrol and the patient will be also placed on Lovenox 40 mg subcu every 24 hours for DVT prophylaxis. D-dimer is at 2.91. 08/16/2020 the patient is being seen for a follow-up. I am least associated the patient has been off the BiPAP since yesterday evening and currently she is on oxygen at 15 L nasal cannula. She is breathing comfortably and she is not having any significant respiratory distress. He is also able to communicate. She was able to take some pills and water yesterday. She remains considerably weak. The chest x-ray still showing diffuse bilateral pulmonary infiltrates and my suspicion was that the patient's had a component of ARDS. I further checked her nasal swab for COVID-19 and she do not to be positive. However, the patient was infected with coronavirus back in March 2020 and this is quite unusual for her to be positive again. Note that her COVID-19 antibodies were also positive. No headache, she is on IV Solu-Medrol. She is receiving Solu Medrol 60 mg IV every 6 hours. She is also well diuresed and I'm awaiting her follow- up renal function. Note that the diuretics were held yesterday because of development of an acute kidney injury secondary to diuresis. For now, the patient is hemodynamically stable. No hypotension. Blood sugars are under adequate. The patient has a PICC line. I am inclined to stop the TPN and proceed with oral intake and this is diet as tolerated. A bedside swallow evaluation will be done. She remains on Lovenox 30 mg subcu for prophylaxis. She is on D5 water at the rate of 150 mL an hour and the follow-up sodium level is pending for now. The follow-up level was 145 from yesterday and the D5 water rate was reduced to 100 mL/hr he had noted the patient is also taken off the Precedex for now. She is alert and communicating. She is also appropriate. 08/17/2020, the patient is outside the intensive care unit and she is currently on a medical floor, telemetry unit. She is doing well and she is laying down on her side and she is quite comfortable on 10 L of oxygen by nasal cannula. She continues to have some crackles in the lung bases. Nevertheless, she is off the BiPAP which is breathing very comfortably. As mentioned earlier, there was a suspicion that the patient may have a sepsis induced ARDS. At the same time, the patient checked positive for COVID-19 that this has been an ongoing problem knowing that the patient was urgently diagnosed back in March 2020. No new complaints for now. She hasn't adequate urine output. She remains on IV Zosyn. She is afebrile. She is on Lovenox for DVT prophylaxis 40 mg subcu every 12 hours. She remains on IV Solu Medrol 60 mg every 6 hours. Also, she has a white cell count of 29, creatinine is at 1, electrolytes are normal. 08/18/2020, the patient remains on a telemetry unit. I'm seeing her today on follow-up. She is post ARDS related to an underlying septic event. I see her laying down comfortably in bed. It looks like the patient's oxygen requirements have gone up again and she is currently up to 15 L of oxygen by nasal cannu la.FiO2 was increased as of 1 AM this morning. He bicycles of 26, electrolytes are normal, BUN is 42 with a creatinine of 0.9. Repeat chest x-ray was done and it shows some cardiomegaly and some vague interstitial infiltrates bilaterally consistent with ARDS or post covert infection. They'll function is stable and currently is down to 0.9. She is on IV Zosyn. She is off diuretics for now. She remains on Lovenox 40 mg subcu on a daily basis. On 08/19/2020, the patient remains on 10 L of oxygen by nasal cannula. We were unable to wean it off any further. She is otherwise quite stable and resting comfortably in bed. As mentioned earlier, this is a case of E. coli sepsis with secondary acute lung injury/ARDS. She was on BiPAP in the ICU and she was weaned down to 10 L of oxygen by nasal cannula. She has had previous history of remote COVID-19 associated pneumonia. She remains on IV Zosyn. She is also on steroids in the patient is currently on prednisone 40 mg by mouth daily and IV Solu Medrol was discontinued yesterday. Afebrile. Tolerating diet and she is taking approximately 25% of her oral diet. She is still very weak. Oral intake is diminished. She is not using incentive spirometer. On 08/20/2020 patient seen in follow-up on medical surgical floor. She is s itting up in a chair, she continues to be on 8 L of oxygen, her pulse ox is 93%, the problem be weaned further, hemodynamically she has been stable, she has been afebrile, appears weak, and she has not been using the incentive spirometer. Patient's chest x-ray today shows slight worsening in bilateral airspace disease. Today's labs show improving white blood cell count is down to 18.3, hemoglobin is 12.5, d-dimer is down slightly and is at 4.0, potassium is 3.4, Darvocet x-rays were unremarkable, B1 is 20, creatinine 0.9, intrinsic renal profile has improved from a couple days ago. LDH improving and is down to 381, from 720, and CRP is 9.1. No nausea vomiting or diarrhea, her oral intake is poor, she has no appetite. She remains on Zosyn, and her blood and urine cultures showed E. coli with cabezas sensitivity. And she remains on prednisone 40 mg daily, she did receive a dose of Lasix per nephrology, and she remains on Polyvitamin sent and Lovenox 40 mg daily Reevaluated today on 08/21/2020, patient remains on the regular medical floor, she is back up on 10 L high flow nasal cannula, O2 sats is 91%. Patient is doing well, relatively asymptomatic, d-dimer is coming down to 1.96. Electrolytes and renal profile are normal. WBC count is coming down to 18.34 compared to 29.5 only a few days ago. Her inflammatory markers are trending down including LDH down to 385. And her last pro-calcitonin was 0.49. BNP was 1120. C-reactive protein 7.3 continues to have poor intake. Remains on antibiotics and/Zosyn, her urine culture had E. coli. . Remains on the COVID- 19 cocktail. On 08/22/2020 patient is seen in follow-up on medical surgical floor, she is more short of breath today, and she required to be placed on irritable currently at 60 L and FiO2 of 90%. Appears to be more lethargic on today's exam, today's chest x-ray shows bilateral airspace disease without significant change compared to previous chest x-ray. Patient has been afebrile, hemodynamically patient has been stable, no chest pain, no increased cough or congestion, her white blood cell count is 23.9, hemoglobin is 12.8, sodium is 136, potassium is 3.5, chloride is 97, CO2 36, BUN is 19, creatinine is 0.93. Earlier today Lasix was given, and patient has produced a total of 1400 on this shift, although exact net fluid balance is difficult to estimate, urine color appears to be quite turbid, and appears to be infected. Presented today on 08/23/2020, patient remains on high flow oxygen, she is on 15 L high flow and nonrebreather mask, and intermittently on BiPAP. O2 saturation remains marginal although she is on 100% FiO2. Her O2 saturation is ranging anywhere between 85-91%. In spite of all of this, the patient does not seem to be in distress. CBC today showed leukocytosis with WBC count of 20.8. Electrolytes are normal except for low potassium of 3.4. BUN is 24 and creatinine is 1.0. LDH was 528 C-reactive protein is 16. Patient is not making significant progress over the last 1 week. Chest x-ray continues to show bilateral confluent reticulonodular opacities consistent with COVID-19 infection. Reevaluated today on 08/24/2020, patient remains on the regular medical floor, however she her oxygen requirement remains high, patient is presently on BiPAP, 100% FiO2, O2 sats is 94% at best. She seems comfortable on BiPAP, not in distress, her blood pressure is 128/73, she has a low-grade temp of 99.4. Pulse is 94. ABC showed leukocytosis but improving WBC count of 17.1 hemoglobin is 11.1 electrolytes are normal renal profile is normal. LDH seems to be arising today at 1073, and C-reactive protein is 6.6. Pro-calcitonin is also up at 0.28. Blood cultures from 2 days ago remain negative. Patient had Agatha species in the urine. Patient received 1 dose of Diflucan by the admitting physician. Objective - Vital Signs Vital signs: Vital Signs Temp 99.4 F 08/24/20 14:00 Pulse 94 08/24/20 14:00 Resp 22 08/24/20 14:00 BP 128/73 08/24/20 14:00 Pulse Ox 94 L 08/24/20 14:00 Intake & Output 08/23/20 08/24/20 08/24/20 18:59 06:59 18:59 Output Total 350 Balance -350 Weight 83.5 kg 84 kg 84 kg Output: Urine 350 Other: Voiding Method Indwelling Catheter Indwelling Catheter Indwelling Catheter - Exam GENERAL EXAM: Alert, pleasant, 80-year-old white female on BiPAP at present 100% FiO2. HEAD: Normocephalic/atraumatic. HEENT: PERRLA, EOMI, nonicteric, no neck masses, no JVD, no stridor. CHEST: No chest wall deformity. Symmetrical expansion. LUNGS: Equal air entry with bibasilar crackles CVS: Regular rate and rhythm, normal S1 and S2, no gallops, no murmurs, no rubs ABDOMEN: Soft, nontender. No hepatosplenomegaly, normal bowel sounds, no guarding or rigidity. EXTREMITIES: No clubbing, no edema, no cyanosis, 2+ pulses and upper and lower extremities. MUSCULOSKELETAL: Muscle strength and tone normal. No deformities. Normal range of motion. SKIN: No rashes CENTRAL NERVOUS SYSTEM: Alert and oriented 3 focal deficits. PSYCHIATRIC: Normal mood affect and normal mental status examination. - Labs CBC & Chem 7: 08/24/20 06:20 08/24/20 06:20 Labs: Abnormal Lab Results - Last 24 Hours (Table) 08/23/20 08/24/20 08/24/20 Range/Units 20:06 06:20 06:20 WBC 17.10 H (4.50-10.00) X 10*3/uL RBC 3.59 L (4.10-5.20) X 10*6/uL Hgb 11.1 L (12.0-15.0) g/dL Hct 34.2 L (37.2-46.3) % Sodium 133 L (137-145) mmol/L Chloride 92 L (98-107) mmol/L Carbon Dioxide 38 H (22-30) mmol/L BUN 28 H (7-17) mg/dL Glucose 152 H (74-99) mg/dL POC Glucose (mg/dL) 117 H (75-99) mg/dL Lactate Dehydrogenase 1073 H (313-618) U/L C-Reactive Protein 6.6 H (<1.0) mg/dL 08/24/20 08/24/20 08/24/20 Range/Units 06:50 11:13 16:45 WBC (4.50-10.00) X 10*3/uL RBC (4.10-5.20) X 10*6/uL Hgb (12.0-15.0) g/dL Hct (37.2-46.3) % Sodium (137-145) mmol/L Chloride (98-107) mmol/L Carbon Dioxide (22-30) mmol/L BUN (7-17) mg/dL Glucose (74-99) mg/dL POC Glucose (mg/dL) 148 H 206 H 177 H (75-99) mg/dL Lactate Dehydrogenase (313-618) U/L C-Reactive Protein (<1.0) mg/dL Microbiology - Last 24 Hours (Table) 08/22/20 22:45 Urine Culture - Preliminary Urine,Clean Catch Yeast species 08/22/20 19:16 Blood Culture - Preliminary Blood No Growth after 24 hours 08/22/20 19:16 Blood Culture - Preliminary Blood No Growth after 24 hours Assessment and Plan Assessment: Impression: Acute hypoxic respiratory failure secondary to COVID-19 pneumonia as well as fluid volume overload and possible sepsis with acute lung injury/ARDS could be related to her sepsis or her COVID-19 pneumonia. Again her respiratory failure seems to be multifactorial. Sepsis secondary to E. coli urinary tract infection and bacteremia. Acute right pyelonephritis status post ureteral stent on 08/07/2020. Benign essential hypertension. Hypothyroidism. Acute kidney injury, resolved, most likely secondary to aggressive diuresis. Recommendation: Continue high flow oxygen and titrate accordingly, use BiPAP as needed. Continue Rocephin. Continue methylprednisolone 60 mg IV push every 6 hours. Continue the COVID-19 cocktail. Continue Lovenox 40 mg subcu twice a day. Continue Lasix 40 mg IV push twice a day. Continue levothyroxine. Continue incentive spirometer. Continue to follow inflammatory markers. Prognosis remains relatively guarded. We'll continue to follow Time with Patient: Less than 30
[2020-08-24] MEDS: ATORVASTATIN 40 MG TAB PO SCH (20:00)
[2020-08-24] MEDS: MELATONIN 5 MG TABLET PO SCH (20:00)
--- NOTE | 2020-08-24 20:07 | PN ---
PROGRESS NOTE Patient is seen for followup for acute kidney injury. Her renal function has improved. Patient also had hypernatremia and had developed volume overload. She had been receiving Lasix, as her respiratory status deteriorated. She has underlying COVID pneumonia as well. On examination today, patient is comfortable. She is maintained on BiPAP requiring 100% FiO2. Blood pressure 123/71, heart rate 95 per minute. She is afebrile. Examination shows no evidence of edema, lower extremities. Patient is awake. She has been confused at times. Labs show sodium 133, potassium 3.6, chloride 92. CO2 is 38, BUN 28, creatinine 1.04, hemoglobin 11.1 g/dL. ASSESSMENT: 1. Acute kidney injury, currently resolved. 2. Acute hypoxic respiratory failure secondary to COVID pneumonia. 3. Sepsis from Escherichia coli bacteremia and urinary tract infection. 4. Hypernatremia, currently improved. PLAN: Can continue off of diuretics. Will monitor on an as-needed basis for electrolyte imbalance. Sodium is on the lower side. 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 We will continue to monitor the serum sodium periodically. MMODL / IJN: [id number] /
[2020-08-24 20:42] LABS: Glucose,Whole Blood 153 mg/dL (75-99)
[2020-08-25 01:04] LABS: Ferritin 409.2 ng/mL (10.0-291.0)
[2020-08-25] MEDS: LEVOTHYROXINE 100 MCG TAB PO SCH (05:15)
[2020-08-25] MEDS: methylPREDNISolone SOD SUCCI 125 MG/2 ML VIAL IV SCH ×3 (05:15→17:03)
[2020-08-25] MEDS: ALBUTEROL HFA INHALER INHALATION SCH ×4 (07:15→19:59)
[2020-08-25 07:22] LABS: Glucose,Whole Blood 181 mg/dL (75-99)
[2020-08-25 08:28] LABS: African American GFR (CKD) 66 (>60 ml/min/1.73 sqM); Blood Urea Nitrogen 33 mg/dL (7-17); C Reactive Protein 4.1 mg/dL (<1.0); Calcium 8.9 mg/dL (8.4-10.2); Chloride 93 mmol/L (98-107); Glucose 176 mg/dL (74-99); LDH 1106 U/L (313-618); Magnesium 2.1 mg/dL (1.6-2.3); Non-African American GFR(CKD) 57 (>60 ml/min/1.73 sqM); Potassium 3.7 mmol/L (3.5-5.1); Sodium 135 mmol/L (137-145)
[2020-08-25 08:31] LABS: Anion Gap 3 mmol/L; Carbon Dioxide 39 mmol/L (22-30)
[2020-08-25] MEDS: ENOXAPARIN 40 MG/0.4 ML SYRINGE SQ SCH (08:55)
[2020-08-25] MEDS: LIDOCAINE 5% PATCH TOPICAL SCH (08:56)
[2020-08-25] MEDS: INSULIN ASPART (NovoLOG) 100 UNIT/ML VIAL SQ SCH ×4 (08:56→21:16)
[2020-08-25] MEDS: ASCORBIC ACID 500 MG TAB PO SCH (08:58)
[2020-08-25] MEDS: CHOLECALCIFEROL 25 MCG (1000 IU) TABLET PO SCH (08:58)
[2020-08-25] MEDS: amLODIPine 10 MG TAB PO SCH (08:58)
[2020-08-25] MEDS: LINAGLIPTIN 5 MG TABLET PO SCH (08:59)
[2020-08-25] MEDS: ZINC SULFATE 220 MG CAP PO SCH (08:59)
[2020-08-25] MEDS: PANTOPRAZOLE 40 MG TABLET PO SCH (08:59)
[2020-08-25] MEDS: SERTRALINE 100 MG TAB PO SCH (08:59)
--- NOTE | 2020-08-25 09:25 | P.PN ---
Subjective Progress Note Date: 08/25/20 Principal diagnosis: This is a 80 year old female seen in consultation initially with acute kidney injury and she is: Positive. Currently she is on 100% nonrebreather mask. Her creatinine is down to normal levels at 1. She has had Acute right pyelonephritis/hydronephrosis secondary to right UPJ calculus, status post right ureteral stent placement on 08/07/2020 Currently her vital signs are stable blood pressure is 110s to 140s systolic afebrile. Urine output 600 mL Objective - Vital Signs Vital signs: Vital Signs Temp 98.4 F 08/25/20 05:24 Pulse 91 08/25/20 05:24 Resp 21 08/25/20 03:47 BP 147/77 08/25/20 05:24 Pulse Ox 90 L 08/25/20 08:53 Intake & Output 08/24/20 08/25/20 08/25/20 18:59 06:59 18:59 Output Total 600 Balance -600 Weight 84 kg Output: Urine 600 Other: Voiding Method Indwelling Catheter Patient was seen from the doorway because of the colon with. Nurse was with me and there is no edema and Lung sounds with diminished air entry - Labs CBC & Chem 7: 08/24/20 06:20 08/25/20 07:30 Labs: Abnormal Lab Results - Last 24 Hours (Table) 08/24/20 08/24/20 08/24/20 Range/Units 06:20 06:20 11:13 WBC 17.10 H (4.50-10.00) X 10*3/uL RBC 3.59 L (4.10-5.20) X 10*6/uL Hgb 11.1 L (12.0-15.0) g/dL Hct 34.2 L (37.2-46.3) % Sodium (137-145) mmol/L Chloride (98-107) mmol/L Carbon Dioxide (22-30) mmol/L BUN (7-17) mg/dL Glucose (74-99) mg/dL POC Glucose (mg/dL) 206 H (75-99) mg/dL Ferritin 409.2 H (10.0-291.0) ng/mL Lactate Dehydrogenase (313-618) U/L C-Reactive Protein (<1.0) mg/dL 08/24/20 08/24/20 08/25/20 Range/Units 16:45 20:41 07:21 WBC (4.50-10.00) X 10*3/uL RBC (4.10-5.20) X 10*6/uL Hgb (12.0-15.0) g/dL Hct (37.2-46.3) % Sodium (137-145) mmol/L Chloride (98-107) mmol/L Carbon Dioxide (22-30) mmol/L BUN (7-17) mg/dL Glucose (74-99) mg/dL POC Glucose (mg/dL) 177 H 153 H 181 H (75-99) mg/dL Ferritin (10.0-291.0) ng/mL Lactate Dehydrogenase (313-618) U/L C-Reactive Protein (<1.0) mg/dL 08/25/20 Range/Units 07:30 WBC (4.50-10.00) X 10*3/uL RBC (4.10-5.20) X 10*6/uL Hgb (12.0-15.0) g/dL Hct (37.2-46.3) % Sodium 135 L (137-145) mmol/L Chloride 93 L (98-107) mmol/L Carbon Dioxide 39 H (22-30) mmol/L BUN 33 H (7-17) mg/dL Glucose 176 H (74-99) mg/dL POC Glucose (mg/dL) (75-99) mg/dL Ferritin (10.0-291.0) ng/mL Lactate Dehydrogenase 1106 H (313-618) U/L C-Reactive Protein 4.1 H (<1.0) mg/dL Microbiology - Last 24 Hours (Table) 08/22/20 19:16 Blood Culture - Preliminary Blood No Growth after 48 hours 08/22/20 19:16 Blood Culture - Preliminary Blood No Growth after 48 hours 08/22/20 22:45 Urine Culture - Final Urine,Clean Catch Agatha albicans Assessment and Plan Assessment: Impression 1. COVID-19 pneumonia. On 100% FiO2 with acute renal failure resolved creatinine is down to 0.96 this morning 2. Worsening metabolic alkalosis bicarb is now 39 as etiologies steroids and possibly respiratory acidosis with a compensatory metabolic alkalosis 3. Acute right pyelonephritis/hydronephrosis secondary to right UPJ calculus, status post right ureteral stent placement on 08/07/2020 Recommendation 1. Check blood gases and start her on Diamox if necessary based on blood gases. 2. Maintain strict I's and O's 3. Chest x-ray I will defer to the primary physician, last a 60 on 08/23/2020 showed bilateral extensive pneumonia
[2020-08-25 11:22] LABS: Glucose,Whole Blood 136 mg/dL (75-99)
[2020-08-25 11:42] LABS: VBG PH 7.51 (7.31-7.41)
[2020-08-25 12:12] LABS: Ferritin 479.7 ng/mL (10.0-291.0)
--- NOTE | 2020-08-25 12:16 | P.PN ---
Subjective Progress Note Date: 08/25/20 Principal diagnosis: sob Support increased with FiO2 now at 100%. Feeling hungry and thirsty as well, asking for food. No fevers or chills. Objective - Vital Signs Vital signs: Vital Signs Temp 97.9 F 08/25/20 10:00 Pulse 96 08/25/20 10:00 Resp 20 08/25/20 10:00 BP 141/93 08/25/20 10:00 Pulse Ox 94 L 08/25/20 10:00 Intake & Output 08/24/20 08/25/20 08/25/20 18:59 06:59 18:59 Output Total 600 Balance -600 Weight 84 kg Output: Urine 600 Other: Voiding Method Indwelling Catheter - Exam General: non toxic, vital signs stable. Patient in mild distress secondary to increased oxygen demands, patient appears very week and tired. Derm: warm, dry. Head: atraumatic, normocephalic, symmetric. Eyes: EOMI, no lid lag, anicteric sclera. Mouth: no lip lesion, mucus membranes dry. Cardiovascular: S1S2 normal, regular rate and regular rhythm, no gallop, murmur, or rub noted. Positive posterior tibial pulses bilaterally. Cap refill less than 2 seconds. Lungs: Respirations even, regular, and unlabored on BiPAP. Lungs with diffuse coarse crackles at bilateral bases. No accessory muscle use. GI/: Abdomen soft, nontender to palpation. No appreciable organomegaly. Ext: No gross muscle atrophy, minimal lower extremity edema, no contractures. Neuro: CN II-XI grossly intact, no focal neuro deficits. Psych: Alert, oriented, appropriate affect. - Labs CBC & Chem 7: 08/24/20 06:20 08/25/20 07:30 Labs: Abnormal Lab Results - Last 24 Hours (Table) 08/24/20 08/24/20 08/24/20 Range/Units 06:20 16:45 20:41 VBG pH (7.31-7.41) VBG HCO3 (24-28) mmol/L Sodium (137-145) mmol/L Chloride (98-107) mmol/L Carbon Dioxide (22-30) mmol/L BUN (7-17) mg/dL Glucose (74-99) mg/dL POC Glucose (mg/dL) 177 H 153 H (75-99) mg/dL Ferritin 409.2 H (10.0-291.0) ng/mL Lactate Dehydrogenase (313-618) U/L C-Reactive Protein (<1.0) mg/dL 08/25/20 08/25/20 08/25/20 Range/Units 07:21 07:30 11:03 VBG pH 7.51 H (7.31-7.41) VBG HCO3 36 H (24-28) mmol/L Sodium 135 L (137-145) mmol/L Chloride 93 L (98-107) mmol/L Carbon Dioxide 39 H (22-30) mmol/L BUN 33 H (7-17) mg/dL Glucose 176 H (74-99) mg/dL POC Glucose (mg/dL) 181 H (75-99) mg/dL Ferritin (10.0-291.0) ng/mL Lactate Dehydrogenase 1106 H (313-618) U/L C-Reactive Protein 4.1 H (<1.0) mg/dL 08/25/20 Range/Units 11:20 VBG pH (7.31-7.41) VBG HCO3 (24-28) mmol/L Sodium (137-145) mmol/L Chloride (98-107) mmol/L Carbon Dioxide (22-30) mmol/L BUN (7-17) mg/dL Glucose (74-99) mg/dL POC Glucose (mg/dL) 136 H (75-99) mg/dL Ferritin (10.0-291.0) ng/mL Lactate Dehydrogenase (313-618) U/L C-Reactive Protein (<1.0) mg/dL Microbiology - Last 24 Hours (Table) 08/22/20 19:16 Blood Culture - Preliminary Blood No Growth after 48 hours 08/22/20 19:16 Blood Culture - Preliminary Blood No Growth after 48 hours 08/22/20 22:45 Urine Culture - Final Urine,Clean Catch Agatha albicans Assessment and Plan Plan: Acute hypoxic respiratory failure resulting from Covid pneumonia -BiPAP. -Telemetry monitoring. -Continue Vitamin C, vitamin D, zinc, and melatonin -Encouraged Incentive Spirometry 10-15 times hourly while awake. -Continue Solu-Medrol 60 mg IVP every 6 hours, today is day 12 of steroids. -Pulmonology following, appreciate further recommendations. Severe sepsis secondary to E. coli bacteremia and acute cystitis -Urinalysis positive for turbid appearance positive for blood, leukocytes, 25 RBCs, >182 WBCs with WBC clumps and bacteria -Urine and blood culture positive for E. coli -Repeat urinalysis completed 08/22/20 positive for turbid appearance with l eukocytes, greater than 182 RBCs, greater than 182 WBCs, WBC clumps and bacteria and yeast. Patient placed back on Rocephin and given a one-time dose of Diflucan. -Repeat urine culture showing agatha. -Consult ID for duration of abx treatment Obstructive right ureteral stone resulting in severe hydronephrosis, patient is status post cystoscopy and insertion of ureteral stent on 08/07/20 -CT scan completed at [facility] prior to being transferred to our facility reportedly revealed an obstructive 6 mm kidney stone in the right UPJ causing severe right hydronephrosis. -Patient underwent cystoscopy and insertion of right ureteral stent on 08/07/20 -Nephrology following. Acute kidney injury secondary to obstructive uropathy and severe sepsis, resolved Hypokalemia, resolved Hypovolemic hypernatremia, resolved Hypertension -Monitor vital signs and continue daily medication management with amlodipine. Hold losartan due to TUTU. Hyperlipidemia -Continue daily home medication regimen with atorvastatin 40 mg nightly. Hypothyroidism -Continue daily medication regimen with Synthroid 100 g daily. CODE STATUS: Full code DVT prophylaxis: Heparin Discussed with: Patient and RN Anticipated discharge date: Clinical course to determine Anticipated discharge place: To be determined, likely SNF for rehab A total of 45 minutes was spent on the care of this complex patient more than 50% of the time was spent in counseling and care coordination.
[2020-08-25 16:39] LABS: Glucose,Whole Blood 175 mg/dL (75-99)
--- NOTE | 2020-08-25 16:57 | P.PN ---
Subjective Progress Note Date: 08/25/20 Principal diagnosis: Acute hypoxic respiratory johnson clear to acute fluid volume overload, sepsis, ARDS, and COVID-19 This is a pleasant 80-year-old female patient with a history of hyperlipidemia, hypertension, hypothyroidism, breast cancer who was originally admitted back on 08/06/2020 for right-sided abdominal/flank pain. On 08/13/2020, this 80-year-old male patient currently in the intensive care unit due to complication of a E. coli urine tract infection. The patient's presented with a flank/abdominal pain and the patient is known to have nephrolithiasis and the patient was found to have a right kidney hydronephrosis with chronic nephritis and moderate amount of perinephric urinary extravasation and a UPJ calculus. The patient is post cystoscopy and right ureteral stent placement on 08/07/2020. Cultures are positive for E. coli. The patient was aggressively resuscitated IV fluids. The patient developed an acute hypoxic respiratory failure requiring BiPAP for respiratory support. BiPAP is at a pressure of 12/6 cm of water and FiO2 is being titrated to maintain a saturation above 90%. Chest x-ray showed some cardiomegaly and diffuse interstitial infiltrates bilaterally. The patient accordingly was kept in intensive care unit. Note that his cold with 19 screening was negative. The patient developed an acute kidney injury with a high creatinine of 1.9 which is gradually improving. Less often also improved. He was given a combination of Rocephin and Zithromax. The echo of the heart showed a normal LV, his affect of around 55-60%, RV is mildly enlarged, the patient has mild to moderate pulmonary hypertension, PA pressure was is on IV Rocephin and Zithromax for now. The patient is on heparin subcu for DVT prophylaxis. The patient was started on Lasix 40 mg every 12 hours when the patient has been achieving a negative fluid balance. Fluid balance for 08/11/2020 was -2.9 L. The white cell count is improved. The pro calcitonin LE RINKU WAS HIGH 8.4. PROBNP LEVEL WAS 5930. The patient continues to be on Lasix 40 mg every 12 hours. Chest x-ray still showing diffuse bilateral pulmonary infiltrates right more than left and there is limited to Sutton change compared to yesterday's chest x-ray. I do suspect a component of ARDS secondary to E. coli septicemia. The blood work from today shows a sodium level of 147, potassium is to be replaced at 3.3, creatinine is at 1.3 with a BUN of 46. The net fluid balance over the past 24 hours has been -1.7 L. Despite the negative fluid balance, the patient continues to have diffuse bilateral pulmonary infiltrates. On today's evaluation of 08/14/2020, I'm seeing the patient for a follow-up. This is a case of urine checked infection with sepsis with E. coli. The patient also developed ARDS. The patient was getting also progressively more restless and agitated and confused yesterday. She was started on Precedex which is currently running at 0.4 g per/ kg/r minute. Meanwhile, the patient remains on BiPAP which is currently at a pressure of 12/6 cm of water with an FiO2 of 90%. The chest x-ray from today is still showing some limited infiltration yet the overall x-ray findings are probably improved compared to yesterday. The patient was switched yesterday to IV Zosyn covering for gram-negative UTI and possible aspiration. Echocardiogram was within normal limits and the patient has a preserved LV function. The patient remains on Lasix. The net fluid balance over the past 24 hours has been -1.6 L and the patient continues to be a negative fluid balance. On her blood work from today, the patient has a white cell count of 13 with a hemoglobin of 12.7, the patient's sodium level is up to 151 and I think the diuretics can be slowed down and the patient has a BUN of 64 with a creatinine of 1.5 and a serum bicarbs at 35. The most recent pro calcitonin level was 8.4. The patient is urinating a tidal volume of 350. Respiratory rate currently is in the mid 30s even while being on a BiPAP. She does have some coarse crackles in lung bases bilaterally. On today's evaluation of 08/15/2020, the patient is essentially unchanged compared to yesterday. She remains on a BiPAP at a pressure of 12/6 cm of water with an FiO2 of 90%. She is very much BiPAP dependent. The new information is that the third sample of COVID 19 PCR came back positive and the patient is most likely positive for colitis after having 2 T are negative. The patient is arou sable and she is awake. Her chest x-ray is showing diffuse bilateral pulmonary infiltrates with some limited improvement in the right side on today's chest x- ray. Meanwhile, the patient remains on D5 water to replace her free water deficit. The patient's sodium today is at 152 with a BUN of 55 and a creatinine of 1.6. Her LDH from yesterday was 1294 and CRP level was 76. Her progress. Obviously declining is down to 1.4. The patient remains on broad-spectrum antibiotics and she is currently on IV Zosyn. In terms of sedation, the patient is on 0.4 mcg/kg/h of Precedex to maintain synchrony with the mechanical ventilator and control her agitation.The PICC line was ordered for this patient for today. Otherwise, the patient is on IV Solu-Medrol and the patient will be also placed on Lovenox 40 mg subcu every 24 hours for DVT prophylaxis. D-dimer is at 2.91. 08/16/2020 the patient is being seen for a follow-up. I am least associated the patient has been off the BiPAP since yesterday evening and currently she is on oxygen at 15 L nasal cannula. She is breathing comfortably and she is not having any significant respiratory distress. He is also able to communicate. She was able to take some pills and water yesterday. She remains considerably weak. The chest x-ray still showing diffuse bilateral pulmonary infiltrates and my suspicion was that the patient's had a component of ARDS. I further checked her nasal swab for COVID-19 and she do not to be positive. However, the patient was infected with coronavirus back in March 2020 and this is quite unusual for her to be positive again. Note that her COVID-19 antibodies were also positive. No headache, she is on IV Solu-Medrol. She is receiving Solu Medrol 60 mg IV every 6 hours. She is also well diuresed and I'm awaiting her follow- up renal function. Note that the diuretics were held yesterday because of de velopment of an acute kidney injury secondary to diuresis. For now, the patient is hemodynamically stable. No hypotension. Blood sugars are under adequate. The patient has a PICC line. I am inclined to stop the TPN and proceed with oral intake and this is diet as tolerated. A bedside swallow evaluation will be done. She remains on Lovenox 30 mg subcu for prophylaxis. She is on D5 water at the rate of 150 mL an hour and the follow-up sodium level is pending for now. The follow-up level was 145 from yesterday and the D5 water rate was reduced to 100 mL/hr he had noted the patient is also taken off the Precedex for now. She is alert and communicating. She is also appropriate. 08/17/2020, the patient is outside the intensive care unit and she is currently on a medical floor, telemetry unit. She is doing well and she is laying down on her side and she is quite comfortable on 10 L of oxygen by nasal cannula. She continues to have some crackles in the lung bases. Nevertheless, she is off the BiPAP which is breathing very comfortably. As mentioned earlier, there was a suspicion that the patient may have a sepsis induced ARDS. At the same time, the patient checked positive for COVID-19 that this has been an ongoing problem knowing that the patient was urgently diagnosed back in March 2020. No new complaints for now. She hasn't adequate urine output. She remains on IV Zosyn. She is afebrile. She is on Lovenox for DVT prophylaxis 40 mg subcu every 12 hours. She remains on IV Solu Medrol 60 mg every 6 hours. Also, she has a white cell count of 29, creatinine is at 1, electrolytes are normal. 08/18/2020, the patient remains on a telemetry unit. I'm seeing her today on follow-up. She is post ARDS related to an underlying septic event. I see her laying down comfortably in bed. It looks like the patient's oxygen requirements have gone up again and she is currently up to 15 L of oxygen by nasal cannula.FiO2 was increased as of 1 AM this morning. He bicycles of 26, electrolytes are normal, BUN is 42 with a creatinine of 0.9. Repeat chest x-ray was done and it shows some cardiomegaly and some vague interstitial infiltrates bilaterally consistent with ARDS or post covert infection. They'll function is stable and currently is down to 0.9. She is on IV Zosyn. She is off diuretics for now. She remains on Lovenox 40 mg subcu on a daily basis. On 08/19/2020, the patient remains on 10 L of oxygen by nasal cannula. We were unable to wean it off any further. She is otherwise quite stable and resting comfortably in bed. As mentioned earlier, this is a case of E. coli sepsis with secondary acute lung injury/ARDS. She was on BiPAP in the ICU and she was weaned down to 10 L of oxygen by nasal cannula. She has had previous history of remote COVID-19 associated pneumonia. She remains on IV Zosyn. She is also on steroids in the patient is currently on prednisone 40 mg by mouth daily and IV Solu Medrol was discontinued yesterday. Afebrile. Tolerating diet and she is taking approximately 25% of her oral diet. She is still very weak. Oral intake is diminished. She is not using incentive spirometer. On 08/20/2000 patient seen in follow-up on medical surgical floor. She is sitting up in a chair, she continues to be on 8 L of oxygen, her pulse ox is 93%, the problem be weaned further, hemodynamically she has been stable, she has been afebrile, appears weak, and she has not been using the incentive spirometer. Patient's chest x- ray today shows slight worsening in bilateral airspace disease. Today's labs show improving white blood cell count is down to 18.3, hemoglobin is 12.5, d- dimer is down slightly and is at 4.0, potassium is 3.4, Darvocet x-rays were unremarkable, B1 is 20, creatinine 0.9, intrinsic renal profile has improved from a couple days ago. LDH improving and is down to 381, from 720, and CRP is 9.1. No nausea vomiting or diarrhea, her oral intake is poor, she has no appetite. She remains on Zosyn, and her blood and urine cultures showed E. coli with cabezas sensitivity. And she remains on prednisone 40 mg daily, she did receive a dose of Lasix per nephrology, and she remains on Polyvitamin sent and Lovenox 40 mg daily On 08/22/2020 patient is seen in follow-up on medical surgical floor, she is more short of breath today, and she required to be placed on irritable currently at 60 L and FiO2 of 90%. Appears to be more lethargic on today's exam, today's chest x-ray shows bilateral airspace disease without significant change compared to previous chest x-ray. Patient has been afebrile, hemodynamically patient has been stable, no chest pain, no increased cough or congestion, her white blood cell count is 23.9, hemoglobin is 12.8, sodium is 136, potassium is 3.5, chloride is 97, CO2 36, BUN is 19, creatinine is 0.93. Earlier today Lasix was given, and patient has produced a total of 1400 on this shift, although exact net fluid balance is difficult to estimate, urine color appears to be quite turbid, and appears to be infected. On 08/25/2000 patient seen in follow-up on medical surgical floor, she is resting in bed, remains on BiPAP support, currently with pressures of 14/6, and FiO2 of 100%, and her pulse ox is 90-94%, she appears weak, but does not appear to be in any respiratory distress, she is afebrile, hemodynamically she is stable, her last chest x-ray from 08/23/2020 showed predominantly confluent reticulonodular opacities that were not significantly changed from most recent chest x-ray. Venous blood gas was reviewed. Today's labs have been reviewed. Currently the patient is Solu-Medrol 60 mg every 6 hours, twice daily dose of Lovenox 40 mg, she is on empiric antibiotics in the form of Rocephin, most recent blood culture showed Agatha albicans, blood cultures have been negative. This had no fever or chills. Patient has not been able to take in anything by mouth, related to being BiPAP Objective - Vital Signs Vital signs: Vital Signs Temp 98.4 F 08/25/20 14:00 Pulse 96 08/25/20 14:00 Resp 22 08/25/20 14:00 BP 149/76 08/25/20 14:00 Pulse Ox 93 L 08/25/20 16:03 Intake & Output 08/24/20 08/25/20 08/25/20 18:59 06:59 18:59 Output Total 600 Balance -600 Weight 84 kg Output: Urine 600 Other: Voiding Method Indwelling Catheter Indwelling Catheter - Exam GENERAL EXAM: Lethargic 80-year-old white female on BiPAP support HEAD: Normocephalic/atraumatic. EYES: Normal reaction of pupils, equal size. Conjunctiva pink, sclera white. NOSE: Clear with pink turbinates. THROAT: No erythema or exudates. NECK: No masses, no JVD, no thyroid enlargement, no adenopathy. CHEST: No chest wall deformity. Symmetrical expansion. LUNGS: Equal air entry with bibasilar crackles CVS: Regular rate and rhythm, normal S1 and S2, no gallops, no murmurs, no rubs ABDOMEN: Soft, nontender. No hepatosplenomegaly, normal bowel sounds, no guarding or rigidity. EXTREMITIES: No clubbing, no edema, no cyanosis, 2+ pulses and upper and lower extremities. MUSCULOSKELETAL: Muscle strength and tone normal. SPINE: No scoliosis or deformity SKIN: No rashes CENTRAL NERVOUS SYSTEM: Lethargic, elderly female, currently on Airvo No focal deficits, tone is normal in all 4 extremities. - Labs CBC & Chem 7: 08/24/20 06:20 08/25/20 07:30 Labs: Abnormal Lab Results - Last 24 Hours (Table) 08/24/20 08/24/20 08/24/20 Range/Units 06:20 16:45 20:41 VBG pH (7.31-7.41) VBG HCO3 (24-28) mmol/L Sodium (137-145) mmol/L Chloride (98-107) mmol/L Carbon Dioxide (22-30) mmol/L BUN (7-17) mg/dL Glucose (74-99) mg/dL POC Glucose (mg/dL) 177 H 153 H (75-99) mg/dL Ferritin 409.2 H (10.0-291.0) ng/mL Lactate Dehydrogenase (313-618) U/L C-Reactive Protein (<1.0) mg/dL 08/25/20 08/25/20 08/25/20 Range/Units 07:21 07:30 11:03 VBG pH 7.51 H (7.31-7.41) VBG HCO3 36 H (24-28) mmol/L Sodium 135 L (137-145) mmol/L Chloride 93 L (98-107) mmol/L Carbon Dioxide 39 H (22-30) mmol/L BUN 33 H (7-17) mg/dL Glucose 176 H (74-99) mg/dL POC Glucose (mg/dL) 181 H (75-99) mg/dL Ferritin 479.7 H (10.0-291.0) ng/mL Lactate Dehydrogenase 1106 H (313-618) U/L C-Reactive Protein 4.1 H (<1.0) mg/dL 08/25/20 08/25/20 Range/Units 11:20 16:36 VBG pH (7.31-7.41) VBG HCO3 (24-28) mmol/L Sodium (137-145) mmol/L Chloride (98-107) mmol/L Carbon Dioxide (22-30) mmol/L BUN (7-17) mg/dL Glucose (74-99) mg/dL POC Glucose (mg/dL) 136 H 175 H (75-99) mg/dL Ferritin (10.0-291.0) ng/mL Lactate Dehydrogenase (313-618) U/L C-Reactive Protein (<1.0) mg/dL Microbiology - Last 24 Hours (Table) 08/22/20 19:16 Blood Culture - Preliminary Blood No Growth after 48 hours 08/22/20 19:16 Blood Culture - Preliminary Blood No Growth after 48 hours 08/22/20 22:45 Urine Culture - Final Urine,Clean Catch Agatha albicans Assessment and Plan Plan: 1 Acute hypoxemic respiratory failure secondary to acute fluid volume overload versus sepsis induced acute lung injury/ARDS. The less, further testing showed that the patient was positive for COVID 19 with an elevated LDH level and CRP and it's likely the patient's respiratory failure is multifactorial. Clinically improved. The patient is currently on IV Solu-Medrol. The patient is currently down to 10 L of oxygen by nasal cannula. She is still showing tach in the lung bases bilaterally. I'm going to repeat the chest x-ray. My impression is post septic ARDS/acute lung injury. COVID-19 infection was back in March 2020. Still on 10 L. 2 Sepsis secondary to bacteremia from E. coli 3 Acute urinary tract infection secondary to E. coli 4 Acute right pyelonephritis/hydronephrosis secondary to right UPJ calculus, status post right ureteral stent placement on 08/07/2020 5 History of hypertension 6 Hyperlipidemia 7 Hypothyroidism 8 acute kidney injury secondary to diuresis, improvement in the patient's creatinine is down to 1 9 hyperchloremic hypernatremia secondary to diuresis, normal 10 history of COVID 19 related infection in 2019 11 leukocytosis, improving Plan: Give the patient a trial on Airvo, to see if she tolerates it and can maintain her O2 saturations at or around 90% If does well on Airvo may offer oral diet Patient is unable to maintain adequate saturations on Airvo, and requires to be placed back on BiPAP, TPN will need to be considered Continue Solu-Medrol, obtain follow-up d-dimer for tomorrow, and follow-up chest x-ray I performed a history & physical examination of the patient and discussed their management with my nurse practitioner, Nora Cabral. I reviewed the nurse practitioner's note and agree with the documented findings and plan of care. Lung sounds are positive for bibasilar rales. The findings and the impression was discussed with the patient. I attest to the documentation by the nurse practitioner. Time with Patient: Less than 30
[2020-08-25 20:13] LABS: Glucose,Whole Blood 229 mg/dL (75-99)
[2020-08-25] MEDS: ACETAMINOPHEN TAB 325 MG TAB PO PRN (21:14)
[2020-08-25] MEDS: MELATONIN 5 MG TABLET PO SCH (21:16)
[2020-08-25] MEDS: ATORVASTATIN 40 MG TAB PO SCH (21:16)
[2020-08-25] MEDS: SIMETHICONE 80 MG CHEWABLE PO PRN (22:00)
--- NOTE | 2020-08-26 00:25 | CONS ---
CONSULTATION DATE OF SERVICE: 08/25/2020 REASON FOR CONSULTATION: Antibiotic duration. HISTORY OF PRESENT ILLNESS: The patient is a 80-year-old female presenting to [facility] about 3 weeks ago on the August 06, 2020 for evaluation of sudden onset of lower back pain radiating from one flank to the other, started suddenly today and rating the pain to be almost 8 out of 10 in severity, sharp quality characteristics. The patient did have decreased urine output. Normal incontinent of urine. The patient did have a CT of abdomen and pelvis with evidence of 6 mm right UPJ stone causing right- sided hydronephrosis. Patient has been evaluated by Urology. Patient is status post cystoscopy and right ureteral stent placement. Patient on admission to the hospital did have a fever of 101 degrees Fahrenheit. However, the patient has been afebrile since then. The patient did have a white count of 37.0 on admission that came down to 13,000 on August 14. However, the white count has been trending up and down since then. The patient did have a blood and urine culture positive for E coli that is a sensitive pathogen. The patient has been treated with Rocephin from August 06 until August 13. On August 13, antibiotic was switched over to Zosyn by finisher tailor apprentice and subsequently has been switched back to Rocephin on the August 23. Infectious disease was consulted today by the hospitalist with a question of duration of antibiotic therapy as the patient has been here for almost 3 weeks now. During this hospital stay, the patient did acquire Covid as the patient did have negative Covid test on August 07 and August 10. However, the patient antibiotic checked on the same also came back positive. The patient is currently being managed by Pulmonary for underlying Covid in this patient who did have initial improvement in her symptomatology, however, seemed to be worsening for the last few days as per the nursing staff. The patient is currently on a BiPAP dependent. The patient was awake, alert, and did provide some history. She has been complaining of shortness of breath. Did have some cough. No vomiting. No abdominal pain or diarrhea. REVIEW OF SYSTEMS: Positive points have been mentioned in HPI. Rest of systems are negative. PAST MEDICAL HISTORY: Hypertension, hyperlipidemia, hypothyroidism, history of breast cancer. PAST SURGICAL HISTORY: Back surgery . SOCIAL HISTORY: Negative smoking, drinking or drug use. FAMILY HISTORY: No pertinent findings noticed. ALLERGIES: No known drug allergies. MEDICATIONS: The patient is currently on Tylenol, Ventolin, Norvasc, vitamin C, Lipitor, Rocephin 1 g daily, she is on vitamin D3, NovoLog, Lovenox, Solu-Medrol, melatonin, Narcan, Zofran, Protonix and Zoloft and zinc sulfate. PHYSICAL EXAMINATION: Blood pressure is 149/76, pulse of 93, temperature 98.4. She is 94% on BiPAP. General description is an elderly female lying in bed in no distress. HEENT: Examination: No pallor or scleral icterus. Oral mucous membranes dry. LUNGS: Unlabored breathing. Coarse breath sounds bilaterally. No wheeze. HEART S1, S2. Regular rate and rhythm. ABDOMEN: Soft, no tenderness. No guarding. No rigidity. EXTREMITIES: No edema of the feet. SKIN: No rash or mass palpable. NEUROLOGICAL: Patient is awake, alert, oriented times three. Mood and affect normal. LABS: Hemoglobin 14.1, white count 14.5. BUN of 33, creatinine 0.96, LDH 1106. CRP is 4.1, was 8.73 on August 10, now is down to 0.28 on August 22. Last chest x-ray done on August 23, the patient consistent with COVID-19 infection. DIAGNOSTIC IMPRESSION/PLAN: 1. Patient with E coli bacteremia secondary to urinary source in this patient who did have a complicated urinary tract infection with right ureteral stent status post right ureteral stent placement. The patient has received almost 19 days of antibiotic for her bacteremia that should be more than enough and will be discontinued. 2. Patient with COVID-19 infection with underlying , clinically not behaving as pneumonia though will be monitored closely. 3. Elevated white count more likely related to steroid. PLAN: 1. Recommend to discontinue the Rocephin. 2. Check a procalcitonin level. Repeat chest x-ray inflammatory marker. 3. Continue with Lovenox, ascorbic acid, zinc for underlying Covid infection. 4. We will follow on clinical condition to further adjust medication if needed. Thank you for this consultation. Will follow the patient along with you. MMODL / IJN: [id number] / VIPUL
[2020-08-26] MEDS: methylPREDNISolone SOD SUCCI 125 MG/2 ML VIAL IV SCH ×5 (00:47→23:42)
[2020-08-26] MEDS: LEVOTHYROXINE 100 MCG TAB PO SCH (05:43)
[2020-08-26 06:55] LABS: Glucose,Whole Blood 264 mg/dL (75-99)
[2020-08-26] MEDS: ALBUTEROL HFA INHALER INHALATION SCH ×4 (07:28→20:53)
--- NOTE | 2020-08-26 07:41 | XR ---
EXAMINATION TYPE: XR chest 1V portable DATE OF EXAM: 08/26/2020 COMPARISON: Chest x-ray 08/23/2020 HISTORY: Pneumonia TECHNIQUE: Single frontal view of the chest is obtained. FINDINGS: Bilateral groundglass opacity, prominence of interstitium, airspace disease is again noted . Cardiac mediastinal silhouette shows a stable appearance, heart not well evaluated. Surgical clips present in the upper abdomen. There is no evident pneumothorax, difficult to exclude effusion. There is deviation of the trachea toward the right. Right-sided PICC line shows the distal tip overlying th e right innominate vein region. IMPRESSION: Findings consistent with patient's history of pneumonia, follow-up
[2020-08-26 08:04] LABS: Basophils % (A) 0 %; Eosinophils % (A) 0 %; HCT 34.7 % (34.0-46.0); HGB 11.7 gm/dL (11.4-16.0); Lymphocytes # (A) 0.2 k/uL (1.0-4.8); Lymphocytes % (A) 1 %; MCH 31.7 pg (25.0-35.0); MCHC 33.8 g/dL (31.0-37.0); MCV 93.7 fL (80.0-100.0); Mean Platelet Volume 7.2; Monocytes # (A) 0.4 k/uL (0-1.0); Monocytes % (A) 2 %; Neutrophils # (A) 24.3 k/uL (1.3-7.7); Neutrophils % (A) 97 %; Platelet Count 399 k/uL (150-450); RDW 13.3 % (11.5-15.5)
[2020-08-26] MEDS: SERTRALINE 100 MG TAB PO SCH (09:00)
[2020-08-26] MEDS: ACETAMINOPHEN TAB 325 MG TAB PO PRN ×2 (09:00→18:15)
[2020-08-26] MEDS: ENOXAPARIN 40 MG/0.4 ML SYRINGE SQ SCH (09:00)
[2020-08-26] MEDS: CHOLECALCIFEROL 25 MCG (1000 IU) TABLET PO SCH (09:00)
[2020-08-26] MEDS: PANTOPRAZOLE 40 MG TABLET PO SCH (09:00)
[2020-08-26] MEDS: ASCORBIC ACID 500 MG TAB PO SCH (09:00)
[2020-08-26] MEDS: ZINC SULFATE 220 MG CAP PO SCH (09:00)
[2020-08-26] MEDS: amLODIPine 10 MG TAB PO SCH (09:01)
[2020-08-26] MEDS: LIDOCAINE 5% PATCH TOPICAL SCH (09:01)
[2020-08-26] MEDS: INSULIN ASPART (NovoLOG) 100 UNIT/ML VIAL SQ SCH ×4 (09:01→20:43)
[2020-08-26 11:16] LABS: ALT 18 U/L (4-34); AST 28 U/L (14-36); African American GFR (CKD) 64 (>60 ml/min/1.73 sqM); Albumin 2.7 g/dL (3.5-5.0); Alkaline Phosphatase 113 U/L (38-126); Anion Gap 4 mmol/L; Blood Urea Nitrogen 33 mg/dL (7-17); C Reactive Protein 3.2 mg/dL (<1.0); Calcium 8.7 mg/dL (8.4-10.2); Carbon Dioxide 38 mmol/L (22-30); Chloride 95 mmol/L (98-107); Globulin 2.8 g/dL; Glucose 216 mg/dL (74-99); LDH 1013 U/L (313-618); Non-African American GFR(CKD) 55 (>60 ml/min/1.73 sqM); Potassium 4.1 mmol/L (3.5-5.1); Sodium 137 mmol/L (137-145); Total Bilirubin 0.5 mg/dL (0.2-1.3); Total Protein 5.5 g/dL (6.3-8.2)
[2020-08-26 11:55] LABS: Glucose,Whole Blood 180 mg/dL (75-99)
[2020-08-26] MEDS ORDERED: FLUCONAZOLE 100 MG TAB PO ONE (12:45)
--- NOTE | 2020-08-26 13:21 | P.PN ---
Subjective Progress Note Date: 08/26/20 Principal diagnosis: This is a 80 year old female seen in consultation initially with acute kidney injury and she is Covid Positive. Currently she is on 100% nonrebreather mask. Her creatinine is down to normal levels at 0.98. She has had Acute right pyelonephritis/hydronephrosis secondary to right UPJ calculus, status post right ureteral stent placement on 08/07/2020 Currently her vital signs are stable blood pressure is 130 to 140s systolic afebrile. Urine output 600 mL Objective - Vital Signs Vital signs: Vital Signs Temp 98.1 F 08/26/20 10:00 Pulse 95 08/26/20 10:00 Resp 18 08/26/20 10:00 BP 146/75 08/26/20 10:00 Pulse Ox 98 08/26/20 10:00 Intake & Output 08/25/20 08/26/20 08/26/20 18:59 06:59 18:59 Intake Total 120 Output Total 500 Balance 120 -500 Intake: Oral 120 Output: Urine 500 Other: Voiding Method Indwelling Catheter Indwelling Catheter # Voids 200 He was examined from the - Labs CBC & Chem 7: 08/26/20 06:45 08/26/20 06:45 Labs: Abnormal Lab Results - Last 24 Hours (Table) 08/25/20 08/25/20 08/26/20 Range/Units 16:36 20:10 06:45 WBC (3.8-10.6) k/uL RBC (3.80-5.40) m/uL Neutrophils # (1.3-7.7) k/uL Lymphocytes # (1.0-4.8) k/uL D-Dimer (<0.60) mg/L FEU Chloride (98-107) mmol/L Carbon Dioxide (22-30) mmol/L BUN (7-17) mg/dL Glucose (74-99) mg/dL POC Glucose (mg/dL) 175 H 229 H (75-99) mg/dL Lactate Dehydrogenase (313-618) U/L C-Reactive Protein (<1.0) mg/dL Total Protein (6.3-8.2) g/dL Albumin (3.5-5.0) g/dL Procalcitonin 0.11 H (0.02-0.09) ng/mL 08/26/20 08/26/20 08/26/20 Range/Units 06:45 06:45 06:45 WBC 25.0 H (3.8-10.6) k/uL RBC 3.70 L (3.80-5.40) m/uL Neutrophils # 24.3 H (1.3-7.7) k/uL Lymphocytes # 0.2 L (1.0-4.8) k/uL D-Dimer 1.55 H (<0.60) mg/L FEU Chloride 95 L (98-107) mmol/L Carbon Dioxide 38 H (22-30) mmol/L BUN 33 H (7-17) mg/dL Glucose 216 H (74-99) mg/dL POC Glucose (mg/dL) (75-99) mg/dL Lactate Dehydrogenase 1013 H (313-618) U/L C-Reactive Protein 3.2 H (<1.0) mg/dL Total Protein 5.5 L (6.3-8.2) g/dL Albumin 2.7 L (3.5-5.0) g/dL Procalcitonin (0.02-0.09) ng/mL 08/26/20 08/26/20 Range/Units 06:54 11:54 WBC (3.8-10.6) k/uL RBC (3.80-5.40) m/uL Neutrophils # (1.3-7.7) k/uL Lymphocytes # (1.0-4.8) k/uL D-Dimer (<0.60) mg/L FEU Chloride (98-107) mmol/L Carbon Dioxide (22-30) mmol/L BUN (7-17) mg/dL Glucose (74-99) mg/dL POC Glucose (mg/dL) 264 H 180 H (75-99) mg/dL Lactate Dehydrogenase (313-618) U/L C-Reactive Protein (<1.0) mg/dL Total Protein (6.3-8.2) g/dL Albumin (3.5-5.0) g/dL Procalcitonin (0.02-0.09) ng/mL Microbiology - Last 24 Hours (Table) 08/22/20 19:16 Blood Culture - Preliminary Blood No Growth after 72 hours 08/22/20 19:16 Blood Culture - Preliminary Blood No Growth after 72 hours Assessment and Plan Assessment: Impression 1. COVID-19 pneumonia. On 100% FiO2 with acute renal failure resolved creatinine is down to 0.98 this morning 2. Worsening metabolic alkalosis bicarb is now 39> 38, etiologies steroids. Venous pH is 7.51 and pCO2 is 46. 3. Acute right pyelonephritis/hydronephrosis secondary to right UPJ calculus, status post right ureteral stent placement on 08/07/2020 Recommendation 1. Will watch her bicarb is continues to go up he may give her small doses of Diamox. . 2. Maintain strict I's and O's 3. Chest x-ray I will defer to the primary physician, last cxr on 08/23/2020 showed bilateral extensive pneumonia
--- NOTE | 2020-08-26 14:52 | P.PN ---
Subjective Progress Note Date: 08/26/20 This is a pleasant 80-year-old female patient with a history of hyperlipidemia, hypertension, hypothyroidism, breast cancer who was originally admitted back on 08/06/2020 for right-sided abdominal/flank pain. She does have a history of kidney stones and a computed tomography scan showed severe right hydr onephrosis/polynephritis with moderate paranephric urinary extravasation due to a 4.7 x 6.1 mm right UPJ calculus. She had subsequently undergone cystoscopy and right ureteral stent placement on 08/07/2020. Urine culture positive for E. coli. Blood cultures positive for E. coli. She had been treated for sepsis with excess fluid resuscitation and today developed worsening shortness of breath and hypoxemia. And 18 was called she was placed on 12 L high flow nasal cannula with saturations at 88%. Arterial blood gases revealed a PaO2 of 56%, pCO2 43, pH 7.38 on 65% FiO2. She was transferred to the selective care unit, placed on BiPAP 10/5 with 80% FiO2. She had received Lasix 40 mg 2 in the past 24 hours. She is seen today in consultation on the selective care unit. She remains on BiPAP 10/5 and 80% FiO2. O2 saturations currently 84%. FiO2 is increased to 100%. She is given additional Lasix 40 mg IVP. Chest x-ray revealed stable cardiomegaly with continued perihilar and upper and midlung airspace disease, slightly worsened on the left. White count 13.3. Hemoglobin 12.1. Sodium 136. Potassium 3.7. Creatinine 1.34. ProBNP 5930. Theodore virus screen negative. She is on DuoNeb inhalations and antibiotics in the form of ceftriaxone and azithromycin. Heparin for DVT prophylaxis, Protonix for GI prophylaxis. The patient is seen today 08/11/2020 follow-up. She continues to do poorly from the pulmonary standpoint. She remains on BiPAP 12/6 in the 100% FiO2 to vanesa ntain O2 saturations at 90. She is restless, confused. She is obeying commands. She remains oriented 3. ABGs revealed a PaO2 of 68, pCO2 of 58 and a pH of 7.34 on 100% FiO2. White count 14.5. Hemoglobin 14.7. Platelet count 115,000. D-dimer 3.38. Sodium 139. Potassium 3.9. Creatinine 1.20. Pro calcitonin 8.43. Urine and blood cultures positive for E. coli. She remains on azithromycin, ceftriaxone. Continued on bronchodilators. Lasix 40 mg mg every 12 hours. She remains in a negative balance. Echocardiogram revealed preserved left ventricular systolic function with ejection fraction 55-60%. The plan is to transfer her to the intensive care unit for closer monitoring. The patient is seen today 08/12/2020 in follow-up in the intensive care unit. She was transferred here last evening due to worsening shortness of breath and hypoxemia. Her CoVID 19 screen was negative. She is currently on BiPAP 12/6 and 100% FiO2 maintaining O2 saturations in the mid to upper 80s. Arterial blood gases reveal a pO2 of 69, pCO2 55, pH 7.39. She is in mild respiratory distress. She slightly tachycardic, tachypneic. Temperature 99.1 axillary. Chest x-ray continues to show increased interstitial opacities, bibasilar opacities, cardiomegaly. Blood and urine cultures positive for E. coli. White count 14.3. Hemoglobin 13.8. Lymphocytes 0.3. Sodium 143. Potassium 2.8. BUN 33. Creatinine 1.41. Glucose 127. She remains on bronchodilators, IV diuretics, antibiotics in the form of ceftriaxone and azithromycin. Potassium is being replaced. The patient is seen today 08/26/2020 in follow-up on the regular medical floor. She has been slow to progress. She is still requiring 60 liters and 90% FiO2 while wearing the AirVo. She is also utilizing the BiPAP intermittently at 14/6 and 100% FiO2. Chest x-ray continues to revealed bilateral groundglass opacities, prominence of interstitium, airspace disease. PICC line in the right upper extremity remains in place. Follow-up urine culture reveals Agatha only. Previous culture positive for E. coli. Blood cultures reveal no growth. Sputum culture with Agatha only. White count 25.0. Hemoglobin 11.7. Lymphocy herbie 0.2. D-dimer 1.55. Sodium 137. Potassium 4.1. Creatinine 0.98. LDH 1013. C-reactive protein 3.2. Pro calcitonin 0.11. She remains on IV Solu- Medrol, bronchodilators. Lovenox, vitamin supplements. Objective - Vital Signs Vital signs: Vital Signs Temp 98.1 F 04/25/21 10:00 Pulse 95 08/26/20 10:00 Resp 18 08/26/20 10:00 BP 146/75 08/26/20 10:00 Pulse Ox 98 08/26/20 10:00 Intake & Output 08/25/20 08/26/20 08/26/20 18:59 06:59 18:59 Intake Total 120 Output Total 500 Balance 120 -500 Intake: Oral 120 Output: Urine 500 Other: Voiding Method Indwelling Catheter Indwelling Catheter # Voids 200 - Exam GENERAL EXAM: Alert, pleasant 80-year-old female patient, on BiPAP 04/08 at 100% FiO2 alternating with airflow 60 L and 90% FiO2, and mild respiratory distress. HEAD: Normocephalic. EYES: Normal reaction of pupils, equal size. NOSE: Clear with pink turbinates. THROAT: No erythema or exudates. NECK: No masses, no JVD. CHEST: No chest wall deformity. LUNGS: Equal air entry with crackles in the bilateral posterior bases. CVS: S1 and S2 normal with no audible murmur, regular rhythm. Tachycardic. ABDOMEN: No hepatosplenomegaly, normal bowel sounds, no guarding or rigidity. SPINE: No scoliosis or deformity SKIN: No rashes CENTRAL NERVOUS SYSTEM: No focal deficits, tone is normal in all 4 extremities. EXTREMITIES: There is no peripheral edema. No clubbing, no cyanosis. Peripheral pulses are intact. - Labs CBC & Chem 7: 08/26/20 06:45 08/26/20 06:45 Labs: Abnormal Lab Results - Last 24 Hours (Table) 08/25/20 08/25/20 08/26/20 Range/Units 16:36 20:10 06:45 WBC (3.8-10.6) k/uL RBC (3.80-5.40) m/uL Neutrophils # (1.3-7.7) k/uL Lymphocytes # (1.0-4.8) k/uL D-Dimer (<0.60) mg/L FEU Chloride (98-107) mmol/L Carbon Dioxide (22-30) mmol/L BUN (7-17) mg/dL Glucose (74-99) mg/dL POC Glucose (mg/dL) 175 H 229 H (75-99) mg/dL Lactate Dehydrogenase (313-618) U/L C-Reactive Protein (<1.0) mg/dL Total Protein (6.3-8.2) g/dL Albumin (3.5-5.0) g/dL Procalcitonin 0.11 H (0.02-0.09) ng/mL 08/26/20 08/26/20 08/26/20 Range/Units 06:45 06:45 06:45 WBC 25.0 H (3.8-10.6) k/uL RBC 3.70 L (3.80-5.40) m/uL Neutrophils # 24.3 H (1.3-7.7) k/uL Lymphocytes # 0.2 L (1.0-4.8) k/uL D-Dimer 1.55 H (<0.60) mg/L FEU Chloride 95 L (98-107) mmol/L Carbon Dioxide 38 H (22-30) mmol/L BUN 33 H (7-17) mg/dL Glucose 216 H (74-99) mg/dL POC Glucose (mg/dL) (75-99) mg/dL Lactate Dehydrogenase 1013 H (313-618) U/L C-Reactive Protein 3.2 H (<1.0) mg/dL Total Protein 5.5 L (6.3-8.2) g/dL Albumin 2.7 L (3.5-5.0) g/dL Procalcitonin (0.02-0.09) ng/mL 08/26/20 08/26/20 Range/Units 06:54 11:54 WBC (3.8-10.6) k/uL RBC (3.80-5.40) m/uL Neutrophils # (1.3-7.7) k/uL Lymphocytes # (1.0-4.8) k/uL D-Dimer (<0.60) mg/L FEU Chloride (98-107) mmol/L Carbon Dioxide (22-30) mmol/L BUN (7-17) mg/dL Glucose (74-99) mg/dL POC Glucose (mg/dL) 264 H 180 H (75-99) mg/dL Lactate Dehydrogenase (313-618) U/L C-Reactive Protein (<1.0) mg/dL Total Protein (6.3-8.2) g/dL Albumin (3.5-5.0) g/dL Procalcitonin (0.02-0.09) ng/mL Microbiology - Last 24 Hours (Table) 08/22/20 19:16 Blood Culture - Preliminary Blood No Growth after 72 hours 08/22/20 19:16 Blood Culture - Preliminary Blood No Growth after 72 hours Assessment and Plan Assessment: 1 Acute hypoxemic respiratory failure secondary to acute fluid volume overload secondary to requiring over 5 L of fluid resuscitation, currently on BiPAP 14/6 and 85% FiO2. She did test positive for theodore virus by PCR on 08/14/2020. 2 Sepsis secondary to bacteremia from E. coli, recovered 3 Acute urinary tract infection secondary to E. coli, recovered in follow-up urine culture reveals no growth. 4 Acute right pyelonephritis/hydronephrosis secondary to right UPJ calculus, status post right ureteral stent placement on 08/07/2020 5 History of hypertension 6 Hyperlipidemia 7 Hypothyroidism Plan: The patient was seen and evaluated by Dr. Edmond Chest x-ray, labs reviewed Continue BiPAP settings 12/6 and titrate down the FiO2 to 85% Alternating with AirVo 60 L and 90% Remains on Lovenox, IV Solu-Medrol, vitamin supplements We will continue to follow and make further recommendations based on her clinical status I, the cosigning physician, performed a history & physical examination of the patient. Lungs sounds with crackles in the bilateral posterior bases. Maintaining good O2 saturations in the 90s on BiPAP 14/6 at 85% FiO2. I discussed the assessment and plan of care with my nurse practitioner, Brittanie Fallon. I attest to the above note as dictated by her.
--- NOTE | 2020-08-26 15:52 | P.PN ---
Subjective Progress Note Date: 08/26/20 Principal diagnosis: sob Patient was tried on high flow NC today, was given some food, however she panicked and BIPAP had to be placed back. Sats went down to the 50s while she wa s panicking. She is currently doing well on bipap. Objective - Vital Signs Vital signs: Vital Signs Temp 97.5 F L 08/26/20 14:00 Pulse 86 08/26/20 14:00 Resp 20 08/26/20 14:00 BP 142/72 08/26/20 14:00 Pulse Ox 92 L 08/26/20 14:00 Intake & Output 08/25/20 08/26/20 08/26/20 18:59 06:59 18:59 Intake Total 120 600 Output Total 500 400 Balance 120 -500 200 Intake: Oral 120 600 Output: Urine 500 400 Other: Voiding Method Indwelling Catheter Indwelling Catheter # Voids 200 - Exam General: non toxic, vital signs stable. Patient in mild distress secondary to increased oxygen demands, patient appears very week and tired. Derm: warm, dry. Head: atraumatic, normocephalic, symmetric. Eyes: EOMI, no lid lag, anicteric sclera. Mouth: no lip lesion, mucus membranes dry. Cardiovascular: S1S2 normal, regular rate and regular rhythm, no gallop, murmur, or rub noted. Positive posterior tibial pulses bilaterally. Cap refill less than 2 seconds. Lungs: Respirations even, regular, and unlabored on BiPAP. Lungs with diffuse coarse crackles at bilateral bases. No accessory muscle use. GI/: Abdomen soft, nontender to palpation. No appreciable organomegaly. Ext: No gross muscle atrophy, minimal lower extremity edema, no contractures. Neuro: CN II-XI grossly intact, no focal neuro deficits. Psych: Alert, oriented, appropriate affect. - Labs CBC & Chem 7: 08/26/20 06:45 08/26/20 06:45 Labs: Abnormal Lab Results - Last 24 Hours (Table) 08/25/20 08/25/20 08/26/20 Range/Units 16:36 20:10 06:45 WBC (3.8-10.6) k/uL RBC (3.80-5.40) m/uL Neutrophils # (1.3-7.7) k/uL Lymphocytes # (1.0-4.8) k/uL D-Dimer (<0.60) mg/L FEU Chloride (98-107) mmol/L Carbon Dioxide (22-30) mmol/L BUN (7-17) mg/dL Glucose (74-99) mg/dL POC Glucose (mg/dL) 175 H 229 H (75-99) mg/dL Lactate Dehydrogenase (313-618) U/L C-Reactive Protein (<1.0) mg/dL Total Protein (6.3-8.2) g/dL Albumin (3.5-5.0) g/dL Procalcitonin 0.11 H (0.02-0.09) ng/mL 08/26/20 08/26/20 08/26/20 Range/Units 06:45 06:45 06:45 WBC 25.0 H (3.8-10.6) k/uL RBC 3.70 L (3.80-5.40) m/uL Neutrophils # 24.3 H (1.3-7.7) k/uL Lymphocytes # 0.2 L (1.0-4.8) k/uL D-Dimer 1.55 H (<0.60) mg/L FEU Chloride 95 L (98-107) mmol/L Carbon Dioxide 38 H (22-30) mmol/L BUN 33 H (7-17) mg/dL Glucose 216 H (74-99) mg/dL POC Glucose (mg/dL) (75-99) mg/dL Lactate Dehydrogenase 1013 H (313-618) U/L C-Reactive Protein 3.2 H (<1.0) mg/dL Total Protein 5.5 L (6.3-8.2) g/dL Albumin 2.7 L (3.5-5.0) g/dL Procalcitonin (0.02-0.09) ng/mL 08/26/20 08/26/20 Range/Units 06:54 11:54 WBC (3.8-10.6) k/uL RBC (3.80-5.40) m/uL Neutrophils # (1.3-7.7) k/uL Lymphocytes # (1.0-4.8) k/uL D-Dimer (<0.60) mg/L FEU Chloride (98-107) mmol/L Carbon Dioxide (22-30) mmol/L BUN (7-17) mg/dL Glucose (74-99) mg/dL POC Glucose (mg/dL) 264 H 180 H (75-99) mg/dL Lactate Dehydrogenase (313-618) U/L C-Reactive Protein (<1.0) mg/dL Total Protein (6.3-8.2) g/dL Albumin (3.5-5.0) g/dL Procalcitonin (0.02-0.09) ng/mL Microbiology - Last 24 Hours (Table) 08/22/20 19:16 Blood Culture - Preliminary Blood No Growth after 72 hours 08/22/20 19:16 Blood Culture - Preliminary Blood No Growth after 72 hours Assessment and Plan Plan: Acute hypoxic respiratory failure resulting from Covid pneumonia/ARDS from recent E.coli sepsis -BiPAP alternating with AirVo. -Telemetry monitoring. -Continue Vitamin C, vitamin D, zinc, and melatonin -Encouraged Incentive Spirometry 10-15 times hourly while awake. -Continue Solu-Medrol 60 mg IVP every 6 hours, today is day 13 of steroids. -Pulmonology following, appreciate further recommendations. Severe sepsis secondary to E. coli bacteremia and acute cystitis -Resolved. -Seen by ID, abx discontinued. She received total of 19 days of ceftriaxone. Obstructive right ureteral stone resulting in severe hydronephrosis, patient is status post cystoscopy and insertion of ureteral stent on 08/07/20 -CT scan completed at [facility] prior to being transferred to our facility reportedly revealed an obstructive 6 mm kidney stone in the right UPJ causing severe right hydronephrosis. -Patient underwent cystoscopy and insertion of right ureteral stent on 08/07/20 -Nephrology following. Acute kidney injury secondary to obstructive uropathy and severe sepsis, resolved Hypokalemia, resolved Hypovolemic hypernatremia, resolved Hypertension -Monitor vital signs and continue daily medication management with amlodipine. Hold losartan due to TUTU. Hyperlipidemia -Continue daily home medication regimen with atorvastatin 40 mg nightly. Hypothyroidism -Continue daily medication regimen with Synthroid 100 g daily. CODE STATUS: Full code DVT prophylaxis: Heparin Discussed with: Patient and RN Anticipated discharge date: Clinical course to determine Anticipated discharge place: To be determined, likely SNF for rehab A total of 45 minutes was spent on the care of this complex patient more than 50% of the time was spent in counseling and care coordination.
--- NOTE | 2020-08-26 16:32 | PN ---
PROGRESS NOTE DATE OF SERVICE: 08/26/2020 REASON FOR FOLLOWUP: 1. E coli bacteremia and UTI infection. 2. Elevated white count and possible catheter-associated UTI. INTERVAL HISTORY: Patient is currently afebrile. The patient remains to be BiPAP dependent. FiO2 is currently 90%. The patient denies any chest pain. No worsening abdominal pain or diarrhea. The patient did have a Coppola catheter, not clear when it was changed last. Urine showing Agatha. PHYSICAL EXAMINATION: Blood pressure 146/75, pulse 95, temperature 98.1, she is 98% on BiPAP. GENERAL DESCRIPTION: An elderly female lying in bed in no distress. RESPIRATORY SYSTEM: Unlabored breathing, clear to auscultation anteriorly. HEART: S1, S2. Regular rate and rhythm. ABDOMEN: Soft, no tenderness. LABORATORY DATA: Hemoglobin 11.1, BUN 33, creatinine 0.98. DIAGNOSTIC IMPRESSION AND PLAN: 1. Patient with E coli urinary tract infection bacteremia that has been adequately treated. She received more than 18-19 days of antibiotic. 2. Patient now with elevated white count more likely steroid effect plus minus catheter-associated urinary tract infection. Urine showing Agatha. RN has been advised to change her Coppola catheter. Obtain urine culture from new Coppola. We will add Diflucan and monitor clinical course closely. Continue supportive care. MMODL / IJN: [id number] / VIPUL
[2020-08-26 16:55] LABS: Glucose,Whole Blood 144 mg/dL (75-99)
[2020-08-26 17:25] LABS: Appearance,Urine Cloudy (Clear); Bacteria,Urine Occasional /hpf; Bilirubin,Urine Negative (Negative); Blood,Urine Large (Negative); Budding Yeast,Urine Moderate /hpf; Color,Urine Yellow; Glucose,Urine (UA) Negative (Negative); Ketones,Urine Negative (Negative); Leukocyte Esterase,Urine Large (Negative); Mucus,Urine Rare /hpf; Nitrite,Urine Negative (Negative); Protein,Urine 1+ (Negative); RBC,Urine >182 /hpf (0-5); Specific Gravity,Urine 1.021 (1.001-1.035); Squamous Epithelial Cell,Urine 31 /hpf (0-4); Urobilinogen,Urine <2.0 mg/dL (<2.0); WBC,Urine >182 /hpf (0-5)
[2020-08-26] MEDS ORDERED: ALPRAZolam 0.5 MG TAB PO STA (17:37)
[2020-08-26] MEDS: MELATONIN 5 MG TABLET PO SCH (20:28)
[2020-08-26] MEDS: ATORVASTATIN 40 MG TAB PO SCH (20:28)
[2020-08-26 20:33] LABS: Glucose,Whole Blood 146 mg/dL (75-99)
[2020-08-27] MEDS: methylPREDNISolone SOD SUCCI 125 MG/2 ML VIAL IV SCH ×2 (05:33→11:51)
[2020-08-27] MEDS: LEVOTHYROXINE 100 MCG TAB PO SCH (05:33)
[2020-08-27 06:53] LABS: Glucose,Whole Blood 164 mg/dL (75-99)
[2020-08-27] MEDS: ALBUTEROL HFA INHALER INHALATION SCH ×4 (07:41→19:59)
[2020-08-27] MEDS: ASCORBIC ACID 500 MG TAB PO SCH (08:39)
[2020-08-27] MEDS: ZINC SULFATE 220 MG CAP PO SCH (08:39)
[2020-08-27] MEDS: CHOLECALCIFEROL 25 MCG (1000 IU) TABLET PO SCH (08:39)
[2020-08-27] MEDS: SERTRALINE 100 MG TAB PO SCH (08:39)
[2020-08-27] MEDS: PANTOPRAZOLE 40 MG TABLET PO SCH (08:39)
[2020-08-27] MEDS: INSULIN ASPART (NovoLOG) 100 UNIT/ML VIAL SQ SCH ×4 (08:40→20:33)
[2020-08-27] MEDS: ENOXAPARIN 40 MG/0.4 ML SYRINGE SQ SCH (08:40)
[2020-08-27] MEDS: amLODIPine 10 MG TAB PO SCH (08:40)
[2020-08-27] MEDS: LIDOCAINE 5% PATCH TOPICAL SCH (08:40)
[2020-08-27] MEDS: ACETAMINOPHEN TAB 325 MG TAB PO PRN (11:00)
[2020-08-27 11:42] LABS: Glucose,Whole Blood 209 mg/dL (75-99)
--- NOTE | 2020-08-27 13:43 | P.PN ---
Subjective Patient is seen in follow-up for acute kidney injury. Renal function is back to baseline. Bicarb level stable at 38. Maintained on BiPAP. Oral intake poor. Vital signs are stable. General: The patient appeared well nourished and normally developed. HEENT: On BiPAP. LUNGS: Breath sounds decreased. HEART: Rate and Rhythm are regular. ABDOMEN: Soft, no distention. EXTREMITITES: No edema. Objective - Vital Signs Vital signs: Vital Signs Temp 97.7 F 08/27/20 09:30 Pulse 97 08/27/20 09:30 Resp 20 08/27/20 09:30 BP 148/75 08/27/20 09:30 Pulse Ox 92 L 08/27/20 09:30 Intake & Output 08/26/20 08/27/20 08/27/20 18:59 06:59 18:59 Intake Total 600 Output Total 400 400 Balance 200 -400 Weight 84 kg Intake: Oral 600 Output: Urine 400 400 Other: Voiding Method Indwelling Catheter Indwelling Catheter - Labs CBC & Chem 7: 08/26/20 06:45 08/26/20 06:45 Labs: Abnormal Lab Results - Last 24 Hours (Table) 08/26/20 08/26/20 08/26/20 Range/Units 16:55 17:06 20:31 POC Glucose (mg/dL) 144 H 146 H (75-99) mg/dL Urine Appearance Cloudy H (Clear) Urine Protein 1+ H (Negative) Urine Blood Large H (Negative) Ur Leukocyte Esterase Large H (Negative) Urine RBC >182 H (0-5) /hpf Urine WBC >182 H (0-5) /hpf Ur Squamous Epith Cells 31 H (0-4) /hpf Urine Bacteria Occasional H (None) /hpf Urine Mucus Rare H (None) /hpf Urine Yeast (Budding) Moderate H (None) /hpf 08/27/20 08/27/20 Range/Units 06:51 11:40 POC Glucose (mg/dL) 164 H 209 H (75-99) mg/dL Urine Appearance (Clear) Urine Protein (Negative) Urine Blood (Negative) Ur Leukocyte Esterase (Negative) Urine RBC (0-5) /hpf Urine WBC (0-5) /hpf Ur Squamous Epith Cells (0-4) /hpf Urine Bacteria (None) /hpf Urine Mucus (None) /hpf Urine Yeast (Budding) (None) /hpf Microbiology - Last 24 Hours (Table) 08/26/20 17:06 Urine Culture - Preliminary Urine,Voided 08/22/20 19:16 Blood Culture - Preliminary Blood No Growth after 96 hours 08/22/20 19:16 Blood Culture - Preliminary Blood No Growth after 96 hours Assessment and Plan Plan: Assessment: 1. Acute kidney injury secondary to ATN secondary to severe sepsis and o bstructive uropathy. Renal function back to baseline. Creatinine 0.98. 2. Right-sided nephrolithiasis and hydronephrosis status post ureteral stent placement. 3. Severe sepsis secondary to E. coli UTI and bacteremia. Status post antibiotics. 4. Metabolic alkalosis secondary to steroids. Stable. 5. Acute hypoxic respiratory failure. On BiPAP. 6. COVID-19 infection. Plan: Remains off IV fluids. Encourage oral intake. Avoid nephrotoxins. Continue to monitor renal function and urine output.
--- NOTE | 2020-08-27 14:49 | PN ---
PROGRESS NOTE DATE OF SERVICE: 08/27/2020 REASON FOR FOLLOWUP: Leukocytosis and catheter associated UTI. INTERVAL HISTORY: Patient is afebrile. The patient remains to be BiPAP dependent, complaining of feeling weak and some stomach upset as she has not eaten anything in days. No vomiting though or diarrhea. No chest pain. PHYSICAL EXAMINATION: Blood pressure 148/75, pulse of 97, temperature 97.7. She is 92% on BiPAP. General description is an elderly female lying in bed in no distress. Respiratory system: Unlabored breathing, clear to auscultation anteriorly. HEART: S1, S2. Regular rate and rhythm. ABDOMEN: Soft. No tenderness. LABS: No new labs have been obtained today. The patient did have a repeat UA after change of catheter that shows moderate yeast. DIAGNOSTIC IMPRESSION AND PLAN: Patient with catheter associated urine showing Agatha albicans on oral Diflucan, to continue. Will repeat a CBC tomorrow and monitor clinical course closely. MMODL / IJN: [id number] /
[2020-08-27] MEDS: FLUCONAZOLE 100 MG TAB PO SCH (16:18)
[2020-08-27] MEDS: SIMETHICONE 80 MG CHEWABLE PO PRN (16:18)
[2020-08-27 16:51] LABS: Glucose,Whole Blood 160 mg/dL (75-99)
--- NOTE | 2020-08-27 16:52 | P.PN ---
Subjective Progress Note Date: 08/27/20 No new complaints today. Patient is saturating well on BiPAP, not able tolerate max AirVo. Chest x-ray appears mildly improved. Objective - Vital Signs Vital signs: Vital Signs Temp 98 F 08/27/20 13:57 Pulse 99 08/27/20 13:57 Resp 18 08/27/20 13:57 BP 145/75 08/27/20 13:57 Pulse Ox 96 08/27/20 13:57 Intake & Output 08/26/20 08/27/20 08/27/20 18:59 06:59 18:59 Intake Total 600 Output Total 400 400 Balance 200 -400 Weight 84 kg Intake: Oral 600 Output: Urine 400 400 Other: Voiding Method Indwelling Catheter Indwelling Catheter - Exam Gen: awake, alert HEENT: normocephalic, atraumatic, good hearing acuity, moist mucous membranes Resp: Mild respiratory distress, no accessory muscle use, tolerating BiPAP CVS: good distal perfusion x 4, regular rate and rhythm without murmurs GI: soft, NTTP, ND : no SPT, no CVAT, mcconnell catheter is present MSK: no pitting edema, no clubbing Neuro: non-focal, moving all extremities Psych: cooperative, euthymic mood - Labs CBC & Chem 7: 08/26/20 06:45 08/26/20 06:45 Labs: Abnormal Lab Results - Last 24 Hours (Table) 08/26/20 08/26/20 08/26/20 Range/Units 16:55 17:06 20:31 POC Glucose (mg/dL) 144 H 146 H (75-99) mg/dL Urine Appearance Cloudy H (Clear) Urine Protein 1+ H (Negative) Urine Blood Large H (Negative) Ur Leukocyte Esterase Large H (Negative) Urine RBC >182 H (0-5) /hpf Urine WBC >182 H (0-5) /hpf Ur Squamous Epith Cells 31 H (0-4) /hpf Urine Bacteria Occasional H (None) /hpf Urine Mucus Rare H (None) /hpf Urine Yeast (Budding) Moderate H (None) /hpf 08/27/20 08/27/20 Range/Units 06:51 11:40 POC Glucose (mg/dL) 164 H 209 H (75-99) mg/dL Urine Appearance (Clear) Urine Protein (Negative) Urine Blood (Negative) Ur Leukocyte Esterase (Negative) Urine RBC (0-5) /hpf Urine WBC (0-5) /hpf Ur Squamous Epith Cells (0-4) /hpf Urine Bacteria (None) /hpf Urine Mucus (None) /hpf Urine Yeast (Budding) (None) /hpf Microbiology - Last 24 Hours (Table) 08/26/20 17:06 Urine Culture - Preliminary Urine,Voided 08/22/20 19:16 Blood Culture - Preliminary Blood No Growth after 96 hours 08/22/20 19:16 Blood Culture - Preliminary Blood No Growth after 96 hours Assessment and Plan Assessment: Acute hypoxic respiratory failure resulting from Covid pneumonia/ARDS from recent E.coli sepsis -BiPAP alternating with AirVo. -Telemetry monitoring. -Continue Vitamin C, vitamin D, zinc, and melatonin -Encouraged Incentive Spirometry 10-15 times hourly while awake. -Continue Solu-Medrol 60 mg IVP every 6 hours, today is day 14 of steroids. -Pulmonology following, appreciate further recommendations. Severe sepsis secondary to E. coli bacteremia and acute pyelonephritis -Resolved. -Seen by ID, abx discontinued. She received total of 19 days of ceftriaxone. Obstructive right ureteral stone resulting in severe hydronephrosis, patient is status post cystoscopy and insertion of ureteral stent on 08/07/20 -CT scan completed at [facility] prior to being transferred to our facility reportedly revealed an obstructive 6 mm kidney stone in the right UPJ causing severe right hydronephrosis. -Patient underwent cystoscopy and insertion of right ureteral stent on 08/07/20 -Nephrology following. Acute kidney injury secondary to obstructive uropathy and severe sepsis, resolved Hypokalemia, resolved Hypovolemic hypernatremia, resolved Hypertension -Monitor vital signs and continue daily medication management with amlodipine. Hold losartan due to TUTU. Hyperlipidemia -Continue daily home medication regimen with atorvastatin 40 mg nightly. Hypothyroidism -Continue daily medication regimen with Synthroid 100 g daily. CODE STATUS: Full code DVT prophylaxis: Heparin Discussed with: Patient and RN Anticipated discharge date: Clinical course to determine Anticipated discharge place: To be determined, likely SNF for rehab
--- NOTE | 2020-08-27 17:10 | P.PN ---
Subjective Progress Note Date: 08/27/20 Principal diagnosis: Acute hypoxic respiratory johnson clear to acute fluid volume overload, sepsis, ARDS, and COVID-19 This is a pleasant 80-year-old female patient with a history of hyperlipidemia, hypertension, hypothyroidism, breast cancer who was originally admitted back on 08/06/2020 for right-sided abdominal/flank pain. On 08/13/2020, this 80-year-old male patient currently in the intensive care unit due to complication of a E. coli urine tract infection. The patient's presented with a flank/abdominal pain and the patient is known to have nephrolithiasis and the patient was found to have a right kidney hydronephrosis with chronic nephritis and moderate amount of perinephric urinary extravasation and a UPJ calculus. The patient is post cystoscopy and right ureteral stent placement on 08/07/2020. Cultures are positive for E. coli. The patient was aggressively resuscitated IV fluids. The patient developed an acute hypoxic respiratory failure requiring BiPAP for respiratory support. BiPAP is at a pressure of 12/6 cm of water and FiO2 is being titrated to maintain a saturation above 90%. Chest x-ray showed some cardiomegaly and diffuse interstitial infiltrates bilaterally. The patient accordingly was kept in intensive care unit. Note that his cold with 19 screening was negative. The patient developed an acute kidney injury with a high creatinine of 1.9 which is gradually improving. Less often also improved. He was given a combination of Rocephin and Zithromax. The echo of the heart showed a normal LV, his affect of around 55-60%, RV is mildly enlarged, the patient has mild to moderate pulmonary hypertension, PA pressure was is on IV Rocephin and Zithromax for now. The patient is on heparin subcu for DVT prophylaxis. The patient was started on Lasix 40 mg every 12 hours when the patient has been achieving a negative fluid balance. Fluid balance for 08/11/2020 was -2.9 L. The white cell count is improved. The pro calcitonin LE RINKU WAS HIGH 8.4. PROBNP LEVEL WAS 5930. The patient continues to be on Lasix 40 mg every 12 hours. Chest x-ray still showing diffuse bilateral pulmonary infiltrates right more than left and there is limited to Sutton change compared to yesterday's chest x-ray. I do suspect a component of ARDS secondary to E. coli septicemia. The blood work from today shows a sodium level of 147, potassium is to be replaced at 3.3, creatinine is at 1.3 with a BUN of 46. The net fluid balance over the past 24 hours has been -1.7 L. Despite the negative fluid balance, the patient continues to have diffuse bilateral pulmonary infiltrates. On today's evaluation of 08/14/2020, I'm seeing the patient for a follow-up. This is a case of urine checked infection with sepsis with E. coli. The patient also developed ARDS. The patient was getting also progressively more restless and agitated and confused yesterday. She was started on Precedex which is currently running at 0.4 g per/ kg/r minute. Meanwhile, the patient remains on BiPAP which is currently at a pressure of 12/6 cm of water with an FiO2 of 90%. The chest x-ray from today is still showing some limited infiltration yet the overall x-ray findings are probably improved compared to yesterday. The patient was switched yesterday to IV Zosyn covering for gram-negative UTI and possible aspiration. Echocardiogram was within normal limits and the patient has a preserved LV function. The patient remains on Lasix. The net fluid balance over the past 24 hours has been -1.6 L and the patient continues to be a negative fluid balance. On her blood work from today, the patient has a white cell count of 13 with a hemoglobin of 12.7, the patient's sodium level is up to 151 and I think the diuretics can be slowed down and the patient has a BUN of 64 with a creatinine of 1.5 and a serum bicarbs at 35. The most recent pro calcitonin level was 8.4. The patient is urinating a tidal volume of 350. Respiratory rate currently is in the mid 30s even while being on a BiPAP. She does have some coarse crackles in lung bases bilaterally. On today's evaluation of 08/15/2020, the patient is essentially unchanged compared to yesterday. She remains on a BiPAP at a pressure of 12/6 cm of water with an FiO2 of 90%. She is very much BiPAP dependent. The new information is that the third sample of COVID 19 PCR came back positive and the patient is most likely positive for colitis after having 2 T are negative. The patient is arou sable and she is awake. Her chest x-ray is showing diffuse bilateral pulmonary infiltrates with some limited improvement in the right side on today's chest x- ray. Meanwhile, the patient remains on D5 water to replace her free water deficit. The patient's sodium today is at 152 with a BUN of 55 and a creatinine of 1.6. Her LDH from yesterday was 1294 and CRP level was 76. Her progress. Obviously declining is down to 1.4. The patient remains on broad-spectrum antibiotics and she is currently on IV Zosyn. In terms of sedation, the patient is on 0.4 mcg/kg/h of Precedex to maintain synchrony with the mechanical ventilator and control her agitation.The PICC line was ordered for this patient for today. Otherwise, the patient is on IV Solu-Medrol and the patient will be also placed on Lovenox 40 mg subcu every 24 hours for DVT prophylaxis. D-dimer is at 2.91. 08/16/2020 the patient is being seen for a follow-up. I am least associated the patient has been off the BiPAP since yesterday evening and currently she is on oxygen at 15 L nasal cannula. She is breathing comfortably and she is not having any significant respiratory distress. He is also able to communicate. She was able to take some pills and water yesterday. She remains considerably weak. The chest x-ray still showing diffuse bilateral pulmonary infiltrates and my suspicion was that the patient's had a component of ARDS. I further checked her nasal swab for COVID-19 and she do not to be positive. However, the patient was infected with coronavirus back in March 2020 and this is quite unusual for her to be positive again. Note that her COVID-19 antibodies were also positive. No headache, she is on IV Solu-Medrol. She is receiving Solu Medrol 60 mg IV every 6 hours. She is also well diuresed and I'm awaiting her follow- up renal function. Note that the diuretics were held yesterday because of de velopment of an acute kidney injury secondary to diuresis. For now, the patient is hemodynamically stable. No hypotension. Blood sugars are under adequate. The patient has a PICC line. I am inclined to stop the TPN and proceed with oral intake and this is diet as tolerated. A bedside swallow evaluation will be done. She remains on Lovenox 30 mg subcu for prophylaxis. She is on D5 water at the rate of 150 mL an hour and the follow-up sodium level is pending for now. The follow-up level was 145 from yesterday and the D5 water rate was reduced to 100 mL/hr he had noted the patient is also taken off the Precedex for now. She is alert and communicating. She is also appropriate. 08/17/2020, the patient is outside the intensive care unit and she is currently on a medical floor, telemetry unit. She is doing well and she is laying down on her side and she is quite comfortable on 10 L of oxygen by nasal cannula. She continues to have some crackles in the lung bases. Nevertheless, she is off the BiPAP which is breathing very comfortably. As mentioned earlier, there was a suspicion that the patient may have a sepsis induced ARDS. At the same time, the patient checked positive for COVID-19 that this has been an ongoing problem knowing that the patient was urgently diagnosed back in March 2020. No new complaints for now. She hasn't adequate urine output. She remains on IV Zosyn. She is afebrile. She is on Lovenox for DVT prophylaxis 40 mg subcu every 12 hours. She remains on IV Solu Medrol 60 mg every 6 hours. Also, she has a white cell count of 29, creatinine is at 1, electrolytes are normal. 08/18/2020, the patient remains on a telemetry unit. I'm seeing her today on follow-up. She is post ARDS related to an underlying septic event. I see her laying down comfortably in bed. It looks like the patient's oxygen requirements have gone up again and she is currently up to 15 L of oxygen by nasal cannula.FiO2 was increased as of 1 AM this morning. He bicycles of 26, electrolytes are normal, BUN is 42 with a creatinine of 0.9. Repeat chest x-ray was done and it shows some cardiomegaly and some vague interstitial infiltrates bilaterally consistent with ARDS or post covert infection. They'll function is stable and currently is down to 0.9. She is on IV Zosyn. She is off diuretics for now. She remains on Lovenox 40 mg subcu on a daily basis. On 08/19/2020, the patient remains on 10 L of oxygen by nasal cannula. We were unable to wean it off any further. She is otherwise quite stable and resting comfortably in bed. As mentioned earlier, this is a case of E. coli sepsis with secondary acute lung injury/ARDS. She was on BiPAP in the ICU and she was weaned down to 10 L of oxygen by nasal cannula. She has had previous history of remote COVID-19 associated pneumonia. She remains on IV Zosyn. She is also on steroids in the patient is currently on prednisone 40 mg by mouth daily and IV Solu Medrol was discontinued yesterday. Afebrile. Tolerating diet and she is taking approximately 25% of her oral diet. She is still very weak. Oral intake is diminished. She is not using incentive spirometer. On 08/20/2000 patient seen in follow-up on medical surgical floor. She is sitting up in a chair, she continues to be on 8 L of oxygen, her pulse ox is 93%, the problem be weaned further, hemodynamically she has been stable, she has been afebrile, appears weak, and she has not been using the incentive spirometer. Patient's chest x- ray today shows slight worsening in bilateral airspace disease. Today's labs show improving white blood cell count is down to 18.3, hemoglobin is 12.5, d- dimer is down slightly and is at 4.0, potassium is 3.4, Darvocet x-rays were unremarkable, B1 is 20, creatinine 0.9, intrinsic renal profile has improved from a couple days ago. LDH improving and is down to 381, from 720, and CRP is 9.1. No nausea vomiting or diarrhea, her oral intake is poor, she has no appetite. She remains on Zosyn, and her blood and urine cultures showed E. coli with cabezas sensitivity. And she remains on prednisone 40 mg daily, she did receive a dose of Lasix per nephrology, and she remains on Polyvitamin sent and Lovenox 40 mg daily On 08/22/2020 patient is seen in follow-up on medical surgical floor, she is more short of breath today, and she required to be placed on irritable currently at 60 L and FiO2 of 90%. Appears to be more lethargic on today's exam, today's chest x-ray shows bilateral airspace disease without significant change compared to previous chest x-ray. Patient has been afebrile, hemodynamically patient has been stable, no chest pain, no increased cough or congestion, her white blood cell count is 23.9, hemoglobin is 12.8, sodium is 136, potassium is 3.5, chloride is 97, CO2 36, BUN is 19, creatinine is 0.93. Earlier today Lasix was given, and patient has produced a total of 1400 on this shift, although exact net fluid balance is difficult to estimate, urine color appears to be quite turbid, and appears to be infected. On 08/25/2000 patient seen in follow-up on medical surgical floor, she is resting in bed, remains on BiPAP support, currently with pressures of 14/6, and FiO2 of 100%, and her pulse ox is 90-94%, she appears weak, but does not appear to be in any respiratory distress, she is afebrile, hemodynamically she is stable, her last chest x-ray from 08/23/2020 showed predominantly confluent reticulonodular opacities that were not significantly changed from most recent chest x-ray. Venous blood gas was reviewed. Today's labs have been reviewed. Currently the patient is Solu-Medrol 60 mg every 6 hours, twice daily dose of Lovenox 40 mg, she is on empiric antibiotics in the form of Rocephin, most recent blood culture showed Agatha albicans, blood cultures have been negative. This had no fever or chills. Patient has not been able to take in anything by mouth, related to being BiPAP On 08/27/2020 patient seen in follow-up on medical surgical floor, she remains on BiPAP, she is lethargic, but arousable to voice, BiPAP settings of 14 and 6, and FiO2 100%. She alternates with the Airvo at 60 L and 90%. She looks weak, she is afebrile, hemodynamically she stable, yesterday chest x-ray shows bilateral groundglass opacities, prominence of interstitium. No new labs today, yesterday's labs showed increased white blood cell count of 25, hemoglobin is 11.7, d-dimer came back at 1.55, LDH was improving and was down to 1013, and CRP was 2.2, pro calcitonin level was negative at 0.11, urinalysis was repeated showing infected urine, with large amount of leuk trase, and greater than 182 of white blood cells bacteria and budding yeast. D service was consulted, and patient was started on Diflucan. Addition patient remains on IV Solu-Medrol 60 mg every 6 hours. Patient is being switched to Airvo so she can take in some oral nutrition. Patient is only able to tolerate half an hour to 45 minutes of Airvo at a time before requiring to go back on BiPAP Objective - Vital Signs Vital signs: Vital Signs Temp 98 F 08/27/20 13:57 Pulse 99 08/27/20 13:57 Resp 18 08/27/20 13:57 BP 145/75 08/27/20 13:57 Pulse Ox 85 L 08/27/20 16:59 Intake & Output 08/26/20 08/27/20 08/27/20 18:59 06:59 18:59 Intake Total 600 Output Total 400 400 Balance 200 -400 Weight 84 kg Intake: Oral 600 Output: Urine 400 400 Other: Voiding Method Indwelling Catheter Indwelling Catheter - Exam GENERAL EXAM: Lethargic 80-year-old white female on BiPAP support currently with pressures of 14/6 and 100% FiO2, with a pulse ox of 92-96% HEAD: Normocephalic/atraumatic. EYES: Normal reaction of pupils, equal size. Conjunctiva pink, sclera white. NOSE: Clear with pink turbinates. THROAT: No erythema or exudates. NECK: No masses, no JVD, no thyroid enlargement, no adenopathy. CHEST: No chest wall deformity. Symmetrical expansion. LUNGS: Equal air entry with bibasilar crackles CVS: Regular rate and rhythm, normal S1 and S2, no gallops, no murmurs, no rubs ABDOMEN: Soft, nontender. No hepatosplenomegaly, normal bowel sounds, no guarding or rigidity. EXTREMITIES: No clubbing, no edema, no cyanosis, 2+ pulses and upper and lower extremities. MUSCULOSKELETAL: Muscle strength and tone normal. SPINE: No scoliosis or deformity SKIN: No rashes CENTRAL NERVOUS SYSTEM: Lethargic, elderly female, currently on Airvo No focal deficits, tone is normal in all 4 extremities. - Labs CBC & Chem 7: 08/26/20 06:45 08/26/20 06:45 Labs: Abnormal Lab Results - Last 24 Hours (Table) 08/26/20 08/26/20 08/27/20 Range/Units 17:06 20:31 06:51 POC Glucose (mg/dL) 146 H 164 H (75-99) mg/dL Urine Appearance Cloudy H (Clear) Urine Protein 1+ H (Negative) Urine Blood Large H (Negative) Ur Leukocyte Esterase Large H (Negative) Urine RBC >182 H (0-5) /hpf Urine WBC >182 H (0-5) /hpf Ur Squamous Epith Cells 31 H (0-4) /hpf Urine Bacteria Occasional H (None) /hpf Urine Mucus Rare H (None) /hpf Urine Yeast (Budding) Moderate H (None) /hpf 08/27/20 08/27/20 Range/Units 11:40 16:49 POC Glucose (mg/dL) 209 H 160 H (75-99) mg/dL Urine Appearance (Clear) Urine Protein (Negative) Urine Blood (Negative) Ur Leukocyte Esterase (Negative) Urine RBC (0-5) /hpf Urine WBC (0-5) /hpf Ur Squamous Epith Cells (0-4) /hpf Urine Bacteria (None) /hpf Urine Mucus (None) /hpf Urine Yeast (Budding) (None) /hpf Microbiology - Last 24 Hours (Table) 08/26/20 17:06 Urine Culture - Preliminary Urine,Voided 08/22/20 19:16 Blood Culture - Preliminary Blood No Growth after 96 hours 08/22/20 19:16 Blood Culture - Preliminary Blood No Growth after 96 hours Assessment and Plan Plan: 1 Acute hypoxemic respiratory failure secondary to acute fluid volume overload versus sepsis induced acute lung injury/ARDS. The less, further testing showed that the patient was positive for COVID 19 with an elevated LDH level and CRP and it's likely the patient's respiratory failure is multifactorial. Clinically improved. The patient is currently on IV Solu-Medrol. The patient is currently down to 10 L of oxygen by nasal cannula. She is still showing tach in the lung bases bilaterally. I'm going to repeat the chest x-ray. My impression is post septic ARDS/acute lung injury. COVID-19 infection was back in March 2020. Still on 10 L. 2 Sepsis secondary to bacteremia from E. coli 3 Acute urinary tract infection secondary to E. coli 4 Acute right pyelonephritis/hydronephrosis secondary to right UPJ calculus, status post right ureteral stent placement on 08/07/2020 5 History of hypertension 6 Hyperlipidemia 7 Hypothyroidism 8 acute kidney injury secondary to diuresis, improvement in the patient's creatinine is down to 1 9 hyperchloremic hypernatremia secondary to diuresis, normal 10 history of COVID 19 related infection in 2020 11 leukocytosis, improving Plan: Continue BiPAP support, FiO2 dropped down to 90% and continue weaning FiO2 to keep O2 sat at 90% or better Alternate with Airvo Encourage oral intake Consider initiation of TPN, if oral intake is low Continue current dose Solu-Medrol Antibiotics per ID service recommendations Overall prognosis is guarded I performed a history & physical examination of the patient and discussed their management with my nurse practitioner, Nora Cabral. I reviewed the nurse practitioner's note and agree with the documented findings and plan of care. Lung sounds are positive for bibasilar rales. The findings and the impression was discussed with the patient. I attest to the documentation by the nurse pra ctitioner. Time with Patient: Less than 30
[2020-08-27 20:27] LABS: Glucose,Whole Blood 164 mg/dL (75-99)
[2020-08-27] MEDS: MELATONIN 5 MG TABLET PO SCH (20:33)
[2020-08-27] MEDS: ATORVASTATIN 40 MG TAB PO SCH (20:33)
[2020-08-27] MEDS: LORazepam 0.5 MG TAB PO SCH (21:21)
[2020-08-27] MEDS: methylPREDNISolone SOD SUCCI 40 MG/ML 1 ML VIAL IV SCH (23:49)
[2020-08-28] MEDS: ONDANSETRON 4 MG/2 ML VIAL IVP PRN (01:55)
[2020-08-28] MEDS: ALBUTEROL HFA INHALER INHALATION SCH ×4 (07:37→20:29)
[2020-08-28] MEDS: methylPREDNISolone SOD SUCCI 40 MG/ML 1 ML VIAL IV SCH ×3 (07:51→23:12)
[2020-08-28] MEDS: LEVOTHYROXINE 100 MCG TAB PO SCH (07:51)
[2020-08-28] MEDS: INSULIN ASPART (NovoLOG) 100 UNIT/ML VIAL SQ SCH ×4 (07:51→20:59)
[2020-08-28] MEDS: ASCORBIC ACID 500 MG TAB PO SCH (07:51)
[2020-08-28] MEDS: amLODIPine 10 MG TAB PO SCH (07:51)
[2020-08-28] MEDS: PANTOPRAZOLE 40 MG TABLET PO SCH (07:52)
[2020-08-28] MEDS: FLUCONAZOLE 100 MG TAB PO SCH (07:52)
[2020-08-28] MEDS: SERTRALINE 100 MG TAB PO SCH (07:52)
[2020-08-28] MEDS: ZINC SULFATE 220 MG CAP PO SCH (07:52)
[2020-08-28] MEDS: ENOXAPARIN 40 MG/0.4 ML SYRINGE SQ SCH (07:52)
[2020-08-28] MEDS: CHOLECALCIFEROL 25 MCG (1000 IU) TABLET PO SCH (07:52)
[2020-08-28] MEDS: LIDOCAINE 5% PATCH TOPICAL SCH (07:53)
[2020-08-28 08:10] LABS: African American GFR (CKD) 84 (>60 ml/min/1.73 sqM); Anion Gap 2 mmol/L; Blood Urea Nitrogen 39 mg/dL (7-17); Calcium 8.7 mg/dL (8.4-10.2); Carbon Dioxide 39 mmol/L (22-30); Chloride 101 mmol/L (98-107); Glucose 169 mg/dL (74-99); Magnesium 2.5 mg/dL (1.6-2.3); Non-African American GFR(CKD) 73 (>60 ml/min/1.73 sqM); Potassium 4.6 mmol/L (3.5-5.1); Sodium 142 mmol/L (137-145)
[2020-08-28 08:19] LABS: Glucose,Whole Blood 181 mg/dL (75-99)
[2020-08-28 08:22] LABS: Basophils % (A) 0 %; Eosinophils % (A) 0 %; HCT 39.2 % (34.0-46.0); HGB 12.9 gm/dL (11.4-16.0); Lymphocytes # (A) 0.2 k/uL (1.0-4.8); Lymphocytes % (A) 1 %; MCH 31.2 pg (25.0-35.0); MCHC 32.8 g/dL (31.0-37.0); MCV 95.1 fL (80.0-100.0); Mean Platelet Volume 7.7; Monocytes # (A) 0.3 k/uL (0-1.0); Monocytes % (A) 1 %; Neutrophils # (A) 22.7 k/uL (1.3-7.7); Neutrophils % (A) 98 %; Platelet Count 275 k/uL (150-450); RBC 4.13 m/uL (3.80-5.40); RDW 14.2 % (11.5-15.5); WBC 23.3 k/uL (3.8-10.6)
--- NOTE | 2020-08-28 10:26 | XR ---
EXAMINATION TYPE: XR chest 1V DATE OF EXAM: 08/28/2020 CLINICAL HISTORY: Difficulty breathing and hypoxia progress study. TECHNIQUE: Single AP portable upright view of the chest is obtained. COMPARISON: Chest x-ray from 2 days earlier and older studies FINDINGS: Stable right-sided PICC line. Persistent multifocal and confluent reticulonodular opacities bilaterally. Persistent silhouetting of right and left heart borders. Persistent ectatic aortic knob causing right-sided tracheal deviation. Osseous structures remain intact. Surgical changes epigastric region redemonstrated. Cholecystectomy clips redemonstrated. IMPRESSION: Bilateral predominantly confluent reticulonodular opacities consistent with covid-19 infe ction and/or ARDS; not significantly changed from most recent x-ray.
[2020-08-28 11:24] LABS: Glucose,Whole Blood 165 mg/dL (75-99)
[2020-08-28] MEDS: PIPERACILLIN-TAZOBACTAM 3.375 GM in SODIUM CHLORIDE 0.9% 100 ML IVPB SCH ×2 (12:09→19:50)
--- NOTE | 2020-08-28 12:16 | P.PN ---
Subjective Patient is seen in follow-up for acute kidney injury. Renal function is back to baseline. Bicarb level stable at 39. Maintained on BiPAP. Oral intake poor. No changes overnight. Vital signs are stable. General: The patient appeared well nourished and normally developed. HEENT: On BiPAP. LUNGS: Breath sounds decreased. HEART: Rate and Rhythm are regular. ABDOMEN: Soft, no distention. EXTREMITITES: No edema. Objective - Vital Signs Vital signs: Vital Signs Temp 97.8 F 08/28/20 10:00 Pulse 91 08/28/20 10:00 Resp 16 08/28/20 10:00 BP 142/83 08/28/20 10:00 Pulse Ox 90 L 08/28/20 10:00 Intake & Output 08/27/20 08/28/20 08/28/20 18:59 06:59 18:59 Weight 84 kg 84.4 kg Other: Voiding Method Indwelling Catheter Indwelling Catheter - Labs CBC & Chem 7: 08/28/20 06:05 08/28/20 06:05 Labs: Abnormal Lab Results - Last 24 Hours (Table) 08/27/20 08/27/20 08/28/20 Range/Units 16:49 20:25 06:05 WBC 23.3 H (3.8-10.6) k/uL Neutrophils # 22.7 H (1.3-7.7) k/uL Lymphocytes # 0.2 L (1.0-4.8) k/uL Carbon Dioxide (22-30) mmol/L BUN (7-17) mg/dL Glucose (74-99) mg/dL POC Glucose (mg/dL) 160 H 164 H (75-99) mg/dL Magnesium (1.6-2.3) mg/dL 08/28/20 08/28/20 08/28/20 Range/Units 06:05 07:08 11:22 WBC (3.8-10.6) k/uL Neutrophils # (1.3-7.7) k/uL Lymphocytes # (1.0-4.8) k/uL Carbon Dioxide 39 H (22-30) mmol/L BUN 39 H (7-17) mg/dL Glucose 169 H (74-99) mg/dL POC Glucose (mg/dL) 181 H 165 H (75-99) mg/dL Magnesium 2.5 H (1.6-2.3) mg/dL Microbiology - Last 24 Hours (Table) 08/22/20 19:16 Blood Culture - Preliminary Blood No Growth after 120 hours 08/22/20 19:16 Blood Culture - Preliminary Blood No Growth after 120 hours 08/26/20 17:06 Urine Culture - Preliminary Urine,Voided Gram Neg Bacilli Assessment and Plan Plan: Assessment: 1. Acute kidney injury secondary to ATN secondary to severe sepsis and obstructive uropathy. Renal function back to baseline. 2. Right-sided nephrolithiasis and hydronephrosis status post ureteral stent placement. 3. Severe sepsis secondary to E. coli UTI and bacteremia. Status post antibi otics. 4. Metabolic alkalosis secondary to steroids. Stable. 5. Acute hypoxic respiratory failure. On BiPAP. 6. COVID-19 infection. Plan: Remains off IV fluids. Encourage oral intake. Avoid nephrotoxins. Continue to monitor renal function and urine output. I will sign off. Please call with any questions or concerns.
[2020-08-28 12:17] LABS: C Reactive Protein 1.9 mg/dL (<1.0)
--- NOTE | 2020-08-28 12:52 | P.PN ---
Subjective Progress Note Date: 08/28/20 Principal diagnosis: Acute hypoxic respiratory johnson clear to acute fluid volume overload, sepsis, ARDS, and COVID-19 This is a pleasant 80-year-old female patient with a history of hyperlipidemia, hypertension, hypothyroidism, breast cancer who was originally admitted back on 08/06/2020 for right-sided abdominal/flank pain. On 08/13/2020, this 80-year-old male patient currently in the intensive care unit due to complication of a E. coli urine tract infection. The patient's presented with a flank/abdominal pain and the patient is known to have nephrolithiasis and the patient was found to have a right kidney hydronephrosis with chronic nephritis and moderate amount of perinephric urinary extravasation and a UPJ calculus. The patient is post cystoscopy and right ureteral stent placement on 08/07/2020. Cultures are positive for E. coli. The patient was aggressively resuscitated IV fluids. The patient developed an acute hypoxic respiratory failure requiring BiPAP for respiratory support. BiPAP is at a pressure of 12/6 cm of water and FiO2 is being titrated to maintain a saturation above 90%. Chest x-ray showed some cardiomegaly and diffuse interstitial infiltrates bilaterally. The patient accordingly was kept in intensive care unit. Note that his cold with 19 screening was negative. The patient developed an acute kidney injury with a high creatinine of 1.9 which is gradually improving. Less often also improved. He was given a combination of Rocephin and Zithromax. The echo of the heart showed a normal LV, his affect of around 55-60%, RV is mildly enlarged, the patient has mild to moderate pulmonary hypertension, PA pressure was is on IV Rocephin and Zithromax for now. The patient is on heparin subcu for DVT prophylaxis. The patient was started on Lasix 40 mg every 12 hours when the patient has been achieving a negative fluid balance. Fluid balance for 08/11/2020 was -2.9 L. The white cell count is improved. The pro calcitonin LE RINKU WAS HIGH 8.4. PROBNP LEVEL WAS 5930. The patient continues to be on Lasix 40 mg every 12 hours. Chest x-ray still showing diffuse bilateral pulmonary infiltrates right more than left and there is limited to Sutton change compared to yesterday's chest x-ray. I do suspect a component of ARDS secondary to E. coli septicemia. The blood work from today shows a sodium level of 147, potassium is to be replaced at 3.3, creatinine is at 1.3 with a BUN of 46. The net fluid balance over the past 24 hours has been -1.7 L. Despite the negative fluid balance, the patient continues to have diffuse bilateral pulmonary infiltrates. On today's evaluation of 08/14/2020, I'm seeing the patient for a follow-up. This is a case of urine checked infection with sepsis with E. coli. The patient also developed ARDS. The patient was getting also progressively more restless and agitated and confused yesterday. She was started on Precedex which is currently running at 0.4 g per/ kg/r minute. Meanwhile, the patient remains on BiPAP which is currently at a pressure of 12/6 cm of water with an FiO2 of 90%. The chest x-ray from today is still showing some limited infiltration yet the overall x-ray findings are probably improved compared to yesterday. The patient was switched yesterday to IV Zosyn covering for gram-negative UTI and possible aspiration. Echocardiogram was within normal limits and the patient has a preserved LV function. The patient remains on Lasix. The net fluid balance over the past 24 hours has been -1.6 L and the patient continues to be a negative fluid balance. On her blood work from today, the patient has a white cell count of 13 with a hemoglobin of 12.7, the patient's sodium level is up to 151 and I think the diuretics can be slowed down and the patient has a BUN of 64 with a creatinine of 1.5 and a serum bicarbs at 35. The most recent pro calcitonin level was 8.4. The patient is urinating a tidal volume of 350. Respiratory rate currently is in the mid 30s even while being on a BiPAP. She does have some coarse crackles in lung bases bilaterally. On today's evaluation of 08/15/2020, the patient is essentially unchanged compared to yesterday. She remains on a BiPAP at a pressure of 12/6 cm of water with an FiO2 of 90%. She is very much BiPAP dependent. The new information is that the third sample of COVID 19 PCR came back positive and the patient is most likely positive for colitis after having 2 T are negative. The patient is arou sable and she is awake. Her chest x-ray is showing diffuse bilateral pulmonary infiltrates with some limited improvement in the right side on today's chest x- ray. Meanwhile, the patient remains on D5 water to replace her free water deficit. The patient's sodium today is at 152 with a BUN of 55 and a creatinine of 1.6. Her LDH from yesterday was 1294 and CRP level was 76. Her progress. Obviously declining is down to 1.4. The patient remains on broad-spectrum antibiotics and she is currently on IV Zosyn. In terms of sedation, the patient is on 0.4 mcg/kg/h of Precedex to maintain synchrony with the mechanical ventilator and control her agitation.The PICC line was ordered for this patient for today. Otherwise, the patient is on IV Solu-Medrol and the patient will be also placed on Lovenox 40 mg subcu every 24 hours for DVT prophylaxis. D-dimer is at 2.91. 08/16/2020 the patient is being seen for a follow-up. I am least associated the patient has been off the BiPAP since yesterday evening and currently she is on oxygen at 15 L nasal cannula. She is breathing comfortably and she is not having any significant respiratory distress. He is also able to communicate. She was able to take some pills and water yesterday. She remains considerably weak. The chest x-ray still showing diffuse bilateral pulmonary infiltrates and my suspicion was that the patient's had a component of ARDS. I further checked her nasal swab for COVID-19 and she do not to be positive. However, the patient was infected with coronavirus back in March 2020 and this is quite unusual for her to be positive again. Note that her COVID-19 antibodies were also positive. No headache, she is on IV Solu-Medrol. She is receiving Solu Medrol 60 mg IV every 6 hours. She is also well diuresed and I'm awaiting her follow- up renal function. Note that the diuretics were held yesterday because of de velopment of an acute kidney injury secondary to diuresis. For now, the patient is hemodynamically stable. No hypotension. Blood sugars are under adequate. The patient has a PICC line. I am inclined to stop the TPN and proceed with oral intake and this is diet as tolerated. A bedside swallow evaluation will be done. She remains on Lovenox 30 mg subcu for prophylaxis. She is on D5 water at the rate of 150 mL an hour and the follow-up sodium level is pending for now. The follow-up level was 145 from yesterday and the D5 water rate was reduced to 100 mL/hr he had noted the patient is also taken off the Precedex for now. She is alert and communicating. She is also appropriate. 08/17/2020, the patient is outside the intensive care unit and she is currently on a medical floor, telemetry unit. She is doing well and she is laying down on her side and she is quite comfortable on 10 L of oxygen by nasal cannula. She continues to have some crackles in the lung bases. Nevertheless, she is off the BiPAP which is breathing very comfortably. As mentioned earlier, there was a suspicion that the patient may have a sepsis induced ARDS. At the same time, the patient checked positive for COVID-19 that this has been an ongoing problem knowing that the patient was urgently diagnosed back in March 2020. No new complaints for now. She hasn't adequate urine output. She remains on IV Zosyn. She is afebrile. She is on Lovenox for DVT prophylaxis 40 mg subcu every 12 hours. She remains on IV Solu Medrol 60 mg every 6 hours. Also, she has a white cell count of 29, creatinine is at 1, electrolytes are normal. 08/18/2020, the patient remains on a telemetry unit. I'm seeing her today on follow-up. She is post ARDS related to an underlying septic event. I see her laying down comfortably in bed. It looks like the patient's oxygen requirements have gone up again and she is currently up to 15 L of oxygen by nasal cannula.FiO2 was increased as of 1 AM this morning. He bicycles of 26, electrolytes are normal, BUN is 42 with a creatinine of 0.9. Repeat chest x-ray was done and it shows some cardiomegaly and some vague interstitial infiltrates bilaterally consistent with ARDS or post covert infection. They'll function is stable and currently is down to 0.9. She is on IV Zosyn. She is off diuretics for now. She remains on Lovenox 40 mg subcu on a daily basis. On 08/19/2020, the patient remains on 10 L of oxygen by nasal cannula. We were unable to wean it off any further. She is otherwise quite stable and resting comfortably in bed. As mentioned earlier, this is a case of E. coli sepsis with secondary acute lung injury/ARDS. She was on BiPAP in the ICU and she was weaned down to 10 L of oxygen by nasal cannula. She has had previous history of remote COVID-19 associated pneumonia. She remains on IV Zosyn. She is also on steroids in the patient is currently on prednisone 40 mg by mouth daily and IV Solu Medrol was discontinued yesterday. Afebrile. Tolerating diet and she is taking approximately 25% of her oral diet. She is still very weak. Oral intake is diminished. She is not using incentive spirometer. On 08/20/2000 patient seen in follow-up on medical surgical floor. She is sitting up in a chair, she continues to be on 8 L of oxygen, her pulse ox is 93%, the problem be weaned further, hemodynamically she has been stable, she has been afebrile, appears weak, and she has not been using the incentive spirometer. Patient's chest x- ray today shows slight worsening in bilateral airspace disease. Today's labs show improving white blood cell count is down to 18.3, hemoglobin is 12.5, d- dimer is down slightly and is at 4.0, potassium is 3.4, Darvocet x-rays were unremarkable, B1 is 20, creatinine 0.9, intrinsic renal profile has improved from a couple days ago. LDH improving and is down to 381, from 720, and CRP is 9.1. No nausea vomiting or diarrhea, her oral intake is poor, she has no appetite. She remains on Zosyn, and her blood and urine cultures showed E. coli with cabezas sensitivity. And she remains on prednisone 40 mg daily, she did receive a dose of Lasix per nephrology, and she remains on Polyvitamin sent and Lovenox 40 mg daily On 08/22/2020 patient is seen in follow-up on medical surgical floor, she is more short of breath today, and she required to be placed on irritable currently at 60 L and FiO2 of 90%. Appears to be more lethargic on today's exam, today's chest x-ray shows bilateral airspace disease without significant change compared to previous chest x-ray. Patient has been afebrile, hemodynamically patient has been stable, no chest pain, no increased cough or congestion, her white blood cell count is 23.9, hemoglobin is 12.8, sodium is 136, potassium is 3.5, chloride is 97, CO2 36, BUN is 19, creatinine is 0.93. Earlier today Lasix was given, and patient has produced a total of 1400 on this shift, although exact net fluid balance is difficult to estimate, urine color appears to be quite turbid, and appears to be infected. On 08/25/2000 patient seen in follow-up on medical surgical floor, she is resting in bed, remains on BiPAP support, currently with pressures of 14/6, and FiO2 of 100%, and her pulse ox is 90-94%, she appears weak, but does not appear to be in any respiratory distress, she is afebrile, hemodynamically she is stable, her last chest x-ray from 08/23/2020 showed predominantly confluent reticulonodular opacities that were not significantly changed from most recent chest x-ray. Venous blood gas was reviewed. Today's labs have been reviewed. Currently the patient is Solu-Medrol 60 mg every 6 hours, twice daily dose of Lovenox 40 mg, she is on empiric antibiotics in the form of Rocephin, most recent blood culture showed Agatha albicans, blood cultures have been negative. This had no fever or chills. Patient has not been able to take in anything by mouth, related to being BiPAP On 08/27/2020 patient seen in follow-up on medical surgical floor, she remains on BiPAP, she is lethargic, but arousable to voice, BiPAP settings of 14 and 6, and FiO2 100%. She alternates with the Airvo at 60 L and 90%. She looks weak, she is afebrile, hemodynamically she stable, yesterday chest x-ray shows bilateral groundglass opacities, prominence of interstitium. No new labs today, yesterday's labs showed increased white blood cell count of 25, hemoglobin is 11.7, d-dimer came back at 1.55, LDH was improving and was down to 1013, and CRP was 2.2, pro calcitonin level was negative at 0.11, urinalysis was repeated showing infected urine, with large amount of leuk trase, and greater than 182 of white blood cells bacteria and budding yeast. D service was consulted, and patient was started on Diflucan. Addition patient remains on IV Solu-Medrol 60 mg every 6 hours. Patient is being switched to Airvo so she can take in some oral nutrition. Patient is only able to tolerate half an hour to 45 minutes of Airvo at a time before requiring to go back on BiPAP On 08/28/2020 patient seen in follow-up on medical surgical floor. She has failed attempts to place her on high flow oxygen and she immediately desaturates, becomes very dyspneic, and has been BiPAP dependent. She has been unable to sustain her oral nutrition as she has not been able to stay off the BiPAP support long enough to take in anything orally. Her BiPAP pressures of 14/6 and FiO2 of 100%, her pulse ox is 89-90%, she appears very weak, and fatigue, but no acute distress, her chest x-ray today shows bilateral confluent reticulonodular opacities consistent with COVID-19 infection and/or ARDS, with no change from prior chest x-ray. Today's labs have been reviewed showing a white blood cell count of 23.3, hemoglobin of 12.9, d-dimer is 1.48, sodium is 142, potassium is 4.6, chloride is 101, CO2 is 39, BUN of 39, creatinine 0.79, LDH is improving, down to 957, and CRP is 1.9, pro calcitonin level from 08/26/2020 was negative at 0.11. She is currently on Diflucan for possibility of urinary tract infection and the urine culture showed Agatha albicans, and follow-up urine culture from 08/26/2020 showed gram-negative bacilli suggesting possibility of urinary tract infection. Infectious disease is following, and in addition to Diflucan patient is currently on Zosyn. IV steroids currently with Solu-Medrol 40 mg every 8 hours, and patient remains on prophylactic dose of Lovenox 40 mg daily. Objective - Vital Signs Vital signs: Vital Signs Temp 97.8 F 08/28/20 10:00 Pulse 91 08/28/20 10:00 Resp 16 08/28/20 10:00 BP 142/83 08/28/20 10:00 Pulse Ox 90 L 08/28/20 10:00 Intake & Output 08/27/20 08/28/20 08/28/20 18:59 06:59 18:59 Weight 84 kg 84.4 kg Other: Voiding Method Indwelling Catheter Indwelling Catheter - Exam GENERAL EXAM: Lethargic 80-year-old white female on BiPAP support currently with pressures of 14/6 and 100% FiO2, with a pulse ox of 90% HEAD: Normocephalic/atraumatic. EYES: Normal reaction of pupils, equal size. Conjunctiva pink, sclera white. NOSE: Clear with pink turbinates. THROAT: No erythema or exudates. NECK: No masses, no JVD, no thyroid enlargement, no adenopathy. CHEST: No chest wall deformity. Symmetrical expansion. LUNGS: Equal air entry with bibasilar crackles CVS: Regular rate and rhythm, normal S1 and S2, no gallops, no murmurs, no rubs ABDOMEN: Soft, nontender. No hepatosplenomegaly, normal bowel sounds, no guarding or rigidity. EXTREMITIES: No clubbing, no edema, no cyanosis, 2+ pulses and upper and lower extremities. MUSCULOSKELETAL: Muscle strength and tone normal. SPINE: No scoliosis or deformity SKIN: No rashes CENTRAL NERVOUS SYSTEM: Lethargic, elderly female, currently on Airvo No focal deficits, tone is normal in all 4 extremities. - Labs CBC & Chem 7: 08/28/20 06:05 08/28/20 06:05 Labs: Abnormal Lab Results - Last 24 Hours (Table) 08/27/20 08/27/20 08/28/20 Range/Units 16:49 20:25 06:05 WBC 23.3 H (3.8-10.6) k/uL Neutrophils # 22.7 H (1.3-7.7) k/uL Lymphocytes # 0.2 L (1.0-4.8) k/uL D-Dimer (<0.60) mg/L FEU Carbon Dioxide (22-30) mmol/L BUN (7-17) mg/dL Glucose (74-99) mg/dL POC Glucose (mg/dL) 160 H 164 H (75-99) mg/dL Magnesium (1.6-2.3) mg/dL Lactate Dehydrogenase (313-618) U/L C-Reactive Protein (<1.0) mg/dL 08/28/20 08/28/20 08/28/20 Range/Units 06:05 07:08 11:22 WBC (3.8-10.6) k/uL Neutrophils # (1.3-7.7) k/uL Lymphocytes # (1.0-4.8) k/uL D-Dimer (<0.60) mg/L FEU Carbon Dioxide 39 H (22-30) mmol/L BUN 39 H (7-17) mg/dL Glucose 169 H (74-99) mg/dL POC Glucose (mg/dL) 181 H 165 H (75-99) mg/dL Magnesium 2.5 H (1.6-2.3) mg/dL Lactate Dehydrogenase (313-618) U/L C-Reactive Protein (<1.0) mg/dL 08/28/20 08/28/20 Range/Units 11:49 11:49 WBC (3.8-10.6) k/uL Neutrophils # (1.3-7.7) k/uL Lymphocytes # (1.0-4.8) k/uL D-Dimer 1.48 H (<0.60) mg/L FEU Carbon Dioxide (22-30) mmol/L BUN (7-17) mg/dL Glucose (74-99) mg/dL POC Glucose (mg/dL) (75-99) mg/dL Magnesium (1.6-2.3) mg/dL Lactate Dehydrogenase 957 H (313-618) U/L C-Reactive Protein 1.9 H (<1.0) mg/dL Microbiology - Last 24 Hours (Table) 08/22/20 19:16 Blood Culture - Preliminary Blood No Growth after 120 hours 08/22/20 19:16 Blood Culture - Preliminary Blood No Growth after 120 hours 08/26/20 17:06 Urine Culture - Preliminary Urine,Voided Gram Neg Bacilli Assessment and Plan Plan: 1 Acute hypoxemic respiratory failure secondary to acute fluid volume overload versus sepsis induced acute lung injury/ARDS. The less, further testing showed that the patient was positive for COVID 19 with an elevated LDH level and CRP and it's likely the patient's respiratory failure is multifactorial. Clinically improved. The patient is currently on IV Solu-Medrol. The patient is currently down to 10 L of oxygen by nasal cannula. She is still showing tach in the lung bases bilaterally. I'm going to repeat the chest x-ray. My impression is post septic ARDS/acute lung injury. COVID-19 infection was back in March 2020. Patient was tolerating high flow oxygen however currently back on BiPAP and remains BiPAP dependent at this time 2 Sepsis secondary to bacteremia from E. coli 3 Acute urinary tract infection secondary to E. coli and Agatha albicans 4 Acute right pyelonephritis/hydronephrosis secondary to right UPJ calculus, status post right ureteral stent placement on 08/07/2020 5 History of hypertension 6 Hyperlipidemia 7 Hypothyroidism 8 acute kidney injury secondary to diuresis, improvement in the patient's creatinine is down to 0.79 9 hyperchloremic hypernatremia secondary to diuresis, normal 10 history of COVID 19 related infection in 2019 11 leukocytosis, related to sepsis secondary to urinary tract infection Plan: Continue BiPAP support, and patient remains BiPAP support dependent at this time Unable to tolerate Airvo trials We will initiate TPN, consult dietitian for recommendations Today's chest x-ray reviewed showing no changes Continue current dose steroids and Lovenox Antibiotics per ID service recommendations Await final cultures Prognosis is poor and guarded I performed a history & physical examination of the patient and discussed their management with my nurse practitioner, Nora Cabral. I reviewed the nurse practitioner's note and agree with the documented findings and plan of care. Lung sounds are positive for bibasilar rales. The findings and the impression was discussed with the patient. I attest to the documentation by the nurse practitioner. Time with Patient: Less than 30
--- NOTE | 2020-08-28 13:56 | PN ---
PROGRESS NOTE DATE OF SERVICE: 08/28/2020 REASON FOR FOLLOWUP: Urinary tract infection and COVID pneumonia and worsening of the white count. INTERVAL HISTORY: The patient remains to be afebrile. The patient is hemodynamically stable. The patient remains to be BiPAP dependent. Has been complaining of shortness of breath. No worsening cough. She was complaining of some dry heaves, but no vomiting. No abdominal pain or diarrhea. PHYSICAL EXAMINATION: Blood pressure 142/83, pulse of 91, temperature is 97.8. She is 90% on BiPAP. General description is an elderly female lying in bed in no distress. RESPIRATORY SYSTEM: Unlabored breathing, decreased intensity of breath sounds. No wheeze. HEART: S1, S2. Regular rate and rhythm. ABDOMEN: Soft, no tenderness. LABS: White count down to 23 from yesterday 25, BUN of 39, creatinine 0.76. Urine repeat now showing a Gram-negative bacilli. Chest x-ray, bilateral predominantly confluent reticulonodular opacities, no significant change. DIAGNOSTIC IMPRESSION AND PLAN: 1. Patient with acute respiratory failure secondary to COVID-19 infection with possible progression to ARDS. Clinic suspicion of her secondary bacterial pneumonia. Check a procalcitonin level. Discussed with the admitting team. 2. Patient with urinary tract infection initially was Escherichia coli and subsequent with Agatha for now. Repeat is also showing gram-negative. We will add Zosyn while waiting for the culture to finalize in view of overall clinical condition. Will monitor clinical course closely. MMODL / IJN: [id number] / MTDD
[2020-08-28 15:10] LABS: ALT 18 U/L (4-34); AST 25 U/L (14-36); African American GFR (CKD) 72 (>60 ml/min/1.73 sqM); Albumin 2.7 g/dL (3.5-5.0); Albumin/Globulin Ratio 0.9; Alkaline Phosphatase 116 U/L (38-126); Blood Urea Nitrogen 39 mg/dL (7-17); Calcium 8.7 mg/dL (8.4-10.2); Chloride 102 mmol/L (98-107); Globulin 2.9 g/dL; Glucose 173 mg/dL (74-99); Magnesium 2.5 mg/dL (1.6-2.3); Non-African American GFR(CKD) 62 (>60 ml/min/1.73 sqM); Phosphorus 3.6 mg/dL (2.5-4.5); Sodium 142 mmol/L (137-145); Total Bilirubin 0.4 mg/dL (0.2-1.3); Total Protein 5.6 g/dL (6.3-8.2)
[2020-08-28 15:15] LABS: Anion Gap 2 mmol/L; Carbon Dioxide 38 mmol/L (22-30)
--- NOTE | 2020-08-28 16:13 | P.PN ---
Subjective Progress Note Date: 08/28/20 Pt continues to fail trials of AirVo and is BiPAP dependent. Nutrition is poor. UCx growing GNRs - ID added zosyn to abx regimen. Objective - Vital Signs Vital signs: Vital Signs Temp 98.4 F 08/28/20 14:00 Pulse 100 08/28/20 14:00 Resp 23 08/28/20 14:00 BP 136/73 08/28/20 14:00 Pulse Ox 92 L 08/28/20 14:00 Intake & Output 08/27/20 08/28/20 08/28/20 18:59 06:59 18:59 Weight 84 kg 84.4 kg 84.4 kg Other: Voiding Method Indwelling Catheter Indwelling Catheter - Exam Gen: awake, alert HEENT: normocephalic, atraumatic, good hearing acuity, moist mucous membranes Resp: Mild respiratory distress, no accessory muscle use, tolerating BiPAP CVS: good distal perfusion x 4, regular rate and rhythm without murmurs GI: soft, NTTP, ND : no SPT, no CVAT, mcconnell catheter is present MSK: + pitting edema, no clubbing Neuro: non-focal, moving all extremities Psych: cooperative, euthymic mood - Labs CBC & Chem 7: 08/28/20 06:05 08/28/20 11:49 Labs: Abnormal Lab Results - Last 24 Hours (Table) 08/27/20 08/27/20 08/28/20 Range/Units 16:49 20:25 06:05 WBC 23.3 H (3.8-10.6) k/uL Neutrophils # 22.7 H (1.3-7.7) k/uL Lymphocytes # 0.2 L (1.0-4.8) k/uL D-Dimer (<0.60) mg/L FEU Carbon Dioxide (22-30) mmol/L BUN (7-17) mg/dL Glucose (74-99) mg/dL POC Glucose (mg/dL) 160 H 164 H (75-99) mg/dL Magnesium (1.6-2.3) mg/dL Lactate Dehydrogenase (313-618) U/L C-Reactive Protein (<1.0) mg/dL Total Protein (6.3-8.2) g/dL Albumin (3.5-5.0) g/dL 08/28/20 08/28/20 08/28/20 Range/Units 06:05 07:08 11:22 WBC (3.8-10.6) k/uL Neutrophils # (1.3-7.7) k/uL Lymphocytes # (1.0-4.8) k/uL D-Dimer (<0.60) mg/L FEU Carbon Dioxide 39 H (22-30) mmol/L BUN 39 H (7-17) mg/dL Glucose 169 H (74-99) mg/dL POC Glucose (mg/dL) 181 H 165 H (75-99) mg/dL Magnesium 2.5 H (1.6-2.3) mg/dL Lactate Dehydrogenase (313-618) U/L C-Reactive Protein (<1.0) mg/dL Total Protein (6.3-8.2) g/dL Albumin (3.5-5.0) g/dL 08/28/20 08/28/20 08/28/20 Range/Units 11:49 11:49 11:49 WBC (3.8-10.6) k/uL Neutrophils # (1.3-7.7) k/uL Lymphocytes # (1.0-4.8) k/uL D-Dimer 1.48 H (<0.60) mg/L FEU Carbon Dioxide 38 H (22-30) mmol/L BUN 39 H (7-17) mg/dL Glucose 173 H (74-99) mg/dL POC Glucose (mg/dL) (75-99) mg/dL Magnesium 2.5 H (1.6-2.3) mg/dL Lactate Dehydrogenase 957 H (313-618) U/L C-Reactive Protein 1.9 H (<1.0) mg/dL Total Protein 5.6 L (6.3-8.2) g/dL Albumin 2.7 L (3.5-5.0) g/dL Microbiology - Last 24 Hours (Table) 08/22/20 19:16 Blood Culture - Preliminary Blood No Growth after 120 hours 08/22/20 19:16 Blood Culture - Preliminary Blood No Growth after 120 hours 08/26/20 17:06 Urine Culture - Preliminary Urine,Voided Gram Neg Bacilli Assessment and Plan Assessment: Acute hypoxic respiratory failure resulting from Covid pneumonia/ARDS from recent E.coli sepsis -BiPAP alternating with AirVo if tolerated -Telemetry monitoring. -Continue Vitamin C, vitamin D, zinc, and melatonin -Encouraged Incentive Spirometry 10-15 times hourly while awake. -Continue Solu-Medrol 60 mg IVP every 6 hours, today is day 15 of steroids. -Pulmonology following, appreciate further recommendations. -Consideration of tocilizumab if no improvement on zosyn -TPN initiated 08/28 Severe sepsis secondary to E. coli bacteremia and acute pyelonephritis -Seen by ID, She received total of 19 days of ceftriaxone. -Repeat UCx growing GNRs, restarted on zosyn by ID on 08/28 Obstructive right ureteral stone resulting in severe hydronephrosis, patient is status post cystoscopy and insertion of ureteral stent on 08/07/20 -CT scan completed at [facility] prior to being transferred to our facility reportedly revealed an obstructive 6 mm kidney stone in the right UPJ causing severe right hydronephrosis. -Patient underwent cystoscopy and insertion of right ureteral stent on 08/07/20 -Nephrology following. Acute kidney injury secondary to obstructive uropathy and severe sepsis, resolved Hypokalemia, resolved Hypovolemic hypernatremia, resolved Hypertension -Monitor vital signs and continue daily medication management with amlodipine. Hold losartan due to TUTU. Hyperlipidemia -Continue daily home medication regimen with atorvastatin 40 mg nightly. Hypothyroidism -Continue daily medication regimen with Synthroid 100 g daily. CODE STATUS: Full code DVT prophylaxis: Heparin Discussed with: Patient and RN Anticipated discharge date: Clinical course to determine Anticipated discharge place: To be determined, likely SNF for rehab
[2020-08-28 16:24] LABS: Ionized Calcium 4.8 mg/dL (4.5-5.3)
[2020-08-28 16:40] LABS: Albumin 2.8 g/dL (3.5-5.0)
[2020-08-28 16:48] LABS: Glucose,Whole Blood 185 mg/dL (75-99)
[2020-08-28] MEDS ORDERED: MVI, ADULT NO.4 WITH VIT K 10 ML, TRACE (CONC-1ML/DOSE) 1 ML, SODIUM PHOSPHATE 15 MMOL,... IV ONE ×6 (18:00)
[2020-08-28] MEDS: ACETAMINOPHEN TAB 325 MG TAB PO PRN (18:30)
[2020-08-28 20:54] LABS: Glucose,Whole Blood 180 mg/dL (75-99)
[2020-08-28] MEDS: ATORVASTATIN 40 MG TAB PO SCH (20:59)
[2020-08-28] MEDS: MELATONIN 5 MG TABLET PO SCH (20:59)
[2020-08-28] MEDS: LORazepam 0.5 MG TAB PO SCH (20:59)
[2020-08-29] MEDS: PIPERACILLIN-TAZOBACTAM 3.375 GM in SODIUM CHLORIDE 0.9% 100 ML IVPB SCH ×3 (03:00→20:04)
[2020-08-29] MEDS: ACETAMINOPHEN TAB 325 MG TAB PO PRN (05:03)
[2020-08-29] MEDS: LEVOTHYROXINE 100 MCG TAB PO SCH (05:03)
[2020-08-29 07:12] LABS: Glucose,Whole Blood 203 mg/dL (75-99)
[2020-08-29] MEDS: INSULIN ASPART (NovoLOG) 100 UNIT/ML VIAL SQ SCH ×4 (07:35→23:15)
[2020-08-29] MEDS: ASCORBIC ACID 500 MG TAB PO SCH (07:35)
[2020-08-29] MEDS: PANTOPRAZOLE 40 MG TABLET PO SCH (07:35)
[2020-08-29] MEDS: FLUCONAZOLE 100 MG TAB PO SCH (07:36)
[2020-08-29] MEDS: SERTRALINE 100 MG TAB PO SCH (07:36)
[2020-08-29] MEDS: ZINC SULFATE 220 MG CAP PO SCH (07:36)
[2020-08-29] MEDS: amLODIPine 10 MG TAB PO SCH (07:36)
[2020-08-29] MEDS: CHOLECALCIFEROL 25 MCG (1000 IU) TABLET PO SCH (07:36)
[2020-08-29] MEDS: ENOXAPARIN 40 MG/0.4 ML SYRINGE SQ SCH (07:37)
[2020-08-29] MEDS: LIDOCAINE 5% PATCH TOPICAL SCH (07:37)
[2020-08-29] MEDS: methylPREDNISolone SOD SUCCI 40 MG/ML 1 ML VIAL IV SCH ×3 (07:37→23:16)
[2020-08-29] MEDS: ALBUTEROL HFA INHALER INHALATION SCH ×4 (07:51→19:20)
[2020-08-29] MEDS ORDERED: FAT EMULSION 20% 250 ML in EMPTY BAG 1 BAG IV SCH (09:00)
[2020-08-29] MEDS: ONDANSETRON 4 MG/2 ML VIAL IVP PRN (09:02)
[2020-08-29] MEDS ORDERED: INSULIN DETEMIR (LEVEMIR) 100 UNIT/ML SYR SQ ONE (09:30)
[2020-08-29 10:43] LABS: Glucose,Whole Blood 181 mg/dL (75-99)
[2020-08-29 10:49] LABS: ABG Base Excess 10.9 mmol/L; ABG HCO3 38 mmol/L (21-25); ABG PH 7.29 (7.35-7.45); ABG TCO2 40 mmol/L (19-24); Allen Test Performed? Yes
[2020-08-29 10:51] LABS: ABG PCO2 79 mmHg (35-45)
[2020-08-29] MEDS ORDERED: propofoL 100 ML IV ONE (10:51)
[2020-08-29 10:52] LABS: ABG PO2 41 mmHg (83-108)
[2020-08-29] MEDS ORDERED: ROCURONIUM 10 MG/ML (5 ML VIAL) IV ONE (11:00)
[2020-08-29] MEDS ORDERED: PHENYLEPHRINE 10 MG/ML VIAL ONE (11:00)
[2020-08-29] MEDS ORDERED: PROPOFOL 10 MG/ML 20 ML VIAL IV ONE (11:00)
[2020-08-29] MEDS ORDERED: fentaNYL (PF) 50 MCG/ML 2 ML AMP ONE (12:08)
--- NOTE | 2020-08-29 12:10 | XR ---
EXAMINATION TYPE: XR chest 1V portable DATE OF EXAM: 08/29/2020 COMPARISON: 08/29/2020 HISTORY: SOB, Follow Up FINDINGS: Indwelling tubes and catheters are unchanged. Persistent but improved right-sided pneumothorax status post chest tube placement with apical pleural distance of 1 cm versus 4.3 cm previously. Diffuse airspace infiltrates persist throughout both lung johnson. Stable appearance of the cardio-mediastinal structures at this time. Pleural effusion unchanged. IMPRESSION: 1. Persistent but improved right-sided pneumothorax status post chest tube placement with apical ple ural distance of 1 cm versus 4.3 cm previously.. Clinical correlation and follow up until resolution is recommended.
[2020-08-29] MEDS ORDERED: SODIUM CHLORIDE 0.9% 1,000 ML IV ONE (12:13)
--- NOTE | 2020-08-29 12:17 | P.PN ---
Subjective Progress Note Date: 08/29/20 Principal diagnosis: Respiratory failure. On 08/19/2020, the patient remains on 10 L of oxygen by nasal cannula. We were unable to wean it off any further. She is otherwise quite stable and resting comfortably in bed. As mentioned earlier, this is a case of E. coli sepsis with secondary acute lung injury/ARDS. She was on BiPAP in the ICU and she was weaned down to 10 L of oxygen by nasal cannula. She has had previous history of remote COVID-19 associated pneumonia. She remains on IV Zosyn. She is also on steroids in the patient is currently on prednisone 40 mg by mouth daily and IV Solu Medrol was discontinued yesterday. Afebrile. Tolerating diet and she is taking approximately 25% of her oral diet. She is still very weak. Oral intake is diminished. She is not using incentive spirometer. On 08/20/2000 patient seen in follow-up on medical surgical floor. She is sitting up in a chair, she continues to be on 8 L of oxygen, her pulse ox is 93%, the problem be weaned further, hemodynamically she has been stable, she has been afebrile, appears weak, and she has not been using the incentive spirometer. Patient's chest x- ray today shows slight worsening in bilateral airspace disease. Today's labs show improving white blood cell count is down to 18.3, hemoglobin is 12.5, d- dimer is down slightly and is at 4.0, potassium is 3.4, Darvocet x-rays were u nremarkable, B1 is 20, creatinine 0.9, intrinsic renal profile has improved from a couple days ago. LDH improving and is down to 381, from 720, and CRP is 9.1. No nausea vomiting or diarrhea, her oral intake is poor, she has no appetite. She remains on Zosyn, and her blood and urine cultures showed E. coli with cabezas sensitivity. And she remains on prednisone 40 mg daily, she did receive a dose of Lasix per nephrology, and she remains on Polyvitamin sent and Lovenox 40 mg daily On 08/22/2020 patient is seen in follow-up on medical surgical floor, she is more short of breath today, and she required to be placed on irritable currently at 60 L and FiO2 of 90%. Appears to be more lethargic on today's exam, today's chest x-ray shows bilateral airspace disease without significant change compared to previous chest x-ray. Patient has been afebrile, hemodynamically patient has been stable, no chest pain, no increased cough or congestion, her white blood cell count is 23.9, hemoglobin is 12.8, sodium is 136, potassium is 3.5, chloride is 97, CO2 36, BUN is 19, creatinine is 0.93. Earlier today Lasix was given, and patient has produced a total of 1400 on this shift, although exact net fluid balance is difficult to estimate, urine color appears to be quite turbid, and appears to be infected. On 08/25/2000 patient seen in follow-up on medical surgical floor, she is resting in bed, remains on BiPAP support, currently with pressures of 14/6, and FiO2 of 100%, and her pulse ox is 90-94%, she appears weak, but does not appear to be in any respiratory distress, she is afebrile, hemodynamically she is stable, her last chest x-ray from 08/23/2020 showed predominantly confluent reticulonodular opacities that were not significantly changed from most recent chest x-ray. Venous blood gas was reviewed. Today's labs have been reviewed. Currently the patient is Solu-Medrol 60 mg every 6 hours, twice daily dose of Lovenox 40 mg, she is on empiric antibiotics in the form of Rocephin, most recent blood culture showed Agatha albicans, blood cultures have been negative. This had no fever or chills. Patient has not been able to take in anything by mouth, related to being BiPAP On 08/27/2020 patient seen in follow-up on medical surgical floor, she remains on BiPAP, she is lethargic, but arousable to voice, BiPAP settings of 14 and 6, and FiO2 100%. She alternates with the Airvo at 60 L and 90%. She looks weak, she is afebrile, hemodynamically she stable, yesterday chest x-ray shows bilateral groundglass opacities, prominence of interstitium. No new labs today, yesterday's labs showed increased white blood cell count of 25, hemoglobin is 11.7, d-dimer came back at 1.55, LDH was improving and was down to 1013, and CRP was 2.2, pro calcitonin level was negative at 0.11, urinalysis was repeated showing infected urine, with large amount of leuk trase, and greater than 182 of white blood cells bacteria and budding yeast. D service was consulted, and patient was started on Diflucan. Addition patient remains on IV Solu-Medrol 60 mg every 6 hours. Patient is being switched to Airvo so she can take in some oral nutrition. Patient is only able to tolerate half an hour to 45 minutes of Airvo at a time before requiring to go back on BiPAP On 08/28/2020 patient seen in follow-up on medical surgical floor. She has failed attempts to place her on high flow oxygen and she immediately desaturates, becomes very dyspneic, and has been BiPAP dependent. She has been unable to sustain her oral nutrition as she has not been able to stay off the BiPAP support long enough to take in anything orally. Her BiPAP pressures of 14/6 and FiO2 of 100%, her pulse ox is 89-90%, she appears very weak, and fatigue, but no acute distress, her chest x-ray today shows bilateral confluent reticulonodular opacities consistent with COVID-19 infection and/or ARDS, with no change from prior chest x-ray. Today's labs have been reviewed showing a white blood cell count of 23.3, hemoglobin of 12.9, d-dimer is 1.48, sodium is 142, potassium is 4.6, chloride is 101, CO2 is 39, BUN of 39, creatinine 0.79, LDH is improving, down to 957, and CRP is 1.9, pro calcitonin level from was negative at 0.11. She is currently on Diflucan for possibility of urinary tract infection and the urine culture showed Agatha albicans, and follow-up urine culture from 08/26/2020 showed gram-negative bacilli suggesting possibility of urinary tract infection. Infectious disease is following, and in addition to Diflucan patient is currently on Zosyn. IV steroids currently with Solu-Medrol 40 mg every 8 hours, and patient remains on prophylactic dose of Lovenox 40 mg daily. Progress note dated 08/29/2020. The patient's overall condition worsened today, and she had a very poor blood gas and 100% and BiPAP. Her pO2 was only 41, CO2 was 79, and pH of 7.29. We decided go ahead and move her to the intensive care unit. There, she required intubation and mechanical ventilation for nathan respiratory failure. Unfortunately, post intubation, she developed a right-sided pneumothorax, and #32-Azerbaijani chest tube was placed by myself. The patient tolerated the procedure well. In addition, we placed a left radial art line in this patient. Currently, she is on the volume assist control mode, rate 24, tidal volume 350, FiO2 100%, PEEP of 10. A repeat blood gas will be pending shortly. The post chest tube x-ray showed almost complete reexpansion of the right lung. The pat ient's on propofol at 50 mcg/kg/m, saline at 100 mL an hour, and we going to start a fentanyl drip. The patient may need arouses with Nimbex. We'll wait on the follow-up blood gases. Labs today only included the blood gas that was done when the patient first arrived in the intensive care unit. A full set of labs will be ordered. The patient already has a double-lumen PICC line. Objective - Vital Signs Vital signs: Vital Signs Temp 97.7 F 08/29/20 10:00 Pulse 100 08/29/20 10:00 Resp 32 H 08/29/20 10:00 BP 161/66 08/29/20 10:00 Pulse Ox 80 L 08/29/20 10:00 Intake & Output 08/28/20 08/29/20 08/29/20 18:59 06:59 18:59 Intake Total 100 Output Total 300 450 Balance -300 -350 Weight 84.4 kg 82.5 kg Intake: Oral 100 Output: Urine 300 450 Other: Voiding Method Indwelling Catheter Indwelling Catheter - Exam No acute distress, heavily sedated, with an orally placed endotracheal tube. Saturations are 95%. HEENT examination is grossly unremarkable. An oral endotracheal tube and NG tube is noted. Neck supple. Full range of motion. No adenopathy thyromegaly or neck vein distention. Cardiovascular examination reveals regular rhythm rate. S1-S2 normal. No S3 or S4. No discernible murmur noted. Heart sounds are distant. Heart rate 100 bpm. Lungs reveal coarse bilateral breath sounds. His bilateral crackles. No wheezes. Breath sounds equal bilaterally post chest tube insertion. Abdomen soft, without bowel sounds. No masses or tenderness. Extremities are intact. No cyanosis clubbing or edema. Skin is without rash or lesion. Neurologic examination could not be properly assessed as the patient's heavily sedated. - Labs CBC & Chem 7: 08/28/20 06:05 08/28/20 11:49 Labs: Abnormal Lab Results - Last 24 Hours (Table) 08/28/20 08/28/20 08/28/20 Range/Units 11:49 11:49 11:49 D-Dimer 1.48 H (<0.60) mg/L FEU ABG pH (7.35-7.45) ABG pCO2 (35-45) mmHg ABG pO2 (83-108) mmHg ABG HCO3 (21-25) mmol/L ABG Total CO2 (19-24) mmol/L ABG O2 Saturation (94-97) % Carbon Dioxide 38 H (22-30) mmol/L BUN 39 H (7-17) mg/dL Glucose 173 H (74-99) mg/dL POC Glucose (mg/dL) (75-99) mg/dL Magnesium 2.5 H (1.6-2.3) mg/dL Lactate Dehydrogenase 957 H (313-618) U/L C-Reactive Protein 1.9 H (<1.0) mg/dL Total Protein 5.6 L (6.3-8.2) g/dL Albumin 2.7 L (3.5-5.0) g/dL Triglycerides (<150) mg/dL 08/28/20 08/28/20 08/28/20 Range/Units 16:00 16:46 20:53 D-Dimer (<0.60) mg/L FEU ABG pH (7.35-7.45) ABG pCO2 (35-45) mmHg ABG pO2 (83-108) mmHg ABG HCO3 (21-25) mmol/L ABG Total CO2 (19-24) mmol/L ABG O2 Saturation (94-97) % Carbon Dioxide (22-30) mmol/L BUN (7-17) mg/dL Glucose (74-99) mg/dL POC Glucose (mg/dL) 185 H 180 H (75-99) mg/dL Magnesium (1.6-2.3) mg/dL Lactate Dehydrogenase (313-618) U/L C-Reactive Protein (<1.0) mg/dL Total Protein (6.3-8.2) g/dL Albumin 2.8 L (3.5-5.0) g/dL Triglycerides 211 H (<150) mg/dL 08/29/20 08/29/20 08/29/20 Range/Units 07:10 10:41 10:42 D-Dimer (<0.60) mg/L FEU ABG pH 7.29 L (7.35-7.45) ABG pCO2 79 H* (35-45) mmHg ABG pO2 41 L* (83-108) mmHg ABG HCO3 38 H (21-25) mmol/L ABG Total CO2 40 H (19-24) mmol/L ABG O2 Saturation 68.0 L (94-97) % Carbon Dioxide (22-30) mmol/L BUN (7-17) mg/dL Glucose (74-99) mg/dL POC Glucose (mg/dL) 203 H 181 H (75-99) mg/dL Magnesium (1.6-2.3) mg/dL Lactate Dehydrogenase (313-618) U/L C-Reactive Protein (<1.0) mg/dL Total Protein (6.3-8.2) g/dL Albumin (3.5-5.0) g/dL Triglycerides (<150) mg/dL Microbiology - Last 24 Hours (Table) 08/22/20 19:16 Blood Culture - Final Blood No Growth after 144 hours 08/22/20 19:16 Blood Culture - Final Blood No Growth after 144 hours 08/26/20 17:06 Urine Culture - Final Urine,Voided Pseudomonas aeruginosa Agatha albicans Assessment and Plan Assessment: Acute hypoxemic respiratory failure, secondary to COVID 19 pneumonia/pneumonitis, and acute fluid overload, as well as acute respiratory distress syndrome (ARDS). Patient's clinical status worsened today, and she required intubation and mechanical ventilation, on 08/29/2020. Right-sided pneumothorax, status post intubation and mechanical ventilation, with subsequent placement of a #32-Azerbaijani chest tube. Escherichia coli bacteremia/sepsis. Escherichia coli urinary tract infection. Acute right-sided pyelonephritis,/hydronephrosis, secondary to right ureteropelvic junction kidney stone, status post right ureteral stent placement on 08/07/2020. History of hypertension. History of hyperlipidemia. Hypothyroidism. Acute kidney injury. History of COVID 19 related infection March 2020. Leukocytosis, secondary to sepsis. Plan: Plan dated 08/29/2020. The patient was intubated and mechanically ventilated today, in the intensive care unit. She developed a right-sided pneumothorax status post intubation, and a #32-Azerbaijani chest tube was placed. In addition, a left radial art line was placed. The patient was placed on propofol for sedation at 50 mcg/kg/m. She may need something more, i.e. no drip, and/or paralysis. She's getting saline at 100 mL an hour. Currently, she is on the volume assist control mode, and a repeat blood gas is pending. Her peak airway pressures were quite high at 55 cm water. Additional recommendations and suggestions are forthcoming. Prognosis is poor. The patient has been in the hospital now for 23 days. Time with Patient: Greater than 30
[2020-08-29] MEDS: fentaNYL (PF). 1,000 MCG in SODIUM CHLORIDE 0.9% 80 ML IV SCH ×2 (12:20→23:18)
--- NOTE | 2020-08-29 12:22 | XR ---
EXAMINATION TYPE: XR chest 1V portable DATE OF EXAM: 08/29/2020 CLINICAL HISTORY: Difficulty breathing had to be intubated. TECHNIQUE: Single AP portable semiupright view of the chest is obtained. COMPARISON: Chest x-ray from one day earlier and older studies. FINDINGS: Stable right-sided PICC line. New endotracheal tube terminates at aortic knob level, same level as clavicles above the thomas. New overlying Vertical catheter felt to lateral in position to be orogastric tube possible external. Persistent fairly confluent reticulonodular opacities bilaterally. New Right-sided pneumothorax exten ding laterally estimated 30-35%. Osseous structures remain intact. Surgical changes epigastric region redemonstrated. Cardiac silhouette size is mildly enlarged. IMPRESSION: New moderate size right pneumothorax. New Endotracheal tube satisfactory in position.
[2020-08-29 12:23] LABS: ALT 14 U/L (4-34); African American GFR (CKD) >90 (>60 ml/min/1.73 sqM); Anion Gap 4 mmol/L; Blood Urea Nitrogen 42 mg/dL (7-17); Calcium 8.2 mg/dL (8.4-10.2); Carbon Dioxide 29 mmol/L (22-30); Chloride 106 mmol/L (98-107); Glucose 336 mg/dL (74-99); Non-African American GFR(CKD) 81 (>60 ml/min/1.73 sqM); Sodium 139 mmol/L (137-145); Total Bilirubin 0.8 mg/dL (0.2-1.3)
[2020-08-29 12:31] LABS: Basophils # (A) 0.1 k/uL (0-0.2); Basophils % (A) 1 %; Eosinophils % (A) 0 %; HCT 38.7 % (34.0-46.0); HGB 12.1 gm/dL (11.4-16.0); Hypochromasia Marked; Lymphocytes # (A) 0.2 k/uL (1.0-4.8); Lymphocytes % (A) 1 %; MCH 32.3 pg (25.0-35.0); MCHC 31.3 g/dL (31.0-37.0); Macrocytosis Slight; Mean Platelet Volume 9.1; Monocytes # (A) 0.6 k/uL (0-1.0); Monocytes % (A) 2 %; Neutrophils # (A) 23.5 k/uL (1.3-7.7); Neutrophils % (A) 96 %; RBC 3.75 m/uL (3.80-5.40); RDW 13.8 % (11.5-15.5); WBC 24.5 k/uL (3.8-10.6)
[2020-08-29 12:34] LABS: MCV 103.3 fL (80.0-100.0); Platelet Count 110 k/uL (150-450)
[2020-08-29 12:47] LABS: AST 34 U/L (14-36); Albumin 2.4 g/dL (3.5-5.0); Alkaline Phosphatase 77 U/L (38-126); Potassium 5.5 mmol/L (3.5-5.1); Total Protein 5.1 g/dL (6.3-8.2)
[2020-08-29] MEDS: SODIUM CHLORIDE 0.9% 1,000 ML IV SCH ×2 (13:04→23:08)
[2020-08-29 13:17] LABS: African American GFR (CKD) 81.8 (60.0-200.0); Anion Gap 11.8 mmol/L (4.00-12.00); BUN/Creat Ratio 48.75 Ratio (12.00-20.00); Calcium 8.7 mg/dL (8.7-10.3); Carbon Dioxide 31.2 mmol/L (21.6-31.8); Magnesium 2.1 mg/dL (1.5-2.4); Non-African American GFR(CKD) 70.6 (60.0-200.0); Phosphorus 4.3 mg/dL (2.4-5.1); Potassium 4.7 mmol/L (3.5-5.5)
[2020-08-29] MEDS ORDERED: CISATRACURIUM 2 MG/ML 5 ML VIAL IV ONE ×2 (13:26→14:32)
[2020-08-29] MEDS: CISATRACURIUM 200 MG in SODIUM CHLORIDE 0.9% 180 ML IV SCH (13:45)
[2020-08-29 14:00] VITALS: BMI 32.1
[2020-08-29 14:04] LABS: ABG Oxygen Saturation 91.5 % (94-97); ABG PO2 89 mmHg (83-108); Allen Test Performed? Yes
[2020-08-29 14:14] LABS: ABG PCO2 >120 mmHg (35-45); ABG PH 7.03 (7.35-7.45)
--- NOTE | 2020-08-29 14:48 | P.PN ---
Subjective Progress Note Date: 08/29/20 Pt had worsening respiratory status on BIPAP with 100% FiO2 and 12/6, and did not improve with increased PEEP to 10. Patient was moved to the ICU and intubated, but unfortunately experienced right sided pneumothorax and required 32 hungarian chest tube. Objective - Vital Signs Vital signs: Vital Signs Temp 97.7 F 08/29/20 10:00 Pulse 88 08/29/20 13:00 Resp 24 08/29/20 13:00 BP 141/60 08/29/20 13:00 Pulse Ox 90 L 08/29/20 13:00 Intake & Output 08/28/20 08/29/20 08/29/20 18:59 06:59 18:59 Intake Total 100 Output Total 300 450 Balance -300 -350 Weight 84.4 kg 82.5 kg 79.7 kg Intake: Oral 100 Output: Urine 300 450 Other: Voiding Method Indwelling Catheter Indwelling Catheter ABP, PAP, CO, CI - Last Documented Arterial Blood Pressure 124/58 - Exam Gen: awake, alert, in distress HEENT: normocephalic, atraumatic, good hearing acuity, moist mucous membranes Resp: Significant respiratory distress with accessory muscle use, Ventilator CVS: good distal perfusion x 4, regular rate and rhythm without murmurs GI: soft, NTTP, ND : no SPT, no CVAT, mcconnell catheter is present MSK: + pitting edema, no clubbing Neuro: non-focal, moving all extremities - Labs CBC & Chem 7: 08/29/20 11:27 08/29/20 11:27 Labs: Abnormal Lab Results - Last 24 Hours (Table) 08/28/20 08/28/20 08/28/20 Range/Units 11:49 16:00 16:46 WBC (3.8-10.6) k/uL RBC (3.80-5.40) m/uL MCV (80.0-100.0) fL Plt Count (150-450) k/uL Neutrophils # (1.3-7.7) k/uL Lymphocytes # (1.0-4.8) k/uL ABG pH (7.35-7.45) ABG pCO2 (35-45) mmHg ABG pO2 (83-108) mmHg ABG HCO3 (21-25) mmol/L ABG Total CO2 (19-24) mmol/L ABG O2 Saturation (94-97) % Sodium (135-145) mmol/L Potassium (3.5-5.1) mmol/L Carbon Dioxide 38 H (22-30) mmol/L BUN 39 H (7-17) mg/dL BUN/Creatinine Ratio (12.00-20.00) Ratio Glucose 173 H (74-99) mg/dL POC Glucose (mg/dL) 185 H (75-99) mg/dL Plasma Lactic Acid Juvenal (0.7-2.0) mmol/L Calcium (8.4-10.2) mg/dL Magnesium 2.5 H (1.6-2.3) mg/dL Total Protein 5.6 L (6.3-8.2) g/dL Albumin 2.7 L 2.8 L (3.5-5.0) g/dL Triglycerides 211 H (<150) mg/dL 08/28/20 08/29/20 08/29/20 Range/Units 20:53 07:10 07:24 WBC (3.8-10.6) k/uL RBC (3.80-5.40) m/uL MCV (80.0-100.0) fL Plt Count (150-450) k/uL Neutrophils # (1.3-7.7) k/uL Lymphocytes # (1.0-4.8) k/uL ABG pH (7.35-7.45) ABG pCO2 (35-45) mmHg ABG pO2 (83-108) mmHg ABG HCO3 (21-25) mmol/L ABG Total CO2 (19-24) mmol/L ABG O2 Saturation (94-97) % Sodium 147 H (135-145) mmol/L Potassium (3.5-5.1) mmol/L Carbon Dioxide (22-30) mmol/L BUN 39.0 H (7-17) mg/dL BUN/Creatinine Ratio 48.75 H (12.00-20.00) Ratio Glucose 198 H (74-99) mg/dL POC Glucose (mg/dL) 180 H 203 H (75-99) mg/dL Plasma Lactic Acid Juvenal (0.7-2.0) mmol/L Calcium (8.4-10.2) mg/dL Magnesium (1.6-2.3) mg/dL Total Protein (6.3-8.2) g/dL Albumin (3.5-5.0) g/dL Triglycerides (<150) mg/dL 08/29/20 08/29/20 08/29/20 Range/Units 10:41 10:42 11:27 WBC 24.5 H (3.8-10.6) k/uL RBC 3.75 L (3.80-5.40) m/uL MCV 103.3 H D (80.0-100.0) fL Plt Count 110 L D (150-450) k/uL Neutrophils # 23.5 H (1.3-7.7) k/uL Lymphocytes # 0.2 L (1.0-4.8) k/uL ABG pH 7.29 L (7.35-7.45) ABG pCO2 79 H* (35-45) mmHg ABG pO2 41 L* (83-108) mmHg ABG HCO3 38 H (21-25) mmol/L ABG Total CO2 40 H (19-24) mmol/L ABG O2 Saturation 68.0 L (94-97) % Sodium (135-145) mmol/L Potassium (3.5-5.1) mmol/L Carbon Dioxide (22-30) mmol/L BUN (7-17) mg/dL BUN/Creatinine Ratio (12.00-20.00) Ratio Glucose (74-99) mg/dL POC Glucose (mg/dL) 181 H (75-99) mg/dL Plasma Lactic Acid Juvenal (0.7-2.0) mmol/L Calcium (8.4-10.2) mg/dL Magnesium (1.6-2.3) mg/dL Total Protein (6.3-8.2) g/dL Albumin (3.5-5.0) g/dL Triglycerides (<150) mg/dL 08/29/20 08/29/20 08/29/20 Range/Units 11:27 11:27 13:43 WBC (3.8-10.6) k/uL RBC (3.80-5.40) m/uL MCV (80.0-100.0) fL Plt Count (150-450) k/uL Neutrophils # (1.3-7.7) k/uL Lymphocytes # (1.0-4.8) k/uL ABG pH 7.03 L* (7.35-7.45) ABG pCO2 >120 H* (35-45) mmHg ABG pO2 (83-108) mmHg ABG HCO3 (21-25) mmol/L ABG Total CO2 (19-24) mmol/L ABG O2 Saturation 91.5 L (94-97) % Sodium (135-145) mmol/L Potassium 5.5 H (3.5-5.1) mmol/L Carbon Dioxide (22-30) mmol/L BUN 42 H (7-17) mg/dL BUN/Creatinine Ratio (12.00-20.00) Ratio Glucose 336 H (74-99) mg/dL POC Glucose (mg/dL) (75-99) mg/dL Plasma Lactic Acid Juvenal 2.1 H* (0.7-2.0) mmol/L Calcium 8.2 L (8.4-10.2) mg/dL Magnesium (1.6-2.3) mg/dL Total Protein 5.1 L (6.3-8.2) g/dL Albumin 2.4 L (3.5-5.0) g/dL Triglycerides (<150) mg/dL Microbiology - Last 24 Hours (Table) 08/28/20 11:49 Blood Culture - Preliminary Blood No Growth after 24 hours 08/22/20 19:16 Blood Culture - Final Blood No Growth after 144 hours 08/22/20 19:16 Blood Culture - Final Blood No Growth after 144 hours 08/26/20 17:06 Urine Culture - Final Urine,Voided Pseudomonas aeruginosa Agatha albicans Assessment and Plan Assessment: Acute hypoxic respiratory failure resulting from Covid pneumonia/ARDS from recent E.coli sepsis Pneumothorax, Spontaneous versus Iatrogenic -BiPAP alternating with AirVo if tolerated --> Intubated on 08/29 -Telemetry monitoring. -Continue Vitamin C, vitamin D, zinc, and melatonin -Continue Solu-Medrol 60 mg IVP every 6 hours, today is day 16 of steroids. -Pulmonology following, appreciate further recommendations. -Consideration of tocilizumab if no improvement on zosyn -TPN initiated 08/28 -Right sided chest tube placed on 08/29 -See GoC discussion dated 08/29 -40 minutes of critical care time spent with this patient on 08/29 Severe sepsis secondary to E. coli bacteremia and acute pyelonephritis Pseudomonas UTI -Seen by ID, She received total of 19 days of ceftriaxone. -Repeat UCx growing cabezas-sensitive pseudomonas, restarted on zosyn by ID on 08/28 Obstructive right ureteral stone resulting in severe hydronephrosis, patient is status post cystoscopy and insertion of ureteral stent on 08/07/20 -CT scan completed at [facility] prior to being transferred to our facility reportedly revealed an obstructive 6 mm kidney stone in the right UPJ causing severe right hydronephrosis. -Patient underwent cystoscopy and insertion of right ureteral stent on 08/07/20 -Nephrology following. Acute kidney injury secondary to obstructive uropathy and severe sepsis, resolved Hypokalemia, resolved Hypovolemic hypernatremia, resolved Hypertension -Monitor vital signs and continue daily medication management with amlodipine. Hold losartan due to TUTU. Hyperlipidemia -Continue daily home medication regimen with atorvastatin 40 mg nightly. Hypothyroidism -Continue daily medication regimen with Synthroid 100 g daily. CODE STATUS: Full code DVT prophylaxis: Heparin Discussed with: Patient and RN Anticipated discharge date: Clinical course to determine Anticipated discharge place: To be determined
[2020-08-29] MEDS: ARTIFICIAL TEARS-HYPROMELLOSE DROPS 15 ML BTL BOTH EYES SCH ×3 (14:51→23:16)
--- NOTE | 2020-08-29 14:56 | P.PN ---
Progress Note - Text Progress Note Date: 08/29/20 I discussed patient's goals of care and prognosis with Aspen and briefly with the patient prior to intubation for approximately 48 minutes total [id number] and telephone time in combination due to the following severe illness: Acute hypoxemic and hypercarbic respiratory failure in the setting of Covid 19 Discussion: I had spoken to the patient and the previous 2 days regarding her wishes if she were to worsen and require a breathing tube, and she indicated to me that she would want an elective/urgent intubation. However, she was unclear on whether or not she would be amenable to tracheostomy and PEG tube should that be required down the line. Patient reaffirmed her desire for elective/urgent intubation today prior to her transfer to the ICU. I discussed her clinical situation today in more detail with her daughter Aspen. Specifically, we discussed the likelihood of requiring tracheostomy/PEG tube if patient were to survive on the ventilator beyond 7 days, as well as the likelihood of losing her pulse during elective intubation, or in the days following. Given her clinical situation, Aspen agreed that the appropriate substituted judgment that Ms. Bautista would make would be to be DO NOT RESUSCITATE if she were to lose her pulse. We also touched briefly on palliative care/comfort care. Specifically, the fact that patient's life is not sustainable with an oxygen saturation less than 88% persistently, and therefore, should her oxygenation decrease below this level for a significant period of time, we will consider transitioning Ms. Bautista to palliative/comfort care, however, for now patient would continue to want treatment. Daughter Aspen would like to discuss with her siblings regarding the question of whether patient would be amenable to tracheostomy and PEG tube down the line, however, is leaning towards not being amenable to this measure. Patient's new CODE STATUS is now reflected in the EMR. I will continue to have daily discussions with Aspen regarding patient's clinical status and goals of care.
[2020-08-29 15:48] LABS: ABG Oxygen Saturation 93.6 % (94-97); ABG PO2 101 mmHg (83-108)
[2020-08-29 15:50] LABS: ABG PCO2 >120 mmHg (35-45); ABG PH 6.98 (7.35-7.45); Allen Test Performed? no
--- NOTE | 2020-08-29 16:29 | XR ---
EXAMINATION TYPE: XR chest 1V portable DATE OF EXAM: 08/29/2020 CLINICAL HISTORY: Difficulty breathing and right-sided pneumothorax progress study. TECHNIQUE: Single AP portable semiupright view of the chest is obtained. COMPARISON: Chest x-ray from earlier today an older studies. FINDINGS: Stable right-sided PICC line. Stable endotracheal and orogastric tubes. Slight retraction of right-sided chest tube. Small to borderline moderate superior right pneumothorax increased in size from most recent x-ray increased from 1.0 up to 3.5 cm in apex on current study. Persistent fairly confluent reticulonodular opacities bilaterally redemonstrated. Osseous structures remain intact. Surgical changes epigastric region redemonstrated. Cholecystectomy clips seen on curre nt study. Cardiac silhouette size remains enlarged. IMPRESSION: Small to borderline moderate size right apical pneumothorax increased in size from most r ecent chest x-ray despite right basilar chest tube. Other findings stable.
--- NOTE | 2020-08-29 17:08 | PN ---
PROGRESS NOTE DATE OF SERVICE: 08/29/2020 REASON FOR FOLLOWUP: 1. Pneumonia. 2. Urinary tract infection. INTERVAL HISTORY: The patient did have worsening of her respiratory status, for which the patient has been transferred down to the ICU. The patient is hemodynamically stable, not on any pressor support. No vomiting or diarrhea or any other change reported by nursing staff. PHYSICAL EXAMINATION: Blood pressure 141/60, pulse of 80, temperature of 97.7. She is 90% on 30% FiO2. General description is an elderly female lying in bed in no distress. RESPIRATORY SYSTEM: Unlabored breathing. Coarse breath sounds, especially on the left side. No wheeze. HEART: S1, S2. Regular rate and rhythm. ABDOMEN: Soft. No tenderness. EXTREMITIES: No edema of the feet. LABS: Hemoglobin 12.1, white count 24.5. BUN of 42, creatinine 0.72. Blood culture was requested yesterday; not completed so far. Urine shows Pseudomonas and Agatha albicans. DIAGNOSTIC IMPRESSION AND PLAN: Patient with a urinary tract infection, catheter-associated; initially urine was Escherichia coli with Escherichia coli bacteremia, adequately treated. Now subsequent urine showing Agatha and Pseudomonas aeruginosa. Patient is covered with Diflucan and Zosyn and concern for possible pneumonia. We will try to obtain a sputum sample and monitor her clinical course closely. Overall prognosis remains guarded. MMODL / IJN: [id number] / MTDD
--- NOTE | 2020-08-29 17:52 | XR ---
EXAMINATION TYPE: XR chest 1V DATE OF EXAM: 08/29/2020 COMPARISON: 08/29/2020 HISTORY: Chest tube reposition TECHNIQUE: Thomas view FINDINGS: There is endotracheal tube 3.5 cm from the thomas. There is right chest tube over the right midlung field. There is small right apical pneumothorax. The pleural space measures 11 mm and is imp roved compared to exam one hour ago. There is diffuse pulmonary airspace edema. There is nasogastric tube in the stomach. Heart appears enlarged. There is right central venous catheter with tip in the s uperior vena cava. IMPRESSION: Small right apical pneumothorax less than 10% and is improved compared to recent exam. Mo derately severe pulmonary edema unchanged.
[2020-08-29] MEDS ORDERED: MVI, ADULT NO.4 WITH VIT K 10 ML, TRACE (CONC-1ML/DOSE) 1 ML, SODIUM PHOSPHATE 15 MMOL,... IV SCH ×6 (18:00)
[2020-08-29 18:06] LABS: Glucose,Whole Blood 243 mg/dL (75-99)
[2020-08-29 18:08] LABS: ABG Base Excess 4.5 mmol/L; ABG HCO3 32 mmol/L (21-25); ABG Oxygen Saturation 90.1 % (94-97); ABG PH 7.22 (7.35-7.45); ABG PO2 63 mmHg (83-108); ABG TCO2 35 mmol/L (19-24)
[2020-08-29 18:09] LABS: ABG PCO2 79 mmHg (35-45); Allen Test Performed? no
--- NOTE | 2020-08-29 20:01 | PCN ---
PROCEDURE NOTE PROCEDURE: Right chest tube insertion. PREOPERATIVE DIAGNOSIS: Right pneumothorax. POSTOPERATIVE DIAGNOSIS: Right pneumothorax. OPERATORS: 1. Dr. Ware. 2. Chelsey Cabral. PROCEDURE DESCRIPTION: We used a 32-Finnish chest tube. The chest tube was inserted between the anterior middle axillary line on the right fifth intercostal space. There was no immediate complication. The post chest tube x-ray looked good. There was almost complete expansion of the right lung. The patient tolerated the procedure well. The chest tube was sutured in place. It was connected to a Pleur-evac and placed on 20 cm of suction. There was no immediate complication. MMODL / IJN: [id number] /
[2020-08-29] MEDS: CHLORHEXIDINE GLUCONATE 15 ML CUP MUCOUS MEM SCH (20:05)
--- NOTE | 2020-08-29 20:17 | PCN ---
PROCEDURE NOTE LEFT RADIAL ARTERIAL LINE PLACEMENT: OPERATORS: 1. Dr. Chelsey Cabral. 2. Dr. Ware. PREOPERATIVE DIAGNOSIS: Frequent blood draws and blood gas monitoring. POSTOPERATIVE DIAGNOSIS: Frequent blood draws and blood gas monitoring. Indications: Hemodynamic monitoring. A time-out was completed verifying correct patient, procedure, site, positioning, and implant(s) or special equipment if applicable. There was informed consent. Darinel's test was performed to ensure adequate perfusion. The patient's left wrist was prepped and draped in sterile fashion. 1% Lidocaine was used to anesthetize the area. An 18G Arrow arterial line was introduced into the radial artery. The catheter was threaded over the guidewire and the needle was removed with appropriate pulsatile blood return. Blood loss was minimal. The catheter was then sutured in place to the skin and a sterile dressing was applied by the nurse. Perfusion to the extremity distal to the point of catheter insertion was checked and found to be adequate. There was good waveform and blood pressure reading. The patient tolerated the procedure well and there was no immediate complication. MMODL / IJN: [id number] /
[2020-08-29] MEDS ORDERED: INSULIN DETEMIR (LEVEMIR) 100 UNIT/ML SYR SQ SCH (21:00)
--- NOTE | 2020-08-29 22:57 | PCN ---
PROCEDURE NOTE PULMONARY/CRITICAL CARE PROCEDURE NOTE: PROCEDURE: STAT airway examination, bronchoscopy, BAL and therapeutic lavage. PREOPERATIVE DIAGNOSIS: Increased airway pressures; rule out endobronchial obstruction. POSTOPERATIVE DIAGNOSIS: Increased airway pressures; rule out endobronchial obstruction. OPERATORS: 1. Dr. Ware. 2. Dr. Chelsey Cabral. PROCEDURE DESCRIPTION: The patient was already on the ventilator, sedated and paralyzed. The bronchoscope adapter was connected to the endotracheal tube. We used a portable bronchoscope. The bronchoscope was inserted through the bronchoscope adapter. It passed easily through the endotracheal tube. The tracheal thomas was sharp. The right and left mainstem were clear of any secretions or abnormalities. I did a thorough inspection of both lungs, including the right upper lobe and its 3 segments, the right middle lobe and its 2 segments, the right lower lobe and its 5 segments, the left upper lobe proper and its 2 segments, the lingula and its 2 segments, and the left lower lobe and its 4 segments. The airways were free of any significant secretions or obstruction. We did take the opportunity to lavage the lungs bilaterally. Saline was instilled. It was suctioned. Samples were not collected for analysis. The patient tolerated the procedure well and the bronchoscope was withdrawn. MMODL / IJN: [id number] /
[2020-08-29 23:09] LABS: Glucose,Whole Blood 187 mg/dL (75-99)
[2020-08-30 00:22] VITALS: TEMP 97.5
[2020-08-30] MEDS: PIPERACILLIN-TAZOBACTAM 3.375 GM in SODIUM CHLORIDE 0.9% 100 ML IVPB SCH ×2 (03:27→11:01)
[2020-08-30] MEDS: ARTIFICIAL TEARS-HYPROMELLOSE DROPS 15 ML BTL BOTH EYES SCH ×3 (03:28→11:01)
[2020-08-30 04:10] LABS: Basophils % (A) 0 %; Eosinophils # (A) 0.2 k/uL (0-0.7); Eosinophils % (A) 1 %; HCT 30.2 % (34.0-46.0); Lymphocytes # (A) 0.2 k/uL (1.0-4.8); Lymphocytes % (A) 1 %; MCHC 33.1 g/dL (31.0-37.0); Mean Platelet Volume 8.9; Monocytes # (A) 0.4 k/uL (0-1.0); Monocytes % (A) 2 %; Neutrophils # (A) 19.5 k/uL (1.3-7.7); Neutrophils % (A) 96 %; Platelet Count 162 k/uL (150-450); RBC 3.12 m/uL (3.80-5.40); RDW 13.6 % (11.5-15.5); WBC 20.3 k/uL (3.8-10.6)
[2020-08-30 04:12] LABS: MCV 96.6 fL (80.0-100.0)
[2020-08-30 04:24] LABS: Albumin 2.2 g/dL (3.5-5.0); C Reactive Protein 4.2 mg/dL (<1.0); Calcium 7.7 mg/dL (8.4-10.2); Magnesium 2.1 mg/dL (1.6-2.3); Phosphorus 4.8 mg/dL (2.5-4.5); Potassium 4.1 mmol/L (3.5-5.1); Total Bilirubin 0.4 mg/dL (0.2-1.3); Total Protein 4.6 g/dL (6.3-8.2)
[2020-08-30 05:14] LABS: ABG Base Excess 3.8 mmol/L; ABG HCO3 30 mmol/L (21-25); ABG Oxygen Saturation 91.2 % (94-97); ABG PCO2 60 mmHg (35-45); ABG PH 7.31 (7.35-7.45); ABG PO2 61 mmHg (83-108); ABG TCO2 32 mmol/L (19-24)
[2020-08-30] MEDS: CISATRACURIUM 200 MG in SODIUM CHLORIDE 0.9% 180 ML IV SCH (05:31)
[2020-08-30 05:37] LABS: Glucose,Whole Blood 108 mg/dL (75-99)
[2020-08-30 06:14] LABS: Allen Test Performed? no
[2020-08-30] MEDS: INSULIN ASPART (NovoLOG) 100 UNIT/ML VIAL SQ SCH ×2 (06:27→11:06)
[2020-08-30] MEDS: LEVOTHYROXINE 100 MCG TAB PO SCH (06:27)
[2020-08-30] MEDS: ALBUTEROL HFA INHALER INHALATION SCH ×2 (07:18→10:43)
--- NOTE | 2020-08-30 08:07 | XR ---
EXAMINATION TYPE: XR chest 1V portable DATE OF EXAM: 08/30/2020 COMPARISON: 08/29/2020 HISTORY: Chest tube position TECHNIQUE: Single frontal view of the chest is obtained. FINDINGS: There is approximate 10% right apical pneumothorax. ET and NG tube noted there is a right- sided chest tube and central line. Diffuse interstitial changes seen with right basilar infiltrate an d small effusion. IMPRESSION: 1. Stable right apical pneumothorax. 2. Diffuse bilateral infiltrates.
[2020-08-30] MEDS: CHLORHEXIDINE GLUCONATE 15 ML CUP MUCOUS MEM SCH (08:28)
[2020-08-30] MEDS: ASCORBIC ACID 500 MG TAB PO SCH (08:28)
[2020-08-30] MEDS: methylPREDNISolone SOD SUCCI 40 MG/ML 1 ML VIAL IV SCH (08:28)
[2020-08-30] MEDS: FLUCONAZOLE 100 MG TAB PO SCH (08:28)
[2020-08-30] MEDS: ZINC SULFATE 220 MG CAP PO SCH (08:28)
[2020-08-30] MEDS: amLODIPine 10 MG TAB PO SCH (08:28)
[2020-08-30] MEDS: CHOLECALCIFEROL 25 MCG (1000 IU) TABLET PO SCH (08:28)
[2020-08-30] MEDS: PANTOPRAZOLE 40 MG TABLET PO SCH (08:28)
[2020-08-30] MEDS: SERTRALINE 100 MG TAB PO SCH (08:28)
[2020-08-30] MEDS: ENOXAPARIN 40 MG/0.4 ML SYRINGE SQ SCH (08:29)
[2020-08-30] MEDS: SODIUM CHLORIDE 0.9% 1,000 ML IV SCH (08:29)
[2020-08-30 09:19] VITALS: BP 106/58
[2020-08-30 09:30] LABS: Ferritin 539.3 ng/mL (10.0-291.0)
[2020-08-30 11:04] LABS: Glucose,Whole Blood 137 mg/dL (75-99)
[2020-08-30] MEDS: fentaNYL (PF). 1,000 MCG in SODIUM CHLORIDE 0.9% 80 ML IV SCH (11:05)
--- NOTE | 2020-08-30 11:53 | P.PN ---
Subjective Progress Note Date: 08/30/20 This is a pleasant 80-year-old female patient with a history of hyperlipidemia, hypertension, hypothyroidism, breast cancer who was originally admitted back on 08/06/2020 for right-sided abdominal/flank pain. She does have a history of kidney stones and a computed tomography scan showed severe right hydr onephrosis/polynephritis with moderate paranephric urinary extravasation due to a 4.7 x 6.1 mm right UPJ calculus. She had subsequently undergone cystoscopy and right ureteral stent placement on 08/07/2020. Urine culture positive for E. coli. Blood cultures positive for E. coli. She had been treated for sepsis with excess fluid resuscitation and today developed worsening shortness of breath and hypoxemia. And 18 was called she was placed on 12 L high flow nasal cannula with saturations at 88%. Arterial blood gases revealed a PaO2 of 56%, pCO2 43, pH 7.38 on 65% FiO2. She was transferred to the selective care unit, placed on BiPAP 10/5 with 80% FiO2. She had received Lasix 40 mg 2 in the past 24 hours. She is seen today in consultation on the selective care unit. She remains on BiPAP 10/5 and 80% FiO2. O2 saturations currently 84%. FiO2 is increased to 100%. She is given additional Lasix 40 mg IVP. Chest x-ray revealed stable cardiomegaly with continued perihilar and upper and midlung airspace disease, slightly worsened on the left. White count 13.3. Hemoglobin 12.1. Sodium 136. Potassium 3.7. Creatinine 1.34. ProBNP 5930. Theodore virus screen negative. She is on DuoNeb inhalations and antibiotics in the form of ceftriaxone and azithromycin. Heparin for DVT prophylaxis, Protonix for GI prophylaxis. The patient is seen today 08/11/2020 follow-up. She continues to do poorly from the pulmonary standpoint. She remains on BiPAP 12/6 in the 100% FiO2 to vanesa ntain O2 saturations at 90. She is restless, confused. She is obeying commands. She remains oriented 3. ABGs revealed a PaO2 of 68, pCO2 of 58 and a pH of 7.34 on 100% FiO2. White count 14.5. Hemoglobin 14.7. Platelet count 115,000. D-dimer 3.38. Sodium 139. Potassium 3.9. Creatinine 1.20. Pro calcitonin 8.43. Urine and blood cultures positive for E. coli. She remains on azithromycin, ceftriaxone. Continued on bronchodilators. Lasix 40 mg mg every 12 hours. She remains in a negative balance. Echocardiogram revealed preserved left ventricular systolic function with ejection fraction 55-60%. The plan is to transfer her to the intensive care unit for closer monitoring. The patient is seen today 08/12/2020 in follow-up in the intensive care unit. She was transferred here last evening due to worsening shortness of breath and hypoxemia. Her CoVID 19 screen was negative. She is currently on BiPAP 12/6 and 100% FiO2 maintaining O2 saturations in the mid to upper 80s. Arterial blood gases reveal a pO2 of 69, pCO2 55, pH 7.39. She is in mild respiratory distress. She slightly tachycardic, tachypneic. Temperature 99.1 axillary. Chest x-ray continues to show increased interstitial opacities, bibasilar opacities, cardiomegaly. Blood and urine cultures positive for E. coli. White count 14.3. Hemoglobin 13.8. Lymphocytes 0.3. Sodium 143. Potassium 2.8. BUN 33. Creatinine 1.41. Glucose 127. She remains on bronchodilators, IV diuretics, antibiotics in the form of ceftriaxone and azithromycin. Potassium is being replaced. The patient is seen today 08/26/2020 in follow-up on the regular medical floor. She has been slow to progress. She is still requiring 60 liters and 90% FiO2 while wearing the AirVo. She is also utilizing the BiPAP intermittently at 14/6 and 100% FiO2. Chest x-ray continues to revealed bilateral groundglass opacities, prominence of interstitium, airspace disease. PICC line in the right upper extremity remains in place. Follow-up urine culture reveals Agatha only. Previous culture positive for E. coli. Blood cultures reveal no growth. Sputum culture with Agatha only. White count 25.0. Hemoglobin 11.7. Lymphocy herbie 0.2. D-dimer 1.55. Sodium 137. Potassium 4.1. Creatinine 0.98. LDH 1013. C-reactive protein 3.2. Pro calcitonin 0.11. She remains on IV Solu- Medrol, bronchodilators. Lovenox, vitamin supplements. On 08/27/2020 patient seen in follow-up on medical surgical floor, she remains on BiPAP, she is lethargic, but arousable to voice, BiPAP settings of 14 and 6, and FiO2 100%. She alternates with the Airvo at 60 L and 90%. She looks weak, she is afebrile, hemodynamically she stable, yesterday chest x-ray shows bilateral groundglass opacities, prominence of interstitium. No new labs today, yesterday's labs showed increased white blood cell count of 25, hemoglobin is 11.7, d-dimer came back at 1.55, LDH was improving and was down to 1013, and CRP was 2.2, pro calcitonin level was negative at 0.11, urinalysis was repeated showing infected urine, with large amount of leuk trase, and greater than 182 of white blood cells bacteria and budding yeast. D service was consulted, and patient was started on Diflucan. Addition patient remains on IV Solu-Medrol 60 mg every 6 hours. Patient is being switched to Airvo so she can take in some oral nutrition. Patient is only able to tolerate half an hour to 45 minutes of Airvo at a time before requiring to go back on BiPAP On 08/28/2020 patient seen in follow-up on medical surgical floor. She has failed attempts to place her on high flow oxygen and she immediately desaturates, becomes very dyspneic, and has been BiPAP dependent. She has been unable to sustain her oral nutrition as she has not been able to stay off the BiPAP support long enough to take in anything orally. Her BiPAP pressures of 14/6 and FiO2 of 100%, her pulse ox is 89-90%, she appears very weak, and fatigue, but no acute distress, her chest x-ray today shows bilateral confluent reticulonodular opacities consistent with COVID-19 infection and/or ARDS, with no change from prior chest x-ray. Today's labs have been reviewed showing a white blood cell count of 23.3, hemoglobin of 12.9, d-dimer is 1.48, sodium is 142, potassium is 4.6, chloride is 101, CO2 is 39, BUN of 39, creatinine 0.79, LDH is improving, down to 957, and CRP is 1.9, pro calcitonin level from 08/26/2020 was negative at 0.11. She is currently on Diflucan for possibility of urinary tract infection and the urine culture showed Agatha albicans, and follow-up urine culture from 08/26/2020 showed gram-negative bacilli suggesting possibility of urinary tract infection. Infectious disease is following, and in addition to Diflucan patient is currently on Zosyn. IV steroids currently with Solu-Medrol 40 mg every 8 hours, and patient remains on prophylactic dose of Lovenox 40 mg daily. Progress note dated 08/29/2020. The patient's overall condition worsened today, and she had a very poor blood gas and 100% and BiPAP. Her pO2 was only 41, CO2 was 79, and pH of 7.29. We decided go ahead and move her to the intensive care unit. There, she required intubation and mechanical ventilation for nathan respiratory failure. Unfortunately, post intubation, she developed a right-sided pneumothorax, and #32-[place] chest tube was placed by myself. The patient tolerated the procedure well. In addition, we placed a left radial art line in this patient. Currently, she is on the volume assist control mode, rate 24, tidal volume 350, FiO2 100%, PEEP of 10. A repeat blood gas will be pending shortly. The post chest tube x-ray showed almost complete reexpansion of the right lung. The patient's on propofol at 50 mcg/kg/m, saline at 100 mL an hour, and we going to start a fentanyl drip. The patient may need arouses with Nimbex. We'll wait on the follow-up blood gases. Labs today only included the blood gas that was done when the patient first arrived in the intensive care unit. A full set of labs will be ordered. The patient already has a double-lumen PICC line. The patient is seen today 08/30/2020 in follow-up in the intensive care unit. She developed worsening hypoxemic respiratory failure requiring intubation yesterday. Postintubation she developed a right-sided pneumothorax and the chest tube was placed. She is currently on the mechanical ventilator. Current settings assist-control 36, tidal volume 400, FiO2 100% and a PEEP of 5. Morning blood gases reveal a P O2 of 61, pCO2 60, pH 7.31. She is sedated on propofol at 50 mcg/kg/m, fentanyl at 1 mcg/kg per hour, Nimbex at 1 mcg/kg/m. 0.9 normal saline at 100 ML's per hour. She is being nourished with vital HP at 16 ML's per hour which is goal. Chest x-ray reveals a stable 10% right apical pneumothorax. Diffuse bilateral infiltrates. Urine culture positive for pseudomonas aeruginosa. Follow-up blood cultures revealing no growth. White count 20.3. Hemoglobin 10.0. Lymphocytes 0.2. D-dimer 1.55. Sodium 143. Potassium 4.1. Creatinine 1.32. Glucose 117. LDH 931. C-reactive protein 4.2. Currently on Zosyn, IV Solu-Medrol, Lovenox, bronchodilators, vitamin supplements. Objective - Vital Signs Vital signs: Vital Signs Temp 97.5 F L 08/30/20 08:00 Pulse 79 08/30/20 11:00 Resp 36 H 08/30/20 11:00 BP 106/58 08/30/20 08:30 Pulse Ox 90 L 08/30/20 11:00 Intake & Output 08/29/20 08/30/20 08/30/20 18:59 06:59 18:59 Intake Total 0682.394 4434.766 894.075 Output Total 260 355 165 Balance 1777.683 6524.766 729.075 Weight 79.7 kg 86.1 kg Intake: IV 1600 1200 500 Sodium Chloride 0.9% 1, 600 1200 500 000 ml @ 100 mls/hr IV . Q10H REGINALDO Rx#:[id number] Sodium Chloride 0.9% 1, 1000 000 ml @ 999 mls/hr IV . Q1H1M ONE Rx#:[id number] Intake, IV Titration 169.851 411.766 284.075 Amount Cisatracurium 200 mg In 4.782 141.228 Sodium Chloride 0.9% 180 ml @ 1 MCG/KG/MIN 4.782 mls/hr IV .Q24H REGINALDO Rx#: [id number] fentaNYL (PF). 1,000 mcg 9.969 70.538 97.212 In Sodium Chloride 0.9% 80 ml @ Per Protocol IV . Q0M REGINALDO Rx#:[id number] propofoL 1,000 mg In 155.10 200 186.863 Empty Bag 1 bag @ Titrate IV .Q0M REGINALDO Rx#: [id number] Tube Feeding 48 192 80 Other 30 100 30 Output: Chest Tube Drainage 10 5 Right Anterior Chest 10 5 Urine 250 350 165 Other: Voiding Method Indwelling Catheter Indwelling Catheter ABP, PAP, CO, CI - Last Documented Arterial Blood Pressure 111/46 - Exam GENERAL EXAM: Intubated, sedated, paralyzed 80-year-old female patient, on the mechanical ventilator at 100% FiO2. HEAD: Normocephalic. EYES: Sluggish reaction of pupils, equal size. NOSE: Clear with pink turbinates. THROAT: Oral endotracheal and gastric tube secured in place. No erythema or exudates. NECK: No masses, no JVD. CHEST: No chest wall deformity. LUNGS: Equal air entry with crackles in the bilateral posterior bases. CVS: S1 and S2 normal with no audible murmur, regular rhythm. Tachycardic. ABDOMEN: No hepatosplenomegaly, normal bowel sounds, no guarding or rigidity. SPINE: No scoliosis or deformity SKIN: No rashes CENTRAL NERVOUS SYSTEM: Sedated, paralyzed. No focal deficits, tone is normal in all 4 extremities. EXTREMITIES: There is no peripheral edema. No clubbing, no cyanosis. Peripheral pulses are intact. - Labs CBC & Chem 7: 08/30/20 04:00 08/30/20 04:00 Labs: Abnormal Lab Results - Last 24 Hours (Table) 08/29/20 08/29/20 08/29/20 Range/Units 07:24 11:27 11:27 WBC 24.5 H (3.8-10.6) k/uL RBC 3.75 L (3.80-5.40) m/uL Hgb (11.4-16.0) gm/dL Hct (34.0-46.0) % MCV 103.3 H D (80.0-100.0) fL Plt Count 110 L D (150-450) k/uL Neutrophils # 23.5 H (1.3-7.7) k/uL Lymphocytes # 0.2 L (1.0-4.8) k/uL D-Dimer (<0.60) mg/L FEU ABG pH (7.35-7.45) ABG pCO2 (35-45) mmHg ABG pO2 (83-108) mmHg ABG HCO3 (21-25) mmol/L ABG Total CO2 (19-24) mmol/L ABG O2 Saturation (94-97) % Sodium 147 H (135-145) mmol/L Potassium 5.5 H (3.5-5.1) mmol/L Chloride (98-107) mmol/L Carbon Dioxide (22-30) mmol/L BUN 39.0 H 42 H (9.0-27.0) mg/dL Creatinine (0.52-1.04) mg/dL BUN/Creatinine Ratio 48.75 H (12.00-20.00) Ratio Glucose 198 H 336 H (70-110) mg/dL POC Glucose (mg/dL) (75-99) mg/dL Plasma Lactic Acid Juvenal (0.7-2.0) mmol/L Calcium 8.2 L (8.4-10.2) mg/dL Phosphorus (2.5-4.5) mg/dL Ferritin (10.0-291.0) ng/mL AST (14-36) U/L Alkaline Phosphatase (38-126) U/L Lactate Dehydrogenase (313-618) U/L Creatine Kinase (30-135) U/L C-Reactive Protein (<1.0) mg/dL Total Protein 5.1 L (6.3-8.2) g/dL Albumin 2.4 L (3.5-5.0) g/dL 08/29/20 08/29/20 08/29/20 Range/Units 11:27 13:43 15:47 WBC (3.8-10.6) k/uL RBC (3.80-5.40) m/uL Hgb (11.4-16.0) gm/dL Hct (34.0-46.0) % MCV (80.0-100.0) fL Plt Count (150-450) k/uL Neutrophils # (1.3-7.7) k/uL Lymphocytes # (1.0-4.8) k/uL D-Dimer (<0.60) mg/L FEU ABG pH 7.03 L* 6.98 L* (7.35-7.45) ABG pCO2 >120 H* >120 H* (35-45) mmHg ABG pO2 (83-108) mmHg ABG HCO3 (21-25) mmol/L ABG Total CO2 (19-24) mmol/L ABG O2 Saturation 91.5 L 93.6 L (94-97) % Sodium (135-145) mmol/L Potassium (3.5-5.1) mmol/L Chloride (98-107) mmol/L Carbon Dioxide (22-30) mmol/L BUN (9.0-27.0) mg/dL Creatinine (0.52-1.04) mg/dL BUN/Creatinine Ratio (12.00-20.00) Ratio Glucose (70-110) mg/dL POC Glucose (mg/dL) (75-99) mg/dL Plasma Lactic Acid Juvenal 2.1 H* (0.7-2.0) mmol/L Calcium (8.4-10.2) mg/dL Phosphorus (2.5-4.5) mg/dL Ferritin (10.0-291.0) ng/mL AST (14-36) U/L Alkaline Phosphatase (38-126) U/L Lactate Dehydrogenase (313-618) U/L Creatine Kinase (30-135) U/L C-Reactive Protein (<1.0) mg/dL Total Protein (6.3-8.2) g/dL Albumin (3.5-5.0) g/dL 08/29/20 08/29/20 08/29/20 Range/Units 18:04 18:06 23:07 WBC (3.8-10.6) k/uL RBC (3.80-5.40) m/uL Hgb (11.4-16.0) gm/dL Hct (34.0-46.0) % MCV (80.0-100.0) fL Plt Count (150-450) k/uL Neutrophils # (1.3-7.7) k/uL Lymphocytes # (1.0-4.8) k/uL D-Dimer (<0.60) mg/L FEU ABG pH 7.22 L (7.35-7.45) ABG pCO2 79 H* (35-45) mmHg ABG pO2 63 L (83-108) mmHg ABG HCO3 32 H (21-25) mmol/L ABG Total CO2 35 H (19-24) mmol/L ABG O2 Saturation 90.1 L (94-97) % Sodium (135-145) mmol/L Potassium (3.5-5.1) mmol/L Chloride (98-107) mmol/L Carbon Dioxide (22-30) mmol/L BUN (9.0-27.0) mg/dL Creatinine (0.52-1.04) mg/dL BUN/Creatinine Ratio (12.00-20.00) Ratio Glucose (70-110) mg/dL POC Glucose (mg/dL) 243 H 187 H (75-99) mg/dL Plasma Lactic Acid Juvenal (0.7-2.0) mmol/L Calcium (8.4-10.2) mg/dL Phosphorus (2.5-4.5) mg/dL Ferritin (10.0-291.0) ng/mL AST (14-36) U/L Alkaline Phosphatase (38-126) U/L Lactate Dehydrogenase (313-618) U/L Creatine Kinase (30-135) U/L C-Reactive Protein (<1.0) mg/dL Total Protein (6.3-8.2) g/dL Albumin (3.5-5.0) g/dL 08/30/20 08/30/20 08/30/20 Range/Units 04:00 04:00 04:00 WBC 20.3 H (3.8-10.6) k/uL RBC 3.12 L (3.80-5.40) m/uL Hgb 10.0 L D (11.4-16.0) gm/dL Hct 30.2 L (34.0-46.0) % MCV (80.0-100.0) fL Plt Count (150-450) k/uL Neutrophils # 19.5 H (1.3-7.7) k/uL Lymphocytes # 0.2 L (1.0-4.8) k/uL D-Dimer 1.55 H (<0.60) mg/L FEU ABG pH (7.35-7.45) ABG pCO2 (35-45) mmHg ABG pO2 (83-108) mmHg ABG HCO3 (21-25) mmol/L ABG Total CO2 (19-24) mmol/L ABG O2 Saturation (94-97) % Sodium (135-145) mmol/L Potassium (3.5-5.1) mmol/L Chloride 110 H (98-107) mmol/L Carbon Dioxide 32 H (22-30) mmol/L BUN 52 H (9.0-27.0) mg/dL Creatinine 1.32 H (0.52-1.04) mg/dL BUN/Creatinine Ratio (12.00-20.00) Ratio Glucose 117 H (70-110) mg/dL POC Glucose (mg/dL) (75-99) mg/dL Plasma Lactic Acid Juvenal (0.7-2.0) mmol/L Calcium 7.7 L (8.4-10.2) mg/dL Phosphorus 4.8 H (2.5-4.5) mg/dL Ferritin 539.3 H (10.0-291.0) ng/mL AST 37 H (14-36) U/L Alkaline Phosphatase 131 H (38-126) U/L Lactate Dehydrogenase 931 H (313-618) U/L Creatine Kinase 25 L (30-135) U/L C-Reactive Protein 4.2 H (<1.0) mg/dL Total Protein 4.6 L (6.3-8.2) g/dL Albumin 2.2 L (3.5-5.0) g/dL 08/30/20 08/30/20 08/30/20 Range/Units 05:12 05:34 11:03 WBC (3.8-10.6) k/uL RBC (3.80-5.40) m/uL Hgb (11.4-16.0) gm/dL Hct (34.0-46.0) % MCV (80.0-100.0) fL Plt Count (150-450) k/uL Neutrophils # (1.3-7.7) k/uL Lymphocytes # (1.0-4.8) k/uL D-Dimer (<0.60) mg/L FEU ABG pH 7.31 L (7.35-7.45) ABG pCO2 60 H (35-45) mmHg ABG pO2 61 L (83-108) mmHg ABG HCO3 30 H (21-25) mmol/L ABG Total CO2 32 H (19-24) mmol/L ABG O2 Saturation 91.2 L (94-97) % Sodium (135-145) mmol/L Potassium (3.5-5.1) mmol/L Chloride (98-107) mmol/L Carbon Dioxide (22-30) mmol/L BUN (9.0-27.0) mg/dL Creatinine (0.52-1.04) mg/dL BUN/Creatinine Ratio (12.00-20.00) Ratio Glucose (70-110) mg/dL POC Glucose (mg/dL) 108 H 137 H (75-99) mg/dL Plasma Lactic Acid Juvenal (0.7-2.0) mmol/L Calcium (8.4-10.2) mg/dL Phosphorus (2.5-4.5) mg/dL Ferritin (10.0-291.0) ng/mL AST (14-36) U/L Alkaline Phosphatase (38-126) U/L Lactate Dehydrogenase (313-618) U/L Creatine Kinase (30-135) U/L C-Reactive Protein (<1.0) mg/dL Total Protein (6.3-8.2) g/dL Albumin (3.5-5.0) g/dL Microbiology - Last 24 Hours (Table) 08/28/20 11:49 Blood Culture - Preliminary Blood No Growth after 24 hours Assessment and Plan Assessment: 1 Acute hypoxemic respiratory failure secondary to acute fluid volume overload secondary to fluid resuscitation, COVID-19 pneumonia, ARDS. Required intubation mechanical ventilatory support on 08/29/2020. The patient developed a right- sided pneumothorax following intubation. Right-sided chest tube placed on 08/29/2020. 2 Sepsis secondary to bacteremia from E. coli air follow-up blood cultures reveal no growth to date. 3 Acute urinary tract infection secondary to E. coli, recovered in follow-up urine culture reveals pseudomonas aeruginosa. 4 Acute right pyelonephritis/hydronephrosis secondary to right UPJ calculus, status post right ureteral stent placement on 08/07/2020 5 History of hypertension 6 Hyperlipidemia 7 Hypothyroidism Plan: The patient was seen and evaluated by Dr. Ware Chest x-ray, labs reviewed Continue current vent settings Continue current treatment plan Currently a DO NOT RESUSCITATE/DO NOT INTUBATE CODE STATUS Family may consider comfort care later today Overall prognosis remains quite guarded and poor We will continue to follow and make further recommendations based on her clinical status Critical care time 38 minutes I, the cosigning physician, performed a history & physical examination of the patient. Lungs sounds with crackles in the bilateral posterior bases. Maintaining O2 saturations in the 90s on the mechanical ventilator at 100% FiO2. I discussed the assessment and plan of care with my nurse practitioner, Brittanie Fallon. I attest to the above note as dictated by her.
[2020-08-30] MEDS ORDERED: MORPHINE SULFATE 2 MG/ML SYRINGE IVP STA (13:15)
[2020-08-30] MEDS ORDERED: MORPHINE SULFATE 2 MG/ML SYRINGE IVP PRN (13:15)
[2020-08-30] MEDS: MORPHINE SULFATE 2 MG/ML SYRINGE IV PRN ×2 (13:54→14:19)
[2020-08-30 14:10] VITALS: PULSE 89; RESP 15
--- NOTE | 2020-08-30 15:49 | P.DS ---
Providers Date of admission: 08/06/20 23:29 Expected date of discharge: 08/30/20 Attending physician: Sheryl Sanchez MD Consults: 08/06/20 23:29 Consult Physician Routine Consulting Provider: Dagoberto Slaughter Consult Reason/Comments: stone Do you want consulting provider notified?: Yes 08/10/20 12:34 Consult Physician Routine Consulting Provider: Rudi Cline Consult Reason/Comments: hypoxia Do you want consulting provider notified?: Yes 08/15/20 10:26 Consult Physician Stat Consulting Provider: Lon Lr Consult Reason/Comments: PICC LINE/GFR Do you want consulting provider notified?: Yes 08/25/20 12:13 Consult Physician Routine Consulting Provider: Rachid Wood Consult Reason/Comments: abx duration Do you want consulting provider notified?: Yes Primary care physician: Stated None Hospital Course: Acute hypoxic respiratory failure resulting from Covid pneumonia/ARDS from recent E.coli sepsis Pneumothorax, Spontaneous versus Iatrogenic Severe sepsis secondary to E. coli bacteremia and acute pyelonephritis Pseudomonas UTI Obstructive right ureteral stone resulting in severe hydronephrosis, patient is status post cystoscopy and insertion of ureteral stent on 08/07/20 Acute kidney injury secondary to obstructive uropathy and severe sepsis, resolved Hypokalemia, resolved Hypovolemic hypernatremia, resolved Hypertension Hyperlipidemia Hypothyroidism 80 year old woman with history of HTN/HLD, Hypothyroidism presented with impacted kidney stone causing severe sepsis from acute pyelopnephritis. Seen by ID/Urology and patient rec'd NUS to bypass stone and 19 days of ceftriaxone for E coli bactremia and pyelonephritis. Unfortunatly, patient subsequently tested positive for COVID and developed acute hypoxic respiratory failure from ARDS from sepsis vs COVID. Patient was placed on Vit C/D, Zn, Melatonin, and solumedrol, but her oxygen requirement gradually increased. She was transferred to the ICU on 08/29 after being noted to have 79% saturation on 100% FiO2 and 12/6 BIPAP settings. During her intubation, she was noted to have a right pneumothorax on post-procedure imaging and warranted chest tube placement in the right apex. Family was updated regarding patient's worsening clinical condition and low likelihood of survival to discharge, and provided substituted judgement that the patient would not want to be kept alive via artificial means. Therefore, patient was transitioned to palliative care on 08/30, and comfortably at 1436. I spent 40 minutes preparing this discharge. Plan - Discharge Summary Discharge Rx Participant: Yes New Discharge Prescriptions: Discontinued amLODIPine [Norvasc] 10 mg PO DAILY Atorvastatin Calcium [Lipitor] 40 mg PO HS Vitamin E 400 unit PO DAILY Sertraline HCl [Zoloft] 100 mg PO DAILY Losartan Potassium [Cozaar] 100 mg PO DAILY Levothyroxine Sodium 100 mcg PO DAILY Sabra 500 mg PO DAILY Follow up Appointment(s)/Referral(s): Dagoberto Slaughter MD [STAFF PHYSICIAN] - 1 Week None,Stated [Primary Care Provider] - 1-2 days Rudi Cline MD [STAFF PHYSICIAN] - 2 Weeks Discharge Disposition: - Preliminary Cause of Preliminary Cause of : COVID 19
--- NOTE | 2020-08-30 16:40 | P.PN ---
Progress Note - Text Progress Note Date: 08/30/20 REASON FOR FOLLOWUP: 1. Pneumonia. 2. Urinary tract infection. INTERVAL HISTORY: The patient ended up getting intubated. The patient is currently afebrile and hemodynamically stable, not on any pressor support. No significant purulent secretion through the ET or diarrhea reported by nursing staff. PHYSICAL EXAMINATION: Blood pressure 134/53, pulse of 89, temperature of 97.7. She is 90% on 30% FiO2. General description is an elderly female intubated on the vent. RESPIRATORY SYSTEM: Unlabored breathing. Coarse breath sounds bilaterally HEART: S1, S2. Regular rate and rhythm. ABDOMEN: Soft. No tenderness. EXTREMITIES: No edema of the feet. LABS: WBC 20.3 creatinine is 1.32 blood cultures so far negative DIAGNOSTIC IMPRESSION AND PLAN: Patient with acute respiratory failure which is likely multifactorial in this patient who do have a worsening of her COVID-19 infection, with concern for possible secondary bacterial pneumonia also with the catheter associated infection as with urine showing Pseudomonas and Agatha patient is currently covered with Zosyn and Diflucan with overall poor prognosis family is leaning towards a comfort oriented care which may be appropriate antibiotic can be safely discontinued
--- NOTE | 2020-09-03 20:57 | CDI ---
Documentation Clarification Form Mortality Review Date: 09/03/2020 08:48:34 PM From: Fanny Holder RN, CCDS Admit Date: 08/06/2020 11:29:00 PM Patient Name: Jayde Bautista Visit Number: [id number] Discharge Date: 08/30/2020 02:35:00 PM ATTENTION: The Clinical Documentation Specialists (CDI) and [facility] Coding Staff appreciate your assistance in clarifying documentation. Please respond to the clarification below the line at the bottom and electronically sign. The CDI & [facility] Coding staff will review the response and follow-up if needed. Please note: Queries are made part of the Legal Health Record. If you have any questions, please contact the author of this message via ITS. Dr. Liu Larios Stage 2 pressure ulcer is documented by Nursing beginning 08/19 1999. Based on this information and the findings below, is there an additional diagnosis that is clinically appropriate for this patient? History/Risk Factors: Acute hypoxic respiratory failure w COVID 19 and E.coli sepsis Clinical Indicators Per Nursing Wound assessments: Location: Nose Wound description: Stage 2, Hospital acquired device related pressure injury Treatment: Dry gauze while patient remained on Bipap, open to air once intubated and mechanically ventilated. Is there an additional diagnosis that is clinically appropriate for this patient? [ ] Nose Pressure Ulcer Stage 2 [ ] Other condition, please specify [ ] Unable to determine Clinical Definitions: Stage 1 Pressure Ulcer: intact skin, non-blanching redness of local area Stage 2 Pressure Ulcer: Partial thickness, loss of dermis, pink wound bed Stage 3 Pressure Ulcer: Full thickness tissue loss Stage 4 Pressure Ulcer: Full thickness tissue loss with exposed bone, tendon, or muscle. Unstageable pressure ulcer: Full thickness tissue loss in which the base of the ulcer is covered by slough (yellow, whitfield, berrios, green or brown) and/or eschar (whitfield, brown or black) in the wound bed. (Template Last Revised: July 2020) Nose Pressure Ulcer, Stage 2 MTDD
--- NOTE | 2020-09-03 21:15 | CDI ---
Documentation Clarification Form Mortality Review Date: 09/03/2020 09:13:05 PM From: Fanny Holder RN, CCDS Admit Date: 08/06/2020 11:29:00 PM Patient Name: Jayde Bautista Visit Number: [id number] Discharge Date: 08/30/2020 02:35:00 PM ATTENTION: The Clinical Documentation Specialists (CDI) and [facility] Coding Staff appreciate your assistance in clarifying documentation. Please respond to the clarification below the line at the bottom and electronically sign. The CDI & [facility] Coding staff will review the response and follow-up if needed. Please note: Queries are made part of the Legal Health Record. If you have any questions, please contact the author of this message via ITS. Dr. Duncan The Registered Dietitian assessment on 08/11-08/28 indicates this patient is underfeeding. Based on this information and the findings below, is there an additional diagnosis that is clinically appropriate for this patient? History/Risk Factors: Acute hypoxic respiratory failure with COVID 19 pneumonia, ARDS, E. 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 [ ] Mild Protein-Calorie Malnutrition [ ] Moderate Protein-Calorie Malnutrition [ ] Severe Protein-Calorie Malnutrition [ ] Other condition, please specify [ ] Unable to Determine (Template Last Revised: July 2020) Mild Protein Calorie Malnutrition MTDD
== END 2020-08-30 14:35 | disposition expired | DRG 853 ==
LOC: EC 19:32 → 5NMEDONC 23:29 → 6PED 08-07 01:14 → 3SCARD 08-10 12:28 → 2SICU 08-11 19:02 → 4SSUR 08-16 14:59 → 2SICU 08-29 10:33
PROVIDERS: ADMIT Internal Medicine; ATTEND Internal Medicine
PROC: 0T768DZ Dilation of Right Ureter with Intraluminal Device, Via Natural or Artificial Opening Endoscopic (ICD-10-PCS; principal; 2020-08-07 08:35)
PROC: 5A09557 Assistance with Respiratory Ventilation, Greater than 96 Consecutive Hours, Continuous Positive Airway Pressure (ICD-10-PCS; 2020-08-10)
PROC: 02HV33Z Insertion of Infusion Device into Superior Vena Cava, Percutaneous Approach (ICD-10-PCS; 2020-08-15)
PROC: 5A0955A Assistance with Respiratory Ventilation, Greater than 96 Consecutive Hours, High Flow/Velocity Cannula (ICD-10-PCS; 2020-08-15)
PROC: 3E0436Z Introduction of Nutritional Substance into Central Vein, Percutaneous Approach (ICD-10-PCS; 2020-08-16)
PROC: 5A1935Z Respiratory Ventilation, Less than 24 Consecutive Hours (ICD-10-PCS; 2020-08-29)
PROC: 0W9930Z Drainage of Right Pleural Cavity with Drainage Device, Percutaneous Approach (ICD-10-PCS; 2020-08-29)
PROC: 03HY32Z Insertion of Monitoring Device into Upper Artery, Percutaneous Approach (ICD-10-PCS; 2020-08-29)
PROC: 4A133B1 Monitoring of Arterial Pressure, Peripheral, Percutaneous Approach (ICD-10-PCS; 2020-08-29)
PROC: 4A133J1 Monitoring of Arterial Pulse, Peripheral, Percutaneous Approach (ICD-10-PCS; 2020-08-29)
PROC: 0B9M8ZX Drainage of Bilateral Lungs, Via Natural or Artificial Opening Endoscopic, Diagnostic (ICD-10-PCS; 2020-08-29)
PROC: 0BH17EZ Insertion of Endotracheal Airway into Trachea, Via Natural or Artificial Opening (ICD-10-PCS; 2020-08-29)
DX: A41.51 Sepsis due to Escherichia coli [E. coli] (principal); I50.33 Acute on chronic diastolic (congestive) heart failure; T83.518A Infection and inflammatory reaction due to other urinary catheter, initial encounter; B37.49 Other urogenital candidiasis; N17.0 Acute kidney failure with tubular necrosis; J12.82 Pneumonia due to coronavirus disease 2019; U07.1 COVID-19; J80 Acute respiratory distress syndrome; J15.9 Unspecified bacterial pneumonia; E87.2 Acidosis; N13.6 Pyonephrosis; E87.0 Hyperosmolality and hypernatremia; E87.4 Mixed disorder of acid-base balance; J93.83 Other pneumothorax; E44.1 Mild protein-calorie malnutrition; R65.20 Severe sepsis without septic shock; I10 Essential (primary) hypertension; F32.9 Major depressive disorder, single episode, unspecified; B96.20 Unspecified Escherichia coli [E. coli] as the cause of diseases classified elsewhere; E86.1 Hypovolemia; L89.812 Pressure ulcer of head, stage 2; I27.20 Pulmonary hypertension, unspecified; Z51.5 Encounter for palliative care; Z66 Do not resuscitate; D69.6 Thrombocytopenia, unspecified; Z68.34 Body mass index [BMI] 34.0-34.9, adult; E03.9 Hypothyroidism, unspecified; I95.9 Hypotension, unspecified; Z85.3 Personal history of malignant neoplasm of breast; E87.6 Hypokalemia; I11.0 Hypertensive heart disease with heart failure; Y84.6 Urinary catheterization as the cause of abnormal reaction of the patient, or of later complication, without mention of misadventure at the time of the procedure; T38.0X5A Adverse effect of glucocorticoids and synthetic analogues, initial encounter; Z87.442 Personal history of urinary calculi; E78.5 Hyperlipidemia, unspecified; D72.829 Elevated white blood cell count, unspecified; Z79.890 Hormone replacement therapy; R32 Unspecified urinary incontinence; B96.5 Pseudomonas (aeruginosa) (mallei) (pseudomallei) as the cause of diseases classified elsewhere; E61.1 Iron deficiency; K52.9 Noninfective gastroenteritis and colitis, unspecified; T50.2X5A Adverse effect of carbonic-anhydrase inhibitors, benzothiadiazides and other diuretics, initial encounter; Z79.899 Other long term (current) drug therapy; Z86.16 Personal history of COVID-19; Y84.8 Other medical procedures as the cause of abnormal reaction of the patient, or of later complication, without mention of misadventure at the time of the procedure; Y92.239 Unspecified place in hospital as the place of occurrence of the external cause
CPT/HCPCS: 31624; 36415; 36573; 36600; 71045; 74018; 80048; 80053; 81001; 82040; 82330; 82550; 82728; 82803; 82805; 83036; 83605; 83615; 83735; 83880; 84100; 84132; 84145; 84295; 84478; 85025; 85027; 85379; 85610; 85730; 86140; 86769; 87040; 87070; 87077; 87086; 87186; 87205; 87635; 93005; 93306; 94002; 94003; 94640; 94660; 94760; 96374; 96375; 99285